=== PATIENT | male | born 1985 | race Caucasian/White ===

== ENCOUNTER 2016-08-03 01:12 | Emergency (ER) | payer BC ==
[~2016-08-03] VITALS: Ht 182.9 cm; Wt 205.0 kg
[~2016-08-03 01:12] MED LIST: HYDR-2762 PO
[2016-08-03] MEDS ORDERED: IV NORMAL SALINE 1000ML BAG 1,000 ML IV SCH (02:15)
[2016-08-03 02:39] LABS: BASO % 1 % (0-3); EOS % 0 % (0-3); HEMATOCRIT 40.2 % (39.0-53.0); HEMOGLOBIN 13.2 g/dL (13.0-17.5); LYMPH # 0.5 x10^3/uL (1.0-4.8); LYMPH % 7 % (24-48); MEAN CORPUSCULAR HEMOGLOBIN 28 pg (25-35); MEAN CORPUSCULAR HGB CONC 33 g/dL (31-37); MEAN CORPUSCULAR VOLUME 86 fL (79-100); MONO % 7 % (0-9); NEUT % 86 % (31-73); PLATELET COUNT 181 x10^3/uL (140-400); RED BLOOD COUNT 4.68 x10^6/uL (4.30-5.70); RED CELL DISTRIBUTION WIDTH 15.6 % (11.5-14.5); WHITE BLOOD COUNT 7.7 x10^3/uL (4.0-11.0)
[2016-08-03 03:17] LABS: CALCIUM 8.9 mg/dL (8.5-10.1); CREATININE 0.8 mg/dL (0.7-1.3); POTASSIUM 3.6 mmol/L (3.5-5.1)
[2016-08-03 03:24] LABS: ALBUMIN 2.7 g/dL (3.4-5.0); ALBUMIN/GLOBULIN RATIO 0.6 (1.0-1.7); TOTAL BILIRUBIN 0.8 mg/dL (0.2-1.0); TOTAL PROTEIN 7.3 g/dL (6.4-8.2)
[2016-08-03] MEDS ORDERED: ONDANSETRON PF 4 MG/2 ML VIAL. IV ONE (03:30)
[2016-08-03 03:31] LABS: CKMB INDEX 0.3 % (0-4); CKMB MASS 0.9 ng/mL (0.0-3.6)
--- NOTE | 2016-08-03 03:38 | PHYS DOC ---
Past Medical History Past Medical History: Other Additional Past Medical Histor: colitis, colostomy bag, CHRONES,STEROID INDUCED DM,MORBID OBESITY Past Surgical History: Colectomy Additional Past Surgical Histo: BOWEL RESECTION Alcohol Use: None Drug Use: None Adult General Chief Complaint Chief Complaint: DIZZY/LIGHT HEADED HPI HPI Patient is a 30 year old male who presents with complaint of dizziness and lightheadedness. Patient states that he started getting symptoms earlier this morning. Patient states that he has been having nausea and vomiting brought the day and also complaints of upper abdominal pain. Patient states that the pain is cramping in nature. Patient denies any associated fevers. Patient has history of Crohn's disease. Patient denies history of diabetes mellitus. Patient states that he had diabetes in the past because he had to be on steroid therapy for Crohn's. Patient however is not on any prednisone at this time. Patient had a complete colectomy and has a right-sided ileostomy at this time. Patient states he is not on any other medications at this time. Patient states that due to generalized weakness and lightheadedness he came in the emergency department for evaluation. Review of Systems Review of Systems Constitutional: Lightheadedness, Denies fever or chills [] Eyes: Denies change in visual acuity, redness, or eye pain [] HENT: Denies nasal congestion or sore throat [] Respiratory: Denies cough or shortness of breath [] Cardiovascular: Denies chest pain or edema [] GI: Abdominal pain, nausea, vomiting, denies bloody stools or diarrhea [] : Denies dysuria or hematuria [] Musculoskeletal: Denies back pain or joint pain [] Integument: Denies rash or skin lesions [] Neurologic: Denies headache, focal weakness or sensory changes [] Endocrine: Denies polyuria or polydipsia [] Current Medications Current Medications Current Medications Medications (Trade) Dose Ordered Sig/Marlo Start Time Stop Time Status Last Admin Dose Admin Ondansetron HCl (Zofran) 4 mg 1X ONCE 08/03/16 03:30 08/03/16 03:31 DC 08/03/16 03:35 4 MG Sodium Chloride (Iv Sodium Chloride 0.9% 1000ml Bag) 1,000 ml @ 1,000 mls/hr Q1H 08/03/16 02:15 08/03/16 03:14 DC 08/03/16 02:20 1,000 MLS/HR Allergies Allergies Allergies Coded Allergies Type Severity Reaction Last Updated Verified No Known Drug Allergies 07/24/13 No Physical Exam Physical Exam Constitutional: Alert, morbidly obese, afebrile, appears ill. [] HENT: Normocephalic, atraumatic, bilateral external ears normal, oropharynx moist, no oral exudates, nose normal. [] Eyes: PERRLA, EOMI, conjunctiva normal, no discharge. [] Neck: Normal range of motion, no tenderness, supple, no stridor. [] Cardiovascular: Tachycardia, regular rhythm, no murmur [] Lungs & Thorax: Bilateral breath sounds clear to auscultation [] Abdomen: Right-sided ileostomy, normal bowel sounds, nontender to palpation. [] Skin: Warm, dry, no erythema, multiple excoriated lesions over bilateral upper extremities and abdomen. [] Back: No tenderness, no CVA tenderness. [] Extremities: No tenderness, no cyanosis, no clubbing, ROM intact, no edema. [] Neurologic: Alert and oriented X 3, normal motor function, normal sensory function, no focal deficits noted. [] Current Patient Data Vital Signs Vital Signs Date Time Temp Pulse Resp B/P Pulse Ox O2 Delivery O2 Flow Rate FiO2 08/03/16 03:28 88 18 151/72 97 Room Air 08/03/16 01:48 98.3 98.3 Lab Values Laboratory Tests Test 08/03/16 01:55 White Blood Count 7.7x10^3/uL (4.0-11.0) Red Blood Count 4.68x10^6/uL (4.30-5.70) Hemoglobin 13.2g/dL (13.0-17.5) Hematocrit 40.2% (39.0-53.0) Mean Corpuscular Volume 86fL (79-100) Mean Corpuscular Hemoglobin 28pg (25-35) Mean Corpuscular Hemoglobin Concent 33g/dL (31-37) Red Cell Distribution Width 15.6% (11.5-14.5) H Platelet Count 181x10^3/uL (140-400) Neutrophils (%) (Auto) 86% (31-73) H Lymphocytes (%) (Auto) 7% (24-48) L Monocytes (%) (Auto) 7% (0-9) Eosinophils (%) (Auto) 0% (0-3) Basophils (%) (Auto) 1% (0-3) Neutrophils # (Auto) 6.6x10^3uL (1.8-7.7) Lymphocytes # (Auto) 0.5x10^3/uL (1.0-4.8) L Monocytes # (Auto) 0.5x10^3/uL (0.0-1.1) Eosinophils # (Auto) 0.0x10^3/uL (0.0-0.7) Basophils # (Auto) 0.0x10^3/uL (0.0-0.2) Platelet Estimate Pending Sodium Level 135mmol/L (136-145) L Potassium Level 3.6mmol/L (3.5-5.1) Chloride Level 97mmol/L (98-107) L Carbon Dioxide Level 30mmol/L (21-32) Anion Gap 8 (6-14) Blood Urea Nitrogen 9mg/dL (8-26) Creatinine 0.8mg/dL (0.7-1.3) Estimated GFR (Cockcroft-Gault) 112.0 BUN/Creatinine Ratio 11 (6-20) Glucose Level 294mg/dL (70-99) H Calcium Level 8.9mg/dL (8.5-10.1) Total Bilirubin 0.8mg/dL (0.2-1.0) Aspartate Amino Transferase (AST) 15U/L (15-37) Alanine Aminotransferase (ALT) 25U/L (16-63) Alkaline Phosphatase 94U/L (46-116) Creatine Kinase 318U/L (39-308) H Creatine Kinase MB (Mass) 0.9ng/mL (0.0-3.6) Creatine Kinase MB Relative Index 0.3% (0-4) Troponin I Quantitative < 0.017ng/mL (0.000-0.055) CB-Atw-B-Type Natriuretic Peptide 138pg/mL (0-124) H Total Protein 7.3g/dL (6.4-8.2) Albumin 2.7g/dL (3.4-5.0) L Albumin/Globulin Ratio 0.6 (1.0-1.7) L Laboratory Tests 08/03/16 01:55 Laboratory Tests 08/03/16 01:55 EKG EKG Interpreted by me: Heart rate 89, sinus rhythm, normal intervals, normal axis, no acute ST/T-wave abnormalities present [] Radiology/Procedures Radiology/Procedures One view AP chest x-ray interpreted by me: No infiltrates, no effusions, normal cardiac silhouette [] Course & Med Decision Making Course & Med Decision Making Pertinent Labs and Imaging studies reviewed. (See chart for details) Patient was given IV fluids and Zofran in the emergency department. On reevaluation patient states that he feels better at this time. Patient was found to have a blood sugar of 294. Explained to the patient that the patient's symptoms are likely due to hyperglycemia from untreated diabetes mellitus type 2. The patient was started on metformin in the emergency department. Advise follow-up in one week with primary doctor and return to emergency department for any worsening symptoms. Patient voiced understanding and in agreement with treatment plan. Dragon Disclaimer Dragon Disclaimer This electronic medical record was generated, in whole or in part, using a voice recognition dictation system. Departure Departure Impression: Primary Impression: Acute hyperglycemia Additional Impression: Type 2 diabetes mellitus Disposition: HOME, SELF-CARE Condition: IMPROVED Referrals: NO PCP (PCP) Patient Instructions: Type 2 Diabetes Mellitus, Adult Additional Instructions: Follow-up with your primary doctor in 1 week. Return to the emergency department for any worsening symptoms. Scripts Metformin Hcl 500 Mg Tablet1 Tab PO BID #60 TAB Ref 0 Prov:BYRON CH MD 08/03/16 Problem Qualifiers Additional Impression: Type 2 diabetes mellitus Diabetes mellitus complication status: with hyperglycemia Diabetes mellitus long-term insulin use: without long-term use Qualified Code: E11.65 - Type 2 diabetes mellitus with hyperglycemia BYRON CH MD Aug 03, 2016 03:38
[2016-08-03 04:13] VITALS: BP 174/81
[2016-08-03] MEDS ORDERED: METF500T4 PO (04:17)
[2016-08-03] MEDS ORDERED: METFORMIN 500 MG TABLET. PO ONE (04:30)
[2016-08-03 05:10] LABS: % EOS 1 % (0-5); PLT ESTIMATE ADEQUATE (ADEQUATE); POLYCHROMASIA SLIGHT
--- NOTE | 2016-08-03 06:18 | EKG ---
[facility] [address] [place] [address] Test Date: 2016-08-03 Test Time: 01:41:54 Pat Name: ANDREEA TANG Department: Room: Gender: M License Issuer: : [id number] Requested By: BYRON CH Order Number: [id number] Reading MD: Suhas Roblero Measurements Intervals Garber Rate: 89 P: 37 CO: 160 QRS: 27 QRSD: 110 T: 30 QT: 388 QTc: 479 Interpretive Statements SINUS RHYTHM Electronically Signed On 08-07-2016 10:25:43 [employer]ARNESS [employer]ER by Suhas Roblero
--- NOTE | 2016-08-03 07:13 | RAD ---
EXAM: Chest, single view. HISTORY: Syncope. COMPARISON: 11/07/2011. FINDINGS: A frontal view of the chest is obtained. There is no infiltrate, effusion or pneumothorax. The heart is normal in size for portable technique. IMPRESSION: No acute pulmonary finding.
== END 2016-08-03 04:20 | disposition home or self-care (01) ==
LOC: ER 01:12
DX: E11.65 Type 2 diabetes mellitus with hyperglycemia (principal); R10.10 Upper abdominal pain, unspecified; R11.2 Nausea with vomiting, unspecified; E66.01 Morbid (severe) obesity due to excess calories; Z68.44 Body mass index [BMI] 60.0-69.9, adult; Z90.49 Acquired absence of other specified parts of digestive tract; Z93.2 Ileostomy status
CPT/HCPCS: 36415; 71010; 80053; 82553; 82947; 83880; 84484; 85007; 85027; 93005; 96361; 96374; 99285; J2405; J7030; 99284-25

== ENCOUNTER 2016-09-14 20:17 | Inpatient (IN) | payer BC ==
[~2016-09-14] VITALS: Ht 182.9 cm; Wt 226.8 kg
[~2016-09-14 20:17] MED LIST changes: +CEPH-263 PO; +DULA0.75 SQ; +METF10002 PO; +METF500T4 PO; +OXYC-323 PO
[2016-09-14] MEDS ORDERED: IV NORMAL SALINE 1000ML BAG 1,000 ML IV SCH (21:25)
[2016-09-14] MEDS ORDERED: ONDANSETRON PF 4 MG/2 ML VIAL. IV ONE (21:30)
[2016-09-14 21:34] LABS: BASO % 1 % (0-3); EOS % 8 % (0-3); HEMATOCRIT 44.4 % (39.0-53.0); HEMOGLOBIN 14.6 g/dL (13.0-17.5); LYMPH # 0.9 x10^3/uL (1.0-4.8); LYMPH % 14 % (24-48); MEAN CORPUSCULAR HEMOGLOBIN 28 pg (25-35); MEAN CORPUSCULAR HGB CONC 33 g/dL (31-37); MEAN CORPUSCULAR VOLUME 85 fL (79-100); MONO % 16 % (0-9); NEUT % 62 % (31-73); PLATELET COUNT 305 x10^3/uL (140-400); RED BLOOD COUNT 5.21 x10^6/uL (4.30-5.70); RED CELL DISTRIBUTION WIDTH 15.3 % (11.5-14.5); WHITE BLOOD COUNT 6.7 x10^3/uL (4.0-11.0)
[2016-09-14 21:45] LABS: CALCIUM 9.6 mg/dL (8.5-10.1); CREATININE 1.1 mg/dL (0.7-1.3); GFR 77.6; POTASSIUM 3.5 mmol/L (3.5-5.1)
[2016-09-14 21:53] LABS: ALBUMIN 3.5 g/dL (3.4-5.0); DIRECT BILIRUBIN 0.2 mg/dL (0.0-0.2); TOTAL BILIRUBIN 1.2 mg/dL (0.2-1.0); TOTAL PROTEIN 8.6 g/dL (6.4-8.2)
--- NOTE | 2016-09-14 21:58 | PHYS DOC ---
Past Medical History Past Medical History: Diabetes-Type II, Other Additional Past Medical Histor: colitis, colostomy bag, Crohn's,STEROID INDUCED DM,MORBID OBESITY Past Surgical History: Colectomy Additional Past Surgical Histo: BOWEL RESECTION, L HAND Alcohol Use: None Drug Use: None Adult General Chief Complaint Chief Complaint: NAUSEA/VOMITING/DIARRHA HPI HPI Patient is a 30 year old male who presents with 6 days of intermittent nausea and vomiting of nonbloody nonbilious emesis. Also notes decreased ostomy output and abdominal distention. States he has generalized crampy abdominal pain that is managed with home hydrocodone. He also states his urine has been dark. He denies dark stools, bloody stools, fever or chills, sick contacts, dysuria. Review of Systems Review of Systems Constitutional: Denies fever or chills [] Eyes: Denies change in visual acuity, redness, or eye pain [] HENT: Denies nasal congestion or sore throat [] Respiratory: Denies cough or shortness of breath [] Cardiovascular: No additional information not addressed in HPI [] GI: Denies bloody stools or diarrhea [] : Denies dysuria or hematuria [] Musculoskeletal: Denies back pain or joint pain [] Integument: Denies rash or skin lesions [] Neurologic: Denies headache, focal weakness or sensory changes [] Endocrine: Denies polyuria or polydipsia [] Current Medications Current Medications Current Medications Medications (Trade) Dose Ordered Sig/Marlo Start Time Stop Time Status Last Admin Dose Admin Info (Do NOT chart on this entry -- for MONITORING) 1 each PRN DAILY PRN 09/14/16 22:15 09/16/16 22:14 Iohexol (Omnipaque 300 Mg/ml) 75 ml 1X ONCE 09/14/16 22:00 09/14/16 22:01 DC 09/14/16 22:00 75 ML Ondansetron HCl (Zofran) 4 mg 1X ONCE 09/14/16 21:30 09/14/16 21:31 DC 09/14/16 21:35 4 MG Sodium Chloride (Iv Sodium Chloride 0.9% 1000ml Bag) 1,000 ml @ 1,000 mls/hr Q1H 09/14/16 21:25 09/14/16 22:24 DC 09/14/16 21:36 1,000 MLS/HR Allergies Allergies Allergies Coded Allergies Type Severity Reaction Last Updated Verified No Known Drug Allergies 07/24/13 No Physical Exam Physical Exam Constitutional: Well developed, well nourished, no acute distress, non-toxic appearance. [] HENT: Normocephalic, atraumatic, bilateral external ears normal, oropharynx moist, nose normal. [] Eyes: PERRLA, EOMI. [] Neck: Normal range of motion, supple. [] Cardiovascular:Heart rate regular rhythm [] Lungs & Thorax: Bilateral breath sounds clear to auscultation [] Abdomen: Bowel sounds normal, soft, mild general tenderness, distended with large palpable ventral hernia, ostomy bag to RLQ. [] Skin: Warm, dry, no erythema, no rash. [] Back: Normal ROM. [] Extremities: ROM intact, wound vac to LLE. [] Neurologic: Alert and oriented X 3, normal motor function, normal sensory function, no focal deficits noted. [] Psychologic: Affect normal, judgement normal, mood normal. [] Current Patient Data Vital Signs Vital Signs Date Time Temp Pulse Resp B/P Pulse Ox O2 Delivery O2 Flow Rate FiO2 09/14/16 21:58 90 22 128/81 96 Room Air 09/14/16 20:28 97.9 97.9 Lab Values Laboratory Tests Test 09/14/16 20:30 09/14/16 21:25 White Blood Count 6.7x10^3/uL (4.0-11.0) Red Blood Count 5.21x10^6/uL (4.30-5.70) Hemoglobin 14.6g/dL (13.0-17.5) Hematocrit 44.4% (39.0-53.0) Mean Corpuscular Volume 85fL (79-100) Mean Corpuscular Hemoglobin 28pg (25-35) Mean Corpuscular Hemoglobin Concent 33g/dL (31-37) Red Cell Distribution Width 15.3% (11.5-14.5) H Platelet Count 305x10^3/uL (140-400) Neutrophils (%) (Auto) 62% (31-73) Lymphocytes (%) (Auto) 14% (24-48) L Monocytes (%) (Auto) 16% (0-9) H Eosinophils (%) (Auto) 8% (0-3) H Basophils (%) (Auto) 1% (0-3) Neutrophils # (Auto) 4.2x10^3uL (1.8-7.7) Lymphocytes # (Auto) 0.9x10^3/uL (1.0-4.8) L Monocytes # (Auto) 1.1x10^3/uL (0.0-1.1) Eosinophils # (Auto) 0.5x10^3/uL (0.0-0.7) Basophils # (Auto) 0.0x10^3/uL (0.0-0.2) Sodium Level 135mmol/L (136-145) L Potassium Level 3.5mmol/L (3.5-5.1) Chloride Level 95mmol/L (98-107) L Carbon Dioxide Level 26mmol/L (21-32) Anion Gap 14 (6-14) Blood Urea Nitrogen 24mg/dL (8-26) Creatinine 1.1mg/dL (0.7-1.3) Estimated GFR (Cockcroft-Gault) 77.6 Glucose Level 149mg/dL (70-99) H Calcium Level 9.6mg/dL (8.5-10.1) Total Bilirubin 1.2mg/dL (0.2-1.0) H Direct Bilirubin 0.2mg/dL (0.0-0.2) Aspartate Amino Transferase (AST) 12U/L (15-37) L Alanine Aminotransferase (ALT) 24U/L (16-63) Alkaline Phosphatase 105U/L (46-116) Total Protein 8.6g/dL (6.4-8.2) H Albumin 3.5g/dL (3.4-5.0) Lipase 57U/L (73-393) L Urine Color [place] Urine Clarity Cloudy Urine pH 6.0 Urine Specific [place] >=1.030 Urine Protein 30mg/dL (NEG-TRACE) Urine Glucose (UA) Negativemg/dL (NEG) Urine Ketones (Stick) Tracemg/dL (NEG) Urine Blood Negative (NEG) Urine Nitrite Negative (NEG) Urine Bilirubin Moderate (NEG) Urine Urobilinogen Dipstick 1.0mg/dL (0.2 mg/dL) Urine Leukocyte Esterase Small (NEG) Urine RBC 0/HPF (0-2) Urine WBC 1-4/HPF (0-4) Urine Squamous Epithelial Cells Mod/LPF Urine Bacteria Few/HPF (0-FEW) Urine Hyaline Casts Few/HPF Urine Mucus Slight/LPF Laboratory Tests 09/14/16 20:30 Laboratory Tests 09/14/16 20:30 Radiology/Procedures Radiology/Procedures CT abdomen and pelvis with IV contrast IMPRESSION Distal high-grade small bowel obstruction appears be secondary to a large ventral abdominal wall hernia. No CT evidence of incarceration Electronically signed by: Giovanni Sainz MD (Sep 14, 2016 23:32:17) Course & Med Decision Making Course & Med Decision Making Pertinent Labs and Imaging studies reviewed. (See chart for details) Laboratory evaluation is unremarkable other than mild lactic acidosis; will trend lab. Imaging significant for small bowel obstruction and large ventral hernia as above. Remains without emesis in ED so will defer NG tube at this time. Discussed case with Dr. Marshall, who will admit. Discussed case with Dr. Garcia, general surgery, who agrees with plan. Dragon Disclaimer Dragon Disclaimer This electronic medical record was generated, in whole or in part, using a voice recognition dictation system. Departure Departure Impression: Primary Impression: Small bowel obstruction Disposition: ADMITTED INPATIENT Condition: STABLE Referrals: ARIANA MARSHALL MD (PCP) Vicki SYED MD Sep 14, 2016 21:58
[2016-09-14] MEDS ORDERED: IOHEXOL 300 MG/ML 75 ML VIAL IV ONE (22:00)
[2016-09-14] MEDS ORDERED: CONTRAST GIVEN MC PRN (22:15)
[2016-09-14 22:55] LABS: BILIRUBIN,URINE MODERATE (NEG); GLUCOSE,URINE NEGATIVE (NEG); NITRITE,URINE NEGATIVE (NEG); PROTEIN,URINE 30 mg/dL (NEG-TRACE)
[2016-09-14 23:15] LABS: BACTERIA,URINE FEW /HPF (0-FEW); RBC,URINE 0 /HPF (0-2); SQUAMOUS EPITHELIAL CELL,UR MOD /LPF
--- NOTE | 2016-09-14 23:33 | RAD ---
PROCEDURE CT abdomen and pelvis with contrast HISTORY Generalized abdominal pain with colonoscopy and wound VAC for calf wound TECHNIQUE After IV infusion of95 cc of Optiray-320, helical CT scanning of the abdomen and pelvis was performed.GI contrast was not administered. COMPARISON July 08 2011 FINDINGS There has been prior colectomy. There is multiple dilated fluid air-filled loops of small bowel. There is collapsed distal small bowel. There is a large ventral abdominal wall hernia containing numerous loops of small bowel and there is a transition zone seen in the hernia best seen on the coronal sequence. The liveer is homogeous in appearance and normal in size. The spleen is unremarkable and normal in size. The pancreas is homogeneous in appearance and no focal enlargement is seen. The gallbladder appears normal and no intra or extrahepatic biliary ductal dilatation is seen. No focal aneurysmal dilatation of the abdominal aorta is seen. No enlarged abdominal or pelvic lymphadenopathy is seen. No soft tissue mass is seen. No obstructive bowel pattern or bowel wall thickening or inflammatory change is seen. No free intraperitoneal fluid or abscess or free intraperitoneal air is seen. The lung bases are clear. The kidneys appear normal. The urinary bladder is collapsed and not well visualized. No adrenal masses are seen. No osteolytic process is seen. The right sided abdominal wall is not well evaluated due to the patient being up against the gantry. IMPRESSION Distal high-grade small bowel obstruction appears be secondary to a large ventral abdominal wall hernia. No CT evidence of incarceration Electronically signed by: Giovanni Sainz MD (Sep 14, 2016 23:32:17)
[2016-09-15] VITALS (7 sets, daily range): BP systolic 127–154; BP diastolic 78–107
[2016-09-15] MEDS ORDERED: ACETAMINOPHEN 325 MG TABLET. PO PRN
[2016-09-15] MEDS: ONDANSETRON PF 4 MG/2 ML VIAL. IV PRN ×4 (00:07→23:57)
[2016-09-15] MEDS: MORPHINE SULFATE 4 MG/ML DISP.SYRIN. IV PRN ×9 (00:08→23:31)
[2016-09-15] MEDS ORDERED: AMOX1TAB11 PO (02:07)
[2016-09-15] MEDS ORDERED: HYDR-2666 PO (02:07)
--- NOTE | 2016-09-15 08:08 | PDOC2 ---
REINA CAIN MINE PROMOTOR 09/15/16 0808: CONSULT Date of Consult Date of Consult DATE: 09/15/16 TIME: 08:01 Reason for Consult Reason for Consult: sbo Referring Physician Referring Physician: ER Identification/Chief Complaint Chief Complaint abdominal pain Source Source: Chart review, Patient History of Present Illness Reason for Visit: several day history of abdominal pain, distention, emesis, and decreased ostomy output. He had extensive bowel resection with ileostomy [address] Rome. At this point not feeling any better or any worse. Ostomy still not putting much stool out. Dark urine at home Past Medical History GI: Other (chrons ) Endocrine: Diabetes Past Surgical History Past Surgical History: Colectomy Family History Family History: Other (noncontributory to current illness ) Social History Quit ALCOHOL: none Drugs: None Current Problem List Problem List Problems Medical Problems: (1) Small bowel obstruction Status: Acute Current Medications Current Medications Current Medications Sodium Chloride (Iv Sodium Chloride 0.9% 1000ml Bag) 1,000 ml @ 1,000 mls/hr Q1H IV Last administered on 09/14/16 21:36; Start 09/14/16 at 21:25; Stop at 22:24; Status DC Ondansetron HCl (Zofran) 4 mg 1X ONCE IV Last administered on 09/14/16 21:35 ; Start 09/14/16 at 21:30; Stop 09/14/16 at 21:31; Status DC Iohexol (Omnipaque 300 Mg/ml) 75 ml 1X ONCE IV Last administered on 09/14/16 22:00; Start 09/14/16 at 22:00; Stop 09/14/16 at 22:01; Status DC Info (Do NOT chart on this entry -- for MONITORING) 1 each PRN DAILY PRN MC SEE COMMENTS; Start 09/14/16 at 22:15; Stop 09/16/16 at 22:14 Ondansetron HCl (Zofran) 4 mg PRN Q8HRS PRN IV NAUSEA/VOMITING Last administered on 09/15/16 00:07; Start 09/15/16 at 00:00; Stop 09/15/16 at 23:59 Morphine Sulfate 4 mg PRN Q2HR PRN IV PAIN Last administered on 09/15/16 06:25 ; Start 09/15/16 at 00:00; Stop 09/15/16 at 23:59 Acetaminophen 650 mg 650 mg PRN Q4HRS PRN PO FEVER; Start 09/15/16 at 00:00; Stop 09/15/16 at 23:59 Potassium Chloride/Sodium Chloride (KCl 20 Meq-NS 1,000 ml Iv Soln) 1,000 ml @ 150 mls/hr 1X ONCE IV Last administered on 09/15/16t 00:07; Start 09/15/16 at 00:00; Stop 09/15/16 at 06:39; Status DC Active Scripts Active Reported Hydrocodone-Apap 5-325 (Hydrocodone Bit/Acetaminophen) 1 Each Tablet 1 PO PRN Q4HRS PRN Amox Tr-K Clv 875-125 Mg Tab (Amoxicillin/Potassium Clav) 1 Each Tablet 1 PO BID Metformin Hcl 1,000 Mg Tablet 1 Tab PO BID Trulicity (Dulaglutide) 0.75 Mg/0.5 Ml Pen.injctr 0.75 Mg SQ WEEKLY Allergies Allergies: Coded Allergies: No Known Drug Allergies (Unverified , 07/24/13) ROS General: No: Chills, Other (fevers) PSYCHOLOGICAL ROS: No: Anxiety, Depression Eyes: No Blurry vision, No Double vision HEENT: No: Heacaches, Sore Throat Hematological and Lymphatic: No: Bleeding Problems, Blood Clots Respiratory: No: Cough, Shortness of breath Cardiovascular: No Chest Pain, No Palpitations Gastrointestinal: Yes Other (see hpi) Genitourinary: No Dysuria, No Retention Musculoskeletal: Yes Joint Pain, Yes Muscle Pain Neurological: No Impaired Coord/balance, No Numbness/Tingling Skin: Yes Skin Lesion Changes Physical Exam General: Alert, Oriented X3, Cooperative, No acute distress HEENT: PERRLA, Mucous membr. moist/pink Lungs: Clear to auscultation, Normal air movement Heart: Regular rate, Normal S1, Normal S2, No murmurs Abdomen: Soft, Other (obese abdomen, tender across lower abdomen, large reducible hernia, ostomy in place, large midline scar) Skin: Other (noted lesions/small circular open wounds to abdomen, wound vac to left leg) Neuro: Normal speech, Sensation intact Psych/Mental Status: Mental status NL, Mood NL Vitals VITALS Vital Signs Date Time Temp Pulse Resp B/P Pulse Ox O2 Delivery O2 Flow Rate FiO2 09/15/16 06:55 20 92 Room Air 09/15/16 03:00 98.2 83 127/85 98.2 Labs Labs Laboratory Tests Test 09/14/16 20:30 09/14/16 21:25 09/14/16 23:50 09/15/16 03:00 White Blood Count 6.7x10^3/uL (4.0-11.0) Red Blood Count 5.21x10^6/uL (4.30-5.70) Hemoglobin 14.6g/dL (13.0-17.5) Hematocrit 44.4% (39.0-53.0) Mean Corpuscular Volume 85fL (79-100) Mean Corpuscular Hemoglobin 28pg (25-35) Mean Corpuscular Hemoglobin Concent 33g/dL (31-37) Red Cell Distribution Width 15.3% (11.5-14.5) Platelet Count 305x10^3/uL (140-400) Neutrophils (%) (Auto) 62% (31-73) Lymphocytes (%) (Auto) 14% (24-48) Monocytes (%) (Auto) 16% (0-9) Eosinophils (%) (Auto) 8% (0-3) Basophils (%) (Auto) 1% (0-3) Neutrophils # (Auto) 4.2x10^3uL (1.8-7.7) Lymphocytes # (Auto) 0.9x10^3/uL (1.0-4.8) Monocytes # (Auto) 1.1x10^3/uL (0.0-1.1) Eosinophils # (Auto) 0.5x10^3/uL (0.0-0.7) Basophils # (Auto) 0.0x10^3/uL (0.0-0.2) Sodium Level 135mmol/L (136-145) Potassium Level 3.5mmol/L (3.5-5.1) Chloride Level 95mmol/L (98-107) Carbon Dioxide Level 26mmol/L (21-32) Anion Gap 14 (6-14) Blood Urea Nitrogen 24mg/dL (8-26) Creatinine 1.1mg/dL (0.7-1.3) Estimated GFR (Cockcroft-Gault) 77.6 Glucose Level 149mg/dL (70-99) Calcium Level 9.6mg/dL (8.5-10.1) Total Bilirubin 1.2mg/dL (0.2-1.0) Direct Bilirubin 0.2mg/dL (0.0-0.2) Aspartate Amino Transf (AST/SGOT) 12U/L (15-37) Alanine Aminotransferase (ALT/SGPT) 24U/L (16-63) Alkaline Phosphatase 105U/L (46-116) Total Protein 8.6g/dL (6.4-8.2) Albumin 3.5g/dL (3.4-5.0) Lipase 57U/L (73-393) Urine Color [place] Urine Clarity Cloudy Urine pH 6.0 Urine Specific [place] >=1.030 Urine Protein 30mg/dL (NEG-TRACE) Urine Glucose (UA) Negativemg/dL (NEG) Urine Ketones (Stick) Tracemg/dL (NEG) Urine Blood Negative (NEG) Urine Nitrite Negative (NEG) Urine Bilirubin Moderate (NEG) Urine Urobilinogen Dipstick 1.0mg/dL (0.2 mg/dL) Urine Leukocyte Esterase Small (NEG) Urine RBC 0/HPF (0-2) Urine WBC 1-4/HPF (0-4) Urine Squamous Epithelial Cells Mod/LPF Urine Bacteria Few/HPF (0-FEW) Urine Hyaline Casts Few/HPF Urine Mucus Slight/LPF Lactic Acid Level 2.1mmol/L (0.4-2.0) 0.7mmol/L (0.4-2.0) Laboratory Tests Test 09/14/16 20:30 09/14/16 21:25 09/14/16 23:50 09/15/16 03:00 White Blood Count 6.7x10^3/uL (4.0-11.0) Red Blood Count 5.21x10^6/uL (4.30-5.70) Hemoglobin 14.6g/dL (13.0-17.5) Hematocrit 44.4% (39.0-53.0) Mean Corpuscular Volume 85fL (79-100) Mean Corpuscular Hemoglobin 28pg (25-35) Mean Corpuscular Hemoglobin Concent 33g/dL (31-37) Red Cell Distribution Width 15.3% (11.5-14.5) Platelet Count 305x10^3/uL (140-400) Neutrophils (%) (Auto) 62% (31-73) Lymphocytes (%) (Auto) 14% (24-48) Monocytes (%) (Auto) 16% (0-9) Eosinophils (%) (Auto) 8% (0-3) Basophils (%) (Auto) 1% (0-3) Neutrophils # (Auto) 4.2x10^3uL (1.8-7.7) Lymphocytes # (Auto) 0.9x10^3/uL (1.0-4.8) Monocytes # (Auto) 1.1x10^3/uL (0.0-1.1) Eosinophils # (Auto) 0.5x10^3/uL (0.0-0.7) Basophils # (Auto) 0.0x10^3/uL (0.0-0.2) Sodium Level 135mmol/L (136-145) Potassium Level 3.5mmol/L (3.5-5.1) Chloride Level 95mmol/L (98-107) Carbon Dioxide Level 26mmol/L (21-32) Anion Gap 14 (6-14) Blood Urea Nitrogen 24mg/dL (8-26) Creatinine 1.1mg/dL (0.7-1.3) Estimated GFR (Cockcroft-Gault) 77.6 Glucose Level 149mg/dL (70-99) Calcium Level 9.6mg/dL (8.5-10.1) Total Bilirubin 1.2mg/dL (0.2-1.0) Direct Bilirubin 0.2mg/dL (0.0-0.2) Aspartate Amino Transf (AST/SGOT) 12U/L (15-37) Alanine Aminotransferase (ALT/SGPT) 24U/L (16-63) Alkaline Phosphatase 105U/L (46-116) Total Protein 8.6g/dL (6.4-8.2) Albumin 3.5g/dL (3.4-5.0) Lipase 57U/L (73-393) Urine Color [place] Urine Clarity Cloudy Urine pH 6.0 Urine Specific [place] >=1.030 Urine Protein 30mg/dL (NEG-TRACE) Urine Glucose (UA) Negativemg/dL (NEG) Urine Ketones (Stick) Tracemg/dL (NEG) Urine Blood Negative (NEG) Urine Nitrite Negative (NEG) Urine Bilirubin Moderate (NEG) Urine Urobilinogen Dipstick 1.0mg/dL (0.2 mg/dL) Urine Leukocyte Esterase Small (NEG) Urine RBC 0/HPF (0-2) Urine WBC 1-4/HPF (0-4) Urine Squamous Epithelial Cells Mod/LPF Urine Bacteria Few/HPF (0-FEW) Urine Hyaline Casts Few/HPF Urine Mucus Slight/LPF Lactic Acid Level 2.1mmol/L (0.4-2.0) 0.7mmol/L (0.4-2.0) Assessment/Plan Assessment/Plan sbo, ventral hernia (large vs multiple), containing sb--reducible morbid obesity BMI 67.8 likely hostile abd DM very poor surgical candidate--will review with Dr Garcia--consider SBFT ERIKA GARCIA MD 09/15/16 0849: CONSULT Allergies Allergies: Coded Allergies: No Known Drug Allergies (Unverified , 07/24/13) Assessment/Plan Assessment/Plan Pt seen and examined. Agree with Ms. Cain's note Pt denies previous episodes, some improvement with meds since admission super obesity, large abd, difficult to determine size of hernia given body habitus some flatus and stool in ostomy CT report and pictures reviewed large hernia with loss of domain, SB dialation given pt obesity, surgical intervention with high level of failure and multiple expected complications, possible life threatening would favor bowel rest and supportive care prior to any surgery will repeat KUB in AM, consider SBFT if continued symptoms d/w pt and pt's father whom agree with plan, pt would like to avoid surgery Thanks for consult! JEANREINA Deshawn MINE PROMOTOR Sep 15, 2016 08:08 ERIKA GARCIA MD Sep 15, 2016 08:49
[2016-09-15] MEDS ORDERED: DEXTROSE 50% 25 GM / 50ML DISP.SYRIN. IV PRN (08:30)
--- NOTE | 2016-09-15 11:26 | PDOC ---
OBJECTIVE Vital Signs Vital Signs Date Time Temp Pulse Resp B/P Pulse Ox O2 Delivery O2 Flow Rate FiO2 09/15/16 09:30 Room Air 09/15/16 08:59 Room Air 09/15/16 08:00 Room Air 09/15/16 07:00 97.5 78 20 148/87 97 Room Air 97.5 09/15/16 06:55 20 92 09/15/16 06:25 20 92 Room Air 09/15/16 04:15 18 92 Room Air 09/15/16 03:00 98.2 83 18 127/85 92 Room Air 98.2 09/15/16 02:15 20 95 Room Air 09/15/16 02:00 Room Air 09/15/16 01:45 124 20 153/107 95 Room Air 09/15/16 01:22 94 22 124/80 95 Room Air 09/15/16 00:22 86 18 133/72 95 Room Air 09/14/16 23:52 86 18 119/93 96 Room Air 09/14/16 21:58 90 22 128/81 96 Room Air 09/14/16 21:28 108 22 140/97 96 Room Air 09/14/16 20:58 106 18 135/70 96 Room Air 09/14/16 20:28 97.9 100 24 141/79 94 Room Air 97.9 09/14/16 20:21 97.5 110 20 122/91 95 Room Air 97.5 I & O Intake and Output 09/15/16 07:00 Intake Total 1210 ml Output Total 900 ml Balance 310 ml Intake IV Total 1210 ml Output Stool Total 900 ml ASSESSMENT/PLAN Assessment/Plan [id number] H&P dictated Problems: COMMENT Lab Laboratory Tests Test 09/14/16 20:30 09/14/16 21:25 09/14/16 23:50 09/15/16 03:00 White Blood Count 6.7x10^3/uL (4.0-11.0) Red Blood Count 5.21x10^6/uL (4.30-5.70) Hemoglobin 14.6g/dL (13.0-17.5) Hematocrit 44.4% (39.0-53.0) Mean Corpuscular Volume 85fL (79-100) Mean Corpuscular Hemoglobin 28pg (25-35) Mean Corpuscular Hemoglobin Concent 33g/dL (31-37) Red Cell Distribution Width 15.3% (11.5-14.5) Platelet Count 305x10^3/uL (140-400) Neutrophils (%) (Auto) 62% (31-73) Lymphocytes (%) (Auto) 14% (24-48) Monocytes (%) (Auto) 16% (0-9) Eosinophils (%) (Auto) 8% (0-3) Basophils (%) (Auto) 1% (0-3) Neutrophils # (Auto) 4.2x10^3uL (1.8-7.7) Lymphocytes # (Auto) 0.9x10^3/uL (1.0-4.8) Monocytes # (Auto) 1.1x10^3/uL (0.0-1.1) Eosinophils # (Auto) 0.5x10^3/uL (0.0-0.7) Basophils # (Auto) 0.0x10^3/uL (0.0-0.2) Sodium Level 135mmol/L (136-145) Potassium Level 3.5mmol/L (3.5-5.1) Chloride Level 95mmol/L (98-107) Carbon Dioxide Level 26mmol/L (21-32) Anion Gap 14 (6-14) Blood Urea Nitrogen 24mg/dL (8-26) Creatinine 1.1mg/dL (0.7-1.3) Estimated GFR (Cockcroft-Gault) 77.6 Glucose Level 149mg/dL (70-99) Calcium Level 9.6mg/dL (8.5-10.1) Total Bilirubin 1.2mg/dL (0.2-1.0) Direct Bilirubin 0.2mg/dL (0.0-0.2) Aspartate Amino Transf (AST/SGOT) 12U/L (15-37) Alanine Aminotransferase (ALT/SGPT) 24U/L (16-63) Alkaline Phosphatase 105U/L (46-116) Total Protein 8.6g/dL (6.4-8.2) Albumin 3.5g/dL (3.4-5.0) Lipase 57U/L (73-393) Urine Color [place] Urine Clarity Cloudy Urine pH 6.0 Urine Specific [place] >=1.030 Urine Protein 30mg/dL (NEG-TRACE) Urine Glucose (UA) Negativemg/dL (NEG) Urine Ketones (Stick) Tracemg/dL (NEG) Urine Blood Negative (NEG) Urine Nitrite Negative (NEG) Urine Bilirubin Moderate (NEG) Urine Urobilinogen Dipstick 1.0mg/dL (0.2 mg/dL) Urine Leukocyte Esterase Small (NEG) Urine RBC 0/HPF (0-2) Urine WBC 1-4/HPF (0-4) Urine Squamous Epithelial Cells Mod/LPF Urine Bacteria Few/HPF (0-FEW) Urine Hyaline Casts Few/HPF Urine Mucus Slight/LPF Lactic Acid Level 2.1mmol/L (0.4-2.0) 0.7mmol/L (0.4-2.0) Test 09/15/16 07:56 Glucose (Fingerstick) 116mg/dL (70-99) WASHINGTON TRIPATHI MD Sep 15, 2016 11:26
[2016-09-15] MEDS ORDERED: HYDROCODONE/APAP 5/325MG TABLET. PO PRN (11:30)
[2016-09-15] MEDS: INSULIN ASPART 300 UNITS/3 ML INSULN.PEN SQ SCH ×2 (12:00→17:00)
[2016-09-15] MEDS: POTASSIUM CL 20MEQ D5-0.9%NACL 1,000 ML IV SCH (23:30)
[2016-09-16 03:13] VITALS: BP 149/98
[2016-09-16] MEDS ORDERED: ACETAMINOPHEN 325 MG TABLET. PO PRN (03:45)
[2016-09-16] MEDS ORDERED: ONDANSETRON PF 4 MG/2 ML VIAL. IV PRN (03:45)
[2016-09-16] MEDS: POTASSIUM CL 20MEQ D5-0.9%NACL 1,000 ML IV SCH ×4 (03:50→21:38)
[2016-09-16] MEDS: MORPHINE SULFATE 4 MG/ML DISP.SYRIN. IV PRN ×9 (03:50→23:23)
[2016-09-16 07:00] VITALS: BP 150/97
[2016-09-16] MEDS: INSULIN ASPART 300 UNITS/3 ML INSULN.PEN SQ SCH ×3 (08:00→17:00)
[2016-09-16 08:06] LABS: HEMATOCRIT 39.3 % (39.0-53.0); HEMOGLOBIN 12.8 g/dL (13.0-17.5); RED BLOOD COUNT 4.56 x10^6/uL (4.30-5.70); RED CELL DISTRIBUTION WIDTH 14.9 % (11.5-14.5); WHITE BLOOD COUNT 3.5 x10^3/uL (4.0-11.0)
[2016-09-16 08:28] LABS: ALBUMIN 2.9 g/dL (3.4-5.0); ALBUMIN/GLOBULIN RATIO 0.7 (1.0-1.7); CREATININE 0.8 mg/dL (0.7-1.3); TOTAL BILIRUBIN 0.4 mg/dL (0.2-1.0); TOTAL PROTEIN 6.8 g/dL (6.4-8.2)
--- NOTE | 2016-09-16 08:49 | PDOC ---
REINA PENA DIE PRESS OPERATOR 09/16/16 0849: SURGICAL PROGRESS NOTE Subjective pain now, just got xrays done not much in ostomy Vital Signs Vital Signs Date Time Temp Pulse Resp B/P Pulse Ox O2 Delivery O2 Flow Rate FiO2 09/16/16 07:00 97.8 84 16 150/97 96 Room Air 97.8 I&O Intake and Output 09/16/16 07:00 Intake Total 1223 ml Output Total 825 ml Balance 398 ml Intake Oral 0 ml IV Total 1223 ml Output Urine Total 475 ml Stool Total 350 ml # Voids 2 General: Alert, Oriented X3, Cooperative, No acute distress Abdomen: Soft, Other (tender on exam, no peritoneal signs ) Labs Laboratory Tests Test 09/14/16 20:30 09/14/16 21:25 09/14/16 23:50 09/15/16 03:00 White Blood Count 6.7x10^3/uL (4.0-11.0) Red Blood Count 5.21x10^6/uL (4.30-5.70) Hemoglobin 14.6g/dL (13.0-17.5) Hematocrit 44.4% (39.0-53.0) Mean Corpuscular Volume 85fL (79-100) Mean Corpuscular Hemoglobin 28pg (25-35) Mean Corpuscular Hemoglobin Concent 33g/dL (31-37) Red Cell Distribution Width 15.3% (11.5-14.5) Platelet Count 305x10^3/uL (140-400) Neutrophils (%) (Auto) 62% (31-73) Lymphocytes (%) (Auto) 14% (24-48) Monocytes (%) (Auto) 16% (0-9) Eosinophils (%) (Auto) 8% (0-3) Basophils (%) (Auto) 1% (0-3) Neutrophils # (Auto) 4.2x10^3uL (1.8-7.7) Lymphocytes # (Auto) 0.9x10^3/uL (1.0-4.8) Monocytes # (Auto) 1.1x10^3/uL (0.0-1.1) Eosinophils # (Auto) 0.5x10^3/uL (0.0-0.7) Basophils # (Auto) 0.0x10^3/uL (0.0-0.2) Sodium Level 135mmol/L (136-145) Potassium Level 3.5mmol/L (3.5-5.1) Chloride Level 95mmol/L (98-107) Carbon Dioxide Level 26mmol/L (21-32) Anion Gap 14 (6-14) Blood Urea Nitrogen 24mg/dL (8-26) Creatinine 1.1mg/dL (0.7-1.3) Estimated GFR (Cockcroft-Gault) 77.6 Glucose Level 149mg/dL (70-99) Calcium Level 9.6mg/dL (8.5-10.1) Total Bilirubin 1.2mg/dL (0.2-1.0) Direct Bilirubin 0.2mg/dL (0.0-0.2) Aspartate Amino Transf (AST/SGOT) 12U/L (15-37) Alanine Aminotransferase (ALT/SGPT) 24U/L (16-63) Alkaline Phosphatase 105U/L (46-116) Total Protein 8.6g/dL (6.4-8.2) Albumin 3.5g/dL (3.4-5.0) Lipase 57U/L (73-393) Urine Color [place] Urine Clarity Cloudy Urine pH 6.0 Urine Specific [place] >=1.030 Urine Protein 30mg/dL (NEG-TRACE) Urine Glucose (UA) Negativemg/dL (NEG) Urine Ketones (Stick) Tracemg/dL (NEG) Urine Blood Negative (NEG) Urine Nitrite Negative (NEG) Urine Bilirubin Moderate (NEG) Urine Urobilinogen Dipstick 1.0mg/dL (0.2 mg/dL) Urine Leukocyte Esterase Small (NEG) Urine RBC 0/HPF (0-2) Urine WBC 1-4/HPF (0-4) Urine Squamous Epithelial Cells Mod/LPF Urine Bacteria Few/HPF (0-FEW) Urine Hyaline Casts Few/HPF Urine Mucus Slight/LPF Lactic Acid Level 2.1mmol/L (0.4-2.0) 0.7mmol/L (0.4-2.0) Test 09/15/16 04:52 09/15/16 07:56 09/15/16 11:53 09/15/16 17:11 Nasal Screen MRSA (PCR) Negative (Negative) Glucose (Fingerstick) 116mg/dL (70-99) 102mg/dL (70-99) 87mg/dL (70-99) Test 09/15/16 20:21 09/16/16 07:45 09/16/16 07:47 Glucose (Fingerstick) 93mg/dL (70-99) 113mg/dL (70-99) White Blood Count 3.5x10^3/uL (4.0-11.0) Red Blood Count 4.56x10^6/uL (4.30-5.70) Hemoglobin 12.8g/dL (13.0-17.5) Hematocrit 39.3% (39.0-53.0) Mean Corpuscular Volume 86fL (79-100) Mean Corpuscular Hemoglobin 28pg (25-35) Mean Corpuscular Hemoglobin Concent 33g/dL (31-37) Red Cell Distribution Width 14.9% (11.5-14.5) Platelet Count 198x10^3/uL (140-400) Sodium Level 133mmol/L (136-145) Potassium Level 4.0mmol/L (3.5-5.1) Chloride Level 101mmol/L (98-107) Carbon Dioxide Level 26mmol/L (21-32) Anion Gap 6 (6-14) Blood Urea Nitrogen 15mg/dL (8-26) Creatinine 0.8mg/dL (0.7-1.3) Estimated GFR (Cockcroft-Gault) 112.0 BUN/Creatinine Ratio 19 (6-20) Glucose Level 119mg/dL (70-99) Calcium Level 9.0mg/dL (8.5-10.1) Total Bilirubin 0.4mg/dL (0.2-1.0) Aspartate Amino Transf (AST/SGOT) 13U/L (15-37) Alanine Aminotransferase (ALT/SGPT) 19U/L (16-63) Alkaline Phosphatase 86U/L (46-116) Total Protein 6.8g/dL (6.4-8.2) Albumin 2.9g/dL (3.4-5.0) Albumin/Globulin Ratio 0.7 (1.0-1.7) Laboratory Tests Test 09/15/16 11:53 09/15/16 17:11 09/15/16 20:21 09/16/16 07:45 Glucose (Fingerstick) 102mg/dL (70-99) 87mg/dL (70-99) 93mg/dL (70-99) 113mg/dL (70-99) Test 09/16/16 07:47 White Blood Count 3.5x10^3/uL (4.0-11.0) Red Blood Count 4.56x10^6/uL (4.30-5.70) Hemoglobin 12.8g/dL (13.0-17.5) Hematocrit 39.3% (39.0-53.0) Mean Corpuscular Volume 86fL (79-100) Mean Corpuscular Hemoglobin 28pg (25-35) Mean Corpuscular Hemoglobin Concent 33g/dL (31-37) Red Cell Distribution Width 14.9% (11.5-14.5) Platelet Count 198x10^3/uL (140-400) Sodium Level 133mmol/L (136-145) Potassium Level 4.0mmol/L (3.5-5.1) Chloride Level 101mmol/L (98-107) Carbon Dioxide Level 26mmol/L (21-32) Anion Gap 6 (6-14) Blood Urea Nitrogen 15mg/dL (8-26) Creatinine 0.8mg/dL (0.7-1.3) Estimated GFR (Cockcroft-Gault) 112.0 BUN/Creatinine Ratio 19 (6-20) Glucose Level 119mg/dL (70-99) Calcium Level 9.0mg/dL (8.5-10.1) Total Bilirubin 0.4mg/dL (0.2-1.0) Aspartate Amino Transf (AST/SGOT) 13U/L (15-37) Alanine Aminotransferase (ALT/SGPT) 19U/L (16-63) Alkaline Phosphatase 86U/L (46-116) Total Protein 6.8g/dL (6.4-8.2) Albumin 2.9g/dL (3.4-5.0) Albumin/Globulin Ratio 0.7 (1.0-1.7) Problem List Problems Medical Problems: (1) Small bowel obstruction Status: Acute Assessment/Plan xrays pending will fu on results Problems: ERIKA JEFFERSON MD 09/16/16 1146: SURGICAL PROGRESS NOTE Assessment/Plan Pt seen and examined. Agree with Ms. Pena's note Pt with crampy abd pain abd obese, reducible hernia KUB-persistent SBO will start SBFT pt severely poor surgical candidate Problems: REINA PENA APRN Sep 16, 2016 08:49 ERIKA JEFFERSON MD Sep 16, 2016 11:46
--- NOTE | 2016-09-16 09:17 | RAD ---
Portable acute abdomen series, 09/16/2016: History: Follow-up small bowel obstruction There is moderate gaseous distention of multiple small bowel loops. Similar findings were present on yesterday's CT study. No free air is evident in the abdomen. The flank regions are not completely included on these images of this large patient. The heart is at the upper limits of normal in size. The pulmonary vascularity is normal. No pulmonary infiltrates are seen. IMPRESSION: Ongoing moderate small bowel distention, unchanged since yesterday's CT study.
[2016-09-16 11:00] VITALS: BP 129/70
--- NOTE | 2016-09-16 11:03 | HP ---
ADMIT DATE: 09/14/2016 HISTORY OF PRESENT ILLNESS: The patient is a 30-year-old gentleman who presented to the Emergency Room complaining of 5 days of abdominal pain with intermittent nausea and vomiting. He also noticed that his ostomy output has decreased. He has been having occasional abdominal cramping and pain. He usually takes hydrocodone, but this has not been helping his pain. He has not been able to eat due to the pain. His urine has been dark, but denies bloody stools and denies fever or chills. PAST MEDICAL HISTORY: Significant for previous history of colitis, status post bowel resection and colostomy in 2006. He does have a colostomy bag at present time. He also has a history of recurrent cellulitis in the lower extremities, obesity, osteoarthritis, history of a staph infection, history of fracture and metal plate in his left hand, history of diabetes, history of Crohn's disease. FAMILY HISTORY: Positive for hypertension. SOCIAL HISTORY: He smoked years ago for about 15 years. He does not drink alcohol or use drugs. REVIEW OF SYSTEMS: CONSTITUTIONAL: Denies fever or chills. EYES: Denies visual changes. HENT: Denies nasal congestion. RESPIRATORY: Denies cough or shortness of breath. CARDIOVASCULAR: Denies chest pain. GASTROINTESTINAL: He does have abdominal cramping and nausea, vomiting. GENITOURINARY: Denies dysuria or hematuria. MUSCULOSKELETAL: He does have back pain and arthritis pain. DERMATOLOGY: He does have chronic edema in the lower extremities, some healing cellulitis in the lower extremities. He does have some healed ulcers scattered in the abdominal wall. NEUROLOGY: He does not have any focal weakness. PHYSICAL EXAMINATION: GENERAL: He is alert and oriented. HEENT: Normocephalic, atraumatic. Eyes without discoloration of his conjunctivae. NECK: Supple. HEART: Regular rate and rhythm. LUNGS: ____. ABDOMEN: Obese, soft. He does have lumpy feeling and a palpable ventral hernia in the abdominal wall. He does have a ostomy bag in the right side in the middle of the abdomen. ____. SKIN: Warm and dry. BACK: Without any cervical tenderness. EXTREMITIES: He does have chronic edema in the lower extremity with dark discoloration of the skin due to recurrent cellulitis. NEUROLOGIC: He is alert and oriented with no focal deficits. IMPRESSION: 1. Small-bowel obstruction has shown on the CT scan of the abdomen and pelvis. The patient is admitted. He is on bowel rest. General Surgery consult, hydration and pain and nausea control. 2. Diabetes mellitus type 2. 3. Morbid obesity. 4. Abdominal ventral hernia. 5. History of cellulitis in the lower extremity. 6. History of Crohn disease status post bowel resection and colostomy in 2006. 7. Osteoarthritis. WASHINGTON TRIPATHI MD DR: GIL/vj JOB#: [id number] / [id number]
--- NOTE | 2016-09-16 12:00 | PDOC ---
SUBJECTIVE Subjective still nausea, no vomiting, only ice chips, small amount of stool in colostomy OBJECTIVE Objective vss Vital Signs Vital Signs Date Time Temp Pulse Resp B/P Pulse Ox O2 Delivery O2 Flow Rate FiO2 09/16/16 11:52 Nasal Cannula 09/16/16 11:00 98.1 68 20 129/70 98 Room Air 98.1 09/16/16 09:18 Room Air 09/16/16 08:48 Room Air 09/16/16 07:00 97.8 84 16 150/97 96 Room Air 97.8 09/16/16 06:17 20 09/16/16 05:47 20 96 Room Air 09/16/16 04:20 96 09/16/16 03:50 20 96 Room Air 09/16/16 03:13 97.2 80 20 149/98 96 Room Air 97.2 09/15/16 23:31 20 98 Room Air 09/15/16 23:00 97.7 62 20 154/95 98 Room Air 97.7 09/15/16 21:14 20 96 Room Air 09/15/16 20:44 20 96 Room Air 09/15/16 20:00 Room Air 09/15/16 19:00 97.8 74 20 154/89 96 Room Air 97.8 09/15/16 17:22 Room Air 09/15/16 15:00 98.3 41 20 146/90 96 Room Air 98.3 09/15/16 12:49 Room Air I & O Intake and Output 09/16/16 07:00 Intake Total 1223 ml Output Total 825 ml Balance 398 ml Intake Oral 0 ml IV Total 1223 ml Output Urine Total 475 ml Stool Total 350 ml # Voids 2 PHYSICAL EXAM Physical Exam still mild diffuse tenderness , palpable abd wall hernia RUQ, + BS LE better ASSESSMENT/PLAN Assessment/Plan 1. Small-bowel obstruction has shown on the CT scan of the abdomen and pelvis. continue pain and nausea control, NPO only ice chips , surgery following 2. Diabetes mellitus type 2. BS better 3. Morbid obesity. 4. Abdominal ventral hernia. 5. History of cellulitis in the lower extremity. improving wound vac on LLE 6. History of Crohn disease status post bowel resection and colostomy in 2006. 7. Osteoarthritis. Problems: COMMENT Lab Laboratory Tests Test 09/15/16 17:11 09/15/16 20:21 09/16/16 07:45 2/26/17 07:47 Glucose (Fingerstick) 87mg/dL (70-99) 93mg/dL (70-99) 113mg/dL (70-99) White Blood Count 3.5x10^3/uL (4.0-11.0) Red Blood Count 4.56x10^6/uL (4.30-5.70) Hemoglobin 12.8g/dL (13.0-17.5) Hematocrit 39.3% (39.0-53.0) Mean Corpuscular Volume 86fL (79-100) Mean Corpuscular Hemoglobin 28pg (25-35) Mean Corpuscular Hemoglobin Concent 33g/dL (31-37) Red Cell Distribution Width 14.9% (11.5-14.5) Platelet Count 198x10^3/uL (140-400) Sodium Level 133mmol/L (136-145) Potassium Level 4.0mmol/L (3.5-5.1) Chloride Level 101mmol/L (98-107) Carbon Dioxide Level 26mmol/L (21-32) Anion Gap 6 (6-14) Blood Urea Nitrogen 15mg/dL (8-26) Creatinine 0.8mg/dL (0.7-1.3) Estimated GFR (Cockcroft-Gault) 112.0 BUN/Creatinine Ratio 19 (6-20) Glucose Level 119mg/dL (70-99) Calcium Level 9.0mg/dL (8.5-10.1) Total Bilirubin 0.4mg/dL (0.2-1.0) Aspartate Amino Transf (AST/SGOT) 13U/L (15-37) Alanine Aminotransferase (ALT/SGPT) 19U/L (16-63) Alkaline Phosphatase 86U/L (46-116) Total Protein 6.8g/dL (6.4-8.2) Albumin 2.9g/dL (3.4-5.0) Albumin/Globulin Ratio 0.7 (1.0-1.7) WASHINGTON TRIPATHI MD Sep 16, 2016 12:00
[2016-09-16 15:00] VITALS: BP 150/94
[2016-09-16] MEDS: METOCLOPRAMIDE HCL 10 MG/2 ML VIAL. IV PRN ×2 (15:09→21:38)
[2016-09-16] MEDS: ENOXAPARIN ** NOTE DOSE ** SYRINGE SQ SCH ×2 (15:10→21:39)
[2016-09-16 19:58] VITALS: BP 165/96
[2016-09-16 23:26] VITALS: BP 152/91
[2016-09-17] MEDS: MORPHINE SULFATE 4 MG/ML DISP.SYRIN. IV PRN ×5 (01:56→21:56)
[2016-09-17 03:05] VITALS: BP 135/92
[2016-09-17] MEDS: METOCLOPRAMIDE HCL 10 MG/2 ML VIAL. IV PRN (04:36)
[2016-09-17 05:42] LABS: HEMOGLOBIN 12.4 g/dL (13.0-17.5); RED BLOOD COUNT 4.43 x10^6/uL (4.30-5.70); RED CELL DISTRIBUTION WIDTH 15.1 % (11.5-14.5); WHITE BLOOD COUNT 3.7 x10^3/uL (4.0-11.0)
[2016-09-17 05:56] LABS: CALCIUM 9.1 mg/dL (8.5-10.1); CREATININE 0.9 mg/dL (0.7-1.3); GFR 97.2; POTASSIUM 3.6 mmol/L (3.5-5.1)
[2016-09-17 07:00] VITALS: BP 150/103
[2016-09-17] MEDS: INSULIN ASPART 300 UNITS/3 ML INSULN.PEN SQ SCH ×3 (08:00→16:55)
[2016-09-17] MEDS ORDERED: METFORMIN 1,000 MG TABLET PO SCH (08:00)
--- NOTE | 2016-09-17 08:36 | PDOC ---
Provider Note Provider Note vss, no tenp, glucose good- L leg wound better- for sb series today re sbo ARIANA MARSHALL MD Sep 17, 2016 08:35
[2016-09-17] MEDS: ENOXAPARIN ** NOTE DOSE ** SYRINGE SQ SCH ×2 (08:42→21:57)
[2016-09-17] MEDS: POTASSIUM CL 20MEQ D5-0.9%NACL 1,000 ML IV SCH ×3 (08:48→22:01)
--- NOTE | 2016-09-17 09:28 | PDOC ---
REINA PENA PURCHASING ENGINEER 09/17/16 0927: SURGICAL PROGRESS NOTE Subjective to have sbft today, could not get done yesterday small amount stool, not much ongoing pain Vital Signs Vital Signs Date Time Temp Pulse Resp B/P Pulse Ox O2 Delivery O2 Flow Rate FiO2 09/17/16 08:45 95 Room Air 09/17/16 05:06 20 09/17/16 03:05 98.0 87 135/92 98.0 I&O Intake and Output 09/17/16 07:00 Output Total 425 ml Balance -425 ml Output Urine Total 325 ml Stool Total 100 ml # Voids 4 General: Alert, Oriented X3, Cooperative, No acute distress Abdomen: Soft, Other (hernias present, ostomy ) Labs Laboratory Tests Test 09/15/16 11:53 09/15/16 17:11 09/15/16 20:21 09/16/16 07:45 Glucose (Fingerstick) 102mg/dL (70-99) 87mg/dL (70-99) 93mg/dL (70-99) 113mg/dL (70-99) Test 09/16/16 07:47 09/16/16 11:47 09/16/16 17:04 09/16/16 20:55 White Blood Count 3.5x10^3/uL (4.0-11.0) Red Blood Count 4.56x10^6/uL (4.30-5.70) Hemoglobin 12.8g/dL (13.0-17.5) Hematocrit 39.3% (39.0-53.0) Mean Corpuscular Volume 86fL (79-100) Mean Corpuscular Hemoglobin 28pg (25-35) Mean Corpuscular Hemoglobin Concent 33g/dL (31-37) Red Cell Distribution Width 14.9% (11.5-14.5) Platelet Count 198x10^3/uL (140-400) Sodium Level 133mmol/L (136-145) Potassium Level 4.0mmol/L (3.5-5.1) Chloride Level 101mmol/L (98-107) Carbon Dioxide Level 26mmol/L (21-32) Anion Gap 6 (6-14) Blood Urea Nitrogen 15mg/dL (8-26) Creatinine 0.8mg/dL (0.7-1.3) Estimated GFR (Cockcroft-Gault) 112.0 BUN/Creatinine Ratio 19 (6-20) Glucose Level 119mg/dL (70-99) Calcium Level 9.0mg/dL (8.5-10.1) Total Bilirubin 0.4mg/dL (0.2-1.0) Aspartate Amino Transf (AST/SGOT) 13U/L (15-37) Alanine Aminotransferase (ALT/SGPT) 19U/L (16-63) Alkaline Phosphatase 86U/L (46-116) Total Protein 6.8g/dL (6.4-8.2) Albumin 2.9g/dL (3.4-5.0) Albumin/Globulin Ratio 0.7 (1.0-1.7) Glucose (Fingerstick) 115mg/dL (70-99) 139mg/dL (70-99) 136mg/dL (70-99) Test 09/17/16 05:10 09/17/16 05:15 Sodium Level 143mmol/L (136-145) Potassium Level 3.6mmol/L (3.5-5.1) Chloride Level 106mmol/L (98-107) Carbon Dioxide Level 27mmol/L (21-32) Anion Gap 10 (6-14) Blood Urea Nitrogen 10mg/dL (8-26) Creatinine 0.9mg/dL (0.7-1.3) Estimated GFR (Cockcroft-Gault) 97.2 Glucose Level 138mg/dL (70-99) Calcium Level 9.1mg/dL (8.5-10.1) White Blood Count 3.7x10^3/uL (4.0-11.0) Red Blood Count 4.43x10^6/uL (4.30-5.70) Hemoglobin 12.4g/dL (13.0-17.5) Hematocrit 38.0% (39.0-53.0) Mean Corpuscular Volume 86fL (79-100) Mean Corpuscular Hemoglobin 28pg (25-35) Mean Corpuscular Hemoglobin Concent 33g/dL (31-37) Red Cell Distribution Width 15.1% (11.5-14.5) Platelet Count 215x10^3/uL (140-400) Laboratory Tests Test 09/16/16 11:47 09/16/16 17:04 09/16/16 20:55 09/17/16 05:10 Glucose (Fingerstick) 115mg/dL (70-99) 139mg/dL (70-99) 136mg/dL (70-99) Sodium Level 143mmol/L (136-145) Potassium Level 3.6mmol/L (3.5-5.1) Chloride Level 106mmol/L (98-107) Carbon Dioxide Level 27mmol/L (21-32) Anion Gap 10 (6-14) Blood Urea Nitrogen 10mg/dL (8-26) Creatinine 0.9mg/dL (0.7-1.3) Estimated GFR (Cockcroft-Gault) 97.2 Glucose Level 138mg/dL (70-99) Calcium Level 9.1mg/dL (8.5-10.1) Test 09/17/16 05:15 White Blood Count 3.7x10^3/uL (4.0-11.0) Red Blood Count 4.43x10^6/uL (4.30-5.70) Hemoglobin 12.4g/dL (13.0-17.5) Hematocrit 38.0% (39.0-53.0) Mean Corpuscular Volume 86fL (79-100) Mean Corpuscular Hemoglobin 28pg (25-35) Mean Corpuscular Hemoglobin Concent 33g/dL (31-37) Red Cell Distribution Width 15.1% (11.5-14.5) Platelet Count 215x10^3/uL (140-400) Problem List Problems Medical Problems: (1) Small bowel obstruction Status: Acute Assessment/Plan SBFT today d/w nursing, will check with radiology about getting started Problems: TAMMI BRIAN MD 09/17/16 1648: SURGICAL PROGRESS NOTE Assessment/Plan slow progress of oral contrast still dilated, gas filled loops of bowel without contrast will recheck in AM surgical risks are significant Problems: REINA PENA APRN Sep 17, 2016 09:27 TAMMI BRIAN MD Sep 17, 2016 16:48
[2016-09-17] MEDS ORDERED: CONTRAST GIVEN MC PRN (11:00)
[2016-09-17] MEDS ORDERED: IOHEXOL 350 MG/ML 100ML VIAL. PO ONE (11:00)
[2016-09-17] MEDS ORDERED: MORPHINE SULFATE 4 MG/ML DISP.SYRIN. IV PRN (12:15)
[2016-09-17] MEDS: ONDANSETRON PF 4 MG/2 ML VIAL. IV PRN (12:37)
[2016-09-17 15:00] VITALS: BP 151/104
[2016-09-17 19:30] VITALS: BP 144/101
[2016-09-17 23:30] VITALS: BP 142/92
[2016-09-18] MEDS: METOCLOPRAMIDE HCL 10 MG/2 ML VIAL. IV PRN (00:37)
[2016-09-18] MEDS: MORPHINE SULFATE 4 MG/ML DISP.SYRIN. IV PRN ×7 (02:05→23:57)
[2016-09-18] MEDS ORDERED: MORPHINE SULFATE 4 MG/ML DISP.SYRIN. IV PRN (03:45)
[2016-09-18] MEDS: POTASSIUM CL 20MEQ D5-0.9%NACL 1,000 ML IV SCH ×4 (05:47→23:58)
[2016-09-18 07:00] VITALS: BP 135/81
[2016-09-18] MEDS: INSULIN ASPART 300 UNITS/3 ML INSULN.PEN SQ SCH ×3 (08:00→16:44)
--- NOTE | 2016-09-18 08:21 | RAD ---
Small bowel series, 09/17/2016: History: Small bowel obstruction, pain The preliminary abdominal images demonstrate moderate gaseous distention of multiple small bowel loops. The patient is quite large and his entire abdomen is not included on these images despite obtaining multiple views. By history this patient has had a previous total colectomy with an ileostomy in the right lower quadrant. Overhead and spot films were obtained following oral ingestion of nonionic contrast material, as requested. 1.3 minutes of fluoroscopy time was utilized. 6 fluoroscopic spot images were recorded. There is slow transit of the contrast material through the small bowel. The contrast becomes diluted as it progresses distally. There is moderate distention of multiple small bowel loops in the central abdomen. Correlation with the recent CT study suggests that these bowel loops extend into a ventral hernia. The hernia and ileostomy were is not completely included on the CT study due to the patient's size. At 11 hours there is opacification of distal small bowel loops near the ileostomy which do not appear to be dilated. There is contrast in the ileostomy bag at 20 hours. IMPRESSION: Partial mid to distal small bowel obstruction, likely related to the patient's large ventral hernia.
--- NOTE | 2016-09-18 08:28 | PDOC ---
Provider Note Provider Note vss, better ostomy output, no emesis- SBFT pending- glucose ok off meds, cont ivf, maybe CL trial later ARIANA MARSHALL MD Sep 18, 2016 08:28
--- NOTE | 2016-09-18 09:01 | PDOC ---
REINA PENA CURRICULUM AND ASSESSMENT DIRECTOR 09/18/16 0901: SURGICAL PROGRESS NOTE Subjective ostomy now with output Vital Signs Vital Signs Date Time Temp Pulse Resp B/P Pulse Ox O2 Delivery O2 Flow Rate FiO2 09/18/16 07:00 97.4 77 18 135/81 98 Room Air 97.4 I&O Intake and Output 09/18/16 07:00 Intake Total 1660 ml Output Total 3950 ml Balance -2290 ml Intake Oral 240 ml IV Total 1420 ml Output Urine Total 325 ml Stool Total 3575 ml Emesis 50 ml # Voids 3 General: Alert, Oriented X3, Cooperative, No acute distress Abdomen: Soft, No tenderness, Other (reducible hernias ) Labs Laboratory Tests Test 09/16/16 11:47 09/16/16 17:04 09/16/16 20:55 09/17/16 05:10 Glucose (Fingerstick) 115mg/dL (70-99) 139mg/dL (70-99) 136mg/dL (70-99) Sodium Level 143mmol/L (136-145) Potassium Level 3.6mmol/L (3.5-5.1) Chloride Level 106mmol/L (98-107) Carbon Dioxide Level 27mmol/L (21-32) Anion Gap 10 (6-14) Blood Urea Nitrogen 10mg/dL (8-26) Creatinine 0.9mg/dL (0.7-1.3) Estimated GFR (Cockcroft-Gault) 97.2 Glucose Level 138mg/dL (70-99) Calcium Level 9.1mg/dL (8.5-10.1) Test 09/17/16 05:15 09/17/16 08:06 09/17/16 12:48 09/17/16 16:52 White Blood Count 3.7x10^3/uL (4.0-11.0) Red Blood Count 4.43x10^6/uL (4.30-5.70) Hemoglobin 12.4g/dL (13.0-17.5) Hematocrit 38.0% (39.0-53.0) Mean Corpuscular Volume 86fL (79-100) Mean Corpuscular Hemoglobin 28pg (25-35) Mean Corpuscular Hemoglobin Concent 33g/dL (31-37) Red Cell Distribution Width 15.1% (11.5-14.5) Platelet Count 215x10^3/uL (140-400) Glucose (Fingerstick) 135mg/dL (70-99) 146mg/dL (70-99) 117mg/dL (70-99) Test 09/17/16 21:01 Glucose (Fingerstick) 139mg/dL (70-99) Laboratory Tests Test 09/17/16 12:48 09/17/16 16:52 09/17/16 21:01 Glucose (Fingerstick) 146mg/dL (70-99) 117mg/dL (70-99) 139mg/dL (70-99) Problem List Problems Medical Problems: (1) Small bowel obstruction Status: Acute Assessment/Plan psbo contrast delayed reached ileostomy in 20 hrs, now having output will try clears today poor surgical candidate Problems: TAMMI BRIAN MD 09/18/16 1045: SURGICAL PROGRESS NOTE Assessment/Plan pt seen and examined his mom is at the bedside will try clears Problems: REINA PENA APRN Sep 18, 2016 09:01 TAMMI BRIAN MD Sep 18, 2016 10:45
[2016-09-18] MEDS: ENOXAPARIN ** NOTE DOSE ** SYRINGE SQ SCH ×2 (09:30→21:10)
[2016-09-18 11:00] VITALS: BP 145/96
[2016-09-18] MEDS ORDERED: ANTI-COAG MONITOR BY PHARMACY. MC PRN (14:15)
[2016-09-18 15:00] VITALS: BP 144/87
[2016-09-18 19:30] VITALS: BP 121/78
[2016-09-18 23:15] VITALS: BP 132/77
[2016-09-19] MEDS: MORPHINE SULFATE 4 MG/ML DISP.SYRIN. IV PRN ×2 (03:01→06:12)
[2016-09-19] MEDS: ONDANSETRON PF 4 MG/2 ML VIAL. IV PRN ×2 (03:07→17:14)
[2016-09-19 03:13] VITALS: BP 104/67
[2016-09-19] MEDS: POTASSIUM CL 20MEQ D5-0.9%NACL 1,000 ML IV SCH ×2 (06:18→15:50)
[2016-09-19 07:00] VITALS: BP 127/79
[2016-09-19] MEDS: INSULIN ASPART 300 UNITS/3 ML INSULN.PEN SQ SCH ×3 (07:56→16:34)
[2016-09-19 08:02] LABS: CALCIUM 9.1 mg/dL (8.5-10.1); GFR 86.1; POTASSIUM 4.1 mmol/L (3.5-5.1)
--- NOTE | 2016-09-19 08:20 | PDOC ---
Provider Note Provider Note vss, glucose good, aura cl ok- mild nausea , will continue same for now- bmp ok, discussed need to reduce opiods re anticholinergic effects ARIANA MARSHALL MD Sep 19, 2016 08:20
[2016-09-19] MEDS: HYDROCODONE/APAP 5/325MG TABLET. PO PRN ×3 (08:40→20:36)
[2016-09-19] MEDS: ENOXAPARIN ** NOTE DOSE ** SYRINGE SQ SCH ×3 (08:40→21:00)
[2016-09-19 11:00] VITALS: BP 149/91
--- NOTE | 2016-09-19 12:37 | PDOC ---
SURGICAL PROGRESS NOTE Subjective just back from bathroom where he voided and emptied his ileostomy bag has pain, but ambulating in the room OK Vital Signs Vital Signs Date Time Temp Pulse Resp B/P Pulse Ox O2 Delivery O2 Flow Rate FiO2 09/19/16 11:00 97.7 72 18 149/91 95 Room Air 97.7 I&O Intake and Output 09/19/16 07:00 Intake Total 2100 ml Output Total 750 ml Balance 1350 ml Intake Oral 300 ml IV Total 1800 ml Stool Total 750 ml # Voids 1 PATIENT HAS A PERALTA: No General: Alert, Oriented X3, No acute distress Abdomen: Other (morbidly obese, with hernia, right sided stoma, some small superficial skin ulcers in his midline scar) Labs Laboratory Tests Test 09/17/16 12:48 09/17/16 16:52 09/17/16 21:01 09/18/16 08:01 Glucose (Fingerstick) 146mg/dL (70-99) 117mg/dL (70-99) 139mg/dL (70-99) 143mg/dL (70-99) Test 09/18/16 11:01 09/18/16 16:20 09/18/16 21:20 09/19/16 07:35 Glucose (Fingerstick) 146mg/dL (70-99) 163mg/dL (70-99) 148mg/dL (70-99) 138mg/dL (70-99) Test 09/19/16 07:45 09/19/16 11:45 Sodium Level 142mmol/L (136-145) Potassium Level 4.1mmol/L (3.5-5.1) Chloride Level 105mmol/L (98-107) Carbon Dioxide Level 29mmol/L (21-32) Anion Gap 8 (6-14) Blood Urea Nitrogen 6mg/dL (8-26) Creatinine 1.0mg/dL (0.7-1.3) Estimated GFR (Cockcroft-Gault) 86.1 Glucose Level 142mg/dL (70-99) Calcium Level 9.1mg/dL (8.5-10.1) Glucose (Fingerstick) 150mg/dL (70-99) Laboratory Tests Test 09/18/16 16:20 09/18/16 21:20 09/19/16 07:35 09/19/16 07:45 Glucose (Fingerstick) 163mg/dL (70-99) 148mg/dL (70-99) 138mg/dL (70-99) Sodium Level 142mmol/L (136-145) Potassium Level 4.1mmol/L (3.5-5.1) Chloride Level 105mmol/L (98-107) Carbon Dioxide Level 29mmol/L (21-32) Anion Gap 8 (6-14) Blood Urea Nitrogen 6mg/dL (8-26) Creatinine 1.0mg/dL (0.7-1.3) Estimated GFR (Cockcroft-Gault) 86.1 Glucose Level 142mg/dL (70-99) Calcium Level 9.1mg/dL (8.5-10.1) Test 09/19/16 11:45 Glucose (Fingerstick) 150mg/dL (70-99) Problem List Problems Medical Problems: (1) Small bowel obstruction Status: Acute Assessment/Plan morbid obesity s/p colectomy (remote) for ischemic colitis pSBO continue clears discussed surgery with Joe he poses significant risks Problems: TAMMI BRIAN MD Sep 19, 2016 12:37
[2016-09-19 15:00] VITALS: BP 147/100
[2016-09-19] MEDS: SIMETHICONE 80 MG TAB.CHEW PO PRN ×2 (17:14→20:35)
[2016-09-19 19:30] VITALS: BP 144/82
[2016-09-19] MEDS: METOCLOPRAMIDE HCL 10 MG/2 ML VIAL. IV PRN (20:36)
[2016-09-19 23:36] VITALS: BP 146/89
[2016-09-20] MEDS: POTASSIUM CL 20MEQ D5-0.9%NACL 1,000 ML IV SCH ×2 (01:24→13:00)
[2016-09-20 03:36] VITALS: BP 142/88
[2016-09-20] MEDS: HYDROCODONE/APAP 5/325MG TABLET. PO PRN ×2 (04:10→11:54)
[2016-09-20] MEDS: ONDANSETRON PF 4 MG/2 ML VIAL. IV PRN ×2 (04:10→18:29)
[2016-09-20 07:00] VITALS: BP 140/90
[2016-09-20] MEDS: INSULIN ASPART 300 UNITS/3 ML INSULN.PEN SQ SCH ×3 (08:00→16:27)
--- NOTE | 2016-09-20 08:37 | PDOC ---
Provider Note Provider Note vss, no temp, great output-no emesis- lots of ostomy output a good sign - will reduce iv fluid now ARIANA MARSHALL MD Sep 20, 2016 08:37
[2016-09-20] MEDS: METFORMIN 1,000 MG TABLET PO SCH ×3 (08:38→17:00)
[2016-09-20] MEDS: ENOXAPARIN ** NOTE DOSE ** SYRINGE SQ SCH ×2 (08:39→21:09)
--- NOTE | 2016-09-20 09:09 | PDOC ---
REINA PENA BLOCK HACKER 09/20/16 0909: SURGICAL PROGRESS NOTE Subjective taking clears ostomy functioning still having abdominal pain Vital Signs Vital Signs Date Time Temp Pulse Resp B/P Pulse Ox O2 Delivery O2 Flow Rate FiO2 09/20/16 07:00 97.5 95 18 140/90 95 Room Air 97.5 I&O Intake and Output 09/20/16 07:00 Intake Total 1810 ml Output Total 2950 ml Balance -1140 ml Intake Oral 1810 ml Output Urine Total 400 ml Stool Total 2550 ml General: Alert, Oriented X3, Cooperative, No acute distress Abdomen: Soft, Other (palpable hernias, ostomy, tender on exam) Labs Laboratory Tests Test 09/18/16 11:01 09/18/16 16:20 09/18/16 21:20 09/19/16 07:35 Glucose (Fingerstick) 146mg/dL (70-99) 163mg/dL (70-99) 148mg/dL (70-99) 138mg/dL (70-99) Test 09/19/16 07:45 09/19/16 11:45 09/19/16 16:06 09/19/16 21:00 Sodium Level 142mmol/L (136-145) Potassium Level 4.1mmol/L (3.5-5.1) Chloride Level 105mmol/L (98-107) Carbon Dioxide Level 29mmol/L (21-32) Anion Gap 8 (6-14) Blood Urea Nitrogen 6mg/dL (8-26) Creatinine 1.0mg/dL (0.7-1.3) Estimated GFR (Cockcroft-Gault) 86.1 Glucose Level 142mg/dL (70-99) Calcium Level 9.1mg/dL (8.5-10.1) Glucose (Fingerstick) 150mg/dL (70-99) 139mg/dL (70-99) 141mg/dL (70-99) Test 09/20/16 07:39 Glucose (Fingerstick) 134mg/dL (70-99) Laboratory Tests Test 09/19/16 11:45 09/19/16 16:06 09/19/16 21:00 09/20/16 07:39 Glucose (Fingerstick) 150mg/dL (70-99) 139mg/dL (70-99) 141mg/dL (70-99) 134mg/dL (70-99) Problem List Problems Medical Problems: (1) Small bowel obstruction Status: Acute Assessment/Plan continue clears will d/w Dr Brian Problems: TAMMI RBIAN MD 09/20/16 1642: SURGICAL PROGRESS NOTE Assessment/Plan pt seen and examined he is tearful, c/o increased pain had feculent emesis by his report is "scared" about surgery will take to OR tomorrow to relieve SBO, try to address hernia Problems: REINA PENA APRN Sep 20, 2016 09:09 TAMMI BRIAN MD Sep 20, 2016 16:42
[2016-09-20 11:00] VITALS: BP 142/91
[2016-09-20 15:00] VITALS: BP 168/104
[2016-09-20] MEDS ORDERED: NALOXONE 0.4 MG/ML VIAL. IV PRN (16:45)
[2016-09-20] MEDS: HYDROMORPHONE STANDARD PCA 30 ML IV PRN (17:17)
[2016-09-20 19:00] VITALS: BP 155/103
[2016-09-20 23:00] VITALS: BP 163/110
[2016-09-21] VITALS (11 sets, daily range): BP systolic 134–160; BP diastolic 89–111
[2016-09-21] MEDS: METOCLOPRAMIDE HCL 10 MG/2 ML VIAL. IV PRN (00:15)
[2016-09-21] MEDS: POTASSIUM CL 20MEQ D5-0.9%NACL 1,000 ML IV SCH ×2 (00:22→17:30)
[2016-09-21 05:19] LABS: BASO % 0 % (0-3); EOS % 4 % (0-3); HEMATOCRIT 43.1 % (39.0-53.0); HEMOGLOBIN 14.1 g/dL (13.0-17.5); LYMPH # 1.8 x10^3/uL (1.0-4.8); LYMPH % 15 % (24-48); MEAN CORPUSCULAR HEMOGLOBIN 28 pg (25-35); MEAN CORPUSCULAR HGB CONC 33 g/dL (31-37); MEAN CORPUSCULAR VOLUME 85 fL (79-100); MONO % 15 % (0-9); NEUT % 65 % (31-73); PLATELET COUNT 333 x10^3/uL (140-400); RED CELL DISTRIBUTION WIDTH 14.6 % (11.5-14.5); WHITE BLOOD COUNT 11.8 x10^3/uL (4.0-11.0)
[2016-09-21 05:28] LABS: INR 1.2 (0.8-1.1)
[2016-09-21 05:32] LABS: CALCIUM 9.3 mg/dL (8.5-10.1); GFR 86.1
[2016-09-21] MEDS: HYDROMORPHONE STANDARD PCA 30 ML IV PRN ×2 (06:18→15:00)
[2016-09-21] MEDS ORDERED: CONTRAST GIVEN MC PRN (06:30)
[2016-09-21] MEDS ORDERED: IOHEXOL 300 MG/ML 75 ML VIAL IV ONE (07:00)
[2016-09-21] MEDS ORDERED: IOHEXOL 240 MG/ML 50ML VIAL. PO ONE (07:00)
[2016-09-21] MEDS ORDERED: IV RINGERS,LACTATED 1000ML 1,000 ML IV SCH (07:10)
[2016-09-21] MEDS ORDERED: PROCHLORPERAZINE 10 MG/2 ML VIAL. IV PRN (07:15)
[2016-09-21] MEDS ORDERED: MORPHINE SULFATE 2 MG/ML DISP.SYRIN. IV PRN (07:15)
[2016-09-21] MEDS ORDERED: LIDOCAINE 1% 1 ML SYRINGE. ID PRN (07:15)
[2016-09-21] MEDS ORDERED: HYDROMORPHONE 2 MG/ML VIAL. IV PRN (07:15)
[2016-09-21] MEDS ORDERED: ONDANSETRON PF 4 MG/2 ML VIAL. IV PRN (07:15)
[2016-09-21] MEDS ORDERED: FENTANYL PF 100 MCG/2 ML VIAL. IV PRN (07:15)
[2016-09-21] MEDS: ONDANSETRON PF 4 MG/2 ML VIAL. IV PRN ×2 (07:17→21:06)
[2016-09-21] MEDS: INSULIN ASPART 300 UNITS/3 ML INSULN.PEN SQ SCH ×3 (07:23→17:00)
[2016-09-21] MEDS: ENOXAPARIN ** NOTE DOSE ** SYRINGE SQ SCH ×2 (07:24→20:00)
--- NOTE | 2016-09-21 08:42 | PDOC ---
Provider Note Provider Note out in ct , may be in or today ARIANA MARSHALL MD Sep 21, 2016 08:42
[2016-09-21] MEDS ORDERED: FENTANYL PF 100 MCG/2 ML VIAL. ONE (09:23)
[2016-09-21] MEDS ORDERED: PHENYLEPHRINE in 0.9% NACL PF 1 MG/10 ML DISP.SYRIN. IV ONE (09:23)
[2016-09-21] MEDS ORDERED: LIDOCAINE 1% PF 5 ML VIAL. ONE (09:23)
[2016-09-21] MEDS ORDERED: PROPOFOL 20 ML IV ONE ×2 (09:23→09:29)
[2016-09-21] MEDS ORDERED: MIDAZOLAM HCL 2 MG/2 ML VIAL. ONE (09:23)
[2016-09-21] MEDS ORDERED: EPHEDRINE PF IN SALINE 50 MG/5 ML DISP.SYRIN. IV ONE (09:23)
[2016-09-21] MEDS ORDERED: FAMOTIDINE 20 MG/2 ML VIAL ONE (09:24)
[2016-09-21] MEDS ORDERED: DEXAMETHASONE SOD PHOS 20 MG/5 ML VIAL. ONE (09:24)
[2016-09-21] MEDS ORDERED: ONDANSETRON PF 4 MG/2 ML VIAL. ONE ×2 (09:24→10:46)
[2016-09-21] MEDS ORDERED: SUCCINYLCHOLINE 200 MG/10 ML VIAL. ONE (09:24)
[2016-09-21] MEDS ORDERED: ROCURONIUM 100 MG/10 ML VIAL. ONE (09:24)
[2016-09-21] MEDS ORDERED: DESFLURANE 61 TO 120 MINUTES IH ONE (09:32)
[2016-09-21] MEDS ORDERED: DESFLURANE > 120 MINUTES IH ONE (09:32)
[2016-09-21] MEDS ORDERED: CEFOXITIN 2GM IVPB FOR OMNI 100 ML IV ONE (09:53)
--- NOTE | 2016-09-21 10:08 | PDOC ---
Provider Note Provider Note I met the pt with Dr. Rome and will assist Dr. Rome today. I was present when Dr. Rome d/w pt and family the risks/benefits of surgery. Risks of bleeding, infection, need for bowel resection, need to relocate ostomy, recurrent hernia, need for ICU care, need for post op ventilatory support were discussed today. Dr. Rome mentioned to his family that he had previously discussed with the pt that Dr. Rome could arrange transfer to a tertiary center due to the patient's extreme obesity and the significant surgical risks associated with that. The pt says he wants to stay here at [facility] because he has complete kya in Dr. Rome. He has been on 60 mg lovenox BID, last dose yest evening. Will dose with 40 mg lovenox preop. 2 gm cefoxitin ordered--I checked with pharmacy who does not recommend dose adjustment for his morbid obesity. Further d/w Dr. 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 JULIO SCHNEIDER MD Sep 21, 2016 10:08
--- NOTE | 2016-09-21 10:21 | RAD ---
Exam performed: CT abdomen pelvis. History: Small bowel obstruction. Date of service: 09/21/16. Comparison: CT abdomen pelvis from 09/14/16. Technique: Contiguous helical acquisitions are obtained through the abdomen and pelvis during intravenous administration of 75 cc of Omnipaque 300. Oral contrast was given. Sagittal and coronal reformatted images are obtained and reviewed. Findings: The study is very limited due to patient's large body habitus with patient's pannus touching the gantry causing extensive artifact. There has been previous colectomy. Multiple moderately dilated small bowel loops are redemonstrated without significant interval change. Large ventral abdominal wall hernia containing multiple dilated loops of small bowel. There is a transition in the inferior end of the hernia sac, best seen on sagittal image #53, series 7. The distal small bowel loops appear somewhat collapsed. There is no free fluid or pneumoperitoneum. The lung bases are essentially clear. The visualized heart is normal. The liver, spleen and pancreas appear normal. The gallbladder is distended. Both adrenal glands and bilateral kidneys are normal in size with symmetric excretion of contrast via both kidneys. Aorta is normal in caliber without aneurysm. No retroperitoneal or mesenteric lymphadenopathy seen. Spondylotic changes. Impression: Small bowel obstruction secondary to a large ventral abdominal wall hernia remains unchanged. Results were discussed with Dr. Rome soon after completion of the study. PQRS Compliance Statement: One or more of the following individualized dose reduction techniques were utilized for this examination: 1. Automated exposure control 2. Adjustment of the mA and/or kV according to patient size 3. Use of iterative reconstruction technique
[2016-09-21] MEDS ORDERED: CEFOXITIN SODIUM 2 GM in IV NORMAL SALINE 100ML 100 ML IV ONE (10:30)
[2016-09-21] MEDS ORDERED: ENOXAPARIN 40 MG/0.4 ML DISP.SYRIN. SQ ONE (10:30)
[2016-09-21] MEDS ORDERED: CEFOXITIN SODIUM 2 GM in IV NORMAL SALINE 100ML 100 ML IV SCH (10:30)
[2016-09-21] MEDS ORDERED: MORPHINE SULFATE 10 MG/ML VIAL. ONE (10:47)
[2016-09-21] MEDS ORDERED: 0.9 % SODIUM CHLORIDE 50 ML VIAL. IJ ONE (10:47)
[2016-09-21] MEDS ORDERED: ALBUMIN HUMAN 5% 500 ML IV ONE (11:28)
[2016-09-21] MEDS ORDERED: VECURONIUM BOLUS 10 MG VIAL. IV ONE (11:51)
[2016-09-21] MEDS ORDERED: GLYCOPYRROLATE 1 MG/5 ML VIAL. ONE (13:08)
[2016-09-21] MEDS ORDERED: NEOSTIGMINE METHYLSULFATE 5 MG/5 ML SYRINGE. ONE (13:08)
--- NOTE | 2016-09-21 14:32 | PDOC ---
BRIEF OPERATIVE NOTE Date: Sep 21, 2016 Pre-Op Diagnosis SBO, VIH, parastomal hernia Post-Op Diagnosis same Procedure Performed exploratory laparotomy, release SBO, transversus abdominous release, repair VIH with mesh, primary repair parastomal hernia Surgeon [employer] Teacher Dr Jules Anesthesia Type: General Blood Loss 100cc IV Fluid 2700cc crystalloid, 500cc albumin Urine Output 200cc Specimens Obtained none Findings multiple midline hernias, parastomal hernia Complications none TAMMI BRIAN MD Sep 21, 2016 14:32
[2016-09-21] MEDS: FENTANYL PF 100 MCG/2 ML VIAL. IV PRN ×2 (14:35→15:12)
[2016-09-22] MEDS: HYDROMORPHONE STANDARD PCA 30 ML IV PRN ×2 (01:23→14:10)
[2016-09-22] MEDS: POTASSIUM CL 20MEQ D5-0.9%NACL 1,000 ML IV SCH ×3 (01:26→21:48)
[2016-09-22 03:15] VITALS: BP 164/107
[2016-09-22 05:13] LABS: BASO # 0.1 x10^3/uL (0.0-0.2); BASO % 1 % (0-3); EOS % 0 % (0-3); HEMATOCRIT 46.4 % (39.0-53.0); LYMPH # 1.4 x10^3/uL (1.0-4.8); LYMPH % 9 % (24-48); MEAN CORPUSCULAR HEMOGLOBIN 27 pg (25-35); MEAN CORPUSCULAR HGB CONC 32 g/dL (31-37); MEAN CORPUSCULAR VOLUME 85 fL (79-100); MONO % 13 % (0-9); NEUT % 77 % (31-73); PLATELET COUNT 350 x10^3/uL (140-400); RED BLOOD COUNT 5.45 x10^6/uL (4.30-5.70); RED CELL DISTRIBUTION WIDTH 15.2 % (11.5-14.5); WHITE BLOOD COUNT 16.2 x10^3/uL (4.0-11.0)
[2016-09-22 05:22] LABS: CALCIUM 9.2 mg/dL (8.5-10.1); CREATININE 1.1 mg/dL (0.7-1.3); GFR 77.1; POTASSIUM 4.5 mmol/L (3.5-5.1)
[2016-09-22 07:00] VITALS: BP 155/95
[2016-09-22] MEDS: INSULIN ASPART 300 UNITS/3 ML INSULN.PEN SQ SCH ×3 (08:00→17:00)
[2016-09-22] MEDS: ENOXAPARIN ** NOTE DOSE ** SYRINGE SQ SCH ×2 (09:07→21:47)
[2016-09-22 11:00] VITALS: BP 141/83
--- NOTE | 2016-09-22 11:24 | PDOC ---
Provider Note Provider Note vss, no temp, high ng output, good urine output- glucose good w/ ss only- cont same ARIANA MARSHALL MD Sep 22, 2016 11:24
--- NOTE | 2016-09-22 12:47 | PDOC ---
Provider Note Provider Note pain controlled. only c/o is thirst and hunger afeb vss--tachycardia noted. pt appears well. urine output adequate last night. on lovenox bid. abd soft morbidly obese appropriately tender bandage in place drains serosang. rizzo noted a/p s/p xlap, release sbo, repair hernia cont rizzo today for accurate i/o measurement. cont ng and npo x ice chips/sips JULIO SCHNEIDER MD Sep 22, 2016 12:46
[2016-09-22 15:00] VITALS: BP 138/89
[2016-09-22] MEDS: METOCLOPRAMIDE HCL 10 MG/2 ML VIAL. IV PRN (18:24)
[2016-09-22 19:00] VITALS: BP 136/97
[2016-09-22] MEDS: ONDANSETRON PF 4 MG/2 ML VIAL. IV PRN (21:47)
[2016-09-22 23:00] VITALS: BP 172/99
[2016-09-23 03:00] VITALS: BP 135/90
[2016-09-23] MEDS: POTASSIUM CL 20MEQ D5-0.9%NACL 1,000 ML IV SCH ×3 (05:12→21:30)
[2016-09-23 07:00] VITALS: BP 145/95
--- NOTE | 2016-09-23 07:51 | PDOC ---
Provider Note Provider Note afeb, vss- good urine output, large ng output- bmp 3/4 ok- will add low dose levemir but glucose control prety good off meds, re wt loss ARIANA MARSHALL MD Sep 23, 2016 07:51
[2016-09-23] MEDS: METFORMIN 1,000 MG TABLET PO SCH ×2 (08:00→17:00)
[2016-09-23] MEDS: INSULIN ASPART 300 UNITS/3 ML INSULN.PEN SQ SCH ×3 (08:00→17:00)
[2016-09-23] MEDS: INSULIN DETEMIR 300 UNITS/3 ML INSULN.PEN. SQ SCH ×2 (09:00→21:44)
[2016-09-23] MEDS: ENOXAPARIN ** NOTE DOSE ** SYRINGE SQ SCH ×2 (09:32→21:29)
[2016-09-23 11:00] VITALS: BP 149/94
[2016-09-23] MEDS: HYDROMORPHONE STANDARD PCA 30 ML IV PRN (11:48)
[2016-09-23 15:00] VITALS: BP 145/95
--- NOTE | 2016-09-23 16:15 | PDOC ---
Provider Note Provider Note feeling well no c/o afeb vss abd soft a/p cont ng--2400ml out last night. ann-marie rizzo. JULIO SCHNEIDER MD Sep 23, 2016 16:15
[2016-09-23 18:08] LABS: BILIRUBIN,URINE SMALL (NEG); GLUCOSE,URINE NEGATIVE (NEG); NITRITE,URINE NEGATIVE (NEG); PROTEIN,URINE 30 mg/dL (NEG-TRACE)
[2016-09-23 18:31] LABS: BACTERIA,URINE FEW /HPF (0-FEW); RBC,URINE 0 /HPF (0-2)
[2016-09-23 19:25] VITALS: BP 124/82
[2016-09-23 23:02] VITALS: BP 134/86
[2016-09-24 02:55] VITALS: BP 145/74
[2016-09-24] MEDS: POTASSIUM CL 20MEQ D5-0.9%NACL 1,000 ML IV SCH ×4 (05:30→18:11)
[2016-09-24 07:00] VITALS: BP 145/105
[2016-09-24] MEDS: INSULIN ASPART 300 UNITS/3 ML INSULN.PEN SQ SCH ×3 (08:00→17:00)
[2016-09-24] MEDS: METFORMIN 1,000 MG TABLET PO SCH ×2 (08:00→17:00)
--- NOTE | 2016-09-24 08:28 | PDOC ---
Provider Note Provider Note vss, still high ng output so fluids up- glucose 150-200 so will inc levemir slightly- may need picc / tpn if has to remain npo longer ARIANA MARSHALL MD Sep 24, 2016 08:28
[2016-09-24] MEDS: HYDROMORPHONE STANDARD PCA 30 ML IV PRN (08:44)
--- NOTE | 2016-09-24 08:52 | PDOC ---
REINA PENA DIESEL AUTOMOTIVE TECHNICIAN 09/24/16 0852: SURGICAL PROGRESS NOTE Subjective very thirsty wants ng out, is bothering him Vital Signs Vital Signs Date Time Temp Pulse Resp B/P Pulse Ox O2 Delivery O2 Flow Rate FiO2 09/24/16 08:44 92 Room Air 09/24/16 07:00 97.9 119 18 145/105 97.9 09/24/16 02:55 2.0 I&O Intake and Output 09/24/16 07:00 Intake Total 0 ml Output Total 1220 ml Balance -1220 ml Intake Oral 0 ml Gastric Drainage Total 1200 ml Drainage Total 20 ml General: Alert, Oriented X3, Cooperative, No acute distress Abdomen: Soft, Other (dressings dry, ostomy with stool, jps serosang ) Labs Laboratory Tests Test 09/22/16 11:25 09/22/16 16:27 09/22/16 20:32 09/23/16 07:39 Glucose (Fingerstick) 155mg/dL (70-99) 158mg/dL (70-99) 176mg/dL (70-99) 188mg/dL (70-99) Test 09/23/16 11:42 09/23/16 16:53 09/23/16 17:30 09/23/16 20:47 Glucose (Fingerstick) 174mg/dL (70-99) 174mg/dL (70-99) 152mg/dL (70-99) Urine Color Lin Urine Clarity Cloudy Urine pH 6.0 Urine Specific [place] 1.025 Urine Protein 30mg/dL (NEG-TRACE) Urine Glucose (UA) Negativemg/dL (NEG) Urine Ketones (Stick) Negativemg/dL (NEG) Urine Blood Negative (NEG) Urine Nitrite Negative (NEG) Urine Bilirubin Small (NEG) Urine Urobilinogen Dipstick 1.0mg/dL (0.2 mg/dL) Urine Leukocyte Esterase Small (NEG) Urine RBC 0/HPF (0-2) Urine WBC 1-4/HPF (0-4) Urine Squamous Epithelial Cells None/LPF Urine Bacteria Few/HPF (0-FEW) Urine Mucus Slight/LPF Test 09/24/16 07:19 Glucose (Fingerstick) 162mg/dL (70-99) Laboratory Tests Test 09/23/16 11:42 09/23/16 16:53 09/23/16 17:30 09/23/16 20:47 Glucose (Fingerstick) 174mg/dL (70-99) 174mg/dL (70-99) 152mg/dL (70-99) Urine Color Lin Urine Clarity Cloudy Urine pH 6.0 Urine Specific [place] 1.025 Urine Protein 30mg/dL (NEG-TRACE) Urine Glucose (UA) Negativemg/dL (NEG) Urine Ketones (Stick) Negativemg/dL (NEG) Urine Blood Negative (NEG) Urine Nitrite Negative (NEG) Urine Bilirubin Small (NEG) Urine Urobilinogen Dipstick 1.0mg/dL (0.2 mg/dL) Urine Leukocyte Esterase Small (NEG) Urine RBC 0/HPF (0-2) Urine WBC 1-4/HPF (0-4) Urine Squamous Epithelial Cells None/LPF Urine Bacteria Few/HPF (0-FEW) Urine Mucus Slight/LPF Test 09/24/16 07:19 Glucose (Fingerstick) 162mg/dL (70-99) Problem List Problems Medical Problems: (1) Small bowel obstruction Status: Acute Assessment/Plan s/p xlap NG still having high output, will leave in place, some bowel function(ostomy has liquid) will d/w dr Brian Problems: TAMMI BRIAN MD 09/24/16 1217: SURGICAL PROGRESS NOTE Assessment/Plan pt seen and examined good pain control would like tube out, but I explained that we are getting lots of return will trial in AM and in the meantime get lozenges/spray Problems: REINA PENA APRN Sep 24, 2016 08:52 TAMMI BRIAN MD Sep 24, 2016 12:17
[2016-09-24] MEDS: ENOXAPARIN ** NOTE DOSE ** SYRINGE SQ SCH ×2 (08:53→22:19)
[2016-09-24] MEDS: INSULIN DETEMIR 300 UNITS/3 ML INSULN.PEN. SQ SCH ×2 (09:00→21:00)
[2016-09-24 10:50] VITALS: BP 153/101
[2016-09-24] MEDS: BENZOCAINE/MENTHOL LOZENGE. PO PRN ×2 (12:22→16:02)
[2016-09-24] MEDS: PHENOL ORAL SPRAY 177ML BOTTLE. PO PRN ×2 (12:22→16:05)
[2016-09-24] MEDS ORDERED: ALBUMIN HUMAN 5% 500 ML IV ONE (12:30)
[2016-09-24 15:00] VITALS: BP 162/101
--- NOTE | 2016-09-24 16:26 | OP ---
DATE OF SURGERY: 09/21/2016 PREOPERATIVE DIAGNOSES: Small bowel obstruction with ventral incisional hernia and parastomal hernia. POSTOPERATIVE DIAGNOSES: Small bowel obstruction with ventral incisional hernia and parastomal hernia. PROCEDURES: 1. Exploratory laparotomy. 2. Release small-bowel obstruction. 3. Transversus abdominis release. 4. Repair of ventral incisional hernia with mesh. 5. Primary repair of parastomal hernia. SURGEONS: Dr. Brian and Dr. Jules INFORMATION TECHNOLOGY PROFESSOR: KIKO Henderson ANESTHESIA: General endotracheal. ESTIMATED BLOOD LOSS: 100 mL. IV FLUID: 2700 of crystalloid, 500 of albumin. URINE OUTPUT: 200 mL NG OUTPUT: 3 liters. INDICATIONS: The patient is a morbidly obese (500 pounds) male with a history of previous colectomy for ischemia and perforation. He has a large hernia around his end ileostomy as well as an incisional hernia. He is brought for release of the bowel obstruction and attempts to repair the hernia. DISCUSSION: Prior to surgery was held, with the patient and his parents, explaining that his size creates significant perioperative risk and chance of recurrence. Options of transfer to another facility were discussed. He prefers to stay and proceed here. DESCRIPTION OF PROCEDURE: The patient was brought to the operating suite, given a general endotracheal anesthetic. Daniels catheter placed to penetrate into the abdomen, prepped and draped in usual sterile fashion. The old midline incisional scar was opened on 07/26/2016 and the abdomen carefully entered. We set about running the small bowel beginning proximally. A few filmy adhesions were encountered as we went and these were taken down. The source of the obstruction appeared to reside within the bowel loops that were contained in the parastomal hernia. Eventually, we were able to expose the small bowel in its entirety. The distal small bowel did show some edematous changes with some minimal creeping fat, but I felt it was better to avoid resection of possible and as such none was removed. The parastomal hernia was closed with interrupted sutures of 0 PDS, leaving adequate space for the small bowel and its mesenteric to exit the abdominal cavity without compromising blood supply. We then turned our attention toward the incisional hernia. Initially, the left side of the abdomen was approached and the peritoneum was scored and dissection carried out to mobilize the abdominal wall for potential primary closure by releasing the transverse abdominis muscles. Although, this did provide some improved laxity for coverage. Because of the presence of the stoma on the contralateral side, we were unable to perform the similar dissection. As such, we closed the fascial defect in transverse fashion as this provided the least amount of tension. A running suture of looped 0 PDS was used, tied in the middle. When a correct sponge count was obtained and overlay mesh was placed of Phasix, tacked around the periphery with interrupted 0 PDS suture. Two 19-[place] round Elias drains were placed, secured to the skin with a silk stitch and left in the subcutaneous space for postoperative drainage. Before skin closure, some cellulose powder was sprinkled in the wound to try and help minimize seroma formation. When the second sponge count was correct, the skin was closed with interrupted vertical mattress sutures of 3-0 Prolene and skin andrew. Sterile dressing applied. Abdominal binder placed. The patient was awakened from his anesthetic and taken to the recovery room in satisfactory condition. TAMMI BRIAN MD DR: ANGELIA/vj JOB#: [id number] / [id number]
[2016-09-24 19:16] VITALS: BP 147/94
[2016-09-25] MEDS: POTASSIUM CL 20MEQ D5-0.9%NACL 1,000 ML IV SCH ×4 (00:05→20:20)
[2016-09-25] MEDS: HYDROMORPHONE STANDARD PCA 30 ML IV PRN ×2 (02:11→22:41)
[2016-09-25] MEDS: BENZOCAINE/MENTHOL LOZENGE. PO PRN (02:12)
[2016-09-25 02:44] VITALS: BP 157/101
[2016-09-25 07:00] VITALS: BP 165/95
[2016-09-25] MEDS: METFORMIN 1,000 MG TABLET PO SCH ×2 (07:37→16:44)
[2016-09-25] MEDS: INSULIN ASPART 300 UNITS/3 ML INSULN.PEN SQ SCH ×3 (08:00→16:27)
--- NOTE | 2016-09-25 08:20 | PDOC ---
Provider Note Provider Note vss, glucose good, still lots of ng output- urine ok- cont low dose ARIANA Silva MD Sep 25, 2016 08:20
[2016-09-25] MEDS: ENOXAPARIN ** NOTE DOSE ** SYRINGE SQ SCH ×2 (08:21→20:19)
[2016-09-25] MEDS: INSULIN DETEMIR 300 UNITS/3 ML INSULN.PEN. SQ SCH ×2 (08:21→21:00)
[2016-09-25 10:57] LABS: CREATININE 0.8 mg/dL (0.7-1.3); GFR 111.3; POTASSIUM 3.6 mmol/L (3.5-5.1)
[2016-09-25 11:00] VITALS: BP 153/112
--- NOTE | 2016-09-25 11:14 | PDOC ---
SURGICAL PROGRESS NOTE Subjective wants NG out denies nausea off suction Vital Signs Vital Signs Date Time Temp Pulse Resp B/P Pulse Ox O2 Delivery O2 Flow Rate FiO2 09/25/16 07:30 Room Air 09/25/16 07:00 97.4 105 20 165/95 93 97.4 09/24/16 10:55 2.0 I&O Intake and Output 09/25/16 07:00 Intake Total 120 ml Output Total 6690 ml Balance -6570 ml Intake Oral 120 ml Output Urine Total 850 ml Gastric Drainage Total 5750 ml Drainage Total 90 ml PATIENT HAS A PERALTA: No General: Alert, Oriented X3, Cooperative, No acute distress Abdomen: Soft Labs Laboratory Tests Test 09/23/16 11:42 09/23/16 16:53 09/23/16 17:30 09/23/16 20:47 Glucose (Fingerstick) 174mg/dL (70-99) 174mg/dL (70-99) 152mg/dL (70-99) Urine Color Lin Urine Clarity Cloudy Urine pH 6.0 Urine Specific [place] 1.025 Urine Protein 30mg/dL (NEG-TRACE) Urine Glucose (UA) Negativemg/dL (NEG) Urine Ketones (Stick) Negativemg/dL (NEG) Urine Blood Negative (NEG) Urine Nitrite Negative (NEG) Urine Bilirubin Small (NEG) Urine Urobilinogen Dipstick 1.0mg/dL (0.2 mg/dL) Urine Leukocyte Esterase Small (NEG) Urine RBC 0/HPF (0-2) Urine WBC 1-4/HPF (0-4) Urine Squamous Epithelial Cells None/LPF Urine Bacteria Few/HPF (0-FEW) Urine Mucus Slight/LPF Test 09/24/16 07:19 09/24/16 11:16 09/24/16 16:18 09/24/16 22:03 Glucose (Fingerstick) 162mg/dL (70-99) 152mg/dL (70-99) 113mg/dL (70-99) 145mg/dL (70-99) Test 09/25/16 07:37 09/25/16 09:20 Glucose (Fingerstick) 181mg/dL (70-99) Sodium Level 152mmol/L (136-145) Potassium Level 3.6mmol/L (3.5-5.1) Chloride Level 111mmol/L (98-107) Carbon Dioxide Level 34mmol/L (21-32) Anion Gap 7 (6-14) Blood Urea Nitrogen 9mg/dL (8-26) Creatinine 0.8mg/dL (0.7-1.3) Estimated GFR (Cockcroft-Gault) 111.3 Glucose Level 152mg/dL (70-99) Calcium Level 9.0mg/dL (8.5-10.1) Laboratory Tests Test 09/24/16 11:16 09/24/16 16:18 09/24/16 22:03 09/25/16 07:37 Glucose (Fingerstick) 152mg/dL (70-99) 113mg/dL (70-99) 145mg/dL (70-99) 181mg/dL (70-99) Test 09/25/16 09:20 Sodium Level 152mmol/L (136-145) Potassium Level 3.6mmol/L (3.5-5.1) Chloride Level 111mmol/L (98-107) Carbon Dioxide Level 34mmol/L (21-32) Anion Gap 7 (6-14) Blood Urea Nitrogen 9mg/dL (8-26) Creatinine 0.8mg/dL (0.7-1.3) Estimated GFR (Cockcroft-Gault) 111.3 Glucose Level 152mg/dL (70-99) Calcium Level 9.0mg/dL (8.5-10.1) Problem List Problems Medical Problems: (1) Small bowel obstruction Status: Acute Assessment/Plan morbid obesity s/p repair VIH, parastomal hernia, release SBO minimal residual from NG will d/c Problems: TAMMI BRIAN MD Sep 25, 2016 11:14
[2016-09-25 15:00] VITALS: BP 175/98
[2016-09-25 19:00] VITALS: BP 146/105
[2016-09-25 23:00] VITALS: BP 160/88
[2016-09-26 03:00] VITALS: BP 141/82
[2016-09-26] MEDS: POTASSIUM CL 20MEQ D5-0.9%NACL 1,000 ML IV SCH (04:38)
[2016-09-26 07:46] VITALS: BP 143/88
[2016-09-26] MEDS: INSULIN ASPART 300 UNITS/3 ML INSULN.PEN SQ SCH ×3 (08:00→17:00)
[2016-09-26] MEDS: INSULIN DETEMIR 300 UNITS/3 ML INSULN.PEN. SQ SCH (08:16)
[2016-09-26] MEDS: METFORMIN 1,000 MG TABLET PO SCH ×2 (08:17→17:32)
[2016-09-26] MEDS: ENOXAPARIN ** NOTE DOSE ** SYRINGE SQ SCH ×2 (08:17→21:07)
--- NOTE | 2016-09-26 08:21 | PDOC ---
Provider Note Provider Note ng out, aura cl so far- Na 152 so will change to hypotonic iv fluid, less- dc levemir and resume metformin w/ po intake now ARIANA MARSHALL MD Sep 26, 2016 08:21
--- NOTE | 2016-09-26 10:40 | PDOC ---
SURGICAL PROGRESS NOTE Subjective Joe is up to the chair a little winded after walking adequate pain control Vital Signs Vital Signs Date Time Temp Pulse Resp B/P Pulse Ox O2 Delivery O2 Flow Rate FiO2 09/26/16 08:00 Room Air 09/26/16 07:46 98.0 87 18 143/88 95 98.0 I&O Intake and Output 09/26/16 07:00 Intake Total 1400 ml Output Total 900 ml Balance 500 ml Intake Oral 1400 ml Output Urine Total 400 ml Stool Total 350 ml Gastric Drainage Total 150 ml PATIENT HAS A PERALTA: No General: Alert, Oriented X3, Cooperative, No acute distress Abdomen: Soft, Other (incision c/d) Labs Laboratory Tests Test 09/24/16 11:16 09/24/16 16:18 09/24/16 22:03 09/25/16 07:37 Glucose (Fingerstick) 152mg/dL (70-99) 113mg/dL (70-99) 145mg/dL (70-99) 181mg/dL (70-99) Test 09/25/16 09:20 09/25/16 11:44 09/25/16 16:25 09/25/16 20:48 Sodium Level 152mmol/L (136-145) Potassium Level 3.6mmol/L (3.5-5.1) Chloride Level 111mmol/L (98-107) Carbon Dioxide Level 34mmol/L (21-32) Anion Gap 7 (6-14) Blood Urea Nitrogen 9mg/dL (8-26) Creatinine 0.8mg/dL (0.7-1.3) Estimated GFR (Cockcroft-Gault) 111.3 Glucose Level 152mg/dL (70-99) Calcium Level 9.0mg/dL (8.5-10.1) Glucose (Fingerstick) 168mg/dL (70-99) 125mg/dL (70-99) 110mg/dL (70-99) Test 09/26/16 07:29 Glucose (Fingerstick) 125mg/dL (70-99) Laboratory Tests Test 09/25/16 11:44 09/25/16 16:25 09/25/16 20:48 09/26/16 07:29 Glucose (Fingerstick) 168mg/dL (70-99) 125mg/dL (70-99) 110mg/dL (70-99) 125mg/dL (70-99) Problem List Problems Medical Problems: (1) Small bowel obstruction Status: Acute Assessment/Plan morbid obesity s/p release SBO, VIHR advance diet slowly increase activity Problems: TAMMI BRIAN MD Sep 26, 2016 10:40
[2016-09-26 11:24] VITALS: BP 133/102
[2016-09-26] MEDS: POTASSIUM CL 20MEQ D5-0.45NACL 1,000 ML IV SCH ×2 (11:35→17:31)
[2016-09-26 15:07] VITALS: BP 176/118
[2016-09-26] MEDS: HYDROMORPHONE STANDARD PCA 30 ML IV PRN (17:35)
[2016-09-26 19:25] VITALS: BP 150/91
[2016-09-26 23:02] VITALS: BP 133/94
[2016-09-27 03:04] VITALS: BP 155/93
[2016-09-27 05:52] LABS: CALCIUM 8.4 mg/dL (8.5-10.1); CREATININE 0.7 mg/dL (0.7-1.3); GFR 129.9; POTASSIUM 3.8 mmol/L (3.5-5.1)
[2016-09-27 07:00] VITALS: BP 147/98
[2016-09-27] MEDS: INSULIN ASPART 300 UNITS/3 ML INSULN.PEN SQ SCH (08:00)
--- NOTE | 2016-09-27 08:15 | PDOC ---
Provider Note Provider Note feels good, no emesis, good glucose- on fl, adv per surgery, home soon ARIANA MARSHALL MD Sep 27, 2016 08:15
[2016-09-27] MEDS: POTASSIUM CL 20MEQ D5-0.45NACL 1,000 ML IV SCH ×2 (08:33→18:08)
[2016-09-27] MEDS: METFORMIN 1,000 MG TABLET PO SCH ×2 (08:34→18:08)
[2016-09-27] MEDS: ENOXAPARIN ** NOTE DOSE ** SYRINGE SQ SCH ×2 (08:34→21:12)
[2016-09-27 11:00] VITALS: BP 149/91
[2016-09-27] MEDS: HYDROMORPHONE STANDARD PCA 30 ML IV PRN (12:53)
--- NOTE | 2016-09-27 13:54 | PDOC ---
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 09/27/16 1354: SURGICAL PROGRESS NOTE Subjective no complaints tolerating his diet does have some left flank pain, hurts with movement and certain positions Vital Signs Vital Signs Date Time Temp Pulse Resp B/P Pulse Ox O2 Delivery O2 Flow Rate FiO2 09/27/16 12:53 16 Room Air 09/27/16 11:00 97.7 88 149/91 91 97.7 09/26/16 19:25 2.0 I&O Intake and Output 09/27/16 07:00 Intake Total 500 ml Output Total 1975 ml Balance -1475 ml Intake Oral 500 ml Output Urine Total 650 ml Stool Total 1050 ml Drainage Total 275 ml General: Alert, Oriented X3, Cooperative, No acute distress Abdomen: Soft, Other (jps serosang, incision intact) Labs Laboratory Tests Test 09/25/16 16:25 09/25/16 20:48 09/26/16 07:29 09/26/16 11:00 Glucose (Fingerstick) 125mg/dL (70-99) 110mg/dL (70-99) 125mg/dL (70-99) 140mg/dL (70-99) Test 09/26/16 16:58 09/26/16 20:34 09/27/16 04:25 09/27/16 07:41 Glucose (Fingerstick) 92mg/dL (70-99) 107mg/dL (70-99) 100mg/dL (70-99) Sodium Level 143mmol/L (136-145) Potassium Level 3.8mmol/L (3.5-5.1) Chloride Level 105mmol/L (98-107) Carbon Dioxide Level 30mmol/L (21-32) Anion Gap 8 (6-14) Blood Urea Nitrogen 6mg/dL (8-26) Creatinine 0.7mg/dL (0.7-1.3) Estimated GFR (Cockcroft-Gault) 129.9 Glucose Level 103mg/dL (70-99) Calcium Level 8.4mg/dL (8.5-10.1) Test 09/27/16 11:06 Glucose (Fingerstick) 118mg/dL (70-99) Laboratory Tests Test 09/26/16 16:58 09/26/16 20:34 09/27/16 04:25 09/27/16 07:41 Glucose (Fingerstick) 92mg/dL (70-99) 107mg/dL (70-99) 100mg/dL (70-99) Sodium Level 143mmol/L (136-145) Potassium Level 3.8mmol/L (3.5-5.1) Chloride Level 105mmol/L (98-107) Carbon Dioxide Level 30mmol/L (21-32) Anion Gap 8 (6-14) Blood Urea Nitrogen 6mg/dL (8-26) Creatinine 0.7mg/dL (0.7-1.3) Estimated GFR (Cockcroft-Gault) 129.9 Glucose Level 103mg/dL (70-99) Calcium Level 8.4mg/dL (8.5-10.1) Test 09/27/16 11:06 Glucose (Fingerstick) 118mg/dL (70-99) Problem List Problems Medical Problems: (1) Small bowel obstruction Status: Acute Assessment/Plan s/p xlap advance diet slowly,fulls another day Problems: TAMMI BRIAN MD 09/27/16 1645: SURGICAL PROGRESS NOTE Assessment/Plan pt seen and examined agree with above discharge planning Problems: REINA PENA APRN Sep 27, 2016 13:54 TAMMI BRIAN MD Sep 27, 2016 16:45
[2016-09-27 15:00] VITALS: BP 146/111
[2016-09-27 19:00] VITALS: BP 149/84
[2016-09-27 23:24] VITALS: BP 145/89
[2016-09-28 03:11] VITALS: BP 158/87
[2016-09-28] MEDS: POTASSIUM CL 20MEQ D5-0.45NACL 1,000 ML IV SCH (04:00)
[2016-09-28] MEDS: HYDROMORPHONE STANDARD PCA 30 ML IV PRN (04:06)
[2016-09-28 07:00] VITALS: BP 155/87
--- NOTE | 2016-09-28 08:00 | PDOC ---
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
[2016-09-28] MEDS: ENOXAPARIN ** NOTE DOSE ** SYRINGE SQ SCH ×2 (08:50→21:43)
[2016-09-28] MEDS: METFORMIN 1,000 MG TABLET PO SCH ×2 (08:50→18:42)
[2016-09-28 11:00] VITALS: BP 174/93
--- NOTE | 2016-09-28 11:31 | PDOC ---
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 1131: SURGICAL PROGRESS NOTE Subjective tolerating full liquids no n/v working with PT we did discuss getting rid of brick burner head soon Vital Signs Vital Signs Date Time Temp Pulse Resp B/P Pulse Ox O2 Delivery O2 Flow Rate FiO2 09/28/16 11:00 98.4 86 18 174/93 94 Room Air 98.4 I&O Intake and Output 09/28/16 07:00 Intake Total 2026 ml Output Total 2705 ml Balance -679 ml Intake Oral 0 ml IV Total 2026 ml Output Urine Total 1850 ml Stool Total 775 ml Drainage Total 80 ml General: Alert, Oriented X3, Cooperative, No acute distress Abdomen: Soft, Other (ND, jps intact, ostomy with stool) Labs Laboratory Tests Test 09/26/16 16:58 09/26/16 20:34 09/27/16 04:25 09/27/16 07:41 Glucose (Fingerstick) 92mg/dL (70-99) 107mg/dL (70-99) 100mg/dL (70-99) Sodium Level 143mmol/L (136-145) Potassium Level 3.8mmol/L (3.5-5.1) Chloride Level 105mmol/L (98-107) Carbon Dioxide Level 30mmol/L (21-32) Anion Gap 8 (6-14) Blood Urea Nitrogen 6mg/dL (8-26) Creatinine 0.7mg/dL (0.7-1.3) Estimated GFR (Cockcroft-Gault) 129.9 Glucose Level 103mg/dL (70-99) Calcium Level 8.4mg/dL (8.5-10.1) Test 09/27/16 11:06 09/27/16 16:07 09/27/16 21:07 09/28/16 07:41 Glucose (Fingerstick) 118mg/dL (70-99) 100mg/dL (70-99) 110mg/dL (70-99) 107mg/dL (70-99) Laboratory Tests Test 09/27/16 16:07 09/27/16 21:07 09/28/16 07:41 Glucose (Fingerstick) 100mg/dL (70-99) 110mg/dL (70-99) 107mg/dL (70-99) Problem List Problems Medical Problems: (1) Small bowel obstruction Status: Acute Assessment/Plan s/p xlap full liquids work to dc brick burner head soon, tomorrow or saturday Problems: TAMMI BRIAN MD 09/28/16 1427: SURGICAL PROGRESS NOTE Assessment/Plan pt seen and examined agree with above Reina and Dr Garcia will follow over the weekend Problems: REINA PENA APRN Sep 28, 2016 11:31 TAMMI BRIAN MD Sep 28, 2016 13:57
[2016-09-28 15:00] VITALS: BP 141/88
[2016-09-28 19:25] VITALS: BP 156/87
[2016-09-28 23:17] VITALS: BP 145/85
[2016-09-29 03:25] VITALS: BP 114/79
[2016-09-29 07:45] VITALS: BP 129/80
[2016-09-29] MEDS: OXYCODONE IR 5 MG TABLET. PO PRN ×4 (08:33→23:24)
[2016-09-29] MEDS: METFORMIN 1,000 MG TABLET PO SCH ×2 (08:33→16:23)
[2016-09-29] MEDS: ENOXAPARIN ** NOTE DOSE ** SYRINGE SQ SCH ×2 (08:34→20:20)
--- NOTE | 2016-09-29 08:49 | PDOC ---
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 no n/v still not taking much po walked in [place] with PT yesterday Vital Signs Vital Signs Date Time Temp Pulse Resp B/P Pulse Ox O2 Delivery O2 Flow Rate FiO2 09/29/16 08:33 16 94 Room Air 2.0 09/29/16 07:45 97.7 87 129/80 97.7 I&O Intake and Output 09/29/16 07:00 Intake Total 800 ml Output Total 1975 ml Balance -1175 ml Intake Oral 800 ml Output Urine Total 1300 ml Stool Total 475 ml Drainage Total 200 ml General: Alert, Oriented X3, Cooperative, No acute distress Abdomen: Soft, Other (drains in place, incision dry ) Labs Laboratory Tests Test 09/27/16 11:06 09/27/16 16:07 09/27/16 21:07 09/28/16 07:41 Glucose (Fingerstick) 118mg/dL (70-99) 100mg/dL (70-99) 110mg/dL (70-99) 107mg/dL (70-99) Test 09/28/16 10:56 09/28/16 17:05 09/29/16 07:59 Glucose (Fingerstick) 133mg/dL (70-99) 101mg/dL (70-99) 106mg/dL (70-99) Laboratory Tests Test 09/28/16 10:56 09/28/16 17:05 09/29/16 07:59 Glucose (Fingerstick) 133mg/dL (70-99) 101mg/dL (70-99) 106mg/dL (70-99) Problem List Problems Medical Problems: (1) Small bowel obstruction Status: Acute Problems: REINA PENA APRN Sep 29, 2016 08:49
[2016-09-29 11:11] VITALS: BP 135/86
--- NOTE | 2016-09-29 11:46 | PDOC ---
GENERAL General: vss and afebrile. awake and alert and complains of pain. abdomen soft and chest with distant breath sounds but clear. heart regular. sugars good. encouraged ambulation. surgical help appreciated. Problems: VITAL SIGNS Vital Signs: Vital Signs Date Time Temp Pulse Resp B/P Pulse Ox O2 Delivery O2 Flow Rate FiO2 09/29/16 11:11 97.5 85 18 135/86 95 Room Air 97.5 09/29/16 08:33 2.0 I & O I & O Intake and Output 09/29/16 07:00 Intake Total 800 ml Output Total 1975 ml Balance -1175 ml Intake Oral 800 ml Output Urine Total 1300 ml Stool Total 475 ml Drainage Total 200 ml ALLERGIES Allergies: Allergies Coded Allergies Type Severity Reaction Last Updated Verified No Known Drug Allergies 07/24/13 No MEDS Medications: Current Medications Medications (Trade) Dose Ordered Sig/Marlo Start Time Stop Time Status Last Admin Dose Admin Acetaminophen (Tylenol) 650 mg PRN Q6HRS PRN 09/16/16 03:45 Acetaminophen 650 mg 650 mg PRN Q4HRS PRN 09/15/16 00:00 09/15/16 23:59 DC Acetaminophen/ Hydrocodone Bitart (Lortab 5/325) 1 tab PRN Q6HRS PRN 09/19/16 08:15 09/25/16 14:00 DC 09/20/16 11:54 1 TAB Albumin Human 500 ml @ 125 mls/hr 1X ONCE 09/24/16 12:30 09/24/16 16:29 DC 09/24/16 12:57 125 MLS/HR Albumin Human (Plasmanate) 500 ml @ As Directed STK-MED ONCE 09/21/16 11:28 09/24/16 07:28 DC Cefoxitin Sodium (Mefoxin 2gm Ivpb For Omni) 100 ml @ As Directed STK-MED ONCE 09/21/16 09:53 09/21/16 09:54 DC Cefoxitin Sodium/ Sodium Chloride (Mefoxin/Iv Sodium Chloride 0.9% 100ml) 100 ml @ 200 mls/hr 1X PREOP ONCE 09/21/16 10:30 09/21/16 10:59 DC 09/21/16 10:40 200 MLS/HR Desflurane (Suprane) 90 ml STK-MED ONCE 09/21/16 09:32 09/24/16 07:28 DC Dexamethasone Sodium Phosphate (Decadron) 20 mg STK-MED ONCE 09/21/16 09:24 09/24/16 07:28 DC Dextrose 12.5 gm PRN Q15MIN PRN 09/15/16 08:30 Enoxaparin Sodium (Lovenox 60mg Syringe) 60 mg Q12HR 09/16/16 13:00 09/29/16 08:34 60 MG Enoxaparin Sodium 40 mg 40 mg 1X ONCE 09/21/16 10:30 09/21/16 10:31 DC 09/21/16 10:39 40 MG Ephedrine Sulfate 50 mg STK-MED ONCE 09/21/16 09:23 09/24/16 07:28 DC Famotidine (Pepcid) 20 mg STK-MED ONCE 09/21/16 09:24 09/24/16 07:28 DC Fentanyl Citrate (Fentanyl 2ml Vial) 100 mcg STK-MED ONCE 09/21/16 09:23 09/24/16 07:28 DC Glycopyrrolate (Robinul) 1 mg STK-MED ONCE 09/21/16 13:08 09/24/16 07:28 DC Hydromorphone HCl (Dilaudid Standard DIRECTOR ENVIRONMENTAL) 30 ml @ 0 mls/hr CONT PRN PRN 09/20/16 16:45 09/29/16 08:00 DC 09/28/16 04:06 0 MLS/HR Hydromorphone HCl (Dilaudid) 0.4 mg PRN Q4HRS PRN 09/29/16 09:00 Info (Anti-Coagulation Monitoring By Pharmacy) 1 each PRN DAILY PRN 09/18/16 14:15 Cancel Info (Do NOT chart on this entry -- for MONITORING) 1 each PRN DAILY PRN 09/21/16 06:30 09/23/16 06:29 DC Insulin Aspart (Novolog) 0-5 UNITS TIDWMEALS 09/15/16 12:00 09/27/16 08:16 DC 09/20/16 11:59 2 UNITS Insulin Detemir (Levemir) 10 units Q12HR 09/23/16 09:00 09/24/16 08:24 DC 09/23/16 21:44 10 UNITS Insulin Detemir 15 units 15 units Q12HR 09/24/16 09:00 09/26/16 08:21 DC Iohexol (Omnipaque 240 Mg/ml) 50 ml 1X ONCE 09/21/16 07:00 09/21/16 07:01 DC 09/21/16 08:42 50 ML Iohexol (Omnipaque 300 Mg/ml) 75 ml 1X ONCE 09/21/16 07:00 09/21/16 07:01 DC 09/21/16 08:41 75 ML Iohexol (Omnipaque 350 Mg/ml) 500 ml 1X ONCE 09/17/16 11:00 09/17/16 11:01 DC 09/17/16 11:16 400 ML Lactated Ringer's (Iv Lactated Ringers) 1,000 ml @ 30 mls/hr Q24H 09/21/16 07:10 09/21/16 19:00 DC Lidocaine HCl (Xylocaine-Mpf 1% Vial) 5 ml STK-MED ONCE 09/21/16 09:23 09/24/16 07:28 DC Metformin HCl (Glucophage) 1,000 mg BIDWMEALS 09/23/16 08:00 09/29/16 08:33 1,000 MG Metformin HCl 1000 mg 1,000 mg BIDWMEALS 09/17/16 08:00 09/17/16 10:57 DC Metoclopramide HCl (Reglan) 10 mg PRN Q6HRS PRN 09/16/16 14:45 09/22/16 18:24 10 MG Midazolam HCl (Versed) 2 mg STK-MED ONCE 09/21/16 09:23 09/24/16 07:28 DC Morphine Sulfate 10 mg STK-MED ONCE 09/21/16 10:47 09/24/16 07:28 DC Morphine Sulfate 1 mg 1 mg PRN Q10MIN PRN 09/21/16 07:15 09/21/16 19:00 DC Naloxone HCl 0.4 mg 0.4 mg PRN Q2MIN PRN 09/20/16 16:45 09/29/16 08:00 DC Neostigmine Methylsulfate 5 mg STK-MED ONCE 09/21/16 13:08 09/24/16 07:28 DC Ondansetron HCl (Zofran) 4 mg STK-MED ONCE 09/21/16 10:46 09/24/16 07:28 DC Ondansetron HCl 4 mg 4 mg STK-MED ONCE 09/21/16 09:24 09/24/16 07:28 DC Oxycodone HCl (Roxicodone) 15 mg PRN Q4HRS PRN 09/29/16 06:00 09/29/16 08:33 15 MG Phenylephrine HCl 1 mg STK-MED ONCE 09/21/16 09:23 09/24/16 07:28 DC Potassium Chloride/Dextrose/ Sod Cl (KCl 20 Meq In D5W-1/2 NS) 1,000 ml @ 100 mls/hr Q10H 09/26/16 08:30 09/28/16 07:59 DC 09/28/16 04:00 100 MLS/HR Potassium Chloride/Dextrose/ Sod Cl (KCl 20 Meq In D5W-NS) 1,000 ml @ 150 mls/hr Q6H40M 09/15/16 22:45 09/26/16 08:21 DC 09/26/16 04:38 150 MLS/HR Potassium Chloride/Sodium Chloride (KCl 20 Meq-NS 1,000 ml Iv Soln) 1,000 ml @ 150 mls/hr 1X ONCE 09/15/16 00:00 09/15/16 06:39 DC 09/15/16 00:07 150 MLS/HR Prochlorperazine Edisylate 5 mg 5 mg PACU PRN PRN 09/21/16 07:15 09/21/16 19:00 DC 09/21/16 14:34 5 MG Propofol (Diprivan) 20 ml @ As Directed STK-MED ONCE 09/21/16 09:29 09/24/16 07:28 DC Rocuronium [place] (Zemuron) 100 mg STK-MED ONCE 09/21/16 09:24 09/24/16 07:28 DC Simethicone (Gas-X) 80 mg PRN Q2HR PRN 09/19/16 17:00 09/19/16 20:35 80 MG Sodium Chloride (Iv Sodium Chloride 0.9% 1000ml Bag) 1,000 ml @ 1,000 mls/hr Q1H 09/14/16 21:25 09/14/16 22:24 DC 09/14/16 21:36 1,000 MLS/HR Sodium Chloride 50 ml 50 ml STK-MED ONCE 09/21/16 10:47 09/24/16 07:28 DC Succinylcholine Chloride (Anectine) 200 mg STK-MED ONCE 09/21/16 09:24 09/24/16 07:28 DC Throat Lozenges (Cepacol Sore Throat Lozenge) 1 alec PRN Q2HRS PRN 09/21/16 14:45 09/25/16 02:12 1 ALEC Throat Lozenges (Chloraseptic) 1 spray PRN Q2HR PRN 09/21/16 14:45 09/24/16 16:05 1 SPRAY Vecuronium [place] (Norcuron Bolus) 10 mg STK-MED ONCE 09/21/16 11:51 09/24/16 07:28 DC LAB Lab: Laboratory Tests Test 09/28/16 17:05 09/29/16 07:59 Glucose (Fingerstick) 101mg/dL (70-99) 106mg/dL (70-99) AUDREY LOVE MD Sep 29, 2016 11:46
[2016-09-29] MEDS: HYDROMORPHONE 2 MG/ML VIAL. IVP PRN ×4 (11:56→23:24)
[2016-09-29 15:04] VITALS: BP 129/76
[2016-09-29 19:15] VITALS: BP 145/103
[2016-09-29 23:19] VITALS: BP 125/73
[2016-09-30 03:00] VITALS: BP 135/76
[2016-09-30] MEDS: OXYCODONE IR 5 MG TABLET. PO PRN ×4 (03:56→17:50)
[2016-09-30] MEDS: HYDROMORPHONE 2 MG/ML VIAL. IVP PRN ×4 (03:56→17:50)
[2016-09-30 07:00] VITALS: BP 129/97
[2016-09-30] MEDS: METFORMIN 1,000 MG TABLET PO SCH ×2 (08:24→17:54)
[2016-09-30] MEDS: ENOXAPARIN ** NOTE DOSE ** SYRINGE SQ SCH ×2 (08:25→20:26)
--- NOTE | 2016-09-30 09:12 | PDOC ---
SURGICAL PROGRESS NOTE Subjective tolerating diet pain managed, using oral and intermittent IV med ambulating Vital Signs Vital Signs Date Time Temp Pulse Resp B/P Pulse Ox O2 Delivery O2 Flow Rate FiO2 09/30/16 08:25 16 Room Air 09/30/16 04:26 96 09/30/16 03:00 98.3 94 135/76 98.3 09/29/16 16:53 2.0 I&O Intake and Output 09/30/16 07:00 Intake Total 1250 ml Output Total 3630 ml Balance -2380 ml Intake Oral 1250 ml Output Urine Total 2300 ml Stool Total 1250 ml Drainage Total 80 ml General: Alert, Oriented X3, Cooperative, No acute distress Abdomen: Soft, Other (drressing dry, jps in place ) Labs Laboratory Tests Test 09/28/16 10:56 09/28/16 17:05 09/28/16 20:38 09/29/16 07:59 Glucose (Fingerstick) 133mg/dL (70-99) 101mg/dL (70-99) 124mg/dL (70-99) 106mg/dL (70-99) Test 09/29/16 11:59 09/29/16 16:20 09/29/16 21:27 09/30/16 07:54 Glucose (Fingerstick) 96mg/dL (70-99) 91mg/dL (70-99) 107mg/dL (70-99) 89mg/dL (70-99) Laboratory Tests Test 09/29/16 11:59 09/29/16 16:20 09/29/16 21:27 09/30/16 07:54 Glucose (Fingerstick) 96mg/dL (70-99) 91mg/dL (70-99) 107mg/dL (70-99) 89mg/dL (70-99) Problem List Problems Medical Problems: (1) Small bowel obstruction Status: Acute Assessment/Plan s/p xlap decreasing luke ouput wean off iv meds full liquids Problems: REINA PENA APRN Sep 30, 2016 09:12
--- NOTE | 2016-09-30 10:44 | PDOC ---
GENERAL General: vss and afebrile. awake and alert. pain same and tolerating diet and ambulating. exam stable. continue same. surgical help appreciated. Problems: VITAL SIGNS Vital Signs: Vital Signs Date Time Temp Pulse Resp B/P Pulse Ox O2 Delivery O2 Flow Rate FiO2 09/30/16 08:25 16 Room Air 09/30/16 07:00 97.9 91 129/97 97 97.9 09/29/16 16:53 2.0 I & O I & O Intake and Output 09/30/16 07:00 Intake Total 1250 ml Output Total 3630 ml Balance -2380 ml Intake Oral 1250 ml Output Urine Total 2300 ml Stool Total 1250 ml Drainage Total 80 ml ALLERGIES Allergies: Allergies Coded Allergies Type Severity Reaction Last Updated Verified No Known Drug Allergies 07/24/13 No MEDS Medications: Current Medications Medications (Trade) Dose Ordered Sig/Marlo Start Time Stop Time Status Last Admin Dose Admin Acetaminophen (Tylenol) 650 mg PRN Q6HRS PRN 09/16/16 03:45 Acetaminophen 650 mg 650 mg PRN Q4HRS PRN 09/15/16 00:00 09/15/16 23:59 DC Acetaminophen/ Hydrocodone Bitart (Lortab 5/325) 1 tab PRN Q6HRS PRN 09/19/16 08:15 09/25/16 14:00 DC 09/20/16 11:54 1 TAB Albumin Human 500 ml @ 125 mls/hr 1X ONCE 09/24/16 12:30 09/24/16 16:29 DC 09/24/16 12:57 125 MLS/HR Albumin Human (Plasmanate) 500 ml @ As Directed STK-MED ONCE 09/21/16 11:28 09/24/16 07:28 DC Cefoxitin Sodium (Mefoxin 2gm Ivpb For Omni) 100 ml @ As Directed STK-MED ONCE 09/21/16 09:53 09/21/16 09:54 DC Cefoxitin Sodium/ Sodium Chloride (Mefoxin/Iv Sodium Chloride 0.9% 100ml) 100 ml @ 200 mls/hr 1X PREOP ONCE 09/21/16 10:30 09/21/16 10:59 DC 09/21/16 10:40 200 MLS/HR Desflurane (Suprane) 90 ml STK-MED ONCE 09/21/16 09:32 09/24/16 07:28 DC Dexamethasone Sodium Phosphate (Decadron) 20 mg STK-MED ONCE 09/21/16 09:24 09/24/16 07:28 DC Dextrose 12.5 gm PRN Q15MIN PRN 09/15/16 08:30 Enoxaparin Sodium (Lovenox 60mg Syringe) 60 mg Q12HR 09/16/16 13:00 09/30/16 08:25 60 MG Enoxaparin Sodium 40 mg 40 mg 1X ONCE 09/21/16 10:30 09/21/16 10:31 DC 09/21/16 10:39 40 MG Ephedrine Sulfate 50 mg STK-MED ONCE 09/21/16 09:23 09/24/16 07:28 DC Famotidine (Pepcid) 20 mg STK-MED ONCE 09/21/16 09:24 09/24/16 07:28 DC Fentanyl Citrate (Fentanyl 2ml Vial) 100 mcg STK-MED ONCE 09/21/16 09:23 09/24/16 07:28 DC Glycopyrrolate (Robinul) 1 mg STK-MED ONCE 09/21/16 13:08 09/24/16 07:28 DC Hydromorphone HCl (Dilaudid Standard MOLD FILLER AND DRAINER) 30 ml @ 0 mls/hr CONT PRN PRN 09/20/16 16:45 09/29/16 08:00 DC 09/28/16 04:06 0 MLS/HR Hydromorphone HCl (Dilaudid) 0.4 mg PRN Q4HRS PRN 09/29/16 09:00 09/30/16 08:25 0.4 MG Info (Anti-Coagulation Monitoring By Pharmacy) 1 each PRN DAILY PRN 09/18/16 14:15 Cancel Info (Do NOT chart on this entry -- for MONITORING) 1 each PRN DAILY PRN 09/21/16 06:30 09/23/16 06:29 DC Insulin Aspart (Novolog) 0-5 UNITS TIDWMEALS 09/15/16 12:00 09/27/16 08:16 DC 09/20/16 11:59 2 UNITS Insulin Detemir (Levemir) 10 units Q12HR 09/23/16 09:00 09/24/16 08:24 DC 09/23/16 21:44 10 UNITS Insulin Detemir 15 units 15 units Q12HR 09/24/16 09:00 09/26/16 08:21 DC Iohexol (Omnipaque 240 Mg/ml) 50 ml 1X ONCE 09/21/16 07:00 09/21/16 07:01 DC 09/21/16 08:42 50 ML Iohexol (Omnipaque 300 Mg/ml) 75 ml 1X ONCE 09/21/16 07:00 09/21/16 07:01 DC 09/21/16 08:41 75 ML Iohexol (Omnipaque 350 Mg/ml) 500 ml 1X ONCE 09/17/16 11:00 09/17/16 11:01 DC 09/17/16 11:16 400 ML Lactated Ringer's (Iv Lactated Ringers) 1,000 ml @ 30 mls/hr Q24H 09/21/16 07:10 09/21/16 19:00 DC Lidocaine HCl (Xylocaine-Mpf 1% Vial) 5 ml STK-MED ONCE 09/21/16 09:23 09/24/16 07:28 DC Metformin HCl (Glucophage) 1,000 mg BIDWMEALS 09/23/16 08:00 09/30/16 08:24 1,000 MG Metformin HCl 1000 mg 1,000 mg BIDWMEALS 09/17/16 08:00 09/17/16 10:57 DC Metoclopramide HCl (Reglan) 10 mg PRN Q6HRS PRN 09/16/16 14:45 09/22/16 18:24 10 MG Midazolam HCl (Versed) 2 mg STK-MED ONCE 09/21/16 09:23 09/24/16 07:28 DC Morphine Sulfate 10 mg STK-MED ONCE 09/21/16 10:47 09/24/16 07:28 DC Morphine Sulfate 1 mg 1 mg PRN Q10MIN PRN 09/21/16 07:15 09/21/16 19:00 DC Naloxone HCl 0.4 mg 0.4 mg PRN Q2MIN PRN 09/20/16 16:45 09/29/16 08:00 DC Neostigmine Methylsulfate 5 mg STK-MED ONCE 09/21/16 13:08 09/24/16 07:28 DC Ondansetron HCl (Zofran) 4 mg STK-MED ONCE 09/21/16 10:46 09/24/16 07:28 DC Ondansetron HCl 4 mg 4 mg STK-MED ONCE 09/21/16 09:24 09/24/16 07:28 DC Oxycodone HCl (Roxicodone) 15 mg PRN Q4HRS PRN 09/29/16 06:00 09/30/16 08:24 15 MG Phenylephrine HCl 1 mg STK-MED ONCE 09/21/16 09:23 09/24/16 07:28 DC Potassium Chloride/Dextrose/ Sod Cl (KCl 20 Meq In D5W-07/23 NS) 1,000 ml @ 100 mls/hr Q10H 09/26/16 08:30 09/28/16 07:59 DC 09/28/16 04:00 100 MLS/HR Potassium Chloride/Dextrose/ Sod Cl (KCl 20 Meq In D5W-NS) 1,000 ml @ 150 mls/hr Q6H40M 09/15/16 22:45 09/26/16 08:21 DC 09/26/16 04:38 150 MLS/HR Potassium Chloride/Sodium Chloride (KCl 20 Meq-NS 1,000 ml Iv Soln) 1,000 ml @ 150 mls/hr 1X ONCE 09/15/16 00:00 09/15/16 06:39 DC 09/15/16 00:07 150 MLS/HR Prochlorperazine Edisylate 5 mg 5 mg PACU PRN PRN 09/21/16 07:15 09/21/16 19:00 DC 09/21/16 14:34 5 MG Propofol (Diprivan) 20 ml @ As Directed STK-MED ONCE 09/21/16 09:29 09/24/16 07:28 DC Rocuronium Clinton (Zemuron) 100 mg STK-MED ONCE 09/21/16 09:24 09/24/16 07:28 DC Simethicone (Gas-X) 80 mg PRN Q2HR PRN 09/19/16 17:00 09/19/16 20:35 80 MG Sodium Chloride (Iv Sodium Chloride 0.9% 1000ml Bag) 1,000 ml @ 1,000 mls/hr Q1H 09/14/16 21:25 09/14/16 22:24 DC 09/14/16 21:36 1,000 MLS/HR Sodium Chloride 50 ml 50 ml STK-MED ONCE 09/21/16 10:47 09/24/16 07:28 DC Succinylcholine Chloride (Anectine) 200 mg STK-MED ONCE 09/21/16 09:24 09/24/16 07:28 DC Throat Lozenges (Cepacol Sore Throat Lozenge) 1 alce PRN Q2HRS PRN 09/21/16 14:45 09/25/16 02:12 1 ALEC Throat Lozenges (Chloraseptic) 1 spray PRN Q2HR PRN 09/21/16 14:45 09/24/16 16:05 1 SPRAY Vecuronium Clinton (Norcuron Bolus) 10 mg STK-MED ONCE 09/21/16 11:51 09/24/16 07:28 DC LAB Lab: Laboratory Tests Test 09/29/16 11:59 09/29/16 16:20 09/29/16 21:27 09/30/16 07:54 Glucose (Fingerstick) 96mg/dL (70-99) 91mg/dL (70-99) 107mg/dL (70-99) 89mg/dL (70-99) AUDREY LOVE MD Sep 30, 2016 10:44
[2016-09-30 11:00] VITALS: BP 115/73
[2016-09-30 15:00] VITALS: BP 113/70
[2016-09-30 19:00] VITALS: BP 123/72
[2016-09-30 23:23] VITALS: BP 156/96
[2016-10-01] MEDS: OXYCODONE IR 5 MG TABLET. PO PRN ×4 (02:19→21:12)
[2016-10-01 03:06] VITALS: BP 154/91
[2016-10-01 07:00] VITALS: BP 139/79
--- NOTE | 2016-10-01 07:55 | PDOC ---
Provider Note Provider Note vss, glucose great, no temp- diet/opiods per surg , dc soon likely ARIANA MARSHALL MD Oct 01, 2016 07:55
[2016-10-01] MEDS: METFORMIN 1,000 MG TABLET PO SCH ×2 (08:00→17:10)
[2016-10-01] MEDS: ENOXAPARIN ** NOTE DOSE ** SYRINGE SQ SCH ×2 (10:14→21:07)
[2016-10-01 10:53] VITALS: BP 153/90
--- NOTE | 2016-10-01 13:36 | PDOC ---
REINA PENA PROTOCOL MANAGER 10/01/16 1336: SURGICAL PROGRESS NOTE Subjective ready for solid food hoping home soon Vital Signs Vital Signs Date Time Temp Pulse Resp B/P Pulse Ox O2 Delivery O2 Flow Rate FiO2 10/01/16 11:21 Room Air 10/01/16 10:53 97.5 101 24 153/90 91 97.5 I&O Intake and Output 10/01/16 07:00 Intake Total 400 ml Output Total 3060 ml Balance -2660 ml Intake Oral 400 ml Output Urine Total 2150 ml Stool Total 875 ml Drainage Total 35 ml General: Alert, Oriented X3, Cooperative, No acute distress Abdomen: Soft, Other (jps dark serosang ) Labs Laboratory Tests Test 09/29/16 16:20 09/29/16 21:27 09/30/16 07:54 09/30/16 11:09 Glucose (Fingerstick) 91mg/dL (70-99) 107mg/dL (70-99) 89mg/dL (70-99) 108mg/dL (70-99) Test 09/30/16 16:02 09/30/16 21:29 10/01/16 07:41 10/01/16 11:36 Glucose (Fingerstick) 129mg/dL (70-99) 104mg/dL (70-99) 92mg/dL (70-99) 100mg/dL (70-99) Laboratory Tests Test 09/30/16 16:02 09/30/16 21:29 10/01/16 07:41 10/01/16 11:36 Glucose (Fingerstick) 129mg/dL (70-99) 104mg/dL (70-99) 92mg/dL (70-99) 100mg/dL (70-99) Problem List Problems Medical Problems: (1) Small bowel obstruction Status: Acute Assessment/Plan s/p xlap soft diet continue drains, slowing down Problems: TAMMI BRIAN MD 10/01/16 1638: SURGICAL PROGRESS NOTE Assessment/Plan pt seen and examined ALESSIA outputs coming down continue same home soon Problems: REINA PENA Deshawn LOVINGN Oct 01, 2016 13:36 TAMMI BRIAN MD Oct 01, 2016 16:38
[2016-10-01 15:17] VITALS: BP 149/87
[2016-10-01 19:30] VITALS: BP 140/92
[2016-10-01 23:30] VITALS: BP 151/101
[2016-10-02 03:30] VITALS: BP 161/99
[2016-10-02] MEDS: OXYCODONE IR 5 MG TABLET. PO PRN ×3 (03:30→13:37)
[2016-10-02 07:00] VITALS: BP 175/97
--- NOTE | 2016-10-02 08:03 | DISCH ---
DISCHARGE INSTRUCTIONS Condition on Discharge Condition on Discharge: Stable Activity After Discharge Activity Instructions for Disc: No restrictions Diet after Discharge Diet after Discharge: Diabetic No Calorie Level Follow-Up Follow up with: ARIANA Greenfield MD Oct 02, 2016 08:03
--- NOTE | 2016-10-02 08:03 | PDOC ---
Provider Note Provider Note vss, no new sxs- glucose great, home when surg ok ARIANA MARSHALL MD Oct 02, 2016 08:03
[2016-10-02] MEDS: METFORMIN 1,000 MG TABLET PO SCH (09:44)
[2016-10-02] MEDS: ENOXAPARIN ** NOTE DOSE ** SYRINGE SQ SCH (09:45)
[2016-10-02 11:00] VITALS: BP 140/73
--- NOTE | 2016-10-02 12:08 | PDOC ---
JEANREINA Hess LADLE FILLER 10/02/16 1208: SURGICAL PROGRESS NOTE Subjective tolerating his diet we discussed why needs his drains at discharge Vital Signs Vital Signs Date Time Temp Pulse Resp B/P Pulse Ox O2 Delivery O2 Flow Rate FiO2 10/02/16 09:53 96 Room Air 10/02/16 07:00 97.5 96 18 175/97 97.5 I&O Intake and Output 10/02/16 07:00 Intake Total 1220 ml Output Total 2475 ml Balance -1255 ml Intake Oral 1220 ml Output Urine Total 1175 ml Stool Total 850 ml Urine/Stool Mix 400 ml Drainage Total 50 ml General: Alert, Oriented X3, Cooperative, No acute distress Abdomen: Soft, Other (drains in place) Labs Laboratory Tests Test 09/30/16 16:02 09/30/16 21:29 10/01/16 07:41 10/01/16 11:36 Glucose (Fingerstick) 129mg/dL (70-99) 104mg/dL (70-99) 92mg/dL (70-99) 100mg/dL (70-99) Test 10/01/16 16:10 10/01/16 21:16 10/02/16 07:50 Glucose (Fingerstick) 107mg/dL (70-99) 96mg/dL (70-99) 98mg/dL (70-99) Laboratory Tests Test 10/01/16 16:10 10/01/16 21:16 10/02/16 07:50 Glucose (Fingerstick) 107mg/dL (70-99) 96mg/dL (70-99) 98mg/dL (70-99) Problem List Problems Medical Problems: (1) Small bowel obstruction Status: Acute Assessment/Plan s/p xlap ok for DC home drains in place, FU on Saturday with Dr Rome Problems: TAMMI ROME MD 10/02/16 1301: SURGICAL PROGRESS NOTE Assessment/Plan pt seen and examined will d/c left sided drain keep right f/u this Saturday Problems: JEANREINA Hess APRN Oct 02, 2016 12:08 TAMMI ROME MD Oct 02, 2016 13:01
--- NOTE | 2016-10-03 08:19 | PDOC ---
Provider Note Provider Note [id number] ARIANA MARSHALL MD Oct 03, 2016 08:19
--- NOTE | 2016-10-03 08:50 | DS ---
DATE OF DISCHARGE: 10/02/2016 HOSPITAL SUMMARY: A 31-year-old white male with superobesity and diabetes, came in with diffuse abdominal pain and evidence of small-bowel obstruction. Serial x-rays and CT scans did not show resolution of the obstruction. Dr. Rome took him to Surgery and performed lysis of adhesions and abdominal hernias repair. For once, he has slowly recovered. He is allowed to advance his diet and his diabetes has been well controlled with metformin alone. Laboratory studies were available on the record, but renal function and liver functions are all within normal limits and urine cultures had no growth. He is comfortable to be discharged and followed as an outpatient at this point. He had the wound VAC in place in his left lower extremity wound throughout the hospital stay. FINAL DIAGNOSES: 1. Acute small-bowel obstruction secondary to intraabdominal adhesions and intra-abdominal hernias. 2. Abdominal wall hernias. 3. Chronic draining left lower extremity wound. OPERATIONS AND PROCEDURES: Laparotomy, lysis of adhesions, ventral hernia repairs. COMPLICATIONS: None. CONSULTATIONS: Dr. Rome's group. DISPOSITION: He will continue on metformin 1000 mg twice a day as his only diabetic medicine for now, as his blood sugars are doing fine off Trulicity as he has lost substantial weight while in the hospital. He may need to resume that drug as an outpatient depending on his recovery and diet. He continues on the left with the left lower extremity wound vac. Pain meds per Surgery. No other medications. Regular diet with diabetic restrictions. Office followup in [address] Rome and in 1 month with me regarding his diabetes. Prognosis is guarded because of his continued severe obesity and relative immobility. ARIANA MARSHALL MD DR: ORTEGA/vj JOB#: [id number] / [id number]
== END 2016-10-02 16:05 | disposition home health service (06) | DRG 336 ==
LOC: ER 20:17 → 4 NORTH 23:40
PROVIDERS: ADMIT Family Medicine; ATTEND Family Medicine
PROC: 0DN80ZZ Release Small Intestine, Open Approach (ICD-10-PCS; 2016-09-21)
PROC: 0WQF0ZZ Repair Abdominal Wall, Open Approach (ICD-10-PCS; 2016-09-21)
PROC: 0WUF0JZ Supplement Abdominal Wall with Synthetic Substitute, Open Approach (ICD-10-PCS; principal; 2016-09-21 10:30)
DX: K56.5 Intestinal adhesions [bands] with obstruction (postinfection) (principal); K43.0 Incisional hernia with obstruction, without gangrene; Z68.44 Body mass index [BMI] 60.0-69.9, adult; K50.90 Crohn's disease, unspecified, without complications; K43.3 Parastomal hernia with obstruction, without gangrene; E66.01 Morbid (severe) obesity due to excess calories; E09.9 Drug or chemical induced diabetes mellitus without complications; M19.90 Unspecified osteoarthritis, unspecified site; Z82.49 Family history of ischemic heart disease and other diseases of the circulatory system; Z87.891 Personal history of nicotine dependence; Z90.49 Acquired absence of other specified parts of digestive tract; Z93.3 Colostomy status
CPT/HCPCS: 36415; 74022; 74177; 74250; 80048; 80053; 80076; 81001; 82947; 83605; 83690; 85027; 85610; 87086; 87641; 96361; 96374; C1713; J0330; J0694; J0780; J1100; J1170; J1650; J1815; J2250; J2270; J2370; J2405; J2704; J2710; J2765; J3010; J3490; J7030; P9045; Q9966; Q9967; S0028; 97110; 97116; 97530; 97535; 97605; 97606; 99285-25

== ENCOUNTER → 2016-10-08 | Outpatient (CLI) | payer BC ==
[2016-10-02 11:00] VITALS: BP 140/73
[~2016-10-08] MED LIST changes: +AMOX1TAB11 PO; +HYDR-2666 PO
== END | disposition home or self-care (01) ==
LOC: PMGWOUND 08:33
PROVIDERS: ATTEND Emergency Medicine Undersea and Hyperbaric Medicine
DX: L02.416 Cutaneous abscess of left lower limb (principal); E11.9 Type 2 diabetes mellitus without complications; E66.01 Morbid (severe) obesity due to excess calories; Z68.44 Body mass index [BMI] 60.0-69.9, adult; M19.90 Unspecified osteoarthritis, unspecified site; I10 Essential (primary) hypertension; Z86.718 Personal history of other venous thrombosis and embolism; Z87.891 Personal history of nicotine dependence
CPT/HCPCS: 99213

== ENCOUNTER → 2016-10-15 | Outpatient (CLI) | payer BC ==
[2016-10-02 11:00] VITALS: BP 140/73
== END | disposition home or self-care (01) ==
LOC: PMGWOUND 08:18
PROVIDERS: ATTEND Emergency Medicine Undersea and Hyperbaric Medicine
DX: L02.416 Cutaneous abscess of left lower limb (principal); E11.9 Type 2 diabetes mellitus without complications; I10 Essential (primary) hypertension; M19.90 Unspecified osteoarthritis, unspecified site; Z86.718 Personal history of other venous thrombosis and embolism; Z87.891 Personal history of nicotine dependence; Z68.44 Body mass index [BMI] 60.0-69.9, adult
CPT/HCPCS: 99214

== ENCOUNTER → 2016-10-22 | Outpatient (CLI) | payer BC ==
[2016-10-02 11:00] VITALS: BP 140/73
== END | disposition home or self-care (01) ==
LOC: PMGWOUND 08:13
PROVIDERS: ATTEND Emergency Medicine Undersea and Hyperbaric Medicine
DX: E11.622 Type 2 diabetes mellitus with other skin ulcer (principal); L97.223 Non-pressure chronic ulcer of left calf with necrosis of muscle; E66.9 Obesity, unspecified; Z87.891 Personal history of nicotine dependence; Z86.718 Personal history of other venous thrombosis and embolism
CPT/HCPCS: 99213

== ENCOUNTER → 2016-11-06 | Outpatient (CLI) | payer BC | END | disposition home or self-care (01) | LOC: PMGWOUND 08:19 | PROVIDERS: ATTEND Emergency Medicine Undersea and Hyperbaric Medicine | DX: E11.622 Type 2 diabetes mellitus with other skin ulcer (principal); L97.221 Non-pressure chronic ulcer of left calf limited to breakdown of skin; L02.416 Cutaneous abscess of left lower limb; E11.65 Type 2 diabetes mellitus with hyperglycemia; I10 Essential (primary) hypertension; E66.01 Morbid (severe) obesity due to excess calories; M19.90 Unspecified osteoarthritis, unspecified site; Z86.718 Personal history of other venous thrombosis and embolism; Z68.44 Body mass index [BMI] 60.0-69.9, adult; Z87.891 Personal history of nicotine dependence | CPT/HCPCS: 87071; 87075; 87205; 99214 ==

== ENCOUNTER → 2016-11-20 | Outpatient (CLI) | payer BC ==
[~2016-11-20] MED LIST changes: +METF-620 PO; -METF10002 PO
== END | disposition home or self-care (01) ==
LOC: PMGWOUND 08:18
PROVIDERS: ATTEND Emergency Medicine Undersea and Hyperbaric Medicine
DX: E11.622 Type 2 diabetes mellitus with other skin ulcer (principal); L97.223 Non-pressure chronic ulcer of left calf with necrosis of muscle; E66.9 Obesity, unspecified; Z68.44 Body mass index [BMI] 60.0-69.9, adult; Z86.718 Personal history of other venous thrombosis and embolism; Z87.891 Personal history of nicotine dependence
CPT/HCPCS: 99214

== ENCOUNTER → 2016-12-10 | Outpatient (CLI) | payer BC | END | disposition home or self-care (01) | LOC: PMGWOUND 08:26 | PROVIDERS: ATTEND Emergency Medicine Undersea and Hyperbaric Medicine | DX: E11.622 Type 2 diabetes mellitus with other skin ulcer (principal); L97.223 Non-pressure chronic ulcer of left calf with necrosis of muscle; E11.65 Type 2 diabetes mellitus with hyperglycemia; E66.01 Morbid (severe) obesity due to excess calories; I10 Essential (primary) hypertension; M19.90 Unspecified osteoarthritis, unspecified site; Z87.891 Personal history of nicotine dependence; Z86.718 Personal history of other venous thrombosis and embolism; Z68.44 Body mass index [BMI] 60.0-69.9, adult | CPT/HCPCS: 29581 ==

== ENCOUNTER → 2016-12-13 | Outpatient (CLI) | payer BC | END | disposition home or self-care (01) | LOC: PMGWOUND 13:00 | PROVIDERS: ATTEND Emergency Medicine Undersea and Hyperbaric Medicine | DX: E11.622 Type 2 diabetes mellitus with other skin ulcer (principal); L97.221 Non-pressure chronic ulcer of left calf limited to breakdown of skin; L02.416 Cutaneous abscess of left lower limb; E11.65 Type 2 diabetes mellitus with hyperglycemia; E66.9 Obesity, unspecified; Z86.718 Personal history of other venous thrombosis and embolism; Z87.891 Personal history of nicotine dependence | CPT/HCPCS: 29581 ==

== ENCOUNTER → 2016-12-20 | Outpatient (CLI) | payer BC | END | disposition home or self-care (01) | LOC: PMGWOUND 12:52 | PROVIDERS: ATTEND Emergency Medicine Undersea and Hyperbaric Medicine | DX: L02.416 Cutaneous abscess of left lower limb (principal); I10 Essential (primary) hypertension; E66.01 Morbid (severe) obesity due to excess calories; Z68.44 Body mass index [BMI] 60.0-69.9, adult; M19.90 Unspecified osteoarthritis, unspecified site; Z87.891 Personal history of nicotine dependence; Z86.718 Personal history of other venous thrombosis and embolism | CPT/HCPCS: 99213 ==

== ENCOUNTER 2017-08-06 09:26 | Emergency (ER) | payer SELFPAY, BC ==
[2017-08-06 10:32] LABS: ADD MAN DIFF? NO
[2017-08-06 10:38] LABS: BASO # 0.1 x10^3/uL (0.0-0.2); BASO % 1 % (0-3); EOS # 0.3 x10^3/uL (0.0-0.7); EOS % 4 % (0-3); HEMATOCRIT 42.1 % (39.0-53.0); HEMOGLOBIN 13.9 g/dL (13.0-17.5); LYMPH % 13 % (24-48); MEAN CORPUSCULAR HEMOGLOBIN 28 pg (25-35); MEAN CORPUSCULAR HGB CONC 33 g/dL (31-37); MEAN CORPUSCULAR VOLUME 84 fL (79-100); MONO # 0.7 x10^3/uL (0.0-1.1); MONO % 9 % (0-9); NEUT # 5.8 x10^3uL (1.8-7.7); NEUT % 74 % (31-73); PLATELET COUNT 217 x10^3/uL (140-400); RED BLOOD COUNT 5.02 x10^6/uL (4.30-5.70); RED CELL DISTRIBUTION WIDTH 15.1 % (11.5-14.5); WHITE BLOOD COUNT 7.8 x10^3/uL (4.0-11.0)
[2017-08-06 10:51] LABS: ANION GAP 11 (6-14); BLOOD UREA NITROGEN 16 mg/dL (8-26); BUN/CREATININE RATIO 20 (6-20); CALCIUM 8.5 mg/dL (8.5-10.1); CARBON DIOXIDE 26 mmol/L (21-32); CHLORIDE 104 mmol/L (98-107); CREATININE 0.8 mg/dL (0.7-1.3); GFR 111.3; GLUCOSE 282 mg/dL (70-99); SODIUM 141 mmol/L (136-145)
[2017-08-06 10:57] LABS: ALBUMIN 2.9 g/dL (3.4-5.0); ALBUMIN/GLOBULIN RATIO 0.6 (1.0-1.7); ALK PHOS 103 U/L (46-116); ALT (SGPT) 24 U/L (16-63); AST (SGOT) 12 U/L (15-37); TOTAL BILIRUBIN 0.3 mg/dL (0.2-1.0); TOTAL PROTEIN 7.5 g/dL (6.4-8.2)
[2017-08-06] MEDS ORDERED: CONTRAST GIVEN MC (11:00)
[2017-08-06] MEDS ORDERED: IOHEXOL 240 MG/ML 50ML VIAL. PO (11:00)
[2017-08-06] MEDS ORDERED: IOHEXOL 300 MG/ML 100ML VIAL. IV (11:00)
[2017-08-06] MEDS: ONDANSETRON PF 4 MG/2 ML VIAL. IV (11:16)
[2017-08-06] MEDS: fentaNYL PF VIAL 100 MCG/2 ML VIAL IV (11:17)
== END 2017-08-06 13:35 | disposition home or self-care (01) ==
LOC: ER 09:26
DX: R10.33 Periumbilical pain (principal); R11.0 Nausea; E11.9 Type 2 diabetes mellitus without complications; E66.01 Morbid (severe) obesity due to excess calories; Z90.49 Acquired absence of other specified parts of digestive tract; Z93.3 Colostomy status; Z68.43 Body mass index [BMI] 50.0-59.9, adult
CPT/HCPCS: 36415; 74177; 80053; 85025; 96374; 96375; 99285-25; J2405; J3010

== ENCOUNTER 2017-08-08 00:22 | Inpatient (IN) | payer SELFPAY ==
[2017-08-08 01:20] LABS: BILIRUBIN,URINE NEGATIVE (NEG); CLARITY,URINE CLEAR; COLOR,URINE YELLOW; GLUCOSE,URINE NEGATIVE (NEG); NITRITE,URINE NEGATIVE (NEG); PH,URINE 5.5; PROTEIN,URINE 30 mg/dL (NEG-TRACE); UROBILINOGEN,URINE 0.2 mg/dL (0.2 mg/dL)
[2017-08-08 01:33] LABS: RBC,URINE OCC /HPF (0-2)
[2017-08-08 01:34] LABS: BACTERIA,URINE 0 /HPF (0-FEW); SQUAMOUS EPITHELIAL CELL,UR FEW /LPF
[2017-08-08 01:50] LABS: ADD MAN DIFF? NO
[2017-08-08 01:52] LABS: BASO # 0.1 x10^3/uL (0.0-0.2); BASO % 1 % (0-3); EOS # 0.2 x10^3/uL (0.0-0.7); EOS % 2 % (0-3); HEMATOCRIT 41.5 % (39.0-53.0); HEMOGLOBIN 13.8 g/dL (13.0-17.5); LYMPH # 1.2 x10^3/uL (1.0-4.8); LYMPH % 15 % (24-48); MEAN CORPUSCULAR HEMOGLOBIN 28 pg (25-35); MEAN CORPUSCULAR HGB CONC 33 g/dL (31-37); MEAN CORPUSCULAR VOLUME 84 fL (79-100); MONO # 0.7 x10^3/uL (0.0-1.1); MONO % 8 % (0-9); NEUT # 6.1 x10^3uL (1.8-7.7); NEUT % 74 % (31-73); PLATELET COUNT 205 x10^3/uL (140-400); RED BLOOD COUNT 4.96 x10^6/uL (4.30-5.70); RED CELL DISTRIBUTION WIDTH 14.8 % (11.5-14.5); WHITE BLOOD COUNT 8.3 x10^3/uL (4.0-11.0)
[2017-08-08 02:05] LABS: ANION GAP 8 (6-14); BLOOD UREA NITROGEN 13 mg/dL (8-26); BUN/CREATININE RATIO 16 (6-20); CALCIUM 8.8 mg/dL (8.5-10.1); CARBON DIOXIDE 30 mmol/L (21-32); CHLORIDE 102 mmol/L (98-107); CREATININE 0.8 mg/dL (0.7-1.3); GFR 111.3; GLUCOSE 127 mg/dL (70-99); POTASSIUM 4.4 mmol/L (3.5-5.1); SODIUM 140 mmol/L (136-145)
[2017-08-08 02:08] LABS: ALBUMIN 3.1 g/dL (3.4-5.0); ALBUMIN/GLOBULIN RATIO 0.7 (1.0-1.7); ALK PHOS 104 U/L (46-116); ALT (SGPT) 24 U/L (16-63); AST (SGOT) 12 U/L (15-37); LIPASE 127 U/L (73-393); TOTAL BILIRUBIN 0.3 mg/dL (0.2-1.0); TOTAL PROTEIN 7.7 g/dL (6.4-8.2)
[2017-08-08] MEDS: IOHEXOL 300 MG/ML 100ML VIAL. IV (02:11)
[2017-08-08] MEDS ORDERED: CONTRAST GIVEN MC (02:15)
[2017-08-08] MEDS: ONDANSETRON PF 4 MG/2 ML VIAL. IV ×2 (02:26→09:03)
[2017-08-08] MEDS: IV NORMAL SALINE 1000ML BAG 1,000 ML IV (05:14)
[2017-08-08] MEDS: MORPHINE SULFATE 2 MG/ML DISP.SYRIN. IV ×2 (05:18→09:04)
[2017-08-08 07:34] LABS: POC GLUCOSE 115 mg/dL (70-99)
[2017-08-08 11:25] LABS: POC GLUCOSE 106 mg/dL (70-99)
[2017-08-08 16:17] LABS: MRSA BY PCR Negative (Negative)
== END 2017-08-08 13:30 | disposition home or self-care (01) | DRG 394 ==
LOC: ER 00:22 → 5 SOUTH 03:48
DX: K43.2 Incisional hernia without obstruction or gangrene (principal); K50.90 Crohn's disease, unspecified, without complications; E66.01 Morbid (severe) obesity due to excess calories; Z68.43 Body mass index [BMI] 50.0-59.9, adult; Z83.3 Family history of diabetes mellitus; Z93.3 Colostomy status
CPT/HCPCS: 36415; 74177; 80053; 81001; 82962; 83690; 85025; 87641; J2270; J2405; J7030; Q9967

== ENCOUNTER 2017-09-29 19:33 | Emergency (ER) | payer SELFPAY | END 2017-09-29 21:07 | disposition home or self-care (01) | LOC: ER 19:33 | DX: S02.5XXA Fracture of tooth (traumatic), initial encounter for closed fracture (principal); K04.7 Periapical abscess without sinus; E11.9 Type 2 diabetes mellitus without complications; E66.01 Morbid (severe) obesity due to excess calories; Z93.3 Colostomy status; Z90.49 Acquired absence of other specified parts of digestive tract; X58.XXXA Exposure to other specified factors, initial encounter; Y93.89 Activity, other specified; Y92.89 Other specified places as the place of occurrence of the external cause; Y99.8 Other external cause status | CPT/HCPCS: 99283 ==

== ENCOUNTER 2017-11-18 22:43 | Emergency (ER) | payer OTHER, BC ==
[2017-11-19] MEDS: KETOROLAC 15 MG/ML VIAL. IV (00:30)
[2017-11-19] MEDS: IBUPROFEN 800 MG TABLET. PO (00:30)
== END 2017-11-19 01:12 | disposition home or self-care (01) ==
LOC: ER 22:43
DX: S89.91XA Unspecified injury of right lower leg, initial encounter (principal); M19.90 Unspecified osteoarthritis, unspecified site; E11.9 Type 2 diabetes mellitus without complications; Z90.49 Acquired absence of other specified parts of digestive tract; K50.90 Crohn's disease, unspecified, without complications; X58.XXXA Exposure to other specified factors, initial encounter; Y93.89 Activity, other specified; Y99.8 Other external cause status; Y92.89 Other specified places as the place of occurrence of the external cause
CPT/HCPCS: 73564; 99284

== ENCOUNTER 2017-12-01 18:54 | Emergency (ER) | payer BC, OTHER ==
[2017-12-01] MEDS: HYDROcodone/APAP 5/325MG 1 TAB TABLET PO (19:43)
[2017-12-01] MEDS: predniSONE 20 MG TABLET PO (19:44)
[2017-12-01] MEDS: NAPROXEN 500 MG TABLET PO (19:44)
== END 2017-12-01 20:11 | disposition home or self-care (01) ==
LOC: ER 18:54
DX: M25.561 Pain in right knee (principal); E11.9 Type 2 diabetes mellitus without complications; E66.01 Morbid (severe) obesity due to excess calories; Z68.43 Body mass index [BMI] 50.0-59.9, adult; Z93.3 Colostomy status
CPT/HCPCS: 99284; J7512

== ENCOUNTER 2017-12-05 11:36 | Inpatient (IN) | payer BC ==
[2017-12-05 12:26] LABS: ADD MAN DIFF? NO; BASO # 0.1 x10^3/uL (0.0-0.2); BASO % 1 % (0-3); EOS # 0.1 x10^3/uL (0.0-0.7); EOS % 1 % (0-3); HEMOGLOBIN 16.1 g/dL (13.0-17.5); LYMPH # 0.8 x10^3/uL (1.0-4.8); LYMPH % 8 % (24-48); MEAN CORPUSCULAR HEMOGLOBIN 29 pg (25-35); MEAN CORPUSCULAR HGB CONC 34 g/dL (31-37); MEAN CORPUSCULAR VOLUME 85 fL (79-100); MONO # 1.1 x10^3/uL (0.0-1.1); MONO % 11 % (0-9); NEUT # 8.1 x10^3uL (1.8-7.7); NEUT % 79 % (31-73); PLATELET COUNT 267 x10^3/uL (140-400); RED BLOOD COUNT 5.55 x10^6/uL (4.30-5.70); RED CELL DISTRIBUTION WIDTH 14.5 % (11.5-14.5); WHITE BLOOD COUNT 10.2 x10^3/uL (4.0-11.0)
[2017-12-05 12:30] LABS: BILIRUBIN,URINE SMALL (NEG); CLARITY,URINE CLEAR; COLOR,URINE AMBER; GLUCOSE,URINE NEGATIVE (NEG); NITRITE,URINE NEGATIVE (NEG); PROTEIN,URINE 30 mg/dL (NEG-TRACE)
[2017-12-05 12:37] LABS: ANION GAP 8 (6-14); BLOOD UREA NITROGEN 14 mg/dL (8-26); CALCIUM 9.3 mg/dL (8.5-10.1); CARBON DIOXIDE 29 mmol/L (21-32); CHLORIDE 99 mmol/L (98-107); CREATININE 0.8 mg/dL (0.7-1.3); GFR 110.7; GLUCOSE 224 mg/dL (70-99); POTASSIUM 4.3 mmol/L (3.5-5.1); SODIUM 136 mmol/L (136-145)
[2017-12-05 12:39] LABS: BACTERIA,URINE 0 /HPF (0-FEW); RBC,URINE 0 /HPF (0-2); SQUAMOUS EPITHELIAL CELL,UR MANY /LPF; WBC,URINE OCC /HPF (0-4)
[2017-12-05 12:42] LABS: ALBUMIN 3.3 g/dL (3.4-5.0); ALK PHOS 115 U/L (46-116); ALT (SGPT) 32 U/L (16-63); AST (SGOT) 14 U/L (15-37); DIRECT BILIRUBIN 0.2 mg/dL (0.0-0.2); LIPASE 48 U/L (73-393); TOTAL BILIRUBIN 0.9 mg/dL (0.2-1.0); TOTAL PROTEIN 7.3 g/dL (6.4-8.2)
[2017-12-05 12:47] LABS: TROPONINI < 0.017 ng/mL (0.000-0.055)
[2017-12-05] MEDS: IV NORMAL SALINE 1000ML BAG 1,000 ML IV ×2 (12:58→17:01)
[2017-12-05] MEDS: ONDANSETRON PF 4 MG/2 ML VIAL. IV ×2 (12:58→17:02)
[2017-12-05] MEDS: fentaNYL PF VIAL 100 MCG/2 ML VIAL IV ×5 (12:59→22:04)
[2017-12-05] MEDS: IOHEXOL 240 MG/ML 50ML VIAL. PO (14:26)
[2017-12-05] MEDS: IOHEXOL 300 MG/ML 100ML VIAL. IV (14:26)
[2017-12-05] MEDS ORDERED: CONTRAST GIVEN MC (14:30)
[2017-12-05 14:47] LABS: AGAP ISTAT 15 mmol/L (6-14); BUN ISTAT 13 mg/dL (8-26); CHLORIDE ISTAT 97 mmol/L (98-110); CREATININE ISTAT 0.7 mg/dL (0.5-1.4); GLUCOSE ISTAT 219 mg/dL (70-99); HEMATOCRIT ISTAT 48 % (37-52); HEMOGLOBIN ISTAT 16.3 g/dL (14-18); POTASSIUM ISTAT 4.1 mmol/L (3.5-5.0); SODIUM ISTAT 135 mmol/L (135-145); TOT CO2 ISTAT 27 mmol/L (23-32)
[2017-12-05] MEDS ORDERED: DEXTROSE 50% 25 GM / 50ML DISP.SYRIN. IV (16:45)
[2017-12-05] MEDS ORDERED: MORPHINE SULFATE 2 MG/ML DISP.SYRIN. IV (16:45)
[2017-12-05] MEDS ORDERED: MORPHINE SULFATE 4 MG/ML DISP.SYRIN. IV (16:45)
[2017-12-05] MEDS ORDERED: ONDANSETRON PF 4 MG/2 ML VIAL. IV (16:45)
[2017-12-05] MEDS: INSULIN LISPRO 300 UNITS/3 ML INSULN.PEN. SQ (17:00)
[2017-12-05] MEDS: PANTOPRAZOLE IV PUSH 40 MG VIAL. IVP (18:24)
[2017-12-05 19:00] LABS: LACTIC ACID 0.9 mmol/L (0.4-2.0)
[2017-12-05 20:54] LABS: POC GLUCOSE 218 mg/dL (70-99)
[2017-12-06] MEDS: ONDANSETRON PF 4 MG/2 ML VIAL. IV ×4 (00:18→19:19)
[2017-12-06] MEDS: fentaNYL PF VIAL 100 MCG/2 ML VIAL IV ×11 (00:18→23:47)
[2017-12-06] MEDS: IV NORMAL SALINE 1000ML BAG 1,000 ML IV ×3 (02:27→19:34)
[2017-12-06 05:56] LABS: ADD MAN DIFF? NO
[2017-12-06 06:18] LABS: BASO % 0 % (0-3); EOS # 0.1 x10^3/uL (0.0-0.7); EOS % 1 % (0-3); HEMATOCRIT 43.6 % (39.0-53.0); HEMOGLOBIN 14.8 g/dL (13.0-17.5); LYMPH # 0.4 x10^3/uL (1.0-4.8); LYMPH % 6 % (24-48); MEAN CORPUSCULAR HEMOGLOBIN 29 pg (25-35); MEAN CORPUSCULAR HGB CONC 34 g/dL (31-37); MEAN CORPUSCULAR VOLUME 86 fL (79-100); MONO # 1.1 x10^3/uL (0.0-1.1); MONO % 14 % (0-9); NEUT # 6.1 x10^3uL (1.8-7.7); NEUT % 79 % (31-73); PLATELET COUNT 213 x10^3/uL (140-400); RED BLOOD COUNT 5.08 x10^6/uL (4.30-5.70); RED CELL DISTRIBUTION WIDTH 14.6 % (11.5-14.5); WHITE BLOOD COUNT 7.7 x10^3/uL (4.0-11.0)
[2017-12-06 06:48] LABS: ANION GAP 6 (6-14); BLOOD UREA NITROGEN 15 mg/dL (8-26); CALCIUM 8.3 mg/dL (8.5-10.1); CARBON DIOXIDE 30 mmol/L (21-32); CHLORIDE 100 mmol/L (98-107); CREATININE 0.8 mg/dL (0.7-1.3); GFR 110.7; GLUCOSE 219 mg/dL (70-99); SODIUM 136 mmol/L (136-145)
[2017-12-06] MEDS: PANTOPRAZOLE IV PUSH 40 MG VIAL. IVP (07:27)
[2017-12-06 08:00] LABS: POC GLUCOSE 199 mg/dL (70-99)
[2017-12-06] MEDS: INSULIN LISPRO 300 UNITS/3 ML INSULN.PEN. SQ ×3 (08:28→17:00)
[2017-12-06 12:03] LABS: POC GLUCOSE 176 mg/dL (70-99)
[2017-12-06 17:02] LABS: POC GLUCOSE 131 mg/dL (70-99)
[2017-12-06 21:28] LABS: POC GLUCOSE 134 mg/dL (70-99)
[2017-12-07] MEDS: fentaNYL PF VIAL 100 MCG/2 ML VIAL IV ×8 (01:49→23:06)
[2017-12-07] MEDS: IV NORMAL SALINE 1000ML BAG 1,000 ML IV ×2 (05:02→14:29)
[2017-12-07] MEDS: INSULIN LISPRO 300 UNITS/3 ML INSULN.PEN. SQ ×3 (07:57→17:00)
[2017-12-07] MEDS: PANTOPRAZOLE IV PUSH 40 MG VIAL. IVP (08:00)
[2017-12-07 08:50] LABS: POC GLUCOSE 141 mg/dL (70-99)
[2017-12-07 17:44] LABS: POC GLUCOSE 132 mg/dL (70-99)
[2017-12-07 17:44] LABS: POC GLUCOSE 114 mg/dL (70-99)
[2017-12-07 21:00] LABS: POC GLUCOSE 107 mg/dL (70-99)
[2017-12-08] MEDS: fentaNYL PF VIAL 100 MCG/2 ML VIAL IV ×8 (02:24→23:23)
[2017-12-08] MEDS: IV NORMAL SALINE 1000ML BAG 1,000 ML IV ×3 (02:27→18:27)
[2017-12-08 04:55] LABS: HEMATOCRIT 40.3 % (39.0-53.0); HEMOGLOBIN 13.6 g/dL (13.0-17.5); MEAN CORPUSCULAR HEMOGLOBIN 29 pg (25-35); MEAN CORPUSCULAR HGB CONC 34 g/dL (31-37); MEAN CORPUSCULAR VOLUME 86 fL (79-100); PLATELET COUNT 163 x10^3/uL (140-400); RED BLOOD COUNT 4.67 x10^6/uL (4.30-5.70); RED CELL DISTRIBUTION WIDTH 14.2 % (11.5-14.5); WHITE BLOOD COUNT 4.9 x10^3/uL (4.0-11.0)
[2017-12-08 05:13] LABS: ANION GAP 8 (6-14); BLOOD UREA NITROGEN 10 mg/dL (8-26); CALCIUM 8.3 mg/dL (8.5-10.1); CARBON DIOXIDE 31 mmol/L (21-32); CHLORIDE 102 mmol/L (98-107); CREATININE 0.8 mg/dL (0.7-1.3); GFR 110.7; GLUCOSE 104 mg/dL (70-99); POTASSIUM 3.6 mmol/L (3.5-5.1); SODIUM 141 mmol/L (136-145)
[2017-12-08] MEDS: PANTOPRAZOLE IV PUSH 40 MG VIAL. IVP (07:48)
[2017-12-08] MEDS: INSULIN LISPRO 300 UNITS/3 ML INSULN.PEN. SQ ×3 (07:56→17:02)
[2017-12-08 08:06] LABS: POC GLUCOSE 99 mg/dL (70-99)
[2017-12-08 11:42] LABS: POC GLUCOSE 122 mg/dL (70-99)
[2017-12-08 17:13] LABS: POC GLUCOSE 246 mg/dL (70-99)
[2017-12-09] MEDS: fentaNYL PF VIAL 100 MCG/2 ML VIAL IV ×4 (02:28→11:53)
[2017-12-09 07:55] LABS: POC GLUCOSE 186 mg/dL (70-99)
[2017-12-09] MEDS: PANTOPRAZOLE IV PUSH 40 MG VIAL. IVP (09:02)
[2017-12-09] MEDS: INSULIN LISPRO 300 UNITS/3 ML INSULN.PEN. SQ ×2 (09:13→12:00)
[2017-12-09 11:34] LABS: POC GLUCOSE 244 mg/dL (70-99)
[2017-12-10 02:05] LABS: POC GLUCOSE 265 mg/dL (70-99)
[2017-12-10] MEDS ORDERED: PANTOPRAZOLE 40 MG TABLET.DR. PO (07:30)
== END 2017-12-09 13:30 | disposition home or self-care (01) | DRG 389 ==
LOC: ER 11:36 → 5 NORTH 16:33
PROC: 0D9670Z Drainage of Stomach with Drainage Device, Via Natural or Artificial Opening (ICD-10-PCS; principal; 2017-12-05)
DX: K56.50 Intestinal adhesions [bands], unspecified as to partial versus complete obstruction (principal); Z68.43 Body mass index [BMI] 50.0-59.9, adult; E66.01 Morbid (severe) obesity due to excess calories; K50.90 Crohn's disease, unspecified, without complications; Z93.3 Colostomy status; Z90.49 Acquired absence of other specified parts of digestive tract; E11.9 Type 2 diabetes mellitus without complications; T38.0X5A Adverse effect of glucocorticoids and synthetic analogues, initial encounter
CPT/HCPCS: 36415; 74018; 74022; 74177; 80047; 80048; 80076; 81001; 82962; 83605; 83690; 84484; 85025; 85027; 87086; 93005; 96361; 96374; 96375; 96376; 99285; 99285-25; C9113; J1815; J2405; J3010; J7030; Q9966; Q9967

== ENCOUNTER 2017-12-14 23:13 | Inpatient (IN) | payer BC ==
[2017-12-14 23:55] LABS: ADD MAN DIFF? NO
[2017-12-14 23:57] LABS: BASO # 0.1 x10^3/uL (0.0-0.2); BASO % 1 % (0-3); EOS # 0.1 x10^3/uL (0.0-0.7); EOS % 2 % (0-3); HEMATOCRIT 41.9 % (39.0-53.0); HEMOGLOBIN 14.1 g/dL (13.0-17.5); LYMPH % 12 % (24-48); MEAN CORPUSCULAR HEMOGLOBIN 29 pg (25-35); MEAN CORPUSCULAR HGB CONC 34 g/dL (31-37); MEAN CORPUSCULAR VOLUME 85 fL (79-100); MONO # 0.8 x10^3/uL (0.0-1.1); MONO % 9 % (0-9); NEUT # 6.9 x10^3uL (1.8-7.7); NEUT % 78 % (31-73); PLATELET COUNT 218 x10^3/uL (140-400); RED BLOOD COUNT 4.92 x10^6/uL (4.30-5.70); RED CELL DISTRIBUTION WIDTH 14.4 % (11.5-14.5); WHITE BLOOD COUNT 8.9 x10^3/uL (4.0-11.0)
[2017-12-15] MEDS ORDERED: ONDANSETRON PF 4 MG/2 ML VIAL. (00:03)
[2017-12-15 00:04] LABS: ANION GAP 10 (6-14); BLOOD UREA NITROGEN 18 mg/dL (8-26); BUN/CREATININE RATIO 20 (6-20); CALCIUM 8.5 mg/dL (8.5-10.1); CARBON DIOXIDE 27 mmol/L (21-32); CHLORIDE 102 mmol/L (98-107); CREATININE 0.9 mg/dL (0.7-1.3); GFR 96.6; GLUCOSE 300 mg/dL (70-99); POTASSIUM 4.2 mmol/L (3.5-5.1); SODIUM 139 mmol/L (136-145)
[2017-12-15] MEDS: MORPHINE SULFATE 4 MG/ML DISP.SYRIN. IV ×9 (00:07→23:13)
[2017-12-15] MEDS: ONDANSETRON PF 4 MG/2 ML VIAL. IV ×6 (00:07→17:27)
[2017-12-15] MEDS: IV NORMAL SALINE 1000ML BAG 1,000 ML IV ×3 (00:07→09:00)
[2017-12-15 00:10] LABS: ALBUMIN 2.7 g/dL (3.4-5.0); ALBUMIN/GLOBULIN RATIO 0.6 (1.0-1.7); ALK PHOS 103 U/L (46-116); ALT (SGPT) 34 U/L (16-63); AST (SGOT) 10 U/L (15-37); TOTAL BILIRUBIN 0.6 mg/dL (0.2-1.0); TOTAL PROTEIN 7.1 g/dL (6.4-8.2)
[2017-12-15] MEDS ORDERED: BENZOCAINE ONE 20% MUCOSAL SPRAY. (00:18)
[2017-12-15] MEDS: BENZOCAINE ONE 20% MUCOSAL SPRAY. MM (00:19)
[2017-12-15] MEDS: INSULIN REGULAR 100 UNIT/ML 3ML VIAL. IV (01:05)
[2017-12-15] MEDS ORDERED: DEXTROSE 50% 25 GM / 50ML DISP.SYRIN. IV (08:45)
[2017-12-15] MEDS: AMINO AC 3%/ELECTROLYTE/GLYCER 1,000 ML IV ×2 (09:34→21:13)
[2017-12-15] MEDS: PANTOPRAZOLE IV PUSH 40 MG VIAL. IVP (10:30)
[2017-12-15] MEDS: INSULIN GLARGINE 300 UNITS/3 ML INSULN.PEN. SQ (10:57)
[2017-12-15] MEDS: INSULIN LISPRO 300 UNITS/3 ML INSULN.PEN. SQ ×2 (11:01→17:19)
[2017-12-15 11:29] LABS: POC GLUCOSE 322 mg/dL (70-99)
[2017-12-15 16:51] LABS: POC GLUCOSE 296 mg/dL (70-99)
[2017-12-16] MEDS: ONDANSETRON PF 4 MG/2 ML VIAL. IV ×3 (01:32→16:34)
[2017-12-16] MEDS: MORPHINE SULFATE 4 MG/ML DISP.SYRIN. IV ×7 (01:37→21:25)
[2017-12-16 03:57] LABS: ADD MAN DIFF? NO
[2017-12-16 04:07] LABS: BASO % 0 % (0-3); EOS % 0 % (0-3); HEMATOCRIT 43.2 % (39.0-53.0); HEMOGLOBIN 14.5 g/dL (13.0-17.5); LYMPH # 0.8 x10^3/uL (1.0-4.8); LYMPH % 10 % (24-48); MEAN CORPUSCULAR HEMOGLOBIN 29 pg (25-35); MEAN CORPUSCULAR HGB CONC 34 g/dL (31-37); MEAN CORPUSCULAR VOLUME 86 fL (79-100); MONO # 0.8 x10^3/uL (0.0-1.1); MONO % 10 % (0-9); NEUT # 6.2 x10^3uL (1.8-7.7); NEUT % 79 % (31-73); PLATELET COUNT 229 x10^3/uL (140-400); RED BLOOD COUNT 5.04 x10^6/uL (4.30-5.70); RED CELL DISTRIBUTION WIDTH 14.6 % (11.5-14.5); WHITE BLOOD COUNT 7.8 x10^3/uL (4.0-11.0)
[2017-12-16] MEDS: PANTOPRAZOLE IV PUSH 40 MG VIAL. IVP (05:31)
[2017-12-16 05:48] LABS: ALBUMIN 2.6 g/dL (3.4-5.0); ALBUMIN/GLOBULIN RATIO 0.6 (1.0-1.7); ALK PHOS 96 U/L (46-116); ALT (SGPT) 28 U/L (16-63); ANION GAP 7 (6-14); AST (SGOT) 9 U/L (15-37); BLOOD UREA NITROGEN 22 mg/dL (8-26); BUN/CREATININE RATIO 24 (6-20); CALCIUM 8.5 mg/dL (8.5-10.1); CARBON DIOXIDE 29 mmol/L (21-32); CHLORIDE 104 mmol/L (98-107); CREATININE 0.9 mg/dL (0.7-1.3); GFR 96.6; GLUCOSE 256 mg/dL (70-99); POTASSIUM 4.3 mmol/L (3.5-5.1); SODIUM 140 mmol/L (136-145); TOTAL BILIRUBIN 0.8 mg/dL (0.2-1.0); TOTAL PROTEIN 7.1 g/dL (6.4-8.2)
[2017-12-16 08:00] LABS: POC GLUCOSE 265 mg/dL (70-99)
[2017-12-16] MEDS: INSULIN LISPRO 300 UNITS/3 ML INSULN.PEN. SQ ×3 (08:27→17:00)
[2017-12-16] MEDS: INSULIN GLARGINE 300 UNITS/3 ML INSULN.PEN. SQ (08:28)
[2017-12-16] MEDS: AMINO AC 3%/ELECTROLYTE/GLYCER 1,000 ML IV ×2 (10:34→18:14)
[2017-12-16] MEDS: ENOXAPARIN 40 MG/0.4 ML SYRINGE. SQ (12:09)
[2017-12-16 14:11] LABS: HEMOGLOBIN A1C 8.7 % (4.8-5.6)
[2017-12-16 17:34] LABS: POC GLUCOSE 193 mg/dL (70-99)
[2017-12-16 17:40] LABS: POC GLUCOSE 175 mg/dL (70-99)
[2017-12-16 20:39] LABS: POC GLUCOSE 147 mg/dL (70-99)
[2017-12-17] MEDS: MORPHINE SULFATE 4 MG/ML DISP.SYRIN. IV ×7 (00:40→21:51)
[2017-12-17] MEDS: AMINO AC 3%/ELECTROLYTE/GLYCER 1,000 ML IV ×2 (02:14→13:41)
[2017-12-17 07:55] LABS: POC GLUCOSE 142 mg/dL (70-99)
[2017-12-17] MEDS: INSULIN LISPRO 300 UNITS/3 ML INSULN.PEN. SQ ×3 (08:00→17:00)
[2017-12-17] MEDS: PANTOPRAZOLE IV PUSH 40 MG VIAL. IVP (08:11)
[2017-12-17] MEDS: INSULIN GLARGINE 300 UNITS/3 ML INSULN.PEN. SQ (08:15)
[2017-12-17 11:12] LABS: POC GLUCOSE 125 mg/dL (70-99)
[2017-12-17] MEDS: ENOXAPARIN 40 MG/0.4 ML SYRINGE. SQ (11:34)
[2017-12-17 16:49] LABS: POC GLUCOSE 106 mg/dL (70-99)
[2017-12-17 20:18] LABS: POC GLUCOSE 117 mg/dL (70-99)
[2017-12-18] MEDS: AMINO AC 3%/ELECTROLYTE/GLYCER 1,000 ML IV ×4 (00:04→19:16)
[2017-12-18] MEDS: MORPHINE SULFATE 4 MG/ML DISP.SYRIN. IV ×7 (00:50→21:33)
[2017-12-18] MEDS: INSULIN LISPRO 300 UNITS/3 ML INSULN.PEN. SQ ×3 (08:00→17:00)
[2017-12-18 08:04] LABS: POC GLUCOSE 117 mg/dL (70-99)
[2017-12-18] MEDS: PANTOPRAZOLE IV PUSH 40 MG VIAL. IVP (08:06)
[2017-12-18] MEDS: INSULIN GLARGINE 300 UNITS/3 ML INSULN.PEN. SQ (11:13)
[2017-12-18 11:32] LABS: POC GLUCOSE 117 mg/dL (70-99)
[2017-12-18 17:39] LABS: POC GLUCOSE 236 mg/dL (70-99)
[2017-12-18 21:27] LABS: POC GLUCOSE 154 mg/dL (70-99)
[2017-12-19] MEDS: MORPHINE SULFATE 4 MG/ML DISP.SYRIN. IV ×7 (00:30→22:52)
[2017-12-19] MEDS: AMINO AC 3%/ELECTROLYTE/GLYCER 1,000 ML IV ×2 (02:57→11:56)
[2017-12-19] MEDS: PANTOPRAZOLE IV PUSH 40 MG VIAL. IVP (08:35)
[2017-12-19] MEDS: INSULIN LISPRO 300 UNITS/3 ML INSULN.PEN. SQ ×3 (08:37→17:03)
[2017-12-19] MEDS: INSULIN GLARGINE 300 UNITS/3 ML INSULN.PEN. SQ (08:38)
[2017-12-19 11:46] LABS: POC GLUCOSE 188 mg/dL (70-99)
[2017-12-19 16:56] LABS: POC GLUCOSE 237 mg/dL (70-99)
[2017-12-19 21:03] LABS: POC GLUCOSE 253 mg/dL (70-99)
[2017-12-20] MEDS: MORPHINE SULFATE 4 MG/ML DISP.SYRIN. IV (02:36)
[2017-12-20 04:00] LABS: POC GLUCOSE 181 mg/dL (70-99)
[2017-12-20 05:40] LABS: ANION GAP 5 (6-14); BLOOD UREA NITROGEN 9 mg/dL (8-26); CALCIUM 8.9 mg/dL (8.5-10.1); CARBON DIOXIDE 32 mmol/L (21-32); CHLORIDE 99 mmol/L (98-107); CREATININE 0.9 mg/dL (0.7-1.3); GFR 96.6; GLUCOSE 225 mg/dL (70-99); POTASSIUM 4.2 mmol/L (3.5-5.1); SODIUM 136 mmol/L (136-145)
[2017-12-20] MEDS: AMINO AC 3%/ELECTROLYTE/GLYCER 1,000 ML IV (07:54)
[2017-12-20 08:34] LABS: POC GLUCOSE 192 mg/dL (70-99)
[2017-12-20] MEDS: PANTOPRAZOLE IV PUSH 40 MG VIAL. IVP (08:44)
[2017-12-20] MEDS: INSULIN LISPRO 300 UNITS/3 ML INSULN.PEN. SQ (08:46)
[2017-12-20] MEDS: INSULIN GLARGINE 300 UNITS/3 ML INSULN.PEN. SQ (08:47)
[2017-12-20 10:24] LABS: POC GLUCOSE 263 mg/dL (70-99)
== END 2017-12-20 11:45 | disposition home or self-care (01) | DRG 389 ==
LOC: 5 NORTH 12-15 → ER 23:13 → 5 NORTH 12-15 01:35
PROC: 0D9670Z Drainage of Stomach with Drainage Device, Via Natural or Artificial Opening (ICD-10-PCS; principal; 2017-12-15)
DX: K56.600 Partial intestinal obstruction, unspecified as to cause (principal); K50.90 Crohn's disease, unspecified, without complications; E11.65 Type 2 diabetes mellitus with hyperglycemia; E66.01 Morbid (severe) obesity due to excess calories; Z68.44 Body mass index [BMI] 60.0-69.9, adult; K94.03 Colostomy malfunction; G89.29 Other chronic pain; I10 Essential (primary) hypertension; K43.5 Parastomal hernia without obstruction or gangrene; Z79.4 Long term (current) use of insulin; Z90.49 Acquired absence of other specified parts of digestive tract; Z93.3 Colostomy status
CPT/HCPCS: 36415; 74018; 80048; 80053; 82962; 83036; 85025; 96374; 96375; 96376; 99285; 99285-25; C9113; J1650; J1815; J2270; J2405; J7030

== ENCOUNTER 2018-04-02 00:29 | Inpatient (IN) | payer MEDICARE ==
[~2018-04-02] VITALS: Ht 182.9 cm; Wt 257.2 kg
[~2018-04-02 00:29] MED LIST changes: +AMOX500C PO; +DICL50TA4 PO; -HYDR-2666 PO; +HYDR-2758 PO; +HYDR-971 PO; -METF-620 PO; +METF10007 PO; +METF500T16 PO; -METF500T4 PO; +METH4TAB2 PO; +Pantoprazole PO; +TRAM50TA PO
--- NOTE | 2018-04-02 00:55 | PHYS DOC ---
Past Medical History Past Medical History: Diabetes-Type II, Other Additional Past Medical Histor: colitis, colostomy bag, Crohn's,STEROID INDUCED DM,MORBID OBESITY Past Surgical History: Colectomy, Other Additional Past Surgical Histo: BOWEL RESECTION, L HAND, HERNIA X5, Alcohol Use: Occasionally Drug Use: None Adult General Chief Complaint Chief Complaint: ABDOMINAL PAIN HPI HPI 32 year old male presents to the ER for evaluation of abdominal pain. He has a history of Crohn's disease and an extensive history of abdominal surgeries. He is morbidly obese. He states that he has had 4 days of generalized abdominal pain with nausea and vomiting. The abdominal pain is worse around his known ventral hernia. He admits to a scant amount of ostomy output. Review of Systems Review of Systems Constitutional: Denies fever or chills Eyes: Denies change in visual acuity, redness, or eye pain HENT: Denies nasal congestion or sore throat Respiratory: Denies cough or shortness of breath Cardiovascular: No additional information not addressed in HPI GI: Denies melena : Denies dysuria or hematuria Musculoskeletal: Denies back pain or joint pain Integument: Denies rash or skin lesions Neurologic: Denies headache, focal weakness or sensory changes Endocrine: Denies polyuria or polydipsia All other systems were reviewed and found to be within normal limits, except as documented in this note. Current Medications Current Medications Current Medications Medications (Trade) Dose Ordered Sig/Marlo Start Time Stop Time Status Last Admin Dose Admin Metoclopramide HCl (Reglan Vial) 10 mg 1X ONCE 04/02/18 01:30 04/02/18 01:31 DC 04/02/18 01:34 10 MG Morphine Sulfate (Morphine Sulfate) 4 mg 1X ONCE 04/02/18 01:30 04/02/18 01:31 DC 04/02/18 01:34 4 MG Sodium Chloride 1,000 ml @ 1,000 mls/hr 1X ONCE 04/02/18 02:30 04/02/18 03:29 04/02/18 02:49 1,000 MLS/HR See attached meds list Allergies Allergies Allergies Coded Allergies Type Severity Reaction Last Updated Verified No Known Drug Allergies 07/24/13 No Physical Exam Physical Exam GENERAL: Awake, alert, nontoxic HEAD/NECK/EYES: Normocephalic, Neck supple, PERRL , trachea midline ENT Airway patent, mucous membranes moist RESP: Nontachypneic, no respiratory distress, normal breath sounds bilaterally CV: Regular rhythm, normal perfusion ABD/GI: Soft, minimally tender ventral hernia, mild diffuse tenderness with deep palpation EXT: Neurovascularly intact, no deformities SKIN: Warm, dry NEURO: Oriented X3, normal speech, no motor deficits, no sensory deficits, CN II - XII intact PSYCH: Cooperative, appropriate affect Current Patient Data Vital Signs Vital Signs Date Time Temp Pulse Resp B/P (MAP) Pulse Ox O2 Delivery O2 Flow Rate FiO2 04/02/18 01:34 18 Room Air 04/02/18 00:40 98.7 93 145/67 (93) 97 98.7 Lab Values Laboratory Tests Test 04/02/18 01:13 04/02/18 01:50 White Blood Count 6.8 x10^3/uL (4.0-11.0) Red Blood Count 5.01 x10^6/uL (4.30-5.70) Hemoglobin 14.8 g/dL (13.0-17.5) Hematocrit 42.9 % (39.0-53.0) Mean Corpuscular Volume 86 fL (79-100) Mean Corpuscular Hemoglobin 30 pg (25-35) Mean Corpuscular Hemoglobin Concent 35 g/dL (31-37) Red Cell Distribution Width 14.0 % (11.5-14.5) Platelet Count 249 x10^3/uL (140-400) Neutrophils (%) (Auto) 71 % (31-73) Lymphocytes (%) (Auto) 13 % (24-48) L Monocytes (%) (Auto) 11 % (0-9) H Eosinophils (%) (Auto) 4 % (0-3) H Basophils (%) (Auto) 1 % (0-3) Neutrophils # (Auto) 4.9 x10^3uL (1.8-7.7) Lymphocytes # (Auto) 0.9 x10^3/uL (1.0-4.8) L Monocytes # (Auto) 0.8 x10^3/uL (0.0-1.1) Eosinophils # (Auto) 0.3 x10^3/uL (0.0-0.7) Basophils # (Auto) 0.0 x10^3/uL (0.0-0.2) Sodium Level 139 mmol/L (136-145) Potassium Level 3.8 mmol/L (3.5-5.1) Chloride Level 102 mmol/L (98-107) Carbon Dioxide Level 26 mmol/L (21-32) Anion Gap 11 (6-14) Blood Urea Nitrogen 12 mg/dL (8-26) Creatinine 0.8 mg/dL (0.7-1.3) Estimated GFR (Cockcroft-Gault) 110.7 BUN/Creatinine Ratio 15 (6-20) Glucose Level 157 mg/dL (70-99) H Calcium Level 8.8 mg/dL (8.5-10.1) Total Bilirubin 0.6 mg/dL (0.2-1.0) Aspartate Amino Transferase (AST) 13 U/L (15-37) L Alanine Aminotransferase (ALT) 24 U/L (16-63) Alkaline Phosphatase 91 U/L (46-116) Total Protein 7.5 g/dL (6.4-8.2) Albumin 2.9 g/dL (3.4-5.0) L Albumin/Globulin Ratio 0.6 (1.0-1.7) L Lipase 74 U/L (73-393) Urine Collection Type Unknown Urine Color Lin Urine Clarity Clear Urine pH 5.5 Urine Specific Clyde >=1.030 Urine Protein 30 mg/dL (NEG-TRACE) Urine Glucose (UA) Negative mg/dL (NEG) Urine Ketones (Stick) Trace mg/dL (NEG) Urine Blood Negative (NEG) Urine Nitrite Negative (NEG) Urine Bilirubin Small (NEG) Urine Urobilinogen Dipstick 1.0 mg/dL (0.2 mg/dL) Urine Leukocyte Esterase Negative (NEG) Urine RBC 0 /HPF (0-2) Urine WBC Occ /HPF (0-4) Urine Squamous Epithelial Cells Few /LPF Urine Bacteria 0 /HPF (0-FEW) Urine Mucus Mod /LPF Laboratory Tests 04/02/18 01:13 Laboratory Tests 04/02/18 01:13 EKG EKG [] Radiology/Procedures Radiology/Procedures [] Impressions: Abdominal pain Vomiting Crohn's disease Morbid obesity Course & Med Decision Making Course & Med Decision Making Pertinent Labs and Imaging studies reviewed. (See chart for details) Ddx includes but not limited to: SBO, crohn's flare, gastroenteritis, pancreatitis, diverticulitis/colitis, incarcerated hernia, UTI 2:59 AM. Labs and x-ray reviewed. Three-view x-ray of the abdomen interpreted by me reveals nonspecific bowel gas pattern, no evidence of free air. Radiologist to over read. Admitted to hospitalists with surgery consult. Patient BMI too high for vast imaging. Admitting for serial exam. Dragon Disclaimer Dragon Disclaimer This electronic medical record was generated, in whole or in part, using a voice recognition dictation system. Departure Departure Impression: Primary Impression: Abdominal pain Additional Impressions: Obesity Nausea and vomiting Disposition: ADMITTED INPATIENT Admitting Physician: Other (Dr. Ariana Zaragoza) Condition: STABLE Referrals: ARIANA ZARAGOZA MD (PCP) Problem Qualifiers KENIA JAMES DO Apr 02, 2018 00:55
[2018-04-02 01:25] LABS: BASO % 1 % (0-3); EOS # 0.3 x10^3/uL (0.0-0.7); EOS % 4 % (0-3); HEMATOCRIT 42.9 % (39.0-53.0); HEMOGLOBIN 14.8 g/dL (13.0-17.5); LYMPH # 0.9 x10^3/uL (1.0-4.8); LYMPH % 13 % (24-48); MEAN CORPUSCULAR HEMOGLOBIN 30 pg (25-35); MEAN CORPUSCULAR HGB CONC 35 g/dL (31-37); MEAN CORPUSCULAR VOLUME 86 fL (79-100); MONO # 0.8 x10^3/uL (0.0-1.1); MONO % 11 % (0-9); NEUT # 4.9 x10^3uL (1.8-7.7); NEUT % 71 % (31-73); PLATELET COUNT 249 x10^3/uL (140-400); RED BLOOD COUNT 5.01 x10^6/uL (4.30-5.70); WHITE BLOOD COUNT 6.8 x10^3/uL (4.0-11.0)
[2018-04-02] MEDS ORDERED: MORPHINE SULFATE 4 MG/ML VIAL. IV ONE ×2 (01:30→03:15)
[2018-04-02] MEDS ORDERED: METOCLOPRAMIDE HCL 10 MG/2 ML VIAL. IV ONE (01:30)
[2018-04-02 01:44] LABS: CALCIUM 8.8 mg/dL (8.5-10.1); CREATININE 0.8 mg/dL (0.7-1.3); GFR 110.7; POTASSIUM 3.8 mmol/L (3.5-5.1)
[2018-04-02 01:50] LABS: ALBUMIN 2.9 g/dL (3.4-5.0); ALBUMIN/GLOBULIN RATIO 0.6 (1.0-1.7); TOTAL BILIRUBIN 0.6 mg/dL (0.2-1.0); TOTAL PROTEIN 7.5 g/dL (6.4-8.2)
[2018-04-02 02:08] LABS: BILIRUBIN,URINE SMALL (NEG); CLARITY,URINE CLEAR; COLOR,URINE AMBER; NITRITE,URINE NEGATIVE (NEG); PH,URINE 5.5; PROTEIN,URINE 30 mg/dL (NEG-TRACE)
[2018-04-02 02:13] LABS: BACTERIA,URINE 0 /HPF (0-FEW); RBC,URINE 0 /HPF (0-2); SQUAMOUS EPITHELIAL CELL,UR FEW /LPF; WBC,URINE OCC /HPF (0-4)
[2018-04-02] MEDS ORDERED: IV NORMAL SALINE 1000ML BAG 1,000 ML IV ONE ×2 (02:30→03:00)
[2018-04-02] MEDS ORDERED: MORPHINE SULFATE 4 MG/ML VIAL. IV PRN (03:00)
[2018-04-02] MEDS ORDERED: ONDANSETRON PF 4 MG/2 ML VIAL. IV PRN (03:00)
[2018-04-02] MEDS ORDERED: MORPHINE SULFATE 2 MG/ML VIAL. ONE (03:06)
[2018-04-02 04:10] VITALS: BP 141/89
[2018-04-02 07:00] VITALS: BP 137/100
--- NOTE | 2018-04-02 08:17 | PDOC ---
Provider Note Provider Note [id number] ARIANA MARSHALL MD Apr 02, 2018 08:17
--- NOTE | 2018-04-02 08:26 | RAD ---
Acute abdomen series with chest, 3 views, 04/02/2018: HISTORY: Abdominal pain, nausea and vomiting The images are of suboptimal quality due to the patient's size. The flank regions are not completely included on this study. Gas is present in large and small bowel with scattered air-fluid levels. No free air seen in the abdomen. No abnormal abdominal calcifications are evident. The heart size is normal. The lungs are clear. There is no evidence of pleural fluid. IMPRESSION: Scattered air-fluid levels in the GI tract which may reflect an obstructive process or an ileus. Electronically signed by: Jonnie White MD (04/02/2018 8:23 AM) [facility]
[2018-04-02] MEDS: POTASSIUM CL 20MEQ D5-0.45NACL 1,000 ML IV SCH ×2 (09:26→17:31)
[2018-04-02] MEDS: KETOROLAC 30 MG/ML VIAL. IV PRN ×3 (09:27→21:34)
[2018-04-02 11:00] VITALS: BP 126/60
[2018-04-02] MEDS: PANTOPRAZOLE 40 MG TABLET.DR. PO SCH (11:30)
[2018-04-02 15:00] VITALS: BP 133/71
[2018-04-02 19:31] VITALS: BP 139/72
[2018-04-02] MEDS: traMADol 50 MG TABLET PO PRN (21:34)
[2018-04-02 23:10] VITALS: BP 141/75
[2018-04-03] MEDS: traMADol 50 MG TABLET PO PRN ×2 (02:57→10:18)
[2018-04-03] MEDS: POTASSIUM CL 20MEQ D5-0.45NACL 1,000 ML IV SCH (02:59)
[2018-04-03 03:32] VITALS: BP 150/95
[2018-04-03 04:33] LABS: BASO % 1 % (0-3); EOS # 0.3 x10^3/uL (0.0-0.7); EOS % 4 % (0-3); HEMATOCRIT 39.3 % (39.0-53.0); HEMOGLOBIN 13.4 g/dL (13.0-17.5); LYMPH # 0.9 x10^3/uL (1.0-4.8); LYMPH % 14 % (24-48); MEAN CORPUSCULAR HEMOGLOBIN 30 pg (25-35); MEAN CORPUSCULAR HGB CONC 34 g/dL (31-37); MEAN CORPUSCULAR VOLUME 87 fL (79-100); MONO # 0.7 x10^3/uL (0.0-1.1); MONO % 10 % (0-9); NEUT # 4.6 x10^3uL (1.8-7.7); NEUT % 71 % (31-73); PLATELET COUNT 214 x10^3/uL (140-400); RED BLOOD COUNT 4.53 x10^6/uL (4.30-5.70); RED CELL DISTRIBUTION WIDTH 13.9 % (11.5-14.5); WHITE BLOOD COUNT 6.5 x10^3/uL (4.0-11.0)
[2018-04-03] MEDS: KETOROLAC 30 MG/ML VIAL. IV PRN ×4 (05:24→21:41)
[2018-04-03 07:00] VITALS: BP 119/64
--- NOTE | 2018-04-03 08:09 | PDOC ---
Provider Note Provider Note [id number] ARIANA MARSHALL MD Apr 03, 2018 08:09
[2018-04-03] MEDS ORDERED: LORazepam 1 MG TABLET PO PRN (08:15)
[2018-04-03] MEDS: PANTOPRAZOLE 40 MG TABLET.DR. PO SCH (08:39)
--- NOTE | 2018-04-03 10:34 | PN ---
DATE: 04/03/2018 The patient reports no increase in abdominal pain, no nausea or vomiting. He is holding down clear liquids. He has had good ileostomy output. Blood sugars are okay. A1c was 8.0 and indicating his weight loss is helping him. Exam was the same. We will change to regular diet. Discontinue IV fluids and likely discharge in the morning if he is doing okay. ARIANA MARSHALL MD DR: ORTEGA/vj JOB#: [id number] / [id number]
[2018-04-03 11:00] VITALS: BP 153/85
--- NOTE | 2018-04-03 12:54 | PDOC2 ---
CONSULT Date of Consult Date of Consult DATE: 04/02/18 TIME: 16:00 LATE ENTRY PT SEEN SATURDAY, 04/02 Reason for Consult Reason for Consult: abdominal pain Referring Physician Referring Physician: JEREMIAS Identification/Chief Complaint Chief Complaint abd pain Source Source: Chart review, Patient History of Present Illness Reason for Visit: Joe is a morbidly obese gentleman I know from previous hospitalizations, surgery. He thinks he "overdid it" working this past weekend and he was having some abdominal pain. Admitted with possible SBO. Long standing right sided stoma with peristomal hernia as well as midline incisional hernias. Past Medical History Cardiovascular: HTN GI: Inflam bowel disease, Other Infectious disease: No pertinent hx Endocrine: Diabetes Past Surgical History Past Surgical History: Pacemaker, Colectomy Family History Family History: Other Social History ALCOHOL: none Drugs: None Current Problem List Problem List Problems Medical Problems: (1) Abdominal pain Status: Acute (2) Nausea and vomiting Status: Acute Current Medications Current Medications Current Medications Metoclopramide HCl (Reglan Vial) 10 mg 1X ONCE IV Last administered on at 01:34; Start 04/02/18 at 01:30; Stop 04/02/18 at 01:31; Status DC Morphine Sulfate (Morphine Sulfate) 4 mg 1X ONCE IV Last administered on at 01:34; Start 04/02/18 at 01:30; Stop 04/02/18 at 08:15; Status DC Sodium Chloride 1,000 ml @ 1,000 mls/hr 1X ONCE IV Last administered on at 02:49; Start 04/02/18 at 02:30; Stop 04/02/18 at 03:29; Status DC Ondansetron HCl (Zofran) 4 mg PRN Q8HRS PRN IV NAUSEA/VOMITING Last administered on 04/02/18at 06:34; Start 04/02/18 at 03:00; Stop 04/03/18 at 02:59 ; Status DC Morphine Sulfate (Morphine Sulfate) 4 mg PRN Q4HRS PRN IV PAIN Last administered on 04/02/18at 04:35; Start 04/02/18 at 03:00; Stop 04/02/18 at 08:15 ; Status DC Sodium Chloride 1,000 ml @ 125 mls/hr 1X ONCE IV Last administered on at 04:35; Start 04/02/18 at 03:00; Stop 04/02/18 at 10:59; Status DC Morphine Sulfate (Morphine Sulfate) 2 mg 1X ONCE IV Last administered on at 03:13; Start 04/02/18 at 03:15; Stop 04/02/18 at 08:15; Status DC Morphine Sulfate (Morphine Sulfate) 2 mg STK-MED ONCE .ROUTE ; Start 04/02/18 at 03:06; Stop 04/02/18 at 08:15; Status DC Tramadol HCl (Ultram) 50 mg PRN Q6HRS PRN PO MILD PAIN Last administered on at 10:18; Start 04/02/18 at 08:15 Pantoprazole Sodium (Protonix) 40 mg DAILYAC PO Last administered on 04/03/18at 08:39; Start 04/02/18 at 11:30 Potassium Chloride/Dextrose/ Sod Cl 1,000 ml @ 125 mls/hr Q8H IV Last administered on 04/03/18at 02:59; Start 04/02/18 at 08:15; Stop 04/03/18 at 08:08 ; Status DC Lorazepam (Ativan) 1 mg PRN Q8HRS PRN IV ANXIETY / AGITATION Last administered on 04/02/18at 21:35; Start 04/02/18 at 08:15; Stop 04/03/18 at 08:08; Status DC Ketorolac Tromethamine (Toradol 30mg Vial) 30 mg PRN Q6HRS PRN IV MILD TO MODERATE PAIN Last administered on 04/03/18at 05:28; Start 04/02/18 at 08:15; Stop 04/07/18 at 08:14 Lorazepam (Ativan) 1 mg PRN Q8HRS PRN PO ANXIETY / AGITATION; Start 04/03/18 at 08:15 Active Scripts Active Tramadol Hcl 50 Mg Tablet 50 Mg PO Q6HRS PRN 5 Days [Pantoprazole] 40 MG Tablet.dr 40 Mg PO DAILYAC 30 Days Allergies Allergies: Coded Allergies: No Known Drug Allergies (Unverified , 07/24/13) ROS Review of System negative with exception of present complaints Physical Exam General: Alert, Oriented X3, Cooperative, No acute distress HEENT: Atraumatic, PERRLA Lungs: Normal air movement Heart: Regular rate Abdomen: Other (obese, soft, right sided stoma with output in bag) Vitals VITALS Vital Signs Date Time Temp Pulse Resp B/P (MAP) Pulse Ox O2 Delivery O2 Flow Rate FiO2 04/03/18 12:24 99 Room Air 04/03/18 11:00 96.1 56 20 153/85 (107) 96.1 Labs Labs Laboratory Tests Test 04/02/18 01:13 04/02/18 01:50 04/02/18 07:26 04/02/18 11:55 White Blood Count 6.8 x10^3/uL (4.0-11.0) Red Blood Count 5.01 x10^6/uL (4.30-5.70) Hemoglobin 14.8 g/dL (13.0-17.5) Hematocrit 42.9 % (39.0-53.0) Mean Corpuscular Volume 86 fL (79-100) Mean Corpuscular Hemoglobin 30 pg (25-35) Mean Corpuscular Hemoglobin Concent 35 g/dL (31-37) Red Cell Distribution Width 14.0 % (11.5-14.5) Platelet Count 249 x10^3/uL (140-400) Neutrophils (%) (Auto) 71 % (31-73) Lymphocytes (%) (Auto) 13 % (24-48) Monocytes (%) (Auto) 11 % (0-9) Eosinophils (%) (Auto) 4 % (0-3) Basophils (%) (Auto) 1 % (0-3) Neutrophils # (Auto) 4.9 x10^3uL (1.8-7.7) Lymphocytes # (Auto) 0.9 x10^3/uL (1.0-4.8) Monocytes # (Auto) 0.8 x10^3/uL (0.0-1.1) Eosinophils # (Auto) 0.3 x10^3/uL (0.0-0.7) Basophils # (Auto) 0.0 x10^3/uL (0.0-0.2) Sodium Level 139 mmol/L (136-145) Potassium Level 3.8 mmol/L (3.5-5.1) Chloride Level 102 mmol/L (98-107) Carbon Dioxide Level 26 mmol/L (21-32) Anion Gap 11 (6-14) Blood Urea Nitrogen 12 mg/dL (8-26) Creatinine 0.8 mg/dL (0.7-1.3) Estimated GFR (Cockcroft-Gault) 110.7 BUN/Creatinine Ratio 15 (6-20) Glucose Level 157 mg/dL (70-99) Hemoglobin A1c 8.0 % (4.8-5.6) Calcium Level 8.8 mg/dL (8.5-10.1) Total Bilirubin 0.6 mg/dL (0.2-1.0) Aspartate Amino Transf (AST/SGOT) 13 U/L (15-37) Alanine Aminotransferase (ALT/SGPT) 24 U/L (16-63) Alkaline Phosphatase 91 U/L (46-116) Total Protein 7.5 g/dL (6.4-8.2) Albumin 2.9 g/dL (3.4-5.0) Albumin/Globulin Ratio 0.6 (1.0-1.7) Lipase 74 U/L (73-393) Urine Collection Type Unknown Urine Color Lin Urine Clarity Clear Urine pH 5.5 Urine Specific [place] >=1.030 Urine Protein 30 mg/dL (NEG-TRACE) Urine Glucose (UA) Negative mg/dL (NEG) Urine Ketones (Stick) Trace mg/dL (NEG) Urine Blood Negative (NEG) Urine Nitrite Negative (NEG) Urine Bilirubin Small (NEG) Urine Urobilinogen Dipstick 1.0 mg/dL (0.2 mg/dL) Urine Leukocyte Esterase Negative (NEG) Urine RBC 0 /HPF (0-2) Urine WBC Occ /HPF (0-4) Urine Squamous Epithelial Cells Few /LPF Urine Bacteria 0 /HPF (0-FEW) Urine Mucus Mod /LPF Glucose (Fingerstick) 150 mg/dL (70-99) 178 mg/dL (70-99) Test 04/02/18 16:45 04/02/18 20:36 04/03/18 03:35 04/03/18 07:16 Glucose (Fingerstick) 148 mg/dL (70-99) 263 mg/dL (70-99) 180 mg/dL (70-99) White Blood Count 6.5 x10^3/uL (4.0-11.0) Red Blood Count 4.53 x10^6/uL (4.30-5.70) Hemoglobin 13.4 g/dL (13.0-17.5) Hematocrit 39.3 % (39.0-53.0) Mean Corpuscular Volume 87 fL (79-100) Mean Corpuscular Hemoglobin 30 pg (25-35) Mean Corpuscular Hemoglobin Concent 34 g/dL (31-37) Red Cell Distribution Width 13.9 % (11.5-14.5) Platelet Count 214 x10^3/uL (140-400) Neutrophils (%) (Auto) 71 % (31-73) Lymphocytes (%) (Auto) 14 % (24-48) Monocytes (%) (Auto) 10 % (0-9) Eosinophils (%) (Auto) 4 % (0-3) Basophils (%) (Auto) 1 % (0-3) Neutrophils # (Auto) 4.6 x10^3uL (1.8-7.7) Lymphocytes # (Auto) 0.9 x10^3/uL (1.0-4.8) Monocytes # (Auto) 0.7 x10^3/uL (0.0-1.1) Eosinophils # (Auto) 0.3 x10^3/uL (0.0-0.7) Basophils # (Auto) 0.0 x10^3/uL (0.0-0.2) Laboratory Tests Test 04/02/18 16:45 04/02/18 20:36 04/03/18 03:35 04/03/18 07:16 Glucose (Fingerstick) 148 mg/dL (70-99) 263 mg/dL (70-99) 180 mg/dL (70-99) White Blood Count 6.5 x10^3/uL (4.0-11.0) Red Blood Count 4.53 x10^6/uL (4.30-5.70) Hemoglobin 13.4 g/dL (13.0-17.5) Hematocrit 39.3 % (39.0-53.0) Mean Corpuscular Volume 87 fL (79-100) Mean Corpuscular Hemoglobin 30 pg (25-35) Mean Corpuscular Hemoglobin Concent 34 g/dL (31-37) Red Cell Distribution Width 13.9 % (11.5-14.5) Platelet Count 214 x10^3/uL (140-400) Neutrophils (%) (Auto) 71 % (31-73) Lymphocytes (%) (Auto) 14 % (24-48) Monocytes (%) (Auto) 10 % (0-9) Eosinophils (%) (Auto) 4 % (0-3) Basophils (%) (Auto) 1 % (0-3) Neutrophils # (Auto) 4.6 x10^3uL (1.8-7.7) Lymphocytes # (Auto) 0.9 x10^3/uL (1.0-4.8) Monocytes # (Auto) 0.7 x10^3/uL (0.0-1.1) Eosinophils # (Auto) 0.3 x10^3/uL (0.0-0.7) Basophils # (Auto) 0.0 x10^3/uL (0.0-0.2) Assessment/Plan Assessment/Plan morbid obesity hx of colectomy with end ileostomy peristoma hernia VIH no surgical recs will follow as needed Thanks for consult TAMMI BRIAN MD Apr 03, 2018 12:54
[2018-04-03 15:00] VITALS: BP 153/95
[2018-04-03 19:40] VITALS: BP 143/84
[2018-04-03 23:45] VITALS: BP 167/100
[2018-04-04] MEDS: traMADol 50 MG TABLET PO PRN (01:40)
[2018-04-04] MEDS ORDERED: METOCLOPRAMIDE HCL 10 MG/2 ML VIAL. IV ONE (03:00)
[2018-04-04 03:12] VITALS: BP 155/106
[2018-04-04] MEDS: KETOROLAC 30 MG/ML VIAL. IV PRN ×4 (03:43→23:52)
[2018-04-04 07:00] VITALS: BP 162/105
[2018-04-04] MEDS ORDERED: METOCLOPRAMIDE HCL 10 MG/2 ML VIAL. IV PRN (08:45)
--- NOTE | 2018-04-04 08:46 | PDOC ---
Provider Note Provider Note [id number] ARIANA MARSHALL MD Apr 04, 2018 08:46
[2018-04-04] MEDS ORDERED: CONTRAST GIVEN. MC PRN (09:00)
[2018-04-04] MEDS ORDERED: IOHEXOL 300 MG/ML 100ML VIAL. IV ONE (09:00)
[2018-04-04] MEDS: POTASSIUM CL 20MEQ D5-0.45NACL 1,000 ML IV SCH ×2 (09:30→18:34)
[2018-04-04] MEDS: PANTOPRAZOLE 40 MG TABLET.DR. PO SCH (09:42)
--- NOTE | 2018-04-04 10:06 | PN ---
DATE: 04/04/2018 The patient ate well all through the day and then last night after lying down, became nauseous, had some abdominal distention and some vomiting. He has had increased pain and has been asking for opioids. There was no bloody emesis. No fever or other symptoms. His abdomen appears to be mildly more distended than it was yesterday. We will discontinue food, go back to clear liquids, resume IV fluids, get a CT scan to look for any evidence of obstructive process and reiterated that we cannot use IV opioids as this makes the problem worse. We will add Reglan as he may have a component of gastroparesis and Zofran as well. ARIANA MARSHALL MD DR: ROTEGA/vj JOB#: [id number] / [id number]
[2018-04-04] MEDS: ONDANSETRON PF 4 MG/2 ML VIAL. IV PRN ×3 (10:39→23:52)
[2018-04-04 11:00] VITALS: BP 146/105
[2018-04-04 11:28] LABS: CALCIUM 9.3 mg/dL (8.5-10.1); CREATININE 0.8 mg/dL (0.7-1.3); GFR 110.7; POTASSIUM 4.3 mmol/L (3.5-5.1)
--- NOTE | 2018-04-04 12:53 | PDOC ---
SURGICAL PROGRESS NOTE Subjective some nausea, pain and emesis earlier after taking regular diet Vital Signs Vital Signs Date Time Temp Pulse Resp B/P (MAP) Pulse Ox O2 Delivery O2 Flow Rate FiO2 04/04/18 11:00 96.6 111 16 146/105 (119) 99 Room Air 96.6 I&O Intake and Output 04/04/18 07:00 Intake Total 1110 ml Balance 1110 ml Intake Oral 1110 ml # Voids 7 PATIENT HAS A PERALTA: No General: Alert, Oriented X3, No acute distress Abdomen: Soft, Other (massively obese, henria contents soft, minimally TTP) Labs Laboratory Tests Test 04/02/18 16:45 04/02/18 20:36 04/03/18 03:35 04/03/18 07:16 Glucose (Fingerstick) 148 mg/dL (70-99) 263 mg/dL (70-99) 180 mg/dL (70-99) White Blood Count 6.5 x10^3/uL (4.0-11.0) Red Blood Count 4.53 x10^6/uL (4.30-5.70) Hemoglobin 13.4 g/dL (13.0-17.5) Hematocrit 39.3 % (39.0-53.0) Mean Corpuscular Volume 87 fL (79-100) Mean Corpuscular Hemoglobin 30 pg (25-35) Mean Corpuscular Hemoglobin Concent 34 g/dL (31-37) Red Cell Distribution Width 13.9 % (11.5-14.5) Platelet Count 214 x10^3/uL (140-400) Neutrophils (%) (Auto) 71 % (31-73) Lymphocytes (%) (Auto) 14 % (24-48) Monocytes (%) (Auto) 10 % (0-9) Eosinophils (%) (Auto) 4 % (0-3) Basophils (%) (Auto) 1 % (0-3) Neutrophils # (Auto) 4.6 x10^3uL (1.8-7.7) Lymphocytes # (Auto) 0.9 x10^3/uL (1.0-4.8) Monocytes # (Auto) 0.7 x10^3/uL (0.0-1.1) Eosinophils # (Auto) 0.3 x10^3/uL (0.0-0.7) Basophils # (Auto) 0.0 x10^3/uL (0.0-0.2) Test 04/04/18 10:30 Sodium Level 135 mmol/L (136-145) Potassium Level 4.3 mmol/L (3.5-5.1) Chloride Level 100 mmol/L (98-107) Carbon Dioxide Level 26 mmol/L (21-32) Anion Gap 9 (6-14) Blood Urea Nitrogen 10 mg/dL (8-26) Creatinine 0.8 mg/dL (0.7-1.3) Estimated GFR (Cockcroft-Gault) 110.7 Glucose Level 205 mg/dL (70-99) Calcium Level 9.3 mg/dL (8.5-10.1) Laboratory Tests Test 04/04/18 10:30 Sodium Level 135 mmol/L (136-145) Potassium Level 4.3 mmol/L (3.5-5.1) Chloride Level 100 mmol/L (98-107) Carbon Dioxide Level 26 mmol/L (21-32) Anion Gap 9 (6-14) Blood Urea Nitrogen 10 mg/dL (8-26) Creatinine 0.8 mg/dL (0.7-1.3) Estimated GFR (Cockcroft-Gault) 110.7 Glucose Level 205 mg/dL (70-99) Calcium Level 9.3 mg/dL (8.5-10.1) Problem List Problems Medical Problems: (1) Abdominal pain Status: Acute (2) Nausea and vomiting Status: Acute Assessment/Plan morbid obesity VIH intermittent pSBO needs to go SLOWLY on po intake (clears as tolerated) he is an extremely high surgical risk for repair of his VIH and parastomal hernias d/w Joe Garcia and Lilliana Nickel available as needed over the weekend TAMMI BRIAN MD Apr 04, 2018 12:53
--- NOTE | 2018-04-04 13:24 | RAD ---
CT of the abdomen and pelvis with contrast, 04/04/2018: HISTORY: Ileus, Crohn's disease Multidetector CT imaging was performed following IV administration of contrast. No oral contrast material was administered for this study. Comparison is made to an exam from 12/31/2017. The flank regions were not completely included on this study due to the patient's large size. There are severe streak artifacts degrading image quality in the regions which were included in the [id number]. There are multiple distended bowel loops with air-fluid levels. These appear to represent small bowel. There is a rectal stump in place. The colon is not clearly delineated. Reportedly there is a colostomy on the right. There is a large abdominal wall hernia on the right with bowel loops extending through the abdominal wall defect into the subcutaneous soft tissues. This hernia and associated bowel is not completely included in the [id number] of this study. Similar findings were present on 12/31/2017. The liver measures 25 cm in craniocaudad extent. No hepatic mass is seen. No dense gallstones are seen. The pancreas is unremarkable. The spleen mildly enlarged measuring 15 cm in craniocaudad extent. No renal abnormality is detected. The abdominal aorta is of normal caliber. No abdominal adenopathy is seen. No free fluid or free air is evident in the abdomen or pelvis. IMPRESSION: 1. Severely limited exam as described above related to the patient's size and streak artifacts. 2. Ongoing or recurrent small bowel dilatation similar to that seen on 12/31/2017. This may represent partial small bowel obstruction related to the patient's large right-sided abdominal wall hernia, although the hernia is not fully visualized on these scans. 3. Hepatosplenomegaly PQRS Compliance Statement: One or more of the following individualized dose reduction techniques were utilized for this examination: 1. Automated exposure control 2. Adjustment of the mA and/or kV according to patient size 3. Use of iterative reconstruction technique Electronically signed by: Jonnie White MD (04/04/2018 1:20 PM) [facility]
[2018-04-04 15:00] VITALS: BP 117/71
[2018-04-04 19:43] VITALS: BP 143/90
[2018-04-04 23:12] VITALS: BP 147/93
[2018-04-05 02:31] VITALS: BP 142/89
[2018-04-05] MEDS: POTASSIUM CL 20MEQ D5-0.45NACL 1,000 ML IV SCH ×2 (04:12→13:51)
[2018-04-05] MEDS: KETOROLAC 30 MG/ML VIAL. IV PRN (06:03)
[2018-04-05 07:00] VITALS: BP 148/82
[2018-04-05] MEDS: PANTOPRAZOLE 40 MG TABLET.DR. PO SCH (07:30)
--- NOTE | 2018-04-05 09:48 | PDOC ---
SURGICAL PROGRESS NOTE Subjective feels better ostomy working better pain improved Vital Signs Vital Signs Date Time Temp Pulse Resp B/P (MAP) Pulse Ox O2 Delivery O2 Flow Rate FiO2 04/05/18 07:30 Room Air 04/05/18 07:00 97.8 65 16 148/82 (104) 98 97.8 I&O Intake and Output 04/05/18 07:00 Intake Total 240 ml Balance 240 ml Intake Oral 240 ml # Voids 6 General: Alert, Oriented X3, Cooperative, No acute distress Abdomen: Soft Labs Laboratory Tests Test 04/04/18 10:30 04/05/18 04:00 Sodium Level 135 mmol/L (136-145) Potassium Level 4.3 mmol/L (3.5-5.1) 3.8 mmol/L (3.5-5.1) Chloride Level 100 mmol/L (98-107) Carbon Dioxide Level 26 mmol/L (21-32) Anion Gap 9 (6-14) Blood Urea Nitrogen 10 mg/dL (8-26) Creatinine 0.8 mg/dL (0.7-1.3) Estimated GFR (Cockcroft-Gault) 110.7 Glucose Level 205 mg/dL (70-99) Calcium Level 9.3 mg/dL (8.5-10.1) Laboratory Tests Test 04/04/18 10:30 04/05/18 04:00 Sodium Level 135 mmol/L (136-145) Potassium Level 4.3 mmol/L (3.5-5.1) 3.8 mmol/L (3.5-5.1) Chloride Level 100 mmol/L (98-107) Carbon Dioxide Level 26 mmol/L (21-32) Anion Gap 9 (6-14) Blood Urea Nitrogen 10 mg/dL (8-26) Creatinine 0.8 mg/dL (0.7-1.3) Estimated GFR (Cockcroft-Gault) 110.7 Glucose Level 205 mg/dL (70-99) Calcium Level 9.3 mg/dL (8.5-10.1) Problem List Problems Medical Problems: (1) Abdominal pain Status: Acute (2) Nausea and vomiting Status: Acute Assessment/Plan supportive care diet slowly REINA PENA APRN Apr 05, 2018 09:48
[2018-04-05 11:00] VITALS: BP 143/75
[2018-04-05 15:00] VITALS: BP 145/83
--- NOTE | 2018-04-05 16:11 | HP ---
ADMIT DATE: CHIEF COMPLAINT: Nausea, vomiting. HISTORY OF PRESENT ILLNESS: A 32-year-old white male with history of Crohn's disease and prior colectomy. He has had recurrent abdominal pain and nausea and vomiting for many months. He was last admitted here in December and transferred to [facility] for consideration for surgery, but apparently surgery was not performed or recommended. He has not been seen in the office since that time and he came in because of nausea and vomiting. CT scan could not be done because of his size, but he did not appear to be clinically obstructed per the ER doctor. There has been no melena, hematochezia, fever or other symptoms. PAST MEDICAL HISTORY: Well documented in the old records. He is a diabetic. MEDICATIONS: Diabetic medications are unknown at this time. ALLERGIES: No allergies. SOCIAL HISTORY: Single, unemployed, lives apparently with family, nondrinker to my knowledge. FAMILY HISTORY: Unremarkable. REVIEW OF SYSTEMS: No other known problems. OBJECTIVE: ENT: All within normal limits. NECK: No masses, nodes or bruits. LUNGS: Clear. CARDIOVASCULAR: Regular rate. No irregular beat or murmur. ABDOMEN: Diffusely distended, multiple small hernias. No active signs of infections present. EXTREMITIES: Unremarkable. Pedal pulses reasonable. No joint or skin lesions. NEUROLOGIC: Physiologic. ASSESSMENT: Recurrent abdominal pain and ileus. The patient with multiple abdominal hernias and super morbid obesity and diabetes, poorly controlled. May have a component of gastroparesis as well. PLAN: Hold IV opioids, as he has had a problem with this in the past and that would contribute to the worsening of his medical condition. Supportive care with fluids and metoclopramide. ARIANA MARSHALL MD DR: ORTEGA/vj JOB#: [id number] / [id number]
--- NOTE | 2018-04-05 16:13 | PN ---
DATE: 04/03/2018 The patient reports no increase in abdominal pain, no nausea or vomiting. He is holding down clear liquids. He has had good ileostomy output. Blood sugars are okay. A1c was 8.0 and indicating his weight loss is helping him. Exam was the same. We will change to regular diet. Discontinue IV fluids and likely discharge in the morning if he is doing okay. ARIANA MARSHALL MD DR: ORTEGA/nts JOB#: [id number] / [id number]
--- NOTE | 2018-04-05 19:51 | DS ---
DATE OF DISCHARGE: 04/05/2018 HOSPITAL SUMMARY: Diabetic patient, came in with recurrent abdominal pain, nausea and vomiting. He has a history of super morbid obesity, recurrent abdominal pain from ventral hernias, but is not a surgical candidate because of his size and surgical risk. Initial plain film showed some ileus. Repeat CT scan later showed evidence of small-bowel obstruction, but he was made n.p.o., given IV fluids, and pain lessened. He was able to tolerate liquids and then regular diet 24 hours prior to dismissal. His ostomy is working well, his labs were all normal, and he was given no opioids as they are contraindicated given his medical problems. He was comfortable on the day of , to be discharged and followed as an outpatient. FINAL DIAGNOSES: Recurrent abdominal pain secondary to multiple ventral hernias. OPERATIONS, PROCEDURES, COMPLICATIONS: None. CONSULTATIONS: Dr. Rome's group. DISPOSITION: Continues on low calorie diet for his diabetes and no diabetic medications are being used. Note, his A1c is 8.0, which is pretty good for this patient. Continue efforts at aggressive weight loss as he ultimately may benefit from abdominal hernia surgery, but [facility] would not operate on him without at least 100-200 pound weight loss according to the patient. PROGNOSIS: Guarded. ARIANA MARSHALL MD DR: ORTEGA/vj JOB#: [id number] / [id number]
--- NOTE | 2018-04-05 21:15 | PN ---
DATE: 04/05/2018 ROOM: 671. SUBJECTIVE: The patient is awake, alert, feels like ostomy is working better. He feels somewhat better, was not able to eat breakfast, but feels like if he ate a good lunch, he may be ready to go. I asked him to have nursing call me after the same for possible discharge orders. OBJECTIVE: VITAL SIGNS: Stable. He is afebrile. Blood pressures are on the high side. CHEST: Clear. HEART: Regular. ABDOMEN: Soft, nontender. EXTREMITIES: Reveal venous stasis changes. CT scan of the abdomen and pelvis yesterday showed some right-sided small bowel dilation similar to that seen on 12/31/2017, was felt this could be partial small-bowel obstruction related to the patient's large right-sided abdominal wall hernia. He had hepatosplenomegaly on the CT. ASSESSMENT: Abdominal pain with nausea, vomiting and ileus versus small-bowel obstruction in a patient with Crohn's disease and an ostomy. PLAN: Continue supportive care. Await clearing surgery. Follow up is helpful and otherwise supportive care with discharge once he feels like he is able to eat at a regular level. AUDREY LOVE MD DR: BLAS/vj JOB#: [id number] / [id number]
== END 2018-04-05 17:30 | disposition home or self-care (01) | DRG 394 ==
LOC: ER 00:29 → 6 SOUTH 02:35
PROVIDERS: ADMIT Family Medicine; ATTEND Family Medicine
DX: K43.6 Other and unspecified ventral hernia with obstruction, without gangrene (principal); Z68.45 Body mass index [BMI] 70 or greater, adult; K50.90 Crohn's disease, unspecified, without complications; K56.7 Ileus, unspecified; K43.5 Parastomal hernia without obstruction or gangrene; E11.65 Type 2 diabetes mellitus with hyperglycemia; E66.01 Morbid (severe) obesity due to excess calories; I10 Essential (primary) hypertension; Z90.49 Acquired absence of other specified parts of digestive tract; Z93.3 Colostomy status; Z79.899 Other long term (current) drug therapy; Z79.4 Long term (current) use of insulin
CPT/HCPCS: 36415; 74022; 74177; 80048; 80053; 81001; 82962; 83036; 83690; 84132; 85025; 96361; 96374; 96375; 96376; J1885; J2060; J2270; J2405; J2765; J7030; Q9967; 99285-25

== ENCOUNTER 2018-04-06 23:08 | Inpatient (IN) | payer MEDICARE ==
[~2018-04-06] VITALS: Ht 182.9 cm; Wt 246.8 kg
--- NOTE | 2018-04-07 02:13 | PHYS DOC ---
Past Medical History Past Medical History: Diabetes-Type II, Other Additional Past Medical Histor: colitis, colostomy bag, Crohn's,STEROID INDUCED DM,MORBID OBESITY Past Surgical History: Colectomy, Other Additional Past Surgical Histo: BOWEL RESECTION, L HAND, HERNIA X5, Alcohol Use: Occasionally Drug Use: None Adult General Chief Complaint Chief Complaint: ABDOMINAL PAIN HPI HPI Patient is a 32-year-old male who presents with progressive abdominal pain for 1 day. Patient notes his pain has been sharp and constant in nature with a severity of 9 out of 10 mostly located in the left lower and right lower quadrants. Patient has had associated nausea and vomiting. Patient notes he has had no output from his ostomy since 5:30 Saturday morning going on 20 hours now. Patient recently admitted to [facility] for partial bowel instruction. Review of Systems Review of Systems Constitutional: Denies fever or chills [] Eyes: Denies change in visual acuity, redness, or eye pain [] HENT: Denies nasal congestion or sore throat [] Respiratory: Denies cough or shortness of breath [] Cardiovascular: Denies chest pain or palpitations[] GI: Notes abdominal pain, nausea, vomiting, denies bloody stool or diarrhea [] : Denies dysuria or hematuria [] Musculoskeletal: Denies back pain or joint pain [] Integument: Denies rash or skin lesions [] Neurologic: Denies headache, focal weakness or sensory changes [] Complete systems were reviewed and found to be within normal limits, except as documented in this note. Current Medications Current Medications Current Medications Medications (Trade) Dose Ordered Sig/Marlo Start Time Stop Time Status Last Admin Dose Admin Fentanyl Citrate (Fentanyl 2ml Vial) 50 mcg 1X ONCE 04/07/18 02:15 04/07/18 02:16 DC 04/07/18 02:22 50 MCG Ondansetron HCl (Zofran) 4 mg 1X ONCE 04/07/18 02:15 04/07/18 02:16 DC 04/07/18 02:25 4 MG Sodium Chloride 1,000 ml @ 1,000 mls/hr 1X ONCE 04/07/18 02:15 04/07/18 03:14 DC 04/07/18 02:27 1,000 MLS/HR Allergies Allergies Allergies Coded Allergies Type Severity Reaction Last Updated Verified No Known Drug Allergies 07/24/13 No Physical Exam Physical Exam Constitutional: Well developed, well nourished, no acute distress, non-toxic appearance, morbidly obese. [] HENT: Normocephalic, atraumatic, oropharynx moist, no oral exudates, nose normal. [] Eyes: PERRL, EOMI, conjunctiva normal, no discharge. [] Neck: Normal range of motion, no tenderness, supple, no meningismus. [] Cardiovascular:Heart rate regular rhythm, no murmur [] Lungs & Thorax: Bilateral breath sounds clear to auscultation [] Abdomen: Bowel sounds normal, soft, diffuse tenderness worst in RLQ, Palpable large reducible multiple ventral and stomal hernia . [] Skin: Warm, dry, no erythema, no rash. No erythema or signs of infection or skin breakdown around stomal site. [] Back: No tenderness, no CVA tenderness. [] Extremities: No tenderness, ROM intact, no edema. [] Neurologic: Alert and oriented X 3, normal motor function, normal sensory function, no focal deficits noted. [] Psychologic: Affect normal, judgement normal, mood normal. [] Current Patient Data Vital Signs Vital Signs Date Time Temp Pulse Resp B/P (MAP) Pulse Ox O2 Delivery O2 Flow Rate FiO2 04/07/18 02:22 18 98 Room Air 04/06/18 23:40 97.5 114 135/92 (106) 97.5 Lab Values Laboratory Tests Test 04/07/18 02:13 04/07/18 02:30 White Blood Count 10.0 x10^3/uL (4.0-11.0) Red Blood Count 5.35 x10^6/uL (4.30-5.70) Hemoglobin 15.9 g/dL (13.0-17.5) Hematocrit 45.8 % (39.0-53.0) Mean Corpuscular Volume 86 fL (79-100) Mean Corpuscular Hemoglobin 30 pg (25-35) Mean Corpuscular Hemoglobin Concent 35 g/dL (31-37) Red Cell Distribution Width 14.0 % (11.5-14.5) Platelet Count 274 x10^3/uL (140-400) Neutrophils (%) (Auto) 81 % (31-73) H Lymphocytes (%) (Auto) 7 % (24-48) L Monocytes (%) (Auto) 11 % (0-9) H Eosinophils (%) (Auto) 1 % (0-3) Basophils (%) (Auto) 1 % (0-3) Neutrophils # (Auto) 8.1 x10^3uL (1.8-7.7) H Lymphocytes # (Auto) 0.7 x10^3/uL (1.0-4.8) L Monocytes # (Auto) 1.1 x10^3/uL (0.0-1.1) Eosinophils # (Auto) 0.1 x10^3/uL (0.0-0.7) Basophils # (Auto) 0.1 x10^3/uL (0.0-0.2) Sodium Level 137 mmol/L (136-145) Potassium Level 4.3 mmol/L (3.5-5.1) Chloride Level 99 mmol/L (98-107) Carbon Dioxide Level 27 mmol/L (21-32) Anion Gap 11 (6-14) Blood Urea Nitrogen 11 mg/dL (8-26) Creatinine 0.9 mg/dL (0.7-1.3) Estimated GFR (Cockcroft-Gault) 96.6 BUN/Creatinine Ratio 12 (6-20) Glucose Level 177 mg/dL (70-99) H Lactic Acid Level 1.1 mmol/L (0.4-2.0) Calcium Level 9.7 mg/dL (8.5-10.1) Total Bilirubin 0.9 mg/dL (0.2-1.0) Aspartate Amino Transferase (AST) 15 U/L (15-37) Alanine Aminotransferase (ALT) 27 U/L (16-63) Alkaline Phosphatase 110 U/L (46-116) Total Protein 8.4 g/dL (6.4-8.2) H Albumin 3.4 g/dL (3.4-5.0) Albumin/Globulin Ratio 0.7 (1.0-1.7) L Lipase 80 U/L (73-393) Urine Collection Type Unknown Urine Color Lin Urine Clarity Clear Urine pH 5.0 Urine Specific [place] 1.025 Urine Protein Negative mg/dL (NEG-TRACE) Urine Glucose (UA) Negative mg/dL (NEG) Urine Ketones (Stick) Trace mg/dL (NEG) Urine Blood Negative (NEG) Urine Nitrite Negative (NEG) Urine Bilirubin Small (NEG) Urine Urobilinogen Dipstick 1.0 mg/dL (0.2 mg/dL) Urine Leukocyte Esterase Negative (NEG) Urine RBC 0 /HPF (0-2) Urine WBC Occ /HPF (0-4) Urine Squamous Epithelial Cells Few /LPF Urine Bacteria 0 /HPF (0-FEW) Urine Mucus Slight /LPF Laboratory Tests 04/07/18 02:13 Laboratory Tests 04/07/18 02:13 EKG EKG [] Radiology/Procedures Radiology/Procedures [] Course & Med Decision Making Course & Med Decision Making 42-year-old male presenting with when they appears progressive abdominal pain and no output from his ostomy site for 20 hours. Patient was recently hospitalized and discharged on 04/05/18 4 a partial bowel obstruction. Binging collected and evaluated. Patient given 1 dose of 50 mg of fentanyl and normal saline bolus. Due to recent CT imaging from this hospitalization imaging was deferred. Patient requiring admission for further evaluation and treatment. Discussed with Dr. Zaragoza who is in agreement with admission. Discussed findings and plan with patient and family, who acknowledge understanding and agreement.[] Dragon Disclaimer Dragon Disclaimer This electronic medical record was generated, in whole or in part, using a voice recognition dictation system. Departure Departure Impression: Primary Impression: SBO (small bowel obstruction) Disposition: ADMITTED INPATIENT Admitting Physician: Kristi Valdez Condition: STABLE Referrals: ARIANA ZARAGOZA MD (PCP) PRECIOUS STAFFORD DO Apr 07, 2018 02:13
[2018-04-07] MEDS ORDERED: ONDANSETRON PF 4 MG/2 ML VIAL. IV ONE (02:15)
[2018-04-07] MEDS ORDERED: IV NORMAL SALINE 1000ML BAG 1,000 ML IV ONE (02:15)
[2018-04-07] MEDS ORDERED: fentaNYL PF VIAL 100 MCG/2 ML VIAL IV ONE (02:15)
[2018-04-07 02:23] LABS: BASO # 0.1 x10^3/uL (0.0-0.2); BASO % 1 % (0-3); EOS # 0.1 x10^3/uL (0.0-0.7); EOS % 1 % (0-3); HEMATOCRIT 45.8 % (39.0-53.0); HEMOGLOBIN 15.9 g/dL (13.0-17.5); LYMPH # 0.7 x10^3/uL (1.0-4.8); LYMPH % 7 % (24-48); MEAN CORPUSCULAR HEMOGLOBIN 30 pg (25-35); MEAN CORPUSCULAR HGB CONC 35 g/dL (31-37); MEAN CORPUSCULAR VOLUME 86 fL (79-100); MONO # 1.1 x10^3/uL (0.0-1.1); MONO % 11 % (0-9); NEUT # 8.1 x10^3uL (1.8-7.7); NEUT % 81 % (31-73); PLATELET COUNT 274 x10^3/uL (140-400); RED BLOOD COUNT 5.35 x10^6/uL (4.30-5.70)
[2018-04-07 02:30] LABS: CALCIUM 9.7 mg/dL (8.5-10.1); CREATININE 0.9 mg/dL (0.7-1.3); GFR 96.6; POTASSIUM 4.3 mmol/L (3.5-5.1)
[2018-04-07 02:37] LABS: ALBUMIN 3.4 g/dL (3.4-5.0); ALBUMIN/GLOBULIN RATIO 0.7 (1.0-1.7); TOTAL BILIRUBIN 0.9 mg/dL (0.2-1.0); TOTAL PROTEIN 8.4 g/dL (6.4-8.2)
[2018-04-07 02:40] LABS: BILIRUBIN,URINE SMALL (NEG); CLARITY,URINE CLEAR; COLOR,URINE AMBER; NITRITE,URINE NEGATIVE (NEG); PROTEIN,URINE NEGATIVE (NEG-TRACE)
[2018-04-07 02:57] LABS: BACTERIA,URINE 0 /HPF (0-FEW); RBC,URINE 0 /HPF (0-2); SQUAMOUS EPITHELIAL CELL,UR FEW /LPF; WBC,URINE OCC /HPF (0-4)
[2018-04-07] MEDS ORDERED: DEXTROSE 50% 25 GM / 50ML DISP.SYRIN. IV PRN (03:30)
[2018-04-07] MEDS ORDERED: ONDANSETRON PF 4 MG/2 ML VIAL. IV PRN (03:30)
[2018-04-07] MEDS ORDERED: KETOROLAC 15 MG/ML VIAL. IV ONE (05:00)
[2018-04-07] MEDS: INSULIN LISPRO 300 UNITS/3 ML INSULN.PEN. SQ SCH ×3 (08:00→17:00)
--- NOTE | 2018-04-07 08:00 | PDOC1 ---
H & P H&P HPI: Mr. Del Angel is a 32-year-old male with a past medical history significant for Crohn's disease status post colostomy, uncontrolled type 2 diabetes, history of multiple small bowel obstructions, PASCUAL, super morbid obesity, who presented to the emergency room yesterday with increasing abdominal pain nausea and vomiting and decreased ostomy output. He was previously admitted and discharged just a couple days ago for the same thing, as he felt like he was improving. Recent CT showed that he had small bowel obstruction. This was not repeated in the emergency room. He is deemed to be a poor surgical candidate. ROS: Constitutional: Denies fever, chills Cardio: Denies chest pain, dyspnea, syncope Pulmonary: Denies shortness of breath, cough, wheezing GI: Admits abdominal pain, nausea, vomiting, decreased ostomy output : Denies dysuria Skin: Abdominal wounds present on admission Neuro: Denies weakness, paresthesias PMH: as above Family Hx: Noncontributory Social Hx: Former smoker, social alcohol use Surg Hx: Colostomy placement in 2011, hernia repair in 2017 Meds: Reviewed and reconciled Allergies: Reviewed PE: Alert, oriented, no acute distress EOMI, sclera non-icteric Neck supple RRR, no murmur CTAB, no wheezes, crackles or rhonchi Diffusely tender, mildly distended, 1 midline abdominal wound present on admission, covered with bandage Significant venous stasis dermatitis, trace edema in b/l LE Calm, cooperative, mood/affect within normal limits Assessment/Plan: Small bowel obstruction with history of multiple recurrences Crohn's disease status post colostomy Uncontrolled type 2 diabetes, A1c done last admission 8.7%. Hypertension PASCUAL Super morbid obesity Surgery been consulted. NPO, pain control, Zofran, IV fluids, NG tube. Lovenox for DVT ppx Repeat A1C, labs in AM TARAS PALOMO MD Apr 07, 2018 08:00
[2018-04-07] MEDS: PANTOPRAZOLE IV PUSH 40 MG VIAL. IVP SCH (08:30)
[2018-04-07] MEDS: IV RINGERS,LACTATED 1000ML 1,000 ML IV SCH ×3 (09:42→23:51)
[2018-04-07] MEDS: KETOROLAC 15 MG/ML VIAL. IV PRN ×4 (11:21→23:51)
--- NOTE | 2018-04-07 11:28 | PDOC2 ---
CONSULT Date of Consult Date of Consult DATE: 04/07/18 TIME: 11:19 Reason for Consult Reason for Consult: abdominal pain, nausea, vomiting Referring Physician Referring Physician: Dr Valdez Identification/Chief Complaint Chief Complaint abdominal pain, n/v Source Source: Chart review, Patient History of Present Illness Reason for Visit: Joe is a morbidly obese gentleman known to our service from previous admissions. He is s/p colectomy with end ileostomy for Crohn's colitis. He has had several admissions for SBO, to this point managed without surgical intervention. He has been an inpatient at [facility] and was seen by one of the hernia surgeons there. Past Medical History Cardiovascular: HTN GI: Inflam bowel disease, Other Infectious disease: No pertinent hx Endocrine: Diabetes Past Surgical History Past Surgical History: Pacemaker, Colectomy Family History Family History: Other Social History ALCOHOL: none Drugs: None Current Medications Current Medications Current Medications Fentanyl Citrate (Fentanyl 2ml Vial) 50 mcg 1X ONCE IV Last administered on at 02:22; Start 04/07/18 at 02:15; Stop 04/07/18 at 02:16; Status DC Ondansetron HCl (Zofran) 4 mg 1X ONCE IV Last administered on 04/07/18at 02:25 ; Start 04/07/18 at 02:15; Stop 04/07/18 at 02:16; Status DC Sodium Chloride 1,000 ml @ 1,000 mls/hr 1X ONCE IV Last administered on at 02:27; Start 04/07/18 at 02:15; Stop 04/07/18 at 03:14; Status DC Ondansetron HCl (Zofran) 4 mg PRN Q8HRS PRN IV NAUSEA/VOMITING 1st choice; Start 04/07/18 at 03:30; Stop 04/08/18 at 03:29; Status Cancel Insulin Human Lispro (HumaLOG) 0-5 UNITS TIDWMEALS SQ ; Start 04/07/18 at 08:00 Dextrose (Dextrose 50%-Water Syringe) 12.5 gm PRN Q15MIN PRN IV SEE COMMENTS; Start 04/07/18 at 03:30 Ketorolac Tromethamine (Toradol 15mg Vial) 15 mg 1X ONCE IV Last administered on 04/07/18at 05:31; Start 04/07/18 at 05:00; Stop 04/07/18 at 05:01; Status DC Ringer's Solution 1,000 ml @ 175 mls/hr Q5H43M IV Last administered on at 09:42; Start 04/07/18 at 09:00 Ondansetron HCl (Zofran) 4 mg PRN Q6HRS PRN IV NAUSEA/VOMITING; Start 04/07/18 at 08:00 Ketorolac Tromethamine (Toradol 15mg Vial) 15 mg PRN Q6HRS PRN IV PAIN; Start 04/07/18 at 08:00; Stop 04/12/18 at 07:59 Pantoprazole Sodium (PROTONIX VIAL for IV PUSH) 40 mg DAILYAC IVP ; Start at 08:30 Enoxaparin Sodium (Lovenox Per Pharmacy Prophylaxis Dosing) 1 each PRN DAILY PRN MC SEE COMMENTS; Start 04/07/18 at 09:30 Enoxaparin Sodium (Lovenox 60mg Syringe) 60 mg Q12HR SQ ; Start 04/07/18 at 10: 00 Active Scripts Active Tramadol Hcl 50 Mg Tablet 50 Mg PO Q6HRS PRN 5 Days [Pantoprazole] 40 MG Tablet.dr 40 Mg PO DAILYAC 30 Days Allergies Allergies: Coded Allergies: No Known Drug Allergies (Unverified , 07/24/13) ROS Respiratory: YES: SOB with excertion Gastrointestinal: Yes Nausea, Yes Vomiting, Yes Abdominal Pain Physical Exam General: Alert, No acute distress HEENT: Atraumatic Lungs: Normal air movement Heart: Regular rate Abdomen: Other (morbidly obese, scant ileostomy output) Vitals VITALS Vital Signs Date Time Temp Pulse Resp B/P (MAP) Pulse Ox O2 Delivery O2 Flow Rate FiO2 04/07/18 02:27 90 18 171/86 (114) 98 Room Air 04/06/18 23:40 97.5 97.5 Labs Labs Laboratory Tests Test 04/07/18 02:13 04/07/18 02:30 04/07/18 09:32 White Blood Count 10.0 x10^3/uL (4.0-11.0) Red Blood Count 5.35 x10^6/uL (4.30-5.70) Hemoglobin 15.9 g/dL (13.0-17.5) Hematocrit 45.8 % (39.0-53.0) Mean Corpuscular Volume 86 fL (79-100) Mean Corpuscular Hemoglobin 30 pg (25-35) Mean Corpuscular Hemoglobin Concent 35 g/dL (31-37) Red Cell Distribution Width 14.0 % (11.5-14.5) Platelet Count 274 x10^3/uL (140-400) Neutrophils (%) (Auto) 81 % (31-73) Lymphocytes (%) (Auto) 7 % (24-48) Monocytes (%) (Auto) 11 % (0-9) Eosinophils (%) (Auto) 1 % (0-3) Basophils (%) (Auto) 1 % (0-3) Neutrophils # (Auto) 8.1 x10^3uL (1.8-7.7) Lymphocytes # (Auto) 0.7 x10^3/uL (1.0-4.8) Monocytes # (Auto) 1.1 x10^3/uL (0.0-1.1) Eosinophils # (Auto) 0.1 x10^3/uL (0.0-0.7) Basophils # (Auto) 0.1 x10^3/uL (0.0-0.2) Sodium Level 137 mmol/L (136-145) Potassium Level 4.3 mmol/L (3.5-5.1) Chloride Level 99 mmol/L (98-107) Carbon Dioxide Level 27 mmol/L (21-32) Anion Gap 11 (6-14) Blood Urea Nitrogen 11 mg/dL (8-26) Creatinine 0.9 mg/dL (0.7-1.3) Estimated GFR (Cockcroft-Gault) 96.6 BUN/Creatinine Ratio 12 (6-20) Glucose Level 177 mg/dL (70-99) Lactic Acid Level 1.1 mmol/L (0.4-2.0) Calcium Level 9.7 mg/dL (8.5-10.1) Total Bilirubin 0.9 mg/dL (0.2-1.0) Aspartate Amino Transf (AST/SGOT) 15 U/L (15-37) Alanine Aminotransferase (ALT/SGPT) 27 U/L (16-63) Alkaline Phosphatase 110 U/L (46-116) Total Protein 8.4 g/dL (6.4-8.2) Albumin 3.4 g/dL (3.4-5.0) Albumin/Globulin Ratio 0.7 (1.0-1.7) Lipase 80 U/L (73-393) Urine Collection Type Unknown Urine Color Lin Urine Clarity Clear Urine pH 5.0 Urine Specific [place] 1.025 Urine Protein Negative mg/dL (NEG-TRACE) Urine Glucose (UA) Negative mg/dL (NEG) Urine Ketones (Stick) Trace mg/dL (NEG) Urine Blood Negative (NEG) Urine Nitrite Negative (NEG) Urine Bilirubin Small (NEG) Urine Urobilinogen Dipstick 1.0 mg/dL (0.2 mg/dL) Urine Leukocyte Esterase Negative (NEG) Urine RBC 0 /HPF (0-2) Urine WBC Occ /HPF (0-4) Urine Squamous Epithelial Cells Few /LPF Urine Bacteria 0 /HPF (0-FEW) Urine Mucus Slight /LPF Glucose (Fingerstick) 126 mg/dL (70-99) Laboratory Tests Test 04/07/18 02:13 04/07/18 02:30 04/07/18 09:32 White Blood Count 10.0 x10^3/uL (4.0-11.0) Red Blood Count 5.35 x10^6/uL (4.30-5.70) Hemoglobin 15.9 g/dL (13.0-17.5) Hematocrit 45.8 % (39.0-53.0) Mean Corpuscular Volume 86 fL (79-100) Mean Corpuscular Hemoglobin 30 pg (25-35) Mean Corpuscular Hemoglobin Concent 35 g/dL (31-37) Red Cell Distribution Width 14.0 % (11.5-14.5) Platelet Count 274 x10^3/uL (140-400) Neutrophils (%) (Auto) 81 % (31-73) Lymphocytes (%) (Auto) 7 % (24-48) Monocytes (%) (Auto) 11 % (0-9) Eosinophils (%) (Auto) 1 % (0-3) Basophils (%) (Auto) 1 % (0-3) Neutrophils # (Auto) 8.1 x10^3uL (1.8-7.7) Lymphocytes # (Auto) 0.7 x10^3/uL (1.0-4.8) Monocytes # (Auto) 1.1 x10^3/uL (0.0-1.1) Eosinophils # (Auto) 0.1 x10^3/uL (0.0-0.7) Basophils # (Auto) 0.1 x10^3/uL (0.0-0.2) Sodium Level 137 mmol/L (136-145) Potassium Level 4.3 mmol/L (3.5-5.1) Chloride Level 99 mmol/L (98-107) Carbon Dioxide Level 27 mmol/L (21-32) Anion Gap 11 (6-14) Blood Urea Nitrogen 11 mg/dL (8-26) Creatinine 0.9 mg/dL (0.7-1.3) Estimated GFR (Cockcroft-Gault) 96.6 BUN/Creatinine Ratio 12 (6-20) Glucose Level 177 mg/dL (70-99) Lactic Acid Level 1.1 mmol/L (0.4-2.0) Calcium Level 9.7 mg/dL (8.5-10.1) Total Bilirubin 0.9 mg/dL (0.2-1.0) Aspartate Amino Transf (AST/SGOT) 15 U/L (15-37) Alanine Aminotransferase (ALT/SGPT) 27 U/L (16-63) Alkaline Phosphatase 110 U/L (46-116) Total Protein 8.4 g/dL (6.4-8.2) Albumin 3.4 g/dL (3.4-5.0) Albumin/Globulin Ratio 0.7 (1.0-1.7) Lipase 80 U/L (73-393) Urine Collection Type Unknown Urine Color Lin Urine Clarity Clear Urine pH 5.0 Urine Specific [place] 1.025 Urine Protein Negative mg/dL (NEG-TRACE) Urine Glucose (UA) Negative mg/dL (NEG) Urine Ketones (Stick) Trace mg/dL (NEG) Urine Blood Negative (NEG) Urine Nitrite Negative (NEG) Urine Bilirubin Small (NEG) Urine Urobilinogen Dipstick 1.0 mg/dL (0.2 mg/dL) Urine Leukocyte Esterase Negative (NEG) Urine RBC 0 /HPF (0-2) Urine WBC Occ /HPF (0-4) Urine Squamous Epithelial Cells Few /LPF Urine Bacteria 0 /HPF (0-FEW) Urine Mucus Slight /LPF Glucose (Fingerstick) 126 mg/dL (70-99) Assessment/Plan Assessment/Plan morbid obesity recurrent pSBO/SBO diabetes will order SBFT await those results pt poses a significant surgical risk given his size and co morbidities may need to consider referral to a tertiary facility if surgery becomes necessary will follow Thanks for consult TAMMI BRIAN MD Apr 07, 2018 11:28
[2018-04-07] MEDS ORDERED: IOHEXOL 300 MG/ML 100ML VIAL. PO ONE (13:00)
[2018-04-07] MEDS: ONDANSETRON PF 4 MG/2 ML VIAL. IV PRN ×2 (17:25→23:04)
[2018-04-07 19:00] VITALS: BP 151/94
[2018-04-07 22:44] VITALS: BP 158/91
--- NOTE | 2018-04-08 02:19 | RAD ---
Examination: Single frontal view of the abdomen HISTORY: History of NG tube placement COMPARISON: 04/10/2018 Findings/ impression: Limited examination due to patient body habitus. The distal portion of the NG tube projects just to the left of the midline in the epigastric region likely within the stomach. Electronically signed by: Amrit Schulz MD (04/08/2018 2:16 AM) [facility]
[2018-04-08 02:52] VITALS: BP 147/89
[2018-04-08] MEDS: KETOROLAC 15 MG/ML VIAL. IV PRN ×7 (03:17→22:48)
[2018-04-08] MEDS: IV RINGERS,LACTATED 1000ML 1,000 ML IV SCH ×4 (05:42→20:50)
[2018-04-08 06:33] VITALS: BP 147/94
[2018-04-08] MEDS: ONDANSETRON PF 4 MG/2 ML VIAL. IV PRN (06:52)
[2018-04-08 06:59] LABS: ALBUMIN/GLOBULIN RATIO 0.6 (1.0-1.7); CALCIUM 9.3 mg/dL (8.5-10.1); CREATININE 0.9 mg/dL (0.7-1.3); GFR 96.6; POTASSIUM 3.6 mmol/L (3.5-5.1); TOTAL BILIRUBIN 1.1 mg/dL (0.2-1.0); TOTAL PROTEIN 7.7 g/dL (6.4-8.2)
[2018-04-08] MEDS: INSULIN LISPRO 300 UNITS/3 ML INSULN.PEN. SQ SCH ×3 (08:00→17:00)
[2018-04-08] MEDS: PANTOPRAZOLE IV PUSH 40 MG VIAL. IVP SCH (08:50)
--- NOTE | 2018-04-08 09:24 | PDOC ---
SUBJECTIVE Subjective Lots of output from NG. Pain is tolerable. OBJECTIVE Objective Reviewed. Vital Signs Vital Signs Date Time Temp Pulse Resp B/P (MAP) Pulse Ox O2 Delivery O2 Flow Rate FiO2 04/08/18 06:33 98.1 103 18 147/94 (111) 94 Room Air 98.1 04/08/18 02:52 97.9 91 19 147/89 (108) 96 Room Air 97.9 04/07/18 22:44 98.4 88 20 158/91 (113) 96 Room Air 98.4 04/07/18 20:00 Room Air 04/07/18 19:00 98.0 88 20 151/94 (113) 96 Room Air 98.0 04/07/18 11:00 Room Air 04/07/18 10:05 90 18 150/74 (99) Room Air 04/07/18 09:34 92 19 168/80 (109) Room Air I & O Intake and Output 04/08/18 07:00 Intake Total 0 ml Output Total 2700 ml Balance -2700 ml Intake Oral 0 ml Output Gastric Drainage Total 1700 ml Emesis 1000 ml PHYSICAL EXAM Physical Exam Alert, oriented, no acute distress EOMI, sclera non-icteric Neck supple RRR, no murmur CTAB, no wheezes, crackles or rhonchi Diffusely tender, 1 midline abdominal wound present on admission, covered with bandage Significant venous stasis dermatitis, trace edema in b/l LE Calm, cooperative, mood/affect within normal limits ASSESSMENT/PLAN Assessment/Plan Small bowel obstruction with history of multiple recurrences Crohn's disease status post colostomy Uncontrolled type 2 diabetes, A1c done last admission 8.7%. Hypertension PASCUAL Super morbid obesity Surgery following. NPO, pain control, Zofran, IV fluids, NG Lovenox for DVT ppx A1C, labs in AM Monitor blood sugars, can add lantus if needed COMMENT Lab Laboratory Tests Test 04/07/18 09:32 04/07/18 19:46 04/08/18 02:15 04/08/18 05:50 Glucose (Fingerstick) 126 mg/dL (70-99) 163 mg/dL (70-99) 148 mg/dL (70-99) Sodium Level 140 mmol/L (136-145) Potassium Level 3.6 mmol/L (3.5-5.1) Chloride Level 101 mmol/L (98-107) Carbon Dioxide Level 27 mmol/L (21-32) Anion Gap 12 (6-14) Blood Urea Nitrogen 20 mg/dL (8-26) Creatinine 0.9 mg/dL (0.7-1.3) Estimated GFR (Cockcroft-Gault) 96.6 BUN/Creatinine Ratio 22 (6-20) Glucose Level 131 mg/dL (70-99) Calcium Level 9.3 mg/dL (8.5-10.1) Total Bilirubin 1.1 mg/dL (0.2-1.0) Aspartate Amino Transf (AST/SGOT) 8 U/L (15-37) Alanine Aminotransferase (ALT/SGPT) 25 U/L (16-63) Alkaline Phosphatase 103 U/L (46-116) Total Protein 7.7 g/dL (6.4-8.2) Albumin 3.0 g/dL (3.4-5.0) Albumin/Globulin Ratio 0.6 (1.0-1.7) Test 04/08/18 08:27 Glucose (Fingerstick) 131 mg/dL (70-99) TARAS PALOMO MD Apr 08, 2018 09:24
--- NOTE | 2018-04-08 10:32 | RAD ---
Clinical indications: Small bowel obstruction. Abdominal pain. The patient has had a colectomy and ileostomy of the right lower quadrant pain many years ago. Technique: A preliminary KUB was performed. The patient drank full strength water-soluble Omnipaque 300 and a small bowel series was performed over the course of 2 days. Total fluoroscopic time: 0.3 minutes. Total fluoroscopic spot views: None. Findings: Diffuse dilatation of small bowel loops is seen on the preliminary film.. At the 4 hour and 8 hour adamaris, contrast is seen within the distal small bowel within the right side of the abdomen which corresponds with a hernia seen on the CT study dated April 04, 2018. However, there is a loop of small bowel within the hernia which is filled with air but not contrast. This may be the transition point for the small bowel obstruction. At 19 hours, contrast is seen within this loop of small bowel. In addition, the patient reported that there is fluid within his ileostomy bag for the first time after 2 days. Therefore, findings are consistent with a partial small bowel obstruction. Fluoroscopic evaluation demonstrated peristalsis of small bowel and therefore no adynamic ileus is evident. IMPRESSION: Partial small bowel obstruction. This appears be located within the hernia of the anterior right lateral abdominal wall just proximal to the ileostomy. Electronically signed by: Ángel Mejia MD (04/08/2018 10:28 AM) [facility]
[2018-04-08 11:00] VITALS: BP 164/96
--- NOTE | 2018-04-08 11:38 | PDOC ---
REINA PENA DISABILITY BENEFITS SPECIALIST 04/08/18 1137: SURGICAL PROGRESS NOTE Subjective not feeling well ongoing pain Vital Signs Vital Signs Date Time Temp Pulse Resp B/P (MAP) Pulse Ox O2 Delivery O2 Flow Rate FiO2 04/08/18 08:00 Room Air 04/08/18 06:33 98.1 103 18 147/94 (111) 94 98.1 I&O Intake and Output 04/08/18 07:00 Intake Total 0 ml Output Total 2700 ml Balance -2700 ml Intake Oral 0 ml Output Gastric Drainage Total 1700 ml Emesis 1000 ml General: Alert, Oriented X3, Cooperative, No acute distress Abdomen: Soft, Other (small amount of ostomy output) Labs Laboratory Tests Test 04/07/18 02:13 04/07/18 02:30 04/07/18 09:32 04/07/18 19:46 White Blood Count 10.0 x10^3/uL (4.0-11.0) Red Blood Count 5.35 x10^6/uL (4.30-5.70) Hemoglobin 15.9 g/dL (13.0-17.5) Hematocrit 45.8 % (39.0-53.0) Mean Corpuscular Volume 86 fL (79-100) Mean Corpuscular Hemoglobin 30 pg (25-35) Mean Corpuscular Hemoglobin Concent 35 g/dL (31-37) Red Cell Distribution Width 14.0 % (11.5-14.5) Platelet Count 274 x10^3/uL (140-400) Neutrophils (%) (Auto) 81 % (31-73) Lymphocytes (%) (Auto) 7 % (24-48) Monocytes (%) (Auto) 11 % (0-9) Eosinophils (%) (Auto) 1 % (0-3) Basophils (%) (Auto) 1 % (0-3) Neutrophils # (Auto) 8.1 x10^3uL (1.8-7.7) Lymphocytes # (Auto) 0.7 x10^3/uL (1.0-4.8) Monocytes # (Auto) 1.1 x10^3/uL (0.0-1.1) Eosinophils # (Auto) 0.1 x10^3/uL (0.0-0.7) Basophils # (Auto) 0.1 x10^3/uL (0.0-0.2) Sodium Level 137 mmol/L (136-145) Potassium Level 4.3 mmol/L (3.5-5.1) Chloride Level 99 mmol/L (98-107) Carbon Dioxide Level 27 mmol/L (21-32) Anion Gap 11 (6-14) Blood Urea Nitrogen 11 mg/dL (8-26) Creatinine 0.9 mg/dL (0.7-1.3) Estimated GFR (Cockcroft-Gault) 96.6 BUN/Creatinine Ratio 12 (6-20) Glucose Level 177 mg/dL (70-99) Lactic Acid Level 1.1 mmol/L (0.4-2.0) Calcium Level 9.7 mg/dL (8.5-10.1) Total Bilirubin 0.9 mg/dL (0.2-1.0) Aspartate Amino Transf (AST/SGOT) 15 U/L (15-37) Alanine Aminotransferase (ALT/SGPT) 27 U/L (16-63) Alkaline Phosphatase 110 U/L (46-116) Total Protein 8.4 g/dL (6.4-8.2) Albumin 3.4 g/dL (3.4-5.0) Albumin/Globulin Ratio 0.7 (1.0-1.7) Lipase 80 U/L (73-393) Urine Collection Type Unknown Urine Color Lin Urine Clarity Clear Urine pH 5.0 Urine Specific [place] 1.025 Urine Protein Negative mg/dL (NEG-TRACE) Urine Glucose (UA) Negative mg/dL (NEG) Urine Ketones (Stick) Trace mg/dL (NEG) Urine Blood Negative (NEG) Urine Nitrite Negative (NEG) Urine Bilirubin Small (NEG) Urine Urobilinogen Dipstick 1.0 mg/dL (0.2 mg/dL) Urine Leukocyte Esterase Negative (NEG) Urine RBC 0 /HPF (0-2) Urine WBC Occ /HPF (0-4) Urine Squamous Epithelial Cells Few /LPF Urine Bacteria 0 /HPF (0-FEW) Urine Mucus Slight /LPF Glucose (Fingerstick) 126 mg/dL (70-99) 163 mg/dL (70-99) Test 04/08/18 02:15 04/08/18 05:50 04/08/18 08:27 Glucose (Fingerstick) 148 mg/dL (70-99) 131 mg/dL (70-99) Sodium Level 140 mmol/L (136-145) Potassium Level 3.6 mmol/L (3.5-5.1) Chloride Level 101 mmol/L (98-107) Carbon Dioxide Level 27 mmol/L (21-32) Anion Gap 12 (6-14) Blood Urea Nitrogen 20 mg/dL (8-26) Creatinine 0.9 mg/dL (0.7-1.3) Estimated GFR (Cockcroft-Gault) 96.6 BUN/Creatinine Ratio 22 (6-20) Glucose Level 131 mg/dL (70-99) Calcium Level 9.3 mg/dL (8.5-10.1) Total Bilirubin 1.1 mg/dL (0.2-1.0) Aspartate Amino Transf (AST/SGOT) 8 U/L (15-37) Alanine Aminotransferase (ALT/SGPT) 25 U/L (16-63) Alkaline Phosphatase 103 U/L (46-116) Total Protein 7.7 g/dL (6.4-8.2) Albumin 3.0 g/dL (3.4-5.0) Albumin/Globulin Ratio 0.6 (1.0-1.7) Laboratory Tests Test 04/07/18 19:46 04/08/18 02:15 04/08/18 05:50 04/08/18 08:27 Glucose (Fingerstick) 163 mg/dL (70-99) 148 mg/dL (70-99) 131 mg/dL (70-99) Sodium Level 140 mmol/L (136-145) Potassium Level 3.6 mmol/L (3.5-5.1) Chloride Level 101 mmol/L (98-107) Carbon Dioxide Level 27 mmol/L (21-32) Anion Gap 12 (6-14) Blood Urea Nitrogen 20 mg/dL (8-26) Creatinine 0.9 mg/dL (0.7-1.3) Estimated GFR (Cockcroft-Gault) 96.6 BUN/Creatinine Ratio 22 (6-20) Glucose Level 131 mg/dL (70-99) Calcium Level 9.3 mg/dL (8.5-10.1) Total Bilirubin 1.1 mg/dL (0.2-1.0) Aspartate Amino Transf (AST/SGOT) 8 U/L (15-37) Alanine Aminotransferase (ALT/SGPT) 25 U/L (16-63) Alkaline Phosphatase 103 U/L (46-116) Total Protein 7.7 g/dL (6.4-8.2) Albumin 3.0 g/dL (3.4-5.0) Albumin/Globulin Ratio 0.6 (1.0-1.7) Assessment/Plan reviewed with Dr Brian--needs care at tertiary center--he will review with PCP TAMMI BRIAN MD 04/08/18 1330: SURGICAL PROGRESS NOTE Assessment/Plan pt seen and examined NG with bilious return stoma with gas and liquid output pSBO, improving? d/w Joe, explaining I felt he would be better cared for surgically (if needed ) at a tertiary hospital (preferably [facility] where he has been seen before) hopefully can follow up with the hernia clinic there if able to get out of the hospital this time without surgical necessity d/w REINA Garcia APRN Apr 08, 2018 11:37 TAMMI BRIAN MD Apr 08, 2018 13:30
[2018-04-08 11:55] LABS: HEMOGLOBIN A1C 7.4 % (4.8-5.6)
[2018-04-08 15:37] VITALS: BP 159/93
[2018-04-08 19:00] VITALS: BP 167/93
[2018-04-08 23:00] VITALS: BP 155/102
[2018-04-09] MEDS: ONDANSETRON PF 4 MG/2 ML VIAL. IV PRN ×2 (01:56→15:07)
[2018-04-09] MEDS: IV RINGERS,LACTATED 1000ML 1,000 ML IV SCH ×5 (01:57→21:18)
[2018-04-09] MEDS: KETOROLAC 15 MG/ML VIAL. IV PRN ×6 (01:57→21:22)
[2018-04-09 03:00] VITALS: BP 147/104
[2018-04-09 05:12] LABS: BASO % 0 % (0-3); EOS # 0.2 x10^3/uL (0.0-0.7); EOS % 2 % (0-3); HEMATOCRIT 41.5 % (39.0-53.0); HEMOGLOBIN 14.1 g/dL (13.0-17.5); LYMPH # 0.7 x10^3/uL (1.0-4.8); LYMPH % 9 % (24-48); MEAN CORPUSCULAR HEMOGLOBIN 30 pg (25-35); MEAN CORPUSCULAR HGB CONC 34 g/dL (31-37); MEAN CORPUSCULAR VOLUME 87 fL (79-100); MONO # 0.8 x10^3/uL (0.0-1.1); MONO % 10 % (0-9); NEUT # 6.4 x10^3uL (1.8-7.7); NEUT % 79 % (31-73); PLATELET COUNT 220 x10^3/uL (140-400); RED BLOOD COUNT 4.76 x10^6/uL (4.30-5.70); RED CELL DISTRIBUTION WIDTH 13.8 % (11.5-14.5); WHITE BLOOD COUNT 8.1 x10^3/uL (4.0-11.0)
[2018-04-09 05:32] LABS: CREATININE 0.8 mg/dL (0.7-1.3); GFR 110.7; POTASSIUM 3.4 mmol/L (3.5-5.1)
[2018-04-09 07:00] VITALS: BP 167/94
--- NOTE | 2018-04-09 07:58 | PDOC ---
SUBJECTIVE Subjective Doing ok. More output from ostomy, NG OBJECTIVE Objective Reviewed. Vital Signs Vital Signs Date Time Temp Pulse Resp B/P (MAP) Pulse Ox O2 Delivery O2 Flow Rate FiO2 04/09/18 03:00 97.9 79 18 147/104 (118) 94 97.9 04/08/18 23:00 98.1 75 20 155/102 (119) 93 98.1 04/08/18 20:00 Room Air 04/08/18 19:00 97.8 83 18 167/93 (117) 92 97.8 04/08/18 15:37 97.1 86 16 159/93 (115) 95 Room Air 97.1 04/08/18 13:09 Room Air 04/08/18 11:00 96.3 87 164/96 (118) 96 Room Air 96.3 04/08/18 08:00 Room Air I & O Intake and Output 04/09/18 07:00 Output Total 3675 ml Balance -3675 ml Output Stool Total 1775 ml Urine/Stool Mix 600 ml Gastric Drainage Total 1300 ml PHYSICAL EXAM Physical Exam Alert, oriented, no acute distress EOMI, sclera non-icteric Neck supple RRR, no murmur CTAB, no wheezes, crackles or rhonchi Diffusely tender, minimal bs, 1 midline abdominal wound present on admission, covered with bandage Significant venous stasis dermatitis, trace edema in b/l LE Calm, cooperative, mood/affect within normal limits ASSESSMENT/PLAN Assessment/Plan Partial small bowel obstruction with history of multiple recurrences Crohn's disease status post colostomy Uncontrolled type 2 diabetes, A1c 7.4% - will dc with metformin Hypertension, monitor while NPO - will dc with PO meds PASCUAL Super morbid obesity Surgery following. NPO, pain control, Zofran, IV fluids, NG Will need transfer to [facility] if surgery is needed Lovenox for DVT ppx Monitor blood sugars COMMENT Lab Laboratory Tests Test 04/08/18 08:27 04/08/18 13:36 04/08/18 23:49 04/09/18 04:00 Glucose (Fingerstick) 131 mg/dL (70-99) 131 mg/dL (70-99) 105 mg/dL (70-99) White Blood Count 8.1 x10^3/uL (4.0-11.0) Red Blood Count 4.76 x10^6/uL (4.30-5.70) Hemoglobin 14.1 g/dL (13.0-17.5) Hematocrit 41.5 % (39.0-53.0) Mean Corpuscular Volume 87 fL (79-100) Mean Corpuscular Hemoglobin 30 pg (25-35) Mean Corpuscular Hemoglobin Concent 34 g/dL (31-37) Red Cell Distribution Width 13.8 % (11.5-14.5) Platelet Count 220 x10^3/uL (140-400) Neutrophils (%) (Auto) 79 % (31-73) Lymphocytes (%) (Auto) 9 % (24-48) Monocytes (%) (Auto) 10 % (0-9) Eosinophils (%) (Auto) 2 % (0-3) Basophils (%) (Auto) 0 % (0-3) Neutrophils # (Auto) 6.4 x10^3uL (1.8-7.7) Lymphocytes # (Auto) 0.7 x10^3/uL (1.0-4.8) Monocytes # (Auto) 0.8 x10^3/uL (0.0-1.1) Eosinophils # (Auto) 0.2 x10^3/uL (0.0-0.7) Basophils # (Auto) 0.0 x10^3/uL (0.0-0.2) Sodium Level 141 mmol/L (136-145) Potassium Level 3.4 mmol/L (3.5-5.1) Chloride Level 103 mmol/L (98-107) Carbon Dioxide Level 28 mmol/L (21-32) Anion Gap 10 (6-14) Blood Urea Nitrogen 21 mg/dL (8-26) Creatinine 0.8 mg/dL (0.7-1.3) Estimated GFR (Cockcroft-Gault) 110.7 Glucose Level 109 mg/dL (70-99) Calcium Level 9.0 mg/dL (8.5-10.1) TARAS PALOMO MD Apr 09, 2018 07:58
[2018-04-09] MEDS: INSULIN LISPRO 300 UNITS/3 ML INSULN.PEN. SQ SCH ×3 (08:00→17:00)
[2018-04-09] MEDS: PANTOPRAZOLE IV PUSH 40 MG VIAL. IVP SCH (08:39)
--- NOTE | 2018-04-09 10:31 | PDOC ---
SURGICAL PROGRESS NOTE Subjective still has pain more stoma output Vital Signs Vital Signs Date Time Temp Pulse Resp B/P (MAP) Pulse Ox O2 Delivery O2 Flow Rate FiO2 04/09/18 08:00 Room Air 04/09/18 07:00 98.0 54 18 167/94 (118) 97 98.0 I&O Intake and Output 04/09/18 07:00 Output Total 3675 ml Balance -3675 ml Stool Total 1775 ml Urine/Stool Mix 600 ml Gastric Drainage Total 1300 ml PATIENT HAS A PERALTA: No General: Alert, No acute distress Abdomen: Other (obese, soft, mildly TTP on right side) Labs Laboratory Tests Test 04/07/18 19:46 04/08/18 02:15 04/08/18 05:50 04/08/18 08:27 Glucose (Fingerstick) 163 mg/dL (70-99) 148 mg/dL (70-99) 131 mg/dL (70-99) Sodium Level 140 mmol/L (136-145) Potassium Level 3.6 mmol/L (3.5-5.1) Chloride Level 101 mmol/L (98-107) Carbon Dioxide Level 27 mmol/L (21-32) Anion Gap 12 (6-14) Blood Urea Nitrogen 20 mg/dL (8-26) Creatinine 0.9 mg/dL (0.7-1.3) Estimated GFR (Cockcroft-Gault) 96.6 BUN/Creatinine Ratio 22 (6-20) Glucose Level 131 mg/dL (70-99) Hemoglobin A1c 7.4 % (4.8-5.6) Calcium Level 9.3 mg/dL (8.5-10.1) Total Bilirubin 1.1 mg/dL (0.2-1.0) Aspartate Amino Transf (AST/SGOT) 8 U/L (15-37) Alanine Aminotransferase (ALT/SGPT) 25 U/L (16-63) Alkaline Phosphatase 103 U/L (46-116) Total Protein 7.7 g/dL (6.4-8.2) Albumin 3.0 g/dL (3.4-5.0) Albumin/Globulin Ratio 0.6 (1.0-1.7) Test 04/08/18 13:36 04/08/18 23:49 04/09/18 04:00 04/09/18 08:19 Glucose (Fingerstick) 131 mg/dL (70-99) 105 mg/dL (70-99) 99 mg/dL (70-99) White Blood Count 8.1 x10^3/uL (4.0-11.0) Red Blood Count 4.76 x10^6/uL (4.30-5.70) Hemoglobin 14.1 g/dL (13.0-17.5) Hematocrit 41.5 % (39.0-53.0) Mean Corpuscular Volume 87 fL (79-100) Mean Corpuscular Hemoglobin 30 pg (25-35) Mean Corpuscular Hemoglobin Concent 34 g/dL (31-37) Red Cell Distribution Width 13.8 % (11.5-14.5) Platelet Count 220 x10^3/uL (140-400) Neutrophils (%) (Auto) 79 % (31-73) Lymphocytes (%) (Auto) 9 % (24-48) Monocytes (%) (Auto) 10 % (0-9) Eosinophils (%) (Auto) 2 % (0-3) Basophils (%) (Auto) 0 % (0-3) Neutrophils # (Auto) 6.4 x10^3uL (1.8-7.7) Lymphocytes # (Auto) 0.7 x10^3/uL (1.0-4.8) Monocytes # (Auto) 0.8 x10^3/uL (0.0-1.1) Eosinophils # (Auto) 0.2 x10^3/uL (0.0-0.7) Basophils # (Auto) 0.0 x10^3/uL (0.0-0.2) Sodium Level 141 mmol/L (136-145) Potassium Level 3.4 mmol/L (3.5-5.1) Chloride Level 103 mmol/L (98-107) Carbon Dioxide Level 28 mmol/L (21-32) Anion Gap 10 (6-14) Blood Urea Nitrogen 21 mg/dL (8-26) Creatinine 0.8 mg/dL (0.7-1.3) Estimated GFR (Cockcroft-Gault) 110.7 Glucose Level 109 mg/dL (70-99) Calcium Level 9.0 mg/dL (8.5-10.1) Laboratory Tests Test 04/08/18 13:36 04/08/18 23:49 04/09/18 04:00 04/09/18 08:19 Glucose (Fingerstick) 131 mg/dL (70-99) 105 mg/dL (70-99) 99 mg/dL (70-99) White Blood Count 8.1 x10^3/uL (4.0-11.0) Red Blood Count 4.76 x10^6/uL (4.30-5.70) Hemoglobin 14.1 g/dL (13.0-17.5) Hematocrit 41.5 % (39.0-53.0) Mean Corpuscular Volume 87 fL (79-100) Mean Corpuscular Hemoglobin 30 pg (25-35) Mean Corpuscular Hemoglobin Concent 34 g/dL (31-37) Red Cell Distribution Width 13.8 % (11.5-14.5) Platelet Count 220 x10^3/uL (140-400) Neutrophils (%) (Auto) 79 % (31-73) Lymphocytes (%) (Auto) 9 % (24-48) Monocytes (%) (Auto) 10 % (0-9) Eosinophils (%) (Auto) 2 % (0-3) Basophils (%) (Auto) 0 % (0-3) Neutrophils # (Auto) 6.4 x10^3uL (1.8-7.7) Lymphocytes # (Auto) 0.7 x10^3/uL (1.0-4.8) Monocytes # (Auto) 0.8 x10^3/uL (0.0-1.1) Eosinophils # (Auto) 0.2 x10^3/uL (0.0-0.7) Basophils # (Auto) 0.0 x10^3/uL (0.0-0.2) Sodium Level 141 mmol/L (136-145) Potassium Level 3.4 mmol/L (3.5-5.1) Chloride Level 103 mmol/L (98-107) Carbon Dioxide Level 28 mmol/L (21-32) Anion Gap 10 (6-14) Blood Urea Nitrogen 21 mg/dL (8-26) Creatinine 0.8 mg/dL (0.7-1.3) Estimated GFR (Cockcroft-Gault) 110.7 Glucose Level 109 mg/dL (70-99) Calcium Level 9.0 mg/dL (8.5-10.1) Assessment/Plan pSBO morbid obesity continue NG, consider transfer TAMMI BRIAN MD Apr 09, 2018 10:30
[2018-04-09] MEDS: LABETALOL 20 MG/4 ML DISP.SYRIN. IVP PRN (10:56)
[2018-04-09 11:00] VITALS: BP 179/106
[2018-04-09 15:00] VITALS: BP 159/94
[2018-04-09 19:00] VITALS: BP 158/91
[2018-04-09 23:00] VITALS: BP 174/90
[2018-04-10] MEDS: KETOROLAC 15 MG/ML VIAL. IV PRN ×6 (00:31→21:40)
[2018-04-10] MEDS: ONDANSETRON PF 4 MG/2 ML VIAL. IV PRN ×2 (00:34→21:40)
[2018-04-10 03:30] VITALS: BP 143/89
[2018-04-10] MEDS: IV RINGERS,LACTATED 1000ML 1,000 ML IV SCH ×4 (06:36→21:41)
[2018-04-10 07:00] VITALS: BP 160/101
[2018-04-10] MEDS: INSULIN LISPRO 300 UNITS/3 ML INSULN.PEN. SQ SCH ×3 (08:00→17:00)
--- NOTE | 2018-04-10 08:07 | PDOC ---
SUBJECTIVE Subjective Still pain, but manageable; ostomy output picking up OBJECTIVE Objective Reviewed. Vital Signs Vital Signs Date Time Temp Pulse Resp B/P (MAP) Pulse Ox O2 Delivery O2 Flow Rate FiO2 04/10/18 03:30 97.6 78 20 143/89 (107) 92 Room Air 97.6 04/09/18 23:00 98.1 72 20 174/90 (118) 95 98.1 04/09/18 19:54 Room Air 04/09/18 19:00 97.3 75 20 158/91 (113) 97 97.3 04/09/18 15:00 97.9 88 18 159/94 (115) 96 97.9 04/09/18 11:00 98.0 86 18 179/106 (130) 97 Room Air 98.0 04/09/18 10:56 88 179/109 I & O Intake and Output 04/10/18 07:00 Intake Total 120 ml Output Total 3750 ml Balance -3630 ml Intake Oral 120 ml Output Urine Total 650 ml Stool Total 900 ml Gastric Drainage Total 2200 ml # Voids 1 # Bowel Movements 2 PHYSICAL EXAM Physical Exam Alert, oriented, no acute distress EOMI, sclera non-icteric Neck supple RRR, no murmur CTAB, no wheezes, crackles or rhonchi Diffusely tender, +bs, 1 midline abdominal wound present on admission, covered with bandage Significant venous stasis dermatitis, trace edema in b/l LE Calm, cooperative, mood/affect within normal limits ASSESSMENT/PLAN Assessment/Plan Partial small bowel obstruction with history of multiple recurrences Crohn's disease status post colostomy Uncontrolled type 2 diabetes, A1c 7.4% - will dc with metformin Hypertension, monitor while NPO - will dc with PO meds PASCUAL Super morbid obesity Surgery following. Pain control, Zofran, IV fluids, NG Will need transfer to likely [facility] if surgery is needed Lovenox for DVT ppx Monitor blood sugars If ok with surg, could clamp NG and trial water, then CLD if able today COMMENT Lab Laboratory Tests Test 04/09/18 08:19 04/09/18 17:12 04/10/18 00:48 Glucose (Fingerstick) 99 mg/dL (70-99) 124 mg/dL (70-99) 118 mg/dL (70-99) TARAS PALOMO MD Apr 10, 2018 08:07
[2018-04-10] MEDS: PANTOPRAZOLE IV PUSH 40 MG VIAL. IVP SCH (09:05)
--- NOTE | 2018-04-10 09:33 | PDOC ---
REINA PENA PBX MECHANIC 04/10/18 0933: SURGICAL PROGRESS NOTE Subjective continued pain some ostomy function high ng output--800cc this AM, 1200cc overnight Vital Signs Vital Signs Date Time Temp Pulse Resp B/P (MAP) Pulse Ox O2 Delivery O2 Flow Rate FiO2 04/10/18 07:00 97.4 85 20 160/101 (120) 94 Room Air 97.4 I&O Intake and Output 04/10/18 07:00 Intake Total 120 ml Output Total 3750 ml Balance -3630 ml Intake Oral 120 ml Output Urine Total 650 ml Stool Total 900 ml Gastric Drainage Total 2200 ml # Voids 1 # Bowel Movements 2 General: Alert, Oriented X3, Cooperative, No acute distress HEENT: Other (ng bilious) Abdomen: Soft, Other (ostomy) Labs Laboratory Tests Test 04/08/18 13:36 04/08/18 23:49 04/09/18 04:00 04/09/18 08:19 Glucose (Fingerstick) 131 mg/dL (70-99) 105 mg/dL (70-99) 99 mg/dL (70-99) White Blood Count 8.1 x10^3/uL (4.0-11.0) Red Blood Count 4.76 x10^6/uL (4.30-5.70) Hemoglobin 14.1 g/dL (13.0-17.5) Hematocrit 41.5 % (39.0-53.0) Mean Corpuscular Volume 87 fL (79-100) Mean Corpuscular Hemoglobin 30 pg (25-35) Mean Corpuscular Hemoglobin Concent 34 g/dL (31-37) Red Cell Distribution Width 13.8 % (11.5-14.5) Platelet Count 220 x10^3/uL (140-400) Neutrophils (%) (Auto) 79 % (31-73) Lymphocytes (%) (Auto) 9 % (24-48) Monocytes (%) (Auto) 10 % (0-9) Eosinophils (%) (Auto) 2 % (0-3) Basophils (%) (Auto) 0 % (0-3) Neutrophils # (Auto) 6.4 x10^3uL (1.8-7.7) Lymphocytes # (Auto) 0.7 x10^3/uL (1.0-4.8) Monocytes # (Auto) 0.8 x10^3/uL (0.0-1.1) Eosinophils # (Auto) 0.2 x10^3/uL (0.0-0.7) Basophils # (Auto) 0.0 x10^3/uL (0.0-0.2) Sodium Level 141 mmol/L (136-145) Potassium Level 3.4 mmol/L (3.5-5.1) Chloride Level 103 mmol/L (98-107) Carbon Dioxide Level 28 mmol/L (21-32) Anion Gap 10 (6-14) Blood Urea Nitrogen 21 mg/dL (8-26) Creatinine 0.8 mg/dL (0.7-1.3) Estimated GFR (Cockcroft-Gault) 110.7 Glucose Level 109 mg/dL (70-99) Calcium Level 9.0 mg/dL (8.5-10.1) Test 04/09/18 17:12 04/10/18 00:48 04/10/18 07:38 Glucose (Fingerstick) 124 mg/dL (70-99) 118 mg/dL (70-99) 98 mg/dL (70-99) Laboratory Tests Test 04/09/18 17:12 04/10/18 00:48 04/10/18 07:38 Glucose (Fingerstick) 124 mg/dL (70-99) 118 mg/dL (70-99) 98 mg/dL (70-99) Assessment/Plan d/w dr brian d/w --will work toward tx to [facility] for ongoing surgical needs TAMMI BRIAN MD 04/10/18 0955: SURGICAL PROGRESS NOTE Assessment/Plan pt seen mom at bedside as above feel Joe would be better served at a tertiary facility REINA PENA APRN Apr 10, 2018 09:33 TAMMI BRIAN MD Apr 10, 2018 09:55
[2018-04-10 11:00] VITALS: BP 166/80
[2018-04-10 15:09] VITALS: BP 143/88
[2018-04-10 19:00] VITALS: BP 154/92
[2018-04-10 22:36] VITALS: BP 163/95
[2018-04-11] MEDS: KETOROLAC 15 MG/ML VIAL. IV PRN ×6 (00:51→19:58)
[2018-04-11 03:06] VITALS: BP 150/79
[2018-04-11] MEDS: IV RINGERS,LACTATED 1000ML 1,000 ML IV SCH ×3 (04:24→16:55)
[2018-04-11 07:00] VITALS: BP 159/82
--- NOTE | 2018-04-11 08:07 | PDOC ---
REINA PENA RETAIL SALESWORKER 04/11/18 0807: SURGICAL PROGRESS NOTE Subjective unchanged, pain managed some ostomy output still significant nG output Vital Signs Vital Signs Date Time Temp Pulse Resp B/P (MAP) Pulse Ox O2 Delivery O2 Flow Rate FiO2 04/11/18 07:00 98.0 68 18 159/82 (107) 96 Room Air 98.0 I&O Intake and Output 04/11/18 07:00 Intake Total 4100 ml Output Total 1450 ml Balance 2650 ml Intake Oral 0 ml IV Total 4100 ml Output Urine Total 500 ml Stool Total 950 ml General: Alert, Oriented X3, Cooperative, No acute distress HEENT: Other (ng bilious) Abdomen: Soft Labs Laboratory Tests Test 04/09/18 08:19 04/09/18 17:12 04/10/18 00:48 04/10/18 07:38 Glucose (Fingerstick) 99 mg/dL (70-99) 124 mg/dL (70-99) 118 mg/dL (70-99) 98 mg/dL (70-99) Test 04/10/18 11:39 04/10/18 17:47 04/11/18 02:59 04/11/18 07:30 Glucose (Fingerstick) 109 mg/dL (70-99) 100 mg/dL (70-99) 85 mg/dL (70-99) 77 mg/dL (70-99) Laboratory Tests Test 04/10/18 11:39 04/10/18 17:47 04/11/18 02:59 04/11/18 07:30 Glucose (Fingerstick) 109 mg/dL (70-99) 100 mg/dL (70-99) 85 mg/dL (70-99) 77 mg/dL (70-99) Assessment/Plan work toward on license of [facility] when bed available IGOR RIOS MD 04/11/18 0926: SURGICAL PROGRESS NOTE Assessment/Plan Agree with Sravanthi assessment and plan for transfer JEANREINA Hess APRN Apr 11, 2018 08:07 IGOR RIOS MD Apr 11, 2018 09:26
--- NOTE | 2018-04-11 08:45 | PDOC ---
Provider Note Provider Note [id number] ARIANA MARSHALL MD Apr 11, 2018 08:45
[2018-04-11] MEDS: PANTOPRAZOLE IV PUSH 40 MG VIAL. IVP SCH (09:08)
[2018-04-11 11:00] VITALS: BP 159/100
[2018-04-11 15:00] VITALS: BP 178/102
[2018-04-11 19:07] VITALS: BP 165/96
[2018-04-11 23:54] VITALS: BP 155/96
[2018-04-12] MEDS: IV RINGERS,LACTATED 1000ML 1,000 ML IV SCH ×4 (00:10→16:15)
[2018-04-12] MEDS: KETOROLAC 15 MG/ML VIAL. IV PRN ×7 (00:10→19:30)
--- NOTE | 2018-04-12 00:41 | PN ---
DATE: 04/11/2018 He continues to have high NG output, some abdominal pain, but generally stable with good urine output. He is on high dose IV fluids. Blood sugars are really good without the use of insulin and electrolytes remain unremarkable. Apparently, transfer to [facility] is in the plans, but apparently they are full at this time and continues to need NG access and IV fluids for his obstructive symptoms. ARIANA MARSHALL MD DR: ORTEGA/vj JOB#: [id number] / [id number]
[2018-04-12 03:59] VITALS: BP 165/95
[2018-04-12 07:00] VITALS: BP 161/85
--- NOTE | 2018-04-12 08:55 | PDOC ---
SURGICAL PROGRESS NOTE Subjective Resting comfortably, NGT in place Vital Signs Vital Signs Date Time Temp Pulse Resp B/P (MAP) Pulse Ox O2 Delivery O2 Flow Rate FiO2 04/12/18 07:00 96.6 70 18 161/85 (110) Room Air 96.6 04/12/18 03:59 94 I&O Intake and Output 04/12/18 07:00 Intake Total 1000 ml Output Total 1550 ml Balance -550 ml Intake Oral 0 ml IV Total 1000 ml Output Urine Total 1200 ml Drainage Total 350 ml PATIENT HAS A PERALTA: No General: Alert, Oriented X3, Cooperative, mild distress Abdomen: Normal bowel sounds, Soft, Other (mildly tender) Labs Laboratory Tests Test 04/10/18 11:39 04/10/18 17:47 04/11/18 02:59 04/11/18 07:30 Glucose (Fingerstick) 109 mg/dL (70-99) 100 mg/dL (70-99) 85 mg/dL (70-99) 77 mg/dL (70-99) Assessment/Plan Awaiting transfer to [facility] where he has had his surgical care in the past to address IGOR LUIS MD Apr 12, 2018 08:55
[2018-04-12] MEDS: PANTOPRAZOLE IV PUSH 40 MG VIAL. IVP SCH (09:16)
[2018-04-12 11:00] VITALS: BP 137/86
--- NOTE | 2018-04-12 11:03 | PDOC ---
Provider Note Provider Note [id number] ARIANA MARSHALL MD Apr 12, 2018 11:03
--- NOTE | 2018-04-12 12:27 | PN ---
DATE: SUBJECTIVE: The patient continues with NG drainage, though somewhat less, with stable vital signs and good urine output. He remains n.p.o. with NG suction and IV fluids. We will reduce the rate of D5 LR he is getting. We will check his electrolytes and follow that accordingly. Surgical transfer is pending to [place] with no beds currently available at last check. ARIANA MARSHALL MD DR: ORTEGA/vj JOB#: [id number] / [id number]
[2018-04-12 15:00] VITALS: BP 130/80
[2018-04-12 19:59] VITALS: BP 168/90
[2018-04-12] MEDS: KETOROLAC 30 MG/ML VIAL. IV PRN (22:38)
[2018-04-12 23:59] VITALS: BP 169/88
[2018-04-13] MEDS: IV RINGERS,LACTATED 1000ML 1,000 ML IV SCH ×2 (00:15→07:25)
[2018-04-13 02:31] VITALS: BP 172/91
[2018-04-13 07:00] VITALS: BP 188/101
[2018-04-13] MEDS: KETOROLAC 30 MG/ML VIAL. IV PRN ×3 (07:24→23:24)
[2018-04-13] MEDS: PANTOPRAZOLE IV PUSH 40 MG VIAL. IVP SCH (07:24)
--- NOTE | 2018-04-13 08:52 | PDOC ---
Provider Note Provider Note [id number] ARIANA MARSHALL MD Apr 13, 2018 08:52
[2018-04-13 10:13] LABS: CALCIUM 8.7 mg/dL (8.5-10.1); CREATININE 0.7 mg/dL (0.7-1.3); GFR 129.1; POTASSIUM 3.3 mmol/L (3.5-5.1)
[2018-04-13 11:00] VITALS: BP 154/123
--- NOTE | 2018-04-13 11:08 | PN ---
DATE: 04/13/2018 The patient is sleeping with what appears to be limited NG suction drainage present. His output generally is stable, but the ostomy output is not clearly labeled. BMP ordered has not been done yet and will be reordered now. Still gets Toradol periodically for pain as we are not using opiates because of his obstruction. Medical transfer is still pending to [facility] pending their bed availability to accept the patient per their volume. Continue to follow renal function and hydrate accordingly. ARIANA MARSHALL MD DR: ORTEGA/vj JOB#: [id number] / [id number]
[2018-04-13 15:00] VITALS: BP 169/101
[2018-04-13] MEDS: LABETALOL 20 MG/4 ML DISP.SYRIN. IVP PRN (15:09)
[2018-04-13 19:55] VITALS: BP 182/102
[2018-04-13] MEDS: IV DEXTROSE 5%-LACT RINGERS 1,000 ML IV SCH (23:27)
[2018-04-13 23:33] VITALS: BP 160/96
[2018-04-14 02:33] VITALS: BP 149/98
[2018-04-14] MEDS: ONDANSETRON PF 4 MG/2 ML VIAL. IV PRN (05:41)
[2018-04-14] MEDS: KETOROLAC 30 MG/ML VIAL. IV PRN ×3 (05:41→19:15)
[2018-04-14] MEDS: IV DEXTROSE 5%-LACT RINGERS 1,000 ML IV SCH (05:45)
[2018-04-14 07:00] VITALS: BP 157/98
--- NOTE | 2018-04-14 08:04 | PDOC ---
REINA PENA RATE CLERK PASSENGER 04/14/18 0804: SURGICAL PROGRESS NOTE Subjective sleeping, i did not awaken him, will d/w SW this morning regarding pending tx to [place] for surgery Vital Signs Vital Signs Date Time Temp Pulse Resp B/P (MAP) Pulse Ox O2 Delivery O2 Flow Rate FiO2 04/14/18 02:33 97.7 77 18 149/98 (115) 97 Room Air 97.7 I&O Intake and Output 04/14/18 07:00 Intake Total 0 ml Output Total 2750 ml Balance -2750 ml Intake Oral 0 ml Output Urine Total 1750 ml Stool Total 400 ml Gastric Drainage Total 600 ml Labs Laboratory Tests Test 04/13/18 09:30 Sodium Level 143 mmol/L (136-145) Potassium Level 3.3 mmol/L (3.5-5.1) Chloride Level 103 mmol/L (98-107) Carbon Dioxide Level 26 mmol/L (21-32) Anion Gap 14 (6-14) Blood Urea Nitrogen 19 mg/dL (8-26) Creatinine 0.7 mg/dL (0.7-1.3) Estimated GFR (Cockcroft-Gault) 129.1 Glucose Level 75 mg/dL (70-99) Calcium Level 8.7 mg/dL (8.5-10.1) Laboratory Tests Test 04/13/18 09:30 Sodium Level 143 mmol/L (136-145) Potassium Level 3.3 mmol/L (3.5-5.1) Chloride Level 103 mmol/L (98-107) Carbon Dioxide Level 26 mmol/L (21-32) Anion Gap 14 (6-14) Blood Urea Nitrogen 19 mg/dL (8-26) Creatinine 0.7 mg/dL (0.7-1.3) Estimated GFR (Cockcroft-Gault) 129.1 Glucose Level 75 mg/dL (70-99) Calcium Level 8.7 mg/dL (8.5-10.1) IGOR RIOS MD 04/14/182056: SURGICAL PROGRESS NOTE Assessment/Plan No acute changes REINA PENA Deshawn TRAVIS Apr 14, 2018 08:04 IGOR RIOS MD Apr 14, 2018 20:57
[2018-04-14] MEDS: PANTOPRAZOLE IV PUSH 40 MG VIAL. IVP SCH (08:32)
--- NOTE | 2018-04-14 08:34 | PDOC ---
Provider Note Provider Note [id number] ARIANA MARSHALL MD Apr 14, 2018 08:34
--- NOTE | 2018-04-14 08:52 | PN ---
DATE: 04/14/2018 The patient is sleeping and vital signs are stable and output is about the same. Potassium is down to 3.3, so we will change to D5 one-half normal saline with 30 mEq of potassium and he is still awaiting transfer to [facility] for their supportive care and likely surgical intervention as his evidence of small-bowel obstruction continues. ARIANA MARSHALL MD DR: ORTEGA/vj JOB#: [id number] / [id number]
[2018-04-14 11:10] VITALS: BP 145/113
[2018-04-14] MEDS: POTASSIUM CL 30MEQ D5-0.45NACL 1,000 ML IV SCH ×2 (11:41→21:45)
[2018-04-14 15:00] VITALS: BP 171/100
[2018-04-14 19:00] VITALS: BP 155/115
[2018-04-14 23:00] VITALS: BP 151/106
[2018-04-15] MEDS: KETOROLAC 30 MG/ML VIAL. IV PRN ×4 (01:40→21:02)
[2018-04-15 02:34] VITALS: BP 145/96
[2018-04-15] MEDS: POTASSIUM CL 30MEQ D5-0.45NACL 1,000 ML IV SCH ×3 (05:00→18:16)
[2018-04-15 07:00] VITALS: BP 177/101
[2018-04-15] MEDS: PANTOPRAZOLE IV PUSH 40 MG VIAL. IVP SCH (08:00)
[2018-04-15] MEDS ORDERED: FUROSEMIDE 40 MG/4 ML VIAL. IVP ONE (08:30)
--- NOTE | 2018-04-15 08:31 | PDOC ---
Provider Note Provider Note [id number] ARIANA MARSHALL MD Apr 15, 2018 08:31
[2018-04-15 11:00] VITALS: BP 165/95
--- NOTE | 2018-04-15 11:20 | PN ---
DATE: 04/15/2018 SUBJECTIVE: The patient is sleeping and in no distress. Remains with good output and modest amount of NG output and no new physical findings. Blood pressure remains high, so we will give a single dose of Lasix as he has had a lot of saline lately and he is now on hypotonic fluid with potassium. Surgical transfer is pending bed availability at [facility] and current care. Continue the same. ARIANA MARSHALL MD DR: ORTEGA/nts JOB#: [id number] / [id number]
--- NOTE | 2018-04-15 12:58 | PDOC ---
SURGICAL PROGRESS NOTE Subjective resting pain unchanged minimal ostomy function Vital Signs Vital Signs Date Time Temp Pulse Resp B/P (MAP) Pulse Ox O2 Delivery O2 Flow Rate FiO2 04/15/18 11:00 98.1 96 22 165/95 (118) 95 Room Air 98.1 I&O Intake and Output 04/15/18 07:00 Output Total 1100 ml Balance -1100 ml Output Urine Total 800 ml Stool Total 300 ml General: Alert, Oriented X3, Cooperative, No acute distress HEENT: Other (ng bilious) Abdomen: Soft Problem List await tx decisions, will attempt to reach REINA GUERRERO [employer] Apr 15, 2018 12:58
[2018-04-15 15:00] VITALS: BP 178/124
[2018-04-15 19:00] VITALS: BP 174/111
[2018-04-15] MEDS ORDERED: AMINO AC 3%/ELECTROLYTE/GLYCER 1,000 ML IV SCH (19:30)
[2018-04-15 23:59] VITALS: BP 141/100
[2018-04-16 03:00] VITALS: BP 151/109
[2018-04-16] MEDS: KETOROLAC 30 MG/ML VIAL. IV PRN ×4 (03:25→21:49)
[2018-04-16 06:31] LABS: CALCIUM 9.2 mg/dL (8.5-10.1); CREATININE 0.8 mg/dL (0.7-1.3); GFR 110.7
[2018-04-16 06:40] LABS: POTASSIUM 2.9 mmol/L (3.5-5.1)
[2018-04-16 07:00] VITALS: BP 152/117
--- NOTE | 2018-04-16 07:44 | PDOC ---
Provider Note Provider Note [id number] ARIANA MARSHALL MD Apr 16, 2018 07:44
[2018-04-16 08:32] LABS: HEMATOCRIT 42.2 % (39.0-53.0); HEMOGLOBIN 14.3 g/dL (13.0-17.5); RED BLOOD COUNT 4.91 x10^6/uL (4.30-5.70); WHITE BLOOD COUNT 5.9 x10^3/uL (4.0-11.0)
--- NOTE | 2018-04-16 08:47 | PN ---
DATE: 04/16/2018 Nurse reported he had "large amounts of blood" from somewhere in his rectal or back area when she sat him up last night, but the patient has not reported this. No change in status, otherwise good urine output after Lasix, still has a high gastric output, low ostomy output and no change in exam. Potassium down to 2.9 after Lasix, so we will add some potassium to his procalamine and we will hold the Lovenox for now and follow any evidence of bleeding, though I was not aware if the patient still had any rectal orifice after total colectomy. Still awaiting transfer to [place]. ARIANA MARSHALL MD DR: ORTEGA/vj JOB#: [id number] / [id number]
[2018-04-16] MEDS: PANTOPRAZOLE IV PUSH 40 MG VIAL. IVP SCH (09:20)
[2018-04-16] MEDS: GLYCER IV SCH ×2 (09:20→17:48)
[2018-04-16] MEDS: ELECTROLYTE IV SCH ×2 (09:20→17:48)
[2018-04-16] MEDS: POTASSIUM CHLORIDE IV SCH ×2 (09:20→17:48)
[2018-04-16] MEDS: AMINO AC IV SCH ×2 (09:20→17:48)
[2018-04-16 11:00] VITALS: BP 148/110
--- NOTE | 2018-04-16 11:15 | PDOC ---
SURGICAL PROGRESS NOTE Subjective Pt reports feeling "like garbage", pain same, but persistent, NGT with persistent aspirate, ostomy with minimal output Vital Signs Vital Signs Date Time Temp Pulse Resp B/P (MAP) Pulse Ox O2 Delivery O2 Flow Rate FiO2 04/16/18 08:00 Room Air 04/16/18 07:00 97.6 110 18 152/117 (129) 94 97.6 I&O Intake and Output 04/16/18 07:00 Intake Total 500 ml Output Total 5025 ml Balance -4525 ml Intake Oral 200 ml IV Total 300 ml Output Urine Total 3700 ml Stool Total 200 ml Gastric Drainage Total 1125 ml General: Alert, Oriented X3, Cooperative, moderate distress Abdomen: Soft, Other (obese, ostomy in place with suspected parastomal hernia, multiple soft hernias) Labs Laboratory Tests Test 04/16/18 05:30 White Blood Count 5.9 x10^3/uL (4.0-11.0) Red Blood Count 4.91 x10^6/uL (4.30-5.70) Hemoglobin 14.3 g/dL (13.0-17.5) Hematocrit 42.2 % (39.0-53.0) Mean Corpuscular Volume 86 fL (79-100) Mean Corpuscular Hemoglobin 29 pg (25-35) Mean Corpuscular Hemoglobin Concent 34 g/dL (31-37) Red Cell Distribution Width 14.0 % (11.5-14.5) Platelet Count 191 x10^3/uL (140-400) Sodium Level 145 mmol/L (136-145) Potassium Level 2.9 mmol/L (3.5-5.1) Chloride Level 104 mmol/L (98-107) Carbon Dioxide Level 28 mmol/L (21-32) Anion Gap 13 (6-14) Blood Urea Nitrogen 10 mg/dL (8-26) Creatinine 0.8 mg/dL (0.7-1.3) Estimated GFR (Cockcroft-Gault) 110.7 Glucose Level 116 mg/dL (70-99) Calcium Level 9.2 mg/dL (8.5-10.1) Laboratory Tests Test 04/16/18 05:30 White Blood Count 5.9 x10^3/uL (4.0-11.0) Red Blood Count 4.91 x10^6/uL (4.30-5.70) Hemoglobin 14.3 g/dL (13.0-17.5) Hematocrit 42.2 % (39.0-53.0) Mean Corpuscular Volume 86 fL (79-100) Mean Corpuscular Hemoglobin 29 pg (25-35) Mean Corpuscular Hemoglobin Concent 34 g/dL (31-37) Red Cell Distribution Width 14.0 % (11.5-14.5) Platelet Count 191 x10^3/uL (140-400) Sodium Level 145 mmol/L (136-145) Potassium Level 2.9 mmol/L (3.5-5.1) Chloride Level 104 mmol/L (98-107) Carbon Dioxide Level 28 mmol/L (21-32) Anion Gap 13 (6-14) Blood Urea Nitrogen 10 mg/dL (8-26) Creatinine 0.8 mg/dL (0.7-1.3) Estimated GFR (Cockcroft-Gault) 110.7 Glucose Level 116 mg/dL (70-99) Calcium Level 9.2 mg/dL (8.5-10.1) Problem List SBO, secondary to hernia would like to try sesame seed oil via NGT pt remains a prohibitive surgical candidate still in discussion with Rashaad, regarding transfer. D/w pt's mother, she reported that pt had previously been evaluated by Rashaad and felt to be too high of risk. Still, will investigate transfer, if available. Regardless, pt has poor prognosis shelter. Will ask palliative care to consult regarding goals of care. ERIKA JEFFERSON MD Apr 16, 2018 11:15
--- NOTE | 2018-04-16 14:33 | PDOC2 ---
PALLIATIVE CARE Palliative Care Note Palliative Care Consult requested by Dr. Garcia to address goals of care. Medical Assessment per medical record. SBO secondary to multiple hernia's; HTN, DM2; History of s/p colectomy with end ileostomy for Crohn's colitis. Obesity, Patient alert. Rates pain at 8, sharp abdominal ; some relief with Toradol and Ativan. NG tube in place. Is able to rest with help of pain medication and Ativan. Patient lives with family. Has support of parents and siblings. 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 [place]; Important to patient. Patient is a member of [employer] and is visited by his social worker Discussed his goals. "I want to get to [facility], have the surgery and get home and get back to work." Patient clearly want to try to get better. Spoke with Dr Garcia. and Christi in Pharmacy. Discussed use of Octreotide. Requested to call primary physician to confirm. Consider Octreotide 100mcg. Sub Q every 8 hours. Spoke with Huber LYLE and Navneet Cowart RN Director of Case Management regarding transfer. Anabella DIEGO will discuss with Dr. Zaragoza. 1515; Spoke with patient again. Patient understands he is high risk for surgery. Complains of severe abdominal pain. Sharp. Patient has been informed that [facility] does not have bed available. States he would go "anywhere they could help him" "I just want to get my life back and get to work" Will discuss with primary and CM other options for transfer and consideration of changing pain medication. ISAÍAS DIAMOND Apr 16, 2018 14:33
[2018-04-16 15:00] VITALS: BP 151/71
[2018-04-16 19:00] VITALS: BP 158/118
[2018-04-16 23:00] VITALS: BP 148/90
[2018-04-17] MEDS: POTASSIUM CHLORIDE IV SCH ×3 (02:21→16:16)
[2018-04-17] MEDS: GLYCER IV SCH ×3 (02:21→16:16)
[2018-04-17] MEDS: AMINO AC IV SCH ×3 (02:21→16:16)
[2018-04-17] MEDS: ELECTROLYTE IV SCH ×3 (02:21→16:16)
[2018-04-17 03:00] VITALS: BP 161/112
[2018-04-17] MEDS: KETOROLAC 30 MG/ML VIAL. IV PRN (03:52)
[2018-04-17] MEDS: ONDANSETRON PF 4 MG/2 ML VIAL. IV PRN (03:52)
[2018-04-17 06:01] LABS: CALCIUM 8.9 mg/dL (8.5-10.1); CREATININE 0.8 mg/dL (0.7-1.3); GFR 110.7; POTASSIUM 3.3 mmol/L (3.5-5.1)
[2018-04-17 07:00] VITALS: BP 154/102
[2018-04-17] MEDS: PANTOPRAZOLE IV PUSH 40 MG VIAL. IVP SCH (07:27)
--- NOTE | 2018-04-17 07:46 | PDOC2 ---
PALLIATIVE CARE Palliative Care Note Palliative Care Patient continues to have Sharp abdominal pain. Medicated with Toradol 30mg x4 and Ativan 1mg. x4 in 24 hours. Discussed with patient last evening-- his goals ---wants to get better. Understands his high risk for surgery. Albumin 3. On PPN. Attempts being made to transfer to [place]. Per Huber LYLE. No beds available. ISAÍAS DIAMOND Apr 17, 2018 07:46
--- NOTE | 2018-04-17 08:27 | PDOC ---
Provider Note Provider Note [id number] ARIANA MARSHALL MD Apr 17, 2018 08:27
[2018-04-17] MEDS: MORPHINE SULFATE 4 MG/ML VIAL. IV PRN ×2 (10:27→15:47)
[2018-04-17 11:00] VITALS: BP 134/105
--- NOTE | 2018-04-17 11:23 | PN ---
DATE: 04/17/2018 The patient is basically stable with no change. He states his rectal stump output is no longer bloody and has no new symptoms. After discussion, he states he is now willing to try the sesame seed oil treatment as recommended by Dr. Garcia yesterday and we will ask him to provide those orders as I do not know the dosage recommendations. In lieu of that could consider trying octreotide, but as mentioned in previous notes, I have never used this drug for any reason, I have casino runner using it for small bowel obstructions, for which it is off label. I am comfortable only if other treatments have failed or refused as nonsurgical therapy seems unlikely to be helpful here. Potassium is up to 3.3, so continue current IV procalamine regimen and we will now add morphine sulfate for pain even though he has shown a propensity in the past toward drug seeking behavior. Benefit outweighs the risk at this point. ARIANA MARSHALL MD DR: ORTEGA/vj JOB#: [id number] / [id number]
--- NOTE | 2018-04-17 14:52 | PDOC ---
SURGICAL PROGRESS NOTE Subjective d/w pt awaiting possible tx will review with VALDO Vital Signs Vital Signs Date Time Temp Pulse Resp B/P (MAP) Pulse Ox O2 Delivery O2 Flow Rate FiO2 04/17/18 11:05 Room Air 04/17/18 11:00 97.8 129 20 134/105 (115) 90 97.8 I&O Intake and Output 04/17/18 07:00 Intake Total 0 ml Output Total 1200 ml Balance -1200 ml Intake Oral 0 ml Output Urine Total 400 ml Gastric Drainage Total 800 ml General: Alert, Oriented X3, Cooperative, No acute distress HEENT: Other (NG in place) Abdomen: Soft Labs Laboratory Tests Test 04/16/18 05:30 04/17/18 04:50 White Blood Count 5.9 x10^3/uL (4.0-11.0) Red Blood Count 4.91 x10^6/uL (4.30-5.70) Hemoglobin 14.3 g/dL (13.0-17.5) Hematocrit 42.2 % (39.0-53.0) Mean Corpuscular Volume 86 fL (79-100) Mean Corpuscular Hemoglobin 29 pg (25-35) Mean Corpuscular Hemoglobin Concent 34 g/dL (31-37) Red Cell Distribution Width 14.0 % (11.5-14.5) Platelet Count 191 x10^3/uL (140-400) Sodium Level 145 mmol/L (136-145) 141 mmol/L (136-145) Potassium Level 2.9 mmol/L (3.5-5.1) 3.3 mmol/L (3.5-5.1) Chloride Level 104 mmol/L (98-107) 104 mmol/L (98-107) Carbon Dioxide Level 28 mmol/L (21-32) 30 mmol/L (21-32) Anion Gap 13 (6-14) 7 (6-14) Blood Urea Nitrogen 10 mg/dL (8-26) 14 mg/dL (8-26) Creatinine 0.8 mg/dL (0.7-1.3) 0.8 mg/dL (0.7-1.3) Estimated GFR (Cockcroft-Gault) 110.7 110.7 Glucose Level 116 mg/dL (70-99) 110 mg/dL (70-99) Calcium Level 9.2 mg/dL (8.5-10.1) 8.9 mg/dL (8.5-10.1) Laboratory Tests Test 04/17/18 04:50 Sodium Level 141 mmol/L (136-145) Potassium Level 3.3 mmol/L (3.5-5.1) Chloride Level 104 mmol/L (98-107) Carbon Dioxide Level 30 mmol/L (21-32) Anion Gap 7 (6-14) Blood Urea Nitrogen 14 mg/dL (8-26) Creatinine 0.8 mg/dL (0.7-1.3) Estimated GFR (Cockcroft-Gault) 110.7 Glucose Level 110 mg/dL (70-99) Calcium Level 8.9 mg/dL (8.5-10.1) Assessment/Plan sbo ng in place, poor surgical candidate awaiting possible tx to REINA Villar APRN Apr 17, 2018 14:52
[2018-04-17 15:00] VITALS: BP 143/101
--- NOTE | 2018-04-18 08:20 | PDOC ---
Provider Note Provider Note [id number] ARIANA MARSHALL MD Apr 18, 2018 08:20
--- NOTE | 2018-04-18 08:43 | DS ---
DATE OF DISCHARGE: 04/17/2018 HOSPITAL SUMMARY: A 32-year-old white male with super morbid obesity, chronic ventral hernias and recurrent small bowel obstruction, and was readmitted with recurrent abdominal pain, vomiting, and CT scan evidence of small bowel obstruction. Small bowel x-ray showed definite partial small bowel obstruction signs what appeared to be located within the hernia of the anterior right lateral abdominal wall just proximal to the ileostomy. CBCs and chemistry profiles remained unremarkable except for mildly low potassium of 2.9, which was corrected. Cultures had no growth. Chest x-ray was clear. He was treated with IV fluids, NG suction, and parenteral pain medications with Toradol and later morphine with continued signs of no ostomy output and limited improvement in pain. Transfer to [facility] was attempted early in the course, but beds were not open and available until the day of dismissal and when he was transferred to [facility] with NG suction and midline venous catheter and procalamine with potassium to replace the hypokalemia. FINAL DIAGNOSES: 1. Partial small bowel obstruction, recurrent. 2. Super morbid obesity. 3. Hypokalemia secondary to NG suction. OPERATIONS AND PROCEDURES AND COMPLICATIONS: Midline catheter placement, PICC line placement complications. CONSULTATIONS: Dr. Garcia and Dr. Rome's group. DISPOSITION: He was transferred with current orders to [facility] for definitive care. Presumably, there will be a laparotomy in an attempt to resolve the small bowel obstruction, but the patient remains extremely high risk given his comorbid conditions. ARIANA MARSHALL MD DR: ORTEGA/vj JOB#: [id number] / [id number]
== END 2018-04-17 19:23 | disposition short-term general hospital (02) | DRG 388 ==
LOC: ER 23:08 → ED HOLD 04-07 03:20 → UNDOADMIN 04-07 03:20 → 5 SOUTH 04-07 03:20
PROVIDERS: ADMIT Family Medicine; ATTEND Family Medicine
PROC: 0D9670Z Drainage of Stomach with Drainage Device, Via Natural or Artificial Opening (ICD-10-PCS; principal; 2018-04-09)
DX: K56.600 Partial intestinal obstruction, unspecified as to cause (principal); R65.11 Systemic inflammatory response syndrome (SIRS) of non-infectious origin with acute organ dysfunction; Z68.45 Body mass index [BMI] 70 or greater, adult; K50.112 Crohn's disease of large intestine with intestinal obstruction; E66.01 Morbid (severe) obesity due to excess calories; G47.33 Obstructive sleep apnea (adult) (pediatric); I10 Essential (primary) hypertension; E09.65 Drug or chemical induced diabetes mellitus with hyperglycemia; Z51.5 Encounter for palliative care; E87.6 Hypokalemia; Y92.89 Other specified places as the place of occurrence of the external cause; Z93.3 Colostomy status; Z90.49 Acquired absence of other specified parts of digestive tract
CPT/HCPCS: 36415; 36569; 74018; 74250; 80048; 80053; 81001; 82962; 83036; 83605; 83690; 85025; 85027; 96361; 96374; 96375; C9113; J1650; J1815; J1885; J1940; J2060; J2270; J2405; J3010; J3490; J7030; J7120; Q9967; 99285-25

== ENCOUNTER 2018-06-30 14:30 | Emergency (ER) | payer MEDICARE ==
[~2018-06-30] VITALS: Ht 182.9 cm; Wt 192.8 kg
[~2018-06-30 14:30] MED LIST changes: -HYDR-2758 PO; +HYDR-2761 PO; -HYDR-2762 PO; +HYDR-2765 PO; +HYDR-3164 PO; -HYDR-971 PO; -OXYC-323 PO; +OXYC1TAB15 PO
[2018-06-30 14:47] VITALS: BP 172/100
[2018-06-30] MEDS ORDERED: SULF1TAB24 PO (14:56)
[2018-06-30] MEDS ORDERED: MELO7.5T5 PO (14:56)
--- NOTE | 2018-06-30 14:56 | PHYS DOC ---
Past Medical History Past Medical History: Diabetes-Type II, Other Additional Past Medical Histor: colitis, colostomy bag, Crohn's,STEROID INDUCED DM,MORBID OBESITY Past Surgical History: Colectomy, Other Additional Past Surgical Histo: BOWEL RESECTION, L HAND, HERNIA X5, Alcohol Use: Occasionally Drug Use: None Adult General Chief Complaint Chief Complaint: ABSCESS HPI HPI Patient is a 32 year old male who presents with an abscess to his chin that is draining. The patient states that it is been there for approximately 4 days. It is still having purulent drainage. He states that there is hard red skin around it. 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 He denies fever, nausea or vomiting. Review of Systems Review of Systems Constitutional: Denies fever or chills [] Eyes: Denies change in visual acuity, redness, or eye pain [] HENT: Denies nasal congestion or sore throat [] Respiratory: Denies cough or shortness of breath [] Cardiovascular: No additional information not addressed in HPI [] GI: Denies abdominal pain, nausea, vomiting, bloody stools or diarrhea [] : Denies dysuria or hematuria [] Musculoskeletal: Denies back pain or joint pain [] Integument: See history of present illness Neurologic: Denies headache, focal weakness or sensory changes [] Endocrine: Denies polyuria or polydipsia [] All other systems were reviewed and found to be within normal limits, except as documented in this note. Current Medications Current Medications Current Medications Medications (Trade) Dose Ordered Sig/[facility] Start Time Stop Time Status Last Admin Dose Admin Ceftriaxone Sodium (Rocephin Im) 1 gm 1X ONCE 06/30/18 15:00 06/30/18 15:01 DC 06/30/18 15:01 1 GM Allergies Allergies Allergies Coded Allergies Type Severity Reaction Last Updated Verified No Known Drug Allergies 07/24/13 No Physical Exam Physical Exam Constitutional: Well developed, well nourished, no acute distress, non-toxic appearance. [] Cardiovascular:Heart rate regular rhythm, no murmur [] Lungs & Thorax: Bilateral breath sounds clear to auscultation [] Abdomen: Bowel sounds normal, soft, no tenderness, no masses, no pulsatile masses. [] Skin: 3 cm area of induration with purulent drainage from the center noted to the patient's mid line neck just under his chin, no fluctuance noted Neurologic: Alert and oriented X 3, normal motor function, normal sensory function, no focal deficits noted. [] Psychologic: Affect normal, judgement normal, mood normal. [] Current Patient Data Vital Signs Vital Signs Date Time Temp Pulse Resp B/P (MAP) Pulse Ox O2 Delivery O2 Flow Rate FiO2 06/30/18 14:47 95.0 128 18 172/100 (124) 95 Room Air 95.0 EKG EKG [] Radiology/Procedures Radiology/Procedures [] Course & Med Decision Making Course & Med Decision Making Pertinent Labs and Imaging studies reviewed. (See chart for details) [] Dragon Disclaimer Dragon Disclaimer This electronic medical record was generated, in whole or in part, using a voice recognition dictation system. Departure Departure Impression: Primary Impression: Cellulitis Additional Impression: Abscess Disposition: 01 HOME, SELF-CARE Condition: STABLE Referrals: ARIANA MARSHALL MD (PCP) Patient Instructions: Abscess, Cellulitis Additional Instructions: Take the medications as prescribed. Follow-up with your primary care provider in 2 days for a recheck. If worsening return to the emergency department. Scripts Meloxicam (MOBIC) 7.5 Mg Tablet 1 TAB PO DAILY for pain, #15 TAB Prov: ABHILASH CLOUD APRN 06/30/18 Sulfamethoxazole/Trimethoprim (BACTRIM DS TABLET) 1 Each Tablet 1 TAB PO BID for abscess, #20 TAB Prov: ABHILASH CLOUD APRN 06/30/18 Problem Qualifiers ABHILASH CLOUD APRN Jun 30, 2018 14:56
[2018-06-30] MEDS: cefTRIAXone IM 1 GM VIAL IM ONE (15:01)
== END 2018-06-30 15:08 | disposition home or self-care (01) ==
LOC: ER 14:30
DX: L02.01 Cutaneous abscess of face (principal); E11.9 Type 2 diabetes mellitus without complications; E66.01 Morbid (severe) obesity due to excess calories; Z68.43 Body mass index [BMI] 50.0-59.9, adult; K50.90 Crohn's disease, unspecified, without complications
CPT/HCPCS: 96372; 99284; J0696

== ENCOUNTER 2018-09-30 19:50 | Inpatient (IN) | payer MEDICARE, BC ==
[~2018-09-30] VITALS: Ht 182.9 cm; Wt 218.0 kg
[~2018-09-30 19:50] MED LIST changes: +MELO7.5T5 PO; +PRED20TA PO; +SULF1TAB24 PO; +lovastatin
[2018-09-30] MEDS ORDERED: IV NORMAL SALINE 1000ML BAG 1,000 ML IV ONE ×3 (20:15→21:00)
[2018-09-30 20:23] LABS: BASO # 0.1 x10^3/uL (0.0-0.2); BASO % 1 % (0-3); EOS # 0.1 x10^3/uL (0.0-0.7); EOS % 1 % (0-3); HEMATOCRIT 38.4 % (39.0-53.0); HEMOGLOBIN 12.7 g/dL (13.0-17.5); LYMPH # 1.4 x10^3/uL (1.0-4.8); LYMPH % 12 % (24-48); MEAN CORPUSCULAR HEMOGLOBIN 29 pg (25-35); MEAN CORPUSCULAR HGB CONC 33 g/dL (31-37); MEAN CORPUSCULAR VOLUME 87 fL (79-100); MONO % 9 % (0-9); NEUT # 8.7 x10^3uL (1.8-7.7); NEUT % 77 % (31-73); PLATELET COUNT 344 x10^3/uL (140-400); RED CELL DISTRIBUTION WIDTH 15.1 % (11.5-14.5); WHITE BLOOD COUNT 11.3 x10^3/uL (4.0-11.0)
[2018-09-30 20:33] LABS: CALCIUM 8.8 mg/dL (8.5-10.1); CREATININE 1.1 mg/dL (0.7-1.3); GFR 76.2; POTASSIUM 3.8 mmol/L (3.5-5.1)
--- NOTE | 2018-09-30 20:58 | PHYS DOC ---
Past Medical History Past Medical History: Diabetes-Type II, Other Additional Past Medical Histor: colitis, colostomy bag, Crohn's,STEROID INDUCED DM,MORBID OBESITY Past Surgical History: Colectomy, Other Additional Past Surgical Histo: BOWEL RESECTION, L HAND, HERNIA X5, LT leg Alcohol Use: Occasionally Drug Use: None Adult General Chief Complaint Chief Complaint: OTHER COMPLAINTS HPI HPI 33-year-old male presents to ER via POV for complaints of sudden onset of bleeding from right lower leg. Patient states he has history of varicose veins and reports he has had previous episodes of similar bleeding/ruptured vessels. Patient states he had approximately 1 L blood loss at home and has had some dizziness since onset of bleeding. Patient reports he was undressing and itched his rt lower leg- denies any injury and uncertain if he had sore on his leg that he may have itched. Pt reports he applied direct pressure to area however with lg amt of blood loss he came to ER. Pt denies any acute change to rt lower extremity swelling. Pt is morbidly obese and has 3+ bilateral nonpitting lower leg and pedal edema. Pt reports he worked all day and had no leg pain or sxs. He is currently having some rt lower leg pain. Review of Systems Review of Systems Constitutional: Denies fever. Reports feeling fatigued- uncertain if r/t bleeding or working all day Eyes: Denies change in visual acuity, redness, or eye pain [] HENT: Denies nasal congestion or sore throat [] Respiratory: Denies cough or shortness of breath [] Cardiovascular: Denies CP/palpitations GI: Denies abdominal pain, nausea, vomiting, bloody stools or diarrhea [] : Denies urinary sxs Musculoskeletal: Denies back pain. Reports rt lower leg pain and active bleeding Integument: Denies rash or skin lesions [] Neurologic: Denies headache, focal weakness or sensory changes. Reports dizziness- worse with ambulation Endocrine: Denies polyuria or polydipsia [] All other systems were reviewed and found to be within normal limits, except as documented in this note. Current Medications Current Medications Current Medications Medications (Trade) Dose Ordered Sig/[facility] Start Time Stop Time Status Last Admin Dose Admin Fentanyl Citrate (Fentanyl 2ml Vial) 25 mcg 1X ONCE 09/30/18 21:30 09/30/18 21:32 DC 09/30/18 21:36 25 MCG Sodium Chloride 1,000 ml @ 125 mls/hr 1X ONCE 09/30/18 21:00 10/01/18 04:59 DC 09/30/18 20:52 125 MLS/HR Allergies Allergies Physical Exam Physical Exam Constitutional: Well developed, well nourished, no acute distress, non-toxic appearance. [] HENT: Normocephalic, atraumatic, oropharynx moist, nose normal. [] Eyes: PERRLA, no nystagmus, conjunctiva normal, no discharge. [] Neck: Normal range of motion, no tenderness, supple, no stridor. [] Cardiovascular: Tachycardic heart rate regular rhythm, no murmur [] Lungs & Thorax: Bilateral breath sounds clear to auscultation- resp. equal/nonlabored Abdomen: Bowel sounds normal, soft/morbidly obese, no tenderness, no masses, no pulsatile masses. [] Skin: Warm, dry, no erythema, no rash. [] Back: No tenderness, no CVA tenderness. [] Extremities: No cyanosis, no clubbing, ROM intact. 2+ bilat dorsalis pedis/posterior tibial. 3+ nonpitting bilat. lower leg and pedal edema- pt reports chronic no acute changes. Pin point area on rt mid medial side of gonzalez with active bleeding. Multiple scabbed sore on bilat. LE with no erythema. Multiple varicose veins bulging in lower bilat. legs. Neurologic: Alert and oriented X 3, normal motor function, normal sensory function, no focal deficits noted. [] Psychologic: Affect normal, judgement normal, mood normal. [] Current Patient Data Vital Signs Lab Values Laboratory Tests Test 09/30/18 20:06 White Blood Count 11.3 x10^3/uL (4.0-11.0) H Red Blood Count 4.40 x10^6/uL (4.30-5.70) Hemoglobin 12.7 g/dL (13.0-17.5) L Hematocrit 38.4 % (39.0-53.0) L Mean Corpuscular Volume 87 fL (79-100) Mean Corpuscular Hemoglobin 29 pg (25-35) Mean Corpuscular Hemoglobin Concent 33 g/dL (31-37) Red Cell Distribution Width 15.1 % (11.5-14.5) H Platelet Count 344 x10^3/uL (140-400) Neutrophils (%) (Auto) 77 % (31-73) H Lymphocytes (%) (Auto) 12 % (24-48) L Monocytes (%) (Auto) 9 % (0-9) Eosinophils (%) (Auto) 1 % (0-3) Basophils (%) (Auto) 1 % (0-3) Neutrophils # (Auto) 8.7 x10^3uL (1.8-7.7) H Lymphocytes # (Auto) 1.4 x10^3/uL (1.0-4.8) Monocytes # (Auto) 1.0 x10^3/uL (0.0-1.1) Eosinophils # (Auto) 0.1 x10^3/uL (0.0-0.7) Basophils # (Auto) 0.1 x10^3/uL (0.0-0.2) Sodium Level 138 mmol/L (136-145) Potassium Level 3.8 mmol/L (3.5-5.1) Chloride Level 100 mmol/L (98-107) Carbon Dioxide Level 23 mmol/L (21-32) Anion Gap 15 (6-14) H Blood Urea Nitrogen 14 mg/dL (8-26) Creatinine 1.1 mg/dL (0.7-1.3) Estimated GFR (Cockcroft-Gault) 76.2 Glucose Level 411 mg/dL (70-99) H Calcium Level 8.8 mg/dL (8.5-10.1) Troponin I Quantitative < 0.017 ng/mL (0.000-0.055) Laboratory Tests 09/30/18 20:06 Laboratory Tests 09/30/18 20:06 EKG EKG EKG obtained 09/30/18 at 2118 Interpreted by ER physician Sinus tachycardia Nonspec. ST/T wave changes Rate 124 No STEMI Radiology/Procedures Radiology/Procedures [] Course & Med Decision Making Course & Med Decision Making Pertinent Labs reviewed. (See chart for details) 2054: On reevaluation patient's heart rate remains 126 with blood pressure 105/68 oxygenation 96% on room air. Patient has palpable dorsalis pedis and posterior tibial in right lower extremity 1+ bilateral lower extremities. Pt had surgicel applied to bleeding varicose vein and pressure wrap which has required reinforcement as he had bleeding thru drsg. 2124: BP 97/55 HR 117- H&H was 12.7/38.4. Discussed ongoing HR and bleeding rt lower leg. Pt remains PMS intact rt lower extremity and bleeding has slowed. Discussed admission for further monitoring and pt is agreeable with plan. On re-evaluation after pressure dressing applied to rt lower leg- drsg was found to be dry. Wrap was loosened. Pt reports he is feeling better than he did at time of arrival ER- reports he is tired but relates that to work day. He remains PMS intact rt lower extremity. 2249: Spoke with Dr. Zaragoza, pt's PCP and discussed pt's case and admit plan to further monitor for ongoing tachycardia- also discussed pt's BS 411. Per Dr. Zaragoza pt is poorly controlled diabetic as he has been unable to afford his insulin and BSs run high with pt. Pt has had no further bleeding from rt medial varicose vein- with dressing dry/intact rt lower leg. He does continue to have HR 110-120's with improved BP at 130/82. Will recheck CBC in morning. EKG was obtained with ST at 124 no acute STEMI/ST elevation. Troponin is pending as that was added with ongoing tachycardia/admit plan. Will obtain chest xray. Pt was given dose of Fentanyl IV and had maintenance flds at 125cc/hr after 2L NS fld bolus. Troponin was NL at <0.017. Dragon Disclaimer Dragon Disclaimer This electronic medical record was generated, in whole or in part, using a voice recognition dictation system. Departure Departure Impression: Primary Impression: Tachycardia Additional Impression: Varicose veins of right lower extremity Disposition: ADMITTED INPATIENT Admitting Physician: Dileep Zaragoza Condition: STABLE Referrals: DILEEP ZARAGOZA MD (PCP) Problem Qualifiers SHERON ZARAGOZA APRN Sep 30, 2018 20:58
[2018-09-30] MEDS ORDERED: fentaNYL PF VIAL 100 MCG/2 ML VIAL IV ONE (21:30)
[2018-09-30 23:15] LABS: BILIRUBIN,URINE NEGATIVE (NEG); CLARITY,URINE CLEAR; COLOR,URINE YELLOW; NITRITE,URINE NEGATIVE (NEG); PROTEIN,URINE 30 mg/dL (NEG-TRACE); UROBILINOGEN,URINE 0.2 mg/dL (0.2 mg/dL)
[2018-09-30 23:30] LABS: BACTERIA,URINE 0 /HPF (0-FEW); RBC,URINE 0 /HPF (0-2); SQUAMOUS EPITHELIAL CELL,UR MOD /LPF; WBC,URINE OCC /HPF (0-4)
[2018-09-30 23:31] LABS: YEAST,URINE PRESENT /HPF
[2018-10-01] VITALS: BP 111/81
[2018-10-01] MEDS ORDERED: ACETAMINOPHEN 325 MG TABLET. PO PRN
--- NOTE | 2018-10-01 00:15 | NUR ---
Patient arrived to room 237 at 0000 via rney accompanied by ED RN. Patient able to walk from [place] to bed with standby assistance. Patient has wounds on R leg and abdomen. Hooked up to monitors. Patient on RA, ST on monitor, complains of 7/10 pain in leg, ostomy in place, PIVx2 in place, NS running at 125 cc/hr. VSS at this time. Patient oriented to unit routines, call light, TV controls, bed controls, diet (ADA), and activity (standby). Will continue to monitor. Reassessments of fluid and Fentanyl not completed by ED RN, marked as "not done" by this RN.
[2018-10-01] MEDS: fentaNYL PF VIAL 100 MCG/2 ML VIAL IV PRN ×3 (00:21→08:26)
--- NOTE | 2018-10-01 00:26 | RAD ---
PROCEDURE: CHEST AP ONLY CLINICAL INDICATION: soa COMPARISON: None FINDINGS: No pneumothorax identified. Cardiac and mediastinal contours unremarkable. No pulmonary consolidation or acute airspace disease. No acute osseous abnormalities identified. IMPRESSION: No pulmonary consolidation or acute airspace disease. Electronically signed by: Yasir Aaron DO (10/01/2018 12:23 AM) [facility]
[2018-10-01 03:00] VITALS: BP 109/76
[2018-10-01 03:58] LABS: BASO # 0.1 x10^3/uL (0.0-0.2); BASO % 1 % (0-3); EOS # 0.1 x10^3/uL (0.0-0.7); EOS % 1 % (0-3); HEMATOCRIT 29.4 % (39.0-53.0); HEMOGLOBIN 9.6 g/dL (13.0-17.5); LYMPH # 0.5 x10^3/uL (1.0-4.8); LYMPH % 5 % (24-48); MEAN CORPUSCULAR HEMOGLOBIN 29 pg (25-35); MEAN CORPUSCULAR HGB CONC 33 g/dL (31-37); MEAN CORPUSCULAR VOLUME 88 fL (79-100); MONO # 0.8 x10^3/uL (0.0-1.1); MONO % 9 % (0-9); NEUT # 8.2 x10^3uL (1.8-7.7); NEUT % 85 % (31-73); PLATELET COUNT 193 x10^3/uL (140-400); RED BLOOD COUNT 3.33 x10^6/uL (4.30-5.70); WHITE BLOOD COUNT 9.7 x10^3/uL (4.0-11.0)
[2018-10-01 04:19] LABS: CALCIUM 8.1 mg/dL (8.5-10.1); CREATININE 0.7 mg/dL (0.7-1.3); GFR 128.3; POTASSIUM 4.1 mmol/L (3.5-5.1)
[2018-10-01] MEDS ORDERED: INSULIN LISPRO 300 UNITS/3 ML INSULN.PEN. SQ ONE (04:45)
[2018-10-01 07:22] VITALS: BP 144/75
--- NOTE | 2018-10-01 08:04 | EKG ---
[facility] [address] [place] [address] Test Date: 2018-09-30 Test Time: 21:18:14 Pat Name: ANDREEA TANG Department: Room: 267 1 Gender: M [employer] Decorator: : 1985 Requested By: SHERON ZARAGOZA Order Number: [id number] Reading MD: Suhas Roblero MD Measurements Intervals [place] Rate: 124 P: LA: QRS: 35 QRSD: 98 T: 44 QT: 322 QTc: [address] NON-SPECIFIC ST/T CHANGES Electronically Signed On 10-09-2018 9:33:12 CDT by Suhas Roblero MD
[2018-10-01] MEDS ORDERED: metFORMIN 500 MG TABLET PO SCH (09:00)
[2018-10-01] MEDS ORDERED: traMADol 50 MG TABLET PO PRN (09:15)
[2018-10-01] MEDS ORDERED: INSULIN GLARGINE 300 UNITS/3 ML INSULN.PEN. SQ SCH (09:15)
--- NOTE | 2018-10-01 09:22 | PDOC ---
Provider Note Provider Note [id number] ARIANA MARSHALL MD Oct 01, 2018 09:22
[2018-10-01] MEDS ORDERED: predniSONE 10 MG TABLET PO SCH (09:30)
[2018-10-01] MEDS ORDERED: DEXTROSE 50% 25 GM / 50ML DISP.SYRIN. IV PRN (09:30)
[2018-10-01] MEDS: INSULIN LISPRO 300 UNITS/3 ML INSULN.PEN. SQ SCH ×2 (10:00→12:26)
--- NOTE | 2018-10-01 10:01 | HP ---
ADMIT DATE: CHIEF COMPLAINT: Ruptured varix. HISTORY OF PRESENT ILLNESS: A 33-year-old white male with morbid obesity, poorly controlled type 2 diabetes and Crohn's disease, was scratching his right lower leg and all of a sudden a pool of blood came out of a ruptured varicose vein. He lost a fair amount of blood and required 2 liters of fluid resuscitation in the ER and had some variable blood pressures, but they have been stable over the last several hours. He is a poorly controlled diabetic. Last A1c one month ago was 11 and he has been advised to take insulin, but has not been able to afford it due to lack of insurance. He has Crohn's disease and takes low dose prednisone, metformin and is waiting [facility]. PAST MEDICAL HISTORY: Well documented in the old records. MEDICATIONS: No other meds. ALLERGIES: No allergies. SOCIAL HISTORY: Single, employed, nonsmoker, nondrinker. FAMILY HISTORY: Unremarkable. REVIEW OF SYSTEMS: No other complaints. OBJECTIVE: ENT: All within normal limits. NECK: No masses, nodes or bruits. LUNGS: Clear. CARDIOVASCULAR: Regular rate. No tachycardia. ABDOMEN: Obese, soft, nontender. Ileostomy in place. EXTREMITIES: He has numerous small skin abrasions, the ruptured varix wound on the right anterior gonzalez is already closed and non-draining and no evidence of infection. Pedal pulses are good. NEUROLOGIC: Physiologic, except for decreased sensation in the feet. ASSESSMENT: 1. Ruptured varicose vein with moderate blood loss, currently hemodynamically stable. 2. Poorly controlled type 2 diabetes mellitus, requiring insulin. 3. Crohn's disease. 4. Morbid obesity. PLAN: We will start Lantus and sliding scale insulin today. We will follow the hemogram and make sure he does not require transfusion, but does not clinically look too pale at this point. He understands that treating his Crohn's disease while I am not treating his diabetes is counterproductive to his health and potential fatal outcome. ARIANA MARSHALL MD DR: ORTEGA/vj JOB#: [id number] / [id number]
[2018-10-01 11:00] VITALS: BP 131/73
[2018-10-01] MEDS ORDERED: PANTOPRAZOLE 40 MG TABLET.DR. PO SCH (11:30)
--- NOTE | 2018-10-01 13:19 | NUR ---
Discharge Note: ANDREEA TANG ECJDU Discharge instructions and discharge home medications reviewed with Patient and a copy given. All questions have been answered and understanding verbalized.
--- NOTE | 2018-10-02 09:39 | DS ---
DATE OF DISCHARGE: 10/01/2018 Left AMA: 10/01/2018. HOSPITAL SUMMARY: The patient came in with ruptured varicose vein on his right lower leg, spontaneous in nature that bled moderately at home. His hemoglobin dropped from 12-9.6 and he was unstable for a while in the ER and got 2 liters of fluid and became stable. His blood sugars were around 400 in the hospital, A1c previously was 11 and he was advised to start on insulin therapy and that was begun on the morning of admission. The wound had closed and was no longer bleeding and he was hemodynamically stable. He declined to stay in the hospital and left against medical advice on the afternoon of admission despite the knowledge that untreated diabetes without insulin that he needs could lead to potentially fatal outcome given his multiple medical problems and severe morbid obesity. FINAL DIAGNOSES: 1. Ruptured varicose vein in lower extremity with secondary hemorrhage. 2. Poorly controlled type 2 diabetes mellitus. 3. Hyper morbid obesity. OPERATIONS, PROCEDURES, COMPLICATIONS, AND CONSULTATIONS: None. DISPOSITION: No discharge medications were given. He takes only metformin for diabetes, which is clearly inadequate and strongly advised to see us in the office to start insulin therapy as he now has insurance and can afford the medication which he has not been able to afford in the past. Prognosis is poor. ARIANA MARSHALL MD DR: ORTEGA/nts JOB#: [id number] / [id number]
[2018-11-14] MEDS ORDERED: ADAL40PE SQ (08:59)
[2018-11-14] MEDS ORDERED: DULA0.75 SQ (08:59)
== END 2018-10-01 13:00 | disposition home or self-care (01) | DRG 300 ==
LOC: ER 19:50 → CVICU 22:50
PROVIDERS: ADMIT Family Medicine; ATTEND Family Medicine
DX: I83.91 Asymptomatic varicose veins of right lower extremity (principal); K50.90 Crohn's disease, unspecified, without complications; Z68.44 Body mass index [BMI] 60.0-69.9, adult; E11.65 Type 2 diabetes mellitus with hyperglycemia; E66.01 Morbid (severe) obesity due to excess calories; R00.0 Tachycardia, unspecified; R58 Hemorrhage, not elsewhere classified; Z79.4 Long term (current) use of insulin; Z93.3 Colostomy status
CPT/HCPCS: 36415; 71045; 80048; 81001; 82962; 84484; 85025; 93005; 96360; 96361; J1815; J3010; J7030; J7512; 99285-25

== ENCOUNTER → 2018-11-14 | Day surgery (SDC) | payer BC, MEDICARE ==
[~2018-11-14] MED LIST changes: +ADAL40PE SQ; +HYDROmorphone 2 MG/ML VIAL IV PRN; +IV RINGERS,LACTATED 1000ML 1,000 ML IV SCH; +LIDOCAINE 2% PF 5 ML VIAL. ONE; +MORPHINE SULFATE 2 MG/ML VIAL. IV PRN; +ONDANSETRON PF 4 MG/2 ML VIAL. IV PRN; +PROCHLORPERAZINE 10 MG/2 ML VIAL. IV PRN; +PROPOFOL 0 ML IV ONE; +PROPOFOL 20 ML IV ONE; +fentaNYL PF VIAL 100 MCG/2 ML VIAL IV PRN
[2018-11-14 10:11] VITALS: BP 137/78
== END | disposition home or self-care (01) ==
LOC: ENDOS 08:35
PROVIDERS: ATTEND Internal Medicine Gastroenterology
DX: K50.80 Crohn's disease of both small and large intestine without complications (principal); E11.9 Type 2 diabetes mellitus without complications; Z72.89 Other problems related to lifestyle; Z87.891 Personal history of nicotine dependence; Z79.899 Other long term (current) drug therapy; Z98.890 Other specified postprocedural states; Z90.49 Acquired absence of other specified parts of digestive tract; Z79.84 Long term (current) use of oral hypoglycemic drugs
CPT/HCPCS: 45331; 88305; J2001; J2704

== ENCOUNTER 2018-11-19 08:50 | Emergency (ER) | payer BC, MEDICARE ==
[~2018-11-19] VITALS: Ht 182.9 cm; Wt 217.7 kg
[~2018-11-19 08:50] MED LIST changes: -HYDROmorphone 2 MG/ML VIAL IV PRN; -IV RINGERS,LACTATED 1000ML 1,000 ML IV SCH; -LIDOCAINE 2% PF 5 ML VIAL. ONE; -MORPHINE SULFATE 2 MG/ML VIAL. IV PRN; -ONDANSETRON PF 4 MG/2 ML VIAL. IV PRN; -PROCHLORPERAZINE 10 MG/2 ML VIAL. IV PRN; -PROPOFOL 0 ML IV ONE; -PROPOFOL 20 ML IV ONE; -fentaNYL PF VIAL 100 MCG/2 ML VIAL IV PRN
[2018-11-19] MEDS ORDERED: IV NORMAL SALINE 1000ML BAG 1,000 ML IV SCH (09:25)
[2018-11-19] MEDS ORDERED: fentaNYL PF VIAL 100 MCG/2 ML VIAL IV ONE (09:30)
[2018-11-19] MEDS ORDERED: PROCHLORPERAZINE 10 MG/2 ML VIAL. IV ONE (09:30)
[2018-11-19 09:47] LABS: BILIRUBIN,URINE NEGATIVE (NEG); CLARITY,URINE CLEAR; COLOR,URINE YELLOW; NITRITE,URINE NEGATIVE (NEG); PROTEIN,URINE 30 mg/dL (NEG-TRACE); UROBILINOGEN,URINE 0.2 mg/dL (0.2 mg/dL)
[2018-11-19 09:59] LABS: RBC,URINE 0 /HPF (0-2)
[2018-11-19 10:00] LABS: BACTERIA,URINE 0 /HPF (0-FEW); SQUAMOUS EPITHELIAL CELL,UR FEW /LPF; WBC,URINE OCC /HPF (0-4)
[2018-11-19 10:11] LABS: CREATININE 0.8 mg/dL (0.7-1.3); POTASSIUM 4.2 mmol/L (3.5-5.1)
[2018-11-19 10:17] LABS: ALBUMIN/GLOBULIN RATIO 0.7 (1.0-1.7); TOTAL BILIRUBIN 0.3 mg/dL (0.2-1.0); TOTAL PROTEIN 7.2 g/dL (6.4-8.2)
[2018-11-19] MEDS ORDERED: IOHEXOL 300 MG/ML 100ML VIAL. IV ONE (10:30)
[2018-11-19] MEDS ORDERED: CONTRAST GIVEN. MC PRN (10:30)
[2018-11-19 10:32] LABS: BASO % 1 % (0-3); EOS # 0.2 x10^3/uL (0.0-0.7); EOS % 3 % (0-3); HEMATOCRIT 33.8 % (39.0-53.0); HEMOGLOBIN 10.5 g/dL (13.0-17.5); LYMPH # 0.5 x10^3/uL (1.0-4.8); LYMPH % 8 % (24-48); MEAN CORPUSCULAR HEMOGLOBIN 24 pg (25-35); MEAN CORPUSCULAR HGB CONC 31 g/dL (31-37); MEAN CORPUSCULAR VOLUME 76 fL (79-100); MONO # 0.6 x10^3/uL (0.0-1.1); MONO % 8 % (0-9); NEUT # 5.4 x10^3uL (1.8-7.7); NEUT % 81 % (31-73); PLATELET COUNT 247 x10^3/uL (140-400); RED BLOOD COUNT 4.45 x10^6/uL (4.30-5.70); RED CELL DISTRIBUTION WIDTH 17.7 % (11.5-14.5); WHITE BLOOD COUNT 6.7 x10^3/uL (4.0-11.0)
[2018-11-19 11:50] VITALS: BP 165/81
--- NOTE | 2018-11-19 12:02 | RAD ---
Examination: CT of the abdomen pelvis with IV contrast HISTORY: History of abdominal pain, vomiting COMPARISON: 08/18/2018 TECHNIQUE: Axial CT images of the abdomen pelvis were performed with IV contrast. Coronal and sagittal reformats are performed Exposure: One or more of the following individualized dose reduction techniques were utilized for this examination: 1. Automated exposure control 2. Adjustment of the mA and/or kV according to patient size 3. Use of iterative reconstruction technique FINDINGS: Minimal bibasilar lung atelectasis. No evidence of free air identified in the abdomen. Mildly enlarged appearing liver likely mild hepatomegaly. There is mild enlarged spleen. The gallbladder is mildly distended. The stomach is nondistended. Few mild distended/dilated small bowel loops identified in the mid abdomen. There is a right-sided anterolateral abdominal wall hernia containing loops of bowel. However examination limited due to patient body habitus and the complete evaluation of the is limited as the most at the hernia is not included on the images. Left flank abdominal wall also not included on the images due to patient body habitus. The visualized pancreas grossly appears unremarkable The bilateral kidneys enhance symmetrically. Changes of colectomy with colostomy readjustment changes. Urinary bladder is mildly distended Moderate degenerative changes throughout the lumbar spine. IMPRESSION: 1. Limited examination due to patient body habitus. 2. Multiple dilated fluid distended small bowel loops identified in the abdomen could be partial small bowel obstruction, some loops of bowel extending into the right anterolateral abdominal wall hernia however evaluation is limited due to patient body habitus. 3. Hepatomegaly. Electronically signed by: Amrit Schulz MD (11/19/2018 11:59 AM) [facility]
--- NOTE | 2018-11-19 12:20 | PHYS DOC ---
Past Medical History Past Medical History: Diabetes-Type II, Other Additional Past Medical Histor: Crohn's disease, SBO Past Surgical History: Colectomy, Other Additional Past Surgical Histo: Full bowel resection w/stoma placement Additional Information: non smoker Alcohol Use: None Drug Use: None Adult General Chief Complaint Chief Complaint: ABDOMINAL PAIN HPI HPI Patient is a 33-year-old male who presents to the ER with nausea and vomiting accompanied by abdominal pain that started on Saturday. Symptoms have continued since that time. States that he has Crohn's disease and history of bowel obstruction since last one was in July. Rates his pain as a 7 out of 10 with pressure. Had a colonoscopy done this past Saturday. Review of Systems Review of Systems Constitutional: Denies fever or chills [] Eyes: Denies change in visual acuity, redness, or eye pain [] HENT: Denies nasal congestion or sore throat [] Respiratory: Denies cough or shortness of breath [] Cardiovascular: No additional information not addressed in HPI [] GI: Reports abdominal pain, nausea, and vomiting, His colostomy back is still making some stool. : Denies dysuria or hematuria [] Musculoskeletal: Denies back pain or joint pain [] Integument: Denies rash or skin lesions [] Neurologic: Denies headache, focal weakness or sensory changes [] Endocrine: Denies polyuria or polydipsia [] Complete systems were reviewed and found to be within normal limits, except as documented in this note. Current Medications Current Medications Current Medications Medications (Trade) Dose Ordered Sig/Marlo Start Time Stop Time Status Last Admin Dose Admin Fentanyl Citrate (Fentanyl 2ml Vial) 100 mcg 1X ONCE 11/19/18 09:30 11/19/18 09:33 DC 11/19/18 09:55 100 MCG Info (CONTRAST GIVEN -- Rx MONITORING) 1 each PRN DAILY PRN 11/19/18 10:30 11/19/18 12:42 DC Iohexol (Omnipaque 300 Mg/ml) 75 ml 1X ONCE 11/19/18 10:30 11/19/18 10:31 DC 11/19/18 11:00 75 ML Prochlorperazine Edisylate (Compazine) 10 mg 1X ONCE 11/19/18 09:30 11/19/18 09:33 DC 11/19/18 09:54 10 MG Sodium Chloride 1,000 ml @ 1,000 mls/hr Q1H 11/19/18 09:25 11/19/18 10:24 DC 11/19/18 09:54 1,000 MLS/HR Allergies Allergies Allergies Coded Allergies Type Severity Reaction Last Updated Verified No Known Drug Allergies 11/14/18 No Physical Exam Physical Exam Constitutional: Well developed, well nourished, no acute distress, non-toxic appearance. [] HENT: Normocephalic, atraumatic, oropharynx moist, no oral exudates, nose normal. [] Eyes: PERRLA, conjunctiva normal, no discharge. [] Neck: Normal range of motion, no tenderness, supple, no stridor. [] Cardiovascular:Heart rate regular rhythm, no murmur [] Lungs & Thorax: Bilateral breath sounds clear to auscultation [] Abdomen: Bowel sounds normal, soft, tenderness to left side of abdomen, no masses, no pulsatile masses. [] Skin: Warm, dry, no erythema, no rash. [] Back: No tenderness, no CVA tenderness. [] Extremities: No tenderness, no cyanosis, no clubbing, ROM intact, no edema. [] Neurologic: Alert and oriented X 3, normal motor function, normal sensory function, no focal deficits noted. [] Psychologic: Affect normal, judgement normal, mood normal. [] Current Patient Data Vital Signs Vital Signs Date Time Temp Pulse Resp B/P (MAP) Pulse Ox O2 Delivery O2 Flow Rate FiO2 11/19/18 11:50 98 16 165/81 (109) 97 Room Air 11/19/18 09:24 98.3 98.3 Lab Values Laboratory Tests Test 11/19/18 09:40 11/19/18 09:48 Urine Collection Type Unknown Urine Color Yellow Urine Clarity Clear Urine pH 5.0 Urine Specific [place] 1.020 Urine Protein 30 mg/dL (NEG-TRACE) Urine Glucose (UA) Negative mg/dL (NEG) Urine Ketones (Stick) Negative mg/dL (NEG) Urine Blood Negative (NEG) Urine Nitrite Negative (NEG) Urine Bilirubin Negative (NEG) Urine Urobilinogen Dipstick 0.2 mg/dL (0.2 mg/dL) Urine Leukocyte Esterase Negative (NEG) Urine RBC 0 /HPF (0-2) Urine WBC Occ /HPF (0-4) Urine Squamous Epithelial Cells Few /LPF Urine Bacteria 0 /HPF (0-FEW) White Blood Count 6.7 x10^3/uL (4.0-11.0) Red Blood Count 4.45 x10^6/uL (4.30-5.70) Hemoglobin 10.5 g/dL (13.0-17.5) L Hematocrit 33.8 % (39.0-53.0) L Mean Corpuscular Volume 76 fL (79-100) L Mean Corpuscular Hemoglobin 24 pg (25-35) L Mean Corpuscular Hemoglobin Concent 31 g/dL (31-37) Red Cell Distribution Width 17.7 % (11.5-14.5) H Platelet Count 247 x10^3/uL (140-400) Neutrophils (%) (Auto) 81 % (31-73) H Lymphocytes (%) (Auto) 8 % (24-48) L Monocytes (%) (Auto) 8 % (0-9) Eosinophils (%) (Auto) 3 % (0-3) Basophils (%) (Auto) 1 % (0-3) Neutrophils # (Auto) 5.4 x10^3uL (1.8-7.7) Lymphocytes # (Auto) 0.5 x10^3/uL (1.0-4.8) L Monocytes # (Auto) 0.6 x10^3/uL (0.0-1.1) Eosinophils # (Auto) 0.2 x10^3/uL (0.0-0.7) Basophils # (Auto) 0.0 x10^3/uL (0.0-0.2) Sodium Level 139 mmol/L (136-145) Potassium Level 4.2 mmol/L (3.5-5.1) Chloride Level 101 mmol/L (98-107) Carbon Dioxide Level 28 mmol/L (21-32) Anion Gap 10 (6-14) Blood Urea Nitrogen 10 mg/dL (8-26) Creatinine 0.8 mg/dL (0.7-1.3) Estimated GFR (Cockcroft-Gault) 110.0 BUN/Creatinine Ratio 13 (6-20) Glucose Level 240 mg/dL (70-99) H Calcium Level 9.0 mg/dL (8.5-10.1) Total Bilirubin 0.3 mg/dL (0.2-1.0) Aspartate Amino Transferase (AST) 11 U/L (15-37) L Alanine Aminotransferase (ALT) 17 U/L (16-63) Alkaline Phosphatase 97 U/L (46-116) Total Protein 7.2 g/dL (6.4-8.2) Albumin 3.0 g/dL (3.4-5.0) L Albumin/Globulin Ratio 0.7 (1.0-1.7) L Lipase 48 U/L (73-393) L Laboratory Tests 11/19/18 09:48 Laboratory Tests 11/19/18 09:48 EKG EKG [] Radiology/Procedures Radiology/Procedures []PATIENT: ANDREEA TANG EACCOUNT: [id number]#: [id number] : 1985 LOCATION: ER AGE: 33 SEX: M EXAM STATUS: REG ER ORD. PHYSICIAN: PRECIOUS ROMERO APRN REASON: r/o bowel obstrution, n/v/abd pain PROCEDURE: CT ABD PELV W/ORAL&IV CONTRAST Examination: CT of the abdomen pelvis with IV contrast HISTORY: History of abdominal pain, vomiting COMPARISON: 08/18/2018 TECHNIQUE: Axial CT images of the abdomen pelvis were performed with IV contrast. Coronal and sagittal reformats are performed Exposure: One or more of the following individualized dose reduction techniques were utilized for this examination: 1. Automated exposure control 2. Adjustment of the mA and/or kV according to patient size 3. Use of iterative reconstruction technique FINDINGS: Minimal bibasilar lung atelectasis. No evidence of free air identified in the abdomen. Mildly enlarged appearing liver likely mild hepatomegaly. There is mild enlarged spleen. The gallbladder is mildly distended. The stomach is nondistended. Few mild distended/dilated small bowel loops identified in the mid abdomen. There is a right-sided anterolateral abdominal wall hernia containing loops of bowel. However examination limited due to patient body habitus and the complete evaluation of the is limited as the most at the hernia is not included on the images. Left flank abdominal wall also not included on the images due to patient body habitus. The visualized pancreas grossly appears unremarkable The bilateral kidneys enhance symmetrically. Changes of colectomy with colostomy readjustment changes. Urinary bladder is mildly distended Moderate degenerative changes throughout the lumbar spine. IMPRESSION: 1. Limited examination due to patient body habitus. 2. Multiple dilated fluid distended small bowel loops identified in the abdomen could be partial small bowel obstruction, some loops of bowel extending into the right anterolateral abdominal wall hernia however evaluation is limited due to patient body habitus. 3. Hepatomegaly. Electronically signed by: Amrit Schulz MD (11/19/2018 11:59 AM) [facility] Course & Med Decision Making Course & Med Decision Making Pertinent Labs and Imaging studies reviewed. (See chart for details) Discussed signs and symptoms with patient. Will order pain and nausea medication. labs, urine, and imaging. Patient is agreeable to plan of care. Results show a partial small bowel obstruction. Called his PCP to admit at 12:21 and he agreed to admit. 12:30: Patient decides not to stay and agrees to leave against medical advice. Dragon Disclaimer Dragon Disclaimer This electronic medical record was generated, in whole or in part, using a voice recognition dictation system. Departure Departure Impression: Primary Impression: SBO (small bowel obstruction) Disposition: 07 AGAINST MEDICAL ADVICE Condition: STABLE Referrals: ARIANA MARSHALL MD (PCP) PRECIOUS ROMERO APRN November 19, 2018 12:20
== END 2018-11-19 12:33 | disposition left against medical advice (07) ==
LOC: ER 08:50
DX: K56.600 Partial intestinal obstruction, unspecified as to cause (principal); R11.2 Nausea with vomiting, unspecified; E11.9 Type 2 diabetes mellitus without complications; Z90.49 Acquired absence of other specified parts of digestive tract
CPT/HCPCS: 36415; 74177; 80053; 81001; 83690; 85025; 96361; 96374; 96375; 99285; J0780; J3010; J7030; Q9967

== ENCOUNTER 2019-01-28 14:39 | Inpatient (IN) | payer BC ==
[~2019-01-28] VITALS: Ht 182.9 cm; Wt 226.8 kg
[2019-01-28] MEDS ORDERED: IV NORMAL SALINE 1000ML BAG 1,000 ML IV SCH (15:21)
[2019-01-28] MEDS ORDERED: ONDANSETRON PF 4 MG/2 ML VIAL. IV ONE ×2 (15:30→16:45)
[2019-01-28] MEDS ORDERED: fentaNYL PF VIAL 100 MCG/2 ML VIAL IV ONE ×2 (15:30→16:45)
[2019-01-28 15:32] LABS: BASO % 0 % (0-3); EOS # 0.2 x10^3/uL (0.0-0.7); EOS % 2 % (0-3); HEMATOCRIT 44.6 % (39.0-53.0); HEMOGLOBIN 14.4 g/dL (13.0-17.5); LYMPH # 0.4 x10^3/uL (1.0-4.8); LYMPH % 4 % (24-48); MEAN CORPUSCULAR HEMOGLOBIN 24 pg (25-35); MEAN CORPUSCULAR HGB CONC 32 g/dL (31-37); MEAN CORPUSCULAR VOLUME 73 fL (79-100); MONO % 10 % (0-9); NEUT # 8.4 x10^3/uL (1.8-7.7); NEUT % 84 % (31-73); PLATELET COUNT 280 x10^3/uL (140-400); RED BLOOD COUNT 6.11 x10^6/uL (4.30-5.70); RED CELL DISTRIBUTION WIDTH 18.8 % (11.5-14.5)
--- NOTE | 2019-01-28 15:34 | EKG ---
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
[2019-01-28 15:58] LABS: CALCIUM 9.9 mg/dL (8.5-10.1); CREATININE 0.9 mg/dL (0.7-1.3); POTASSIUM 4.2 mmol/L (3.5-5.1)
[2019-01-28 16:02] LABS: ALBUMIN 3.5 g/dL (3.4-5.0); ALBUMIN/GLOBULIN RATIO 0.6 (1.0-1.7); TOTAL BILIRUBIN 0.6 mg/dL (0.2-1.0); TOTAL PROTEIN 8.9 g/dL (6.4-8.2)
--- NOTE | 2019-01-28 16:05 | PHYS DOC ---
Past Medical History Past Medical History: Diabetes-Type II, Other Additional Past Medical Histor: Crohn's disease, SBO (DEBBIE CHAVEZ APRN) Past Surgical History: Colectomy, Other Additional Past Surgical Histo: Full bowel resection w/stoma placement (DEBBIE CHAVEZ APRN) Alcohol Use: None Drug Use: None (DEBBIE CHAVEZ APRN) Adult General Chief Complaint Chief Complaint: ABDOMINAL PAIN HPI HPI Patient is a 33 year old Male who presents with states that he began having vomiting and abdominal tightness and cramping that is generalized. Patient has a history of Crohn's and has had a full colectomy and has a right sided colostomy. Patient states he did have a small bowel movement last night. Patient states it feels like he has a bowel obstruction of which hes had in the past. He rates his pain a 9 out of 10 and states is tight and cramping. Patient states he's only been vomiting bile are clear liquid. Patient states last night he put himself on a clear liquid diet because of the pain. (DEBBIE CHAVEZ [employer] SUPERVISOR) Review of Systems Review of Systems Constitutional: Denies fever or chills [] Eyes: Denies change in visual acuity, redness, or eye pain [] HENT: Denies nasal congestion or sore throat [] Respiratory: Denies cough or shortness of breath [] Cardiovascular: No additional information not addressed in HPI [] GI: Right and left upper quadrant abdominal pain, nausea, vomiting, denies bloody stools or diarrhea [] : Denies dysuria or hematuria [] Musculoskeletal: Denies back pain or joint pain [] Integument: Denies rash or skin lesions [] Neurologic: Denies headache, focal weakness or sensory changes [] All other systems were reviewed and found to be within normal limits, except as documented in this note. (DEBBIE CHAVEZ APRN) Current Medications Current Medications Current Medications Medications (Trade) Dose Ordered Sig/Marlo Start Time Stop Time Status Last Admin Dose Admin Fentanyl Citrate (Fentanyl 2ml Vial) 50 mcg PRN Q1HR PRN 01/28/19 17:45 01/29/19 17:44 DC 01/29/19 15:54 50 MCG Iohexol (Omnipaque 300 Mg/ml) 75 ml 1X ONCE 01/28/19 16:30 01/28/19 16:33 DC 01/28/19 16:31 75 ML Ondansetron HCl (Zofran) 4 mg PRN Q8HRS PRN 01/28/19 17:45 01/29/19 17:44 DC 01/29/19 06:23 4 MG Sodium Chloride 1,000 ml @ 150 mls/hr Q6H40M 01/28/19 17:43 01/29/19 17:42 DC 01/29/19 00:23 150 MLS/HR (PRECIOUS STAFFORD DO) Allergies Allergies Allergies Coded Allergies Type Severity Reaction Last Updated Verified No Known Drug Allergies 11/14/18 No (PRECIOUS STAFFORD DO) Physical Exam Physical Exam Constitutional: Well developed, well nourished, no acute distress, non-toxic appearance. [] HENT: Normocephalic, atraumatic, bilateral external ears normal, oropharynx moist, no oral exudates, nose normal. [] Eyes: PERRLA, EOMI, conjunctiva normal, no discharge. [] Neck: Normal range of motion, no tenderness, supple, no stridor. [] Cardiovascular:Heart rate regular rhythm, no murmur [] Lungs & Thorax: Bilateral breath sounds clear to auscultation [] Abdomen: Bowel sounds normal, soft, right and left upper tenderness, right-sided colostomy bag, no masses, no pulsatile masses. [] Skin: Warm, dry, no erythema, no rash. [] Back: No tenderness, no CVA tenderness. [] Extremities: No tenderness, no cyanosis, no clubbing, ROM intact, no edema. [] Neurologic: Alert and oriented X 3, normal motor function, normal sensory function, no focal deficits noted. [] Psychologic: Affect normal, judgement normal, mood normal. [] (KATHY,DEBBIE Bucio APRN) Current Patient Data Vital Signs Vital Signs Date Time Temp Pulse Resp B/P (MAP) Pulse Ox O2 Delivery O2 Flow Rate FiO2 01/28/19 17:38 102 150/90 (110) 92 Room Air 01/28/19 15:05 97.9 22 97.9 (PRECIOUS STAFFORD DO) Lab Values Laboratory Tests Test 01/28/19 15:20 01/28/19 17:18 White Blood Count 10.0 x10^3/uL (4.0-11.0) Red Blood Count 6.11 x10^6/uL (4.30-5.70) H Hemoglobin 14.4 g/dL (13.0-17.5) Hematocrit 44.6 % (39.0-53.0) Mean Corpuscular Volume 73 fL (79-100) L Mean Corpuscular Hemoglobin 24 pg (25-35) L Mean Corpuscular Hemoglobin Concent 32 g/dL (31-37) Red Cell Distribution Width 18.8 % (11.5-14.5) H Platelet Count 280 x10^3/uL (140-400) Neutrophils (%) (Auto) 84 % (31-73) H Lymphocytes (%) (Auto) 4 % (24-48) L Monocytes (%) (Auto) 10 % (0-9) H Eosinophils (%) (Auto) 2 % (0-3) Basophils (%) (Auto) 0 % (0-3) Neutrophils # (Auto) 8.4 x10^3/uL (1.8-7.7) H Lymphocytes # (Auto) 0.4 x10^3/uL (1.0-4.8) L Monocytes # (Auto) 1.0 x10^3/uL (0.0-1.1) Eosinophils # (Auto) 0.2 x10^3/uL (0.0-0.7) Basophils # (Auto) 0.0 x10^3/uL (0.0-0.2) Segmented Neutrophils % 78 % (35-66) H Band Neutrophils % 6 % (0-9) Lymphocytes % 5 % (24-48) L Monocytes % 8 % (0-10) Eosinophils % 3 % (0-5) Platelet Estimate Adequate (ADEQUATE) Hypochromasia Slight Anisocytosis Slight Microcytosis Slight Sodium Level 137 mmol/L (136-145) Potassium Level 4.2 mmol/L (3.5-5.1) Chloride Level 99 mmol/L (98-107) Carbon Dioxide Level 27 mmol/L (21-32) Anion Gap 11 (6-14) Blood Urea Nitrogen 19 mg/dL (8-26) Creatinine 0.9 mg/dL (0.7-1.3) Estimated GFR (Cockcroft-Gault) 96.0 BUN/Creatinine Ratio 21 (6-20) H Glucose Level 191 mg/dL (70-99) H Hemoglobin A1c 8.7 % (4.8-5.6) H Lactic Acid Level 1.9 mmol/L (0.4-2.0) Calcium Level 9.9 mg/dL (8.5-10.1) Total Bilirubin 0.6 mg/dL (0.2-1.0) Aspartate Amino Transferase (AST) 14 U/L (15-37) L Alanine Aminotransferase (ALT) 23 U/L (16-63) Alkaline Phosphatase 94 U/L (46-116) Troponin I Quantitative < 0.017 ng/mL (0.000-0.055) Total Protein 8.9 g/dL (6.4-8.2) H Albumin 3.5 g/dL (3.4-5.0) Albumin/Globulin Ratio 0.6 (1.0-1.7) L Lipase 50 U/L (73-393) L Urine Collection Type Unknown Urine Color Lin Urine Clarity Clear Urine pH 5.0 Urine Specific [place] >=1.030 Urine Protein 100 mg/dL (NEG-TRACE) Urine Glucose (UA) Negative mg/dL (NEG) Urine Ketones (Stick) Trace mg/dL (NEG) Urine Blood Negative (NEG) Urine Nitrite Negative (NEG) Urine Bilirubin Small (NEG) Urine Urobilinogen Dipstick 1.0 mg/dL (0.2 mg/dL) Urine Leukocyte Esterase Negative (NEG) Urine RBC 0 /HPF (0-2) Urine WBC Occ /HPF (0-4) Urine Squamous Epithelial Cells Mod /LPF Urine Amorphous Sediment Present /HPF Urine Bacteria 0 /HPF (0-FEW) Urine Mucus Mod /LPF Laboratory Tests 01/28/19 15:20 Laboratory Tests 01/28/19 15:20 (PRECIOUS STAFFORD DO) EKG EKG Sinus Tachycardia and no STEMI Interpretation Time: [address] Stafford (DEBBIE CHAVEZ APRN) Radiology/Procedures Radiology/Procedures [] (DEBBIE CHAVEZ APRN) Impressions: [id number] [place] [address] IMAGING REPORT Signed PATIENT: ANDREEA TANG ACCOUNT: [id number] : 1985 LOCATION: ER AGE: 33 SEX: M EXAM STATUS: REG ER ORD. PHYSICIAN: DEBBIE CHAVEZ APRN REASON: abd pain, nausea, vomiting PROCEDURE: CT ABD PELV W/ IV CONTRST ONLY Examination: CT ABD PELV W/ IV CONTRST ONLY History: Abdomen pain, nausea and vomiting Comparison/Correlation: 11/19/2018 CT abdomen and pelvis with oral contrast Findings: Axial images of the abdomen and pelvis were obtained following IV contrast. Sagittal and coronal reformatted images were provided. Due to patient body habitus, the left flank and right intra-abdominal wall were not fully included limiting assessment of bowel which extends beyond the [id number] at these regions. Visualized lung bases are clear. Small hiatal hernia noted. Liver is unremarkable. Spleen is mildly enlarged measuring up to 15 cm longitudinal. Pancreas and adrenal glands are normal. Kidneys are unremarkable. Gallbladder fossa is unremarkable. Numerous fluid-filled distended small bowel loops are identified. Right lower abdominal wall hernia is present. Bowel extends into this hernia. Entirety of this region is not included as described earlier due to patient body habitus. Possibly of obstruction at this level is not excluded. Colectomy noted. No enlarged abdominal or pelvic lymph nodes. No ascites or pelvic free fluid. Evaluation of bony structures is limited due to patient body habitus. No definite acute process. Impression: Small bowel obstruction is suspected and may be related to transition within a right lower intra-abdominal wall hernia. This exam is limited due to patient body habitus. Small hiatal hernia. PQRS Compliance Statement: One or more of the following individualized dose reduction techniques were utilized for this examination: 1. Automated exposure control 2. Adjustment of the mA and/or kV according to patient size 3. Use of iterative reconstruction technique Electronically signed by: Miguel Lang MD (01/28/2019 4:46 PM) [facility] DICTATED and SIGNED BY: MIGUEL LANG MD DATE: 01/28/19 1646 (DEBBIE CHAVEZ APRN) Course & Med Decision Making Course & Med Decision Making Patient is a 33 year old Male who presents with states that he began having vomiting and abdominal tightness and cramping that is generalized. Patient has a history of Crohn's and has had a full colectomy and has a right sided colostomy. Patient states he did have a small bowel movement last night. Patient states it feels like he has a bowel obstruction of which hes had in the past. He rates his pain a 9 out of 10 and states is tight and cramping. Patient states he's only been vomiting bile are clear liquid. Patient states last night he put himself on a clear liquid diet because of the pain. Left and right upper abdominal is tight and patient states it is bloated. Patient is 510 pounds. Patient has slight tenderness with palpation to the right upper quadrants. Patient is alert and oriented. Patient was wheeled back to the ED room. Patient is slightly diaphoretic. Bay skin warm and dry. Patient denies shortness of breath or chest pain, numbness or tingling, dizziness, syncope. Lungs are clear to auscultation all lobes. Afebrile. CT shows Small bowel obstruction is suspected and may be related to transition within a right lower intra-abdominal wall hernia. This exam is limited due to patient body habitus. Small hiatal hernia. 1740: Dr Marshall states to admit the patient and consult surgery. 180: Have spoken to Dr. Rome concerning the patient. (DEBBIE CHAVEZ APRN) Dragon Disclaimer Dragon Disclaimer This electronic medical record was generated, in whole or in part, using a voice recognition dictation system. (DEBBIE CHAVEZ APRN) Departure Departure Impression: Primary Impression: SBO (small bowel obstruction) Disposition: ADMITTED INPATIENT Admitting Physician: Ariana Marshall (DEBBIE CHAVEZ APRN) Condition: STABLE Referrals: ARIANA MARSHALL MD (PCP) Attending Signature Attending Signature I have reviewed the PA/HEEL SHAPER's note and plan of care. I was available for consultation as needed during the patient's visit in the emergency department. I agree with the clinical impression, plan, and disposition. (PRECIOUS STAFFORD DO) DEBBIE CHAVEZ APRN Jan 28, 2019 16:05 PRECIOUS STAFFORD DO Jan 31, 2019 05:44
[2019-01-28] MEDS ORDERED: IOHEXOL 300 MG/ML 100ML VIAL. IV ONE (16:30)
--- NOTE | 2019-01-28 16:49 | RAD ---
Examination: CT ABD PELV W/ IV CONTRST ONLY History: Abdomen pain, nausea and vomiting Comparison/Correlation: 11/19/2018 CT abdomen and pelvis with oral contrast Findings: Axial images of the abdomen and pelvis were obtained following IV contrast. Sagittal and coronal reformatted images were provided. Due to patient body habitus, the left flank and right intra-abdominal wall were not fully included limiting assessment of bowel which extends beyond the [id number] at these regions. Visualized lung bases are clear. Small hiatal hernia noted. Liver is unremarkable. Spleen is mildly enlarged measuring up to 15 cm longitudinal. Pancreas and adrenal glands are normal. Kidneys are unremarkable. Gallbladder fossa is unremarkable. Numerous fluid-filled distended small bowel loops are identified. Right lower abdominal wall hernia is present. Bowel extends into this hernia. Entirety of this region is not included as described earlier due to patient body habitus. Possibly of obstruction at this level is not excluded. Colectomy noted. No enlarged abdominal or pelvic lymph nodes. No ascites or pelvic free fluid. Evaluation of bony structures is limited due to patient body habitus. No definite acute process. Impression: Small bowel obstruction is suspected and may be related to transition within a right lower intra-abdominal wall hernia. This exam is limited due to patient body habitus. Small hiatal hernia. PQRS Compliance Statement: One or more of the following individualized dose reduction techniques were utilized for this examination: 1. Automated exposure control 2. Adjustment of the mA and/or kV according to patient size 3. Use of iterative reconstruction technique Electronically signed by: Miguel Mccarty MD (01/28/2019 4:46 PM) [facility]
[2019-01-28] MEDS ORDERED: IV NORMAL SALINE 1000ML BAG 1,000 ML IV ONE (17:15)
[2019-01-28 17:19] LABS: % BANDS 6 % (0-9); % EOS 3 % (0-5); % LYMPHS 5 % (24-48); % MONOS 8 % (0-10); % SEGS 78 % (35-66); ANISOCYTOSIS SLIGHT; HYPOCHROMIA SLIGHT; MICROCYTOSIS SLIGHT; PLT ESTIMATE ADEQUATE (ADEQUATE)
[2019-01-28 17:34] LABS: BILIRUBIN,URINE SMALL (NEG); CLARITY,URINE CLEAR; COLOR,URINE AMBER; NITRITE,URINE NEGATIVE (NEG); PROTEIN,URINE 100 mg/dL (NEG-TRACE)
[2019-01-28 17:40] LABS: SQUAMOUS EPITHELIAL CELL,UR MOD /LPF
[2019-01-28 17:43] LABS: AMORPHOUS SEDIMENT,UR PRESENT /HPF; BACTERIA,URINE 0 /HPF (0-FEW); RBC,URINE 0 /HPF (0-2); WBC,URINE OCC /HPF (0-4)
[2019-01-28] MEDS: fentaNYL PF VIAL 100 MCG/2 ML VIAL IV PRN ×3 (18:19→23:09)
[2019-01-28] MEDS: ONDANSETRON PF 4 MG/2 ML VIAL. IV PRN (19:28)
[2019-01-28 19:36] VITALS: BP 142/93
[2019-01-28 23:00] VITALS: BP 154/105
[2019-01-29] MEDS: IV NORMAL SALINE 1000ML BAG 1,000 ML IV SCH ×4 (00:23→13:43)
[2019-01-29] MEDS: fentaNYL PF VIAL 100 MCG/2 ML VIAL IV PRN ×6 (02:18→22:56)
[2019-01-29 03:00] VITALS: BP 140/97
[2019-01-29] MEDS: ONDANSETRON PF 4 MG/2 ML VIAL. IV PRN ×2 (06:23→19:47)
[2019-01-29 08:06] VITALS: BP 141/78
--- NOTE | 2019-01-29 08:12 | HP ---
ADMIT DATE: 01/28/2019 CHIEF COMPLAINT: Abdominal pain and vomiting. HISTORY OF PRESENT ILLNESS: The patient is well known to us with chronic recurrent small bowel obstructions, super morbid obesity and diabetes who presented with abdominal pain, nausea and vomiting. CT scan showed evidence of small-bowel obstruction, NG tube was placed and he was made n.p.o. and given IV fluids overnight and surgical consultation was placed. He denies hematemesis, melena, fever or any other specific new symptoms. He has had multiple admissions for same problem and has never required surgery to this point. Certainly surgeons have declined to operate on him for intra-abdominal adhesions because of his super morbid obesity and high risk. He has been evaluated both at [facility] and [facility] for this question. He has well-controlled diabetes and takes only metformin and is intermittently compliant with this according to him. ALLERGIES: He has no known drug allergies. SOCIAL HISTORY: He is single. He is employed, nonsmoker, nondrinker to our knowledge. FAMILY HISTORY: Unremarkable. REVIEW OF SYSTEMS: No other known problems. OBJECTIVE: ENT: All within normal limits. NECK: No masses, nodes or bruits. LUNGS: Clear. CARDIOVASCULAR: Regular rate. No tachycardia or murmur. ABDOMEN: Morbidly obese. Multiple small ventral hernias in place, no specific ones. He has a colostomy placed from prior colectomy for Crohn's disease. EXTREMITIES: Diffuse edema in the lower extremities. No acute new ones or unusual findings. Pedal pulses are adequate. NEUROLOGIC: Physiologic nonfocal. ASSESSMENT: Recurrent small-bowel obstruction, likely secondary to intra-abdominal adhesions and possibly hernias as well. PLAN: Conservative care as ordered. ARIANA MARSHALL MD DR: ORTEGA/vj JOB#: [id number] / [id number]
[2019-01-29] MEDS: IV DEXTROSE 5%-LACT RINGERS 1,000 ML IV SCH ×2 (08:35→17:52)
[2019-01-29] MEDS ORDERED: DEXTROSE 50% 25 GM / 50ML DISP.SYRIN. IV PRN (09:00)
[2019-01-29] MEDS: KETOROLAC 30 MG/ML VIAL. IV PRN ×2 (10:12→19:47)
[2019-01-29 11:38] VITALS: BP 148/99
[2019-01-29] MEDS: INSULIN LISPRO 300 UNITS/3 ML INSULN.PEN. SQ SCH ×2 (11:56→17:56)
--- NOTE | 2019-01-29 12:13 | PDOC2 ---
CONSULT Date of Consult Date of Consult DATE: 01/29/19 TIME: 12:09 Reason for Consult Reason for Consult: SBO Referring Physician Referring Physician: Dr. Zaragoza Identification/Chief Complaint Chief Complaint abd pain Source Source: Chart review, Patient History of Present Illness Reason for Visit: 33 yo M with multiple episodes of SBO, presents with c/o abd pain. He reports feeling better with NGT and has passed a small amount via the ostomy. His pain is improved. Past Medical History Cardiovascular: HTN GI: Inflam bowel disease, Other Infectious disease: No pertinent hx Endocrine: Diabetes Past Surgical History Past Surgical History: Pacemaker, Hernia Repair, Colectomy Family History Family History: Other Social History ALCOHOL: none Drugs: None Current Medications Current Medications Current Medications Sodium Chloride 1,000 ml @ 1,000 mls/hr Q1H IV Last administered on 01/28/19 15:40; Start 01/28/19 at 15:21; Stop 01/28/19 at 16:20; Status DC Fentanyl Citrate (Fentanyl 2ml Vial) 50 mcg 1X ONCE IV Last administered on 01/28/19 15:40; Start 01/28/19 at 15:30; Stop 01/28/19 at 15:31; Status DC Ondansetron HCl (Zofran) 4 mg 1X ONCE IV Last administered on 01/28/19 15:40; Start 01/28/19 at 15:30; Stop 01/28/19 at 15:31; Status DC Iohexol (Omnipaque 300 Mg/ml) 75 ml 1X ONCE IV Last administered on 01/28/19at 16:31; Start 01/28/19 at 16:30; Stop 01/28/19 at 16:33; Status DC Fentanyl Citrate (Fentanyl 2ml Vial) 50 mcg 1X ONCE IV Last administered on 01/28/19 16:53; Start 01/28/19 at 16:45; Stop 01/28/19 at 16:46; Status DC Ondansetron HCl (Zofran) 4 mg 1X ONCE IV Last administered on 01/28/19at 16:52; Start 01/28/19 at 16:45; Stop 01/28/19 at 16:46; Status DC Sodium Chloride 1,000 ml @ 1,000 mls/hr 1X ONCE IV Last administered on 01/28/19at 17:34; Start 01/28/19 at 17:15; Stop 01/28/19 at 18:14; Status DC Ondansetron HCl (Zofran) 4 mg PRN Q8HRS PRN IV NAUSEA/VOMITING Last admin istered on 01/29/19at 06:23; Start 01/28/19 at 17:45; Stop 01/29/19 at 17:44 Fentanyl Citrate (Fentanyl 2ml Vial) 50 mcg PRN Q1HR PRN IV PAIN Last administered on 01/29/19at 11:55; Start 01/28/19 at 17:45; Stop 01/29/19 at 17:44 Sodium Chloride 1,000 ml @ 150 mls/hr Q6H40M IV Last administered on 01/29/19at 00:23; Start 01/28/19 at 17:43; Stop 01/29/19 at 17:42 Dextrose/Lactated Ringer's 1,000 ml @ 100 mls/hr Q10H IV Last administered on 01/29/19at 08:35; Start 01/29/19 at 08:30 Ketorolac Tromethamine (Toradol 30mg Vial) 30 mg PRN Q6HRS PRN IV PAIN Last administered on 01/29/19at 10:12; Start 01/29/19 at 08:30; Stop 02/03/19 at 08:29 Insulin Human Lispro (HumaLOG) 0-9 UNITS TIDWMEALS SQ ; Start 01/29/19 at 12:00 Dextrose (Dextrose 50%-Water Syringe) 12.5 gm PRN Q15MIN PRN IV SEE COMMENTS; Start 01/29/19 at 09:00 Active Scripts Active Tramadol Hcl 50 Mg Tablet 50 Mg PO Q6HRS PRN 5 Days Reported Trulicity (Dulaglutide) 0.75 Mg/0.5 Ml Pen.injctr 0.75 Mg SQ WEEKLY Humira (Adalimumab) 40 Mg/0.8 Ml Pen.ij.kit 1 Syr SQ Q2WKS Metformin Hcl 500 Mg Tablet 500 Mg PO BID [lovastatin] Allergies Allergies: Coded Allergies: No Known Drug Allergies (Unverified , 11/14/18) ROS Gastrointestinal: Yes Abdominal Pain Physical Exam General: Alert, Oriented X3, Cooperative, No acute distress, Other (super obese, NGT in place) HEENT: Atraumatic Lungs: Normal air movement Abdomen: Soft, Other (morbidly obese, ostomy RLQ, hernia lower abd.) Skin: No rashes, No breakdown Neuro: Normal speech, Sensation intact Psych/Mental Status: Mental status NL, Mood NL Vitals VITALS Vital Signs Date Time Temp Pulse Resp B/P (MAP) Pulse Ox O2 Delivery O2 Flow Rate FiO2 01/29/19 11:55 16 96 Room Air 01/29/19 08:06 97.9 112 141/78 (99) 97.9 Labs Labs Laboratory Tests Test 01/28/19 15:20 01/28/19 17:18 01/29/19 11:50 White Blood Count 10.0 x10^3/uL (4.0-11.0) Red Blood Count 6.11 x10^6/uL (4.30-5.70) Hemoglobin 14.4 g/dL (13.0-17.5) Hematocrit 44.6 % (39.0-53.0) Mean Corpuscular Volume 73 fL (79-100) Mean Corpuscular Hemoglobin 24 pg (25-35) Mean Corpuscular Hemoglobin Concent 32 g/dL (31-37) Red Cell Distribution Width 18.8 % (11.5-14.5) Platelet Count 280 x10^3/uL (140-400) Neutrophils (%) (Auto) 84 % (31-73) Lymphocytes (%) (Auto) 4 % (24-48) Monocytes (%) (Auto) 10 % (0-9) Eosinophils (%) (Auto) 2 % (0-3) Basophils (%) (Auto) 0 % (0-3) Neutrophils # (Auto) 8.4 x10^3/uL (1.8-7.7) Lymphocytes # (Auto) 0.4 x10^3/uL (1.0-4.8) Monocytes # (Auto) 1.0 x10^3/uL (0.0-1.1) Eosinophils # (Auto) 0.2 x10^3/uL (0.0-0.7) Basophils # (Auto) 0.0 x10^3/uL (0.0-0.2) Segmented Neutrophils % 78 % (35-66) Band Neutrophils % 6 % (0-9) Lymphocytes % 5 % (24-48) Monocytes % 8 % (0-10) Eosinophils % 3 % (0-5) Platelet Estimate Adequate (ADEQUATE) Hypochromasia Slight Anisocytosis Slight Microcytosis Slight Sodium Level 137 mmol/L (136-145) Potassium Level 4.2 mmol/L (3.5-5.1) Chloride Level 99 mmol/L (98-107) Carbon Dioxide Level 27 mmol/L (21-32) Anion Gap 11 (6-14) Blood Urea Nitrogen 19 mg/dL (8-26) Creatinine 0.9 mg/dL (0.7-1.3) Estimated GFR (Cockcroft-Gault) 96.0 BUN/Creatinine Ratio 21 (6-20) Glucose Level 191 mg/dL (70-99) Lactic Acid Level 1.9 mmol/L (0.4-2.0) Calcium Level 9.9 mg/dL (8.5-10.1) Total Bilirubin 0.6 mg/dL (0.2-1.0) Aspartate Amino Transf (AST/SGOT) 14 U/L (15-37) Alanine Aminotransferase (ALT/SGPT) 23 U/L (16-63) Alkaline Phosphatase 94 U/L (46-116) Troponin I Quantitative < 0.017 ng/mL (0.000-0.055) Total Protein 8.9 g/dL (6.4-8.2) Albumin 3.5 g/dL (3.4-5.0) Albumin/Globulin Ratio 0.6 (1.0-1.7) Lipase 50 U/L (73-393) Urine Collection Type Unknown Urine Color Lin Urine Clarity Clear Urine pH 5.0 Urine Specific [place] >=1.030 Urine Protein 100 mg/dL (NEG-TRACE) Urine Glucose (UA) Negative mg/dL (NEG) Urine Ketones (Stick) Trace mg/dL (NEG) Urine Blood Negative (NEG) Urine Nitrite Negative (NEG) Urine Bilirubin Small (NEG) Urine Urobilinogen Dipstick 1.0 mg/dL (0.2 mg/dL) Urine Leukocyte Esterase Negative (NEG) Urine RBC 0 /HPF (0-2) Urine WBC Occ /HPF (0-4) Urine Squamous Epithelial Cells Mod /LPF Urine Amorphous Sediment Present /HPF Urine Bacteria 0 /HPF (0-FEW) Urine Mucus Mod /LPF Glucose (Fingerstick) 169 mg/dL (70-99) Laboratory Tests Test 01/28/19 15:20 01/28/19 17:18 01/29/19 11:50 White Blood Count 10.0 x10^3/uL (4.0-11.0) Red Blood Count 6.11 x10^6/uL (4.30-5.70) Hemoglobin 14.4 g/dL (13.0-17.5) Hematocrit 44.6 % (39.0-53.0) Mean Corpuscular Volume 73 fL (79-100) Mean Corpuscular Hemoglobin 24 pg (25-35) Mean Corpuscular Hemoglobin Concent 32 g/dL (31-37) Red Cell Distribution Width 18.8 % (11.5-14.5) Platelet Count 280 x10^3/uL (140-400) Neutrophils (%) (Auto) 84 % (31-73) Lymphocytes (%) (Auto) 4 % (24-48) Monocytes (%) (Auto) 10 % (0-9) Eosinophils (%) (Auto) 2 % (0-3) Basophils (%) (Auto) 0 % (0-3) Neutrophils # (Auto) 8.4 x10^3/uL (1.8-7.7) Lymphocytes # (Auto) 0.4 x10^3/uL (1.0-4.8) Monocytes # (Auto) 1.0 x10^3/uL (0.0-1.1) Eosinophils # (Auto) 0.2 x10^3/uL (0.0-0.7) Basophils # (Auto) 0.0 x10^3/uL (0.0-0.2) Segmented Neutrophils % 78 % (35-66) Band Neutrophils % 6 % (0-9) Lymphocytes % 5 % (24-48) Monocytes % 8 % (0-10) Eosinophils % 3 % (0-5) Platelet Estimate Adequate (ADEQUATE) Hypochromasia Slight Anisocytosis Slight Microcytosis Slight Sodium Level 137 mmol/L (136-145) Potassium Level 4.2 mmol/L (3.5-5.1) Chloride Level 99 mmol/L (98-107) Carbon Dioxide Level 27 mmol/L (21-32) Anion Gap 11 (6-14) Blood Urea Nitrogen 19 mg/dL (8-26) Creatinine 0.9 mg/dL (0.7-1.3) Estimated GFR (Cockcroft-Gault) 96.0 BUN/Creatinine Ratio 21 (6-20) Glucose Level 191 mg/dL (70-99) Lactic Acid Level 1.9 mmol/L (0.4-2.0) Calcium Level 9.9 mg/dL (8.5-10.1) Total Bilirubin 0.6 mg/dL (0.2-1.0) Aspartate Amino Transf (AST/SGOT) 14 U/L (15-37) Alanine Aminotransferase (ALT/SGPT) 23 U/L (16-63) Alkaline Phosphatase 94 U/L (46-116) Troponin I Quantitative < 0.017 ng/mL (0.000-0.055) Total Protein 8.9 g/dL (6.4-8.2) Albumin 3.5 g/dL (3.4-5.0) Albumin/Globulin Ratio 0.6 (1.0-1.7) Lipase 50 U/L (73-393) Urine Collection Type Unknown Urine Color Lin Urine Clarity Clear Urine pH 5.0 Urine Specific [place] >=1.030 Urine Protein 100 mg/dL (NEG-TRACE) Urine Glucose (UA) Negative mg/dL (NEG) Urine Ketones (Stick) Trace mg/dL (NEG) Urine Blood Negative (NEG) Urine Nitrite Negative (NEG) Urine Bilirubin Small (NEG) Urine Urobilinogen Dipstick 1.0 mg/dL (0.2 mg/dL) Urine Leukocyte Esterase Negative (NEG) Urine RBC 0 /HPF (0-2) Urine WBC Occ /HPF (0-4) Urine Squamous Epithelial Cells Mod /LPF Urine Amorphous Sediment Present /HPF Urine Bacteria 0 /HPF (0-FEW) Urine Mucus Mod /LPF Glucose (Fingerstick) 169 mg/dL (70-99) Images Images Ct c/w SBO related to hernia Assessment/Plan Assessment/Plan SBO, VIH appears to be improving with NGT and supportive care d/w briefly consideration of elective repair. This would be high risk. Pt not currently interested. Thanks for consult! ERIKA JEFFERSON MD Jan 29, 2019 12:13
--- NOTE | 2019-01-29 13:43 | NUR ---
SS following for discharge planning. SS reviewed pt chart. Pt is from home and is currently on room air. No discharge needs noted at this time. SS will continue to follow for discharge planning.
[2019-01-29 15:03] VITALS: BP 158/91
[2019-01-29 19:00] VITALS: BP 162/87
[2019-01-29 23:00] VITALS: BP 153/81
[2019-01-30 00:07] LABS: HEMOGLOBIN A1C 8.7 % (4.8-5.6)
[2019-01-30] MEDS: fentaNYL PF VIAL 100 MCG/2 ML VIAL IV PRN ×6 (02:59→23:14)
[2019-01-30 03:00] VITALS: BP 141/86
[2019-01-30] MEDS: ONDANSETRON PF 4 MG/2 ML VIAL. IV PRN ×2 (04:00→23:19)
[2019-01-30] MEDS: IV DEXTROSE 5%-LACT RINGERS 1,000 ML IV SCH ×3 (04:01→15:11)
[2019-01-30 07:00] VITALS: BP 153/96
[2019-01-30] MEDS: INSULIN LISPRO 300 UNITS/3 ML INSULN.PEN. SQ SCH ×3 (08:00→17:00)
--- NOTE | 2019-01-30 08:54 | PDOC ---
Provider Note Provider Note sleeping, ng output high 01/29 , seems less today- labs ok- a1c 8.7 on trulicity- cont same for add, add low dose ARIANA Vick MD Jan 30, 2019 08:54
[2019-01-30 11:00] VITALS: BP 145/95
[2019-01-30] MEDS: INSULIN GLARGINE 300 UNITS/3 ML INSULN.PEN. SQ SCH (11:17)
[2019-01-30 11:26] LABS: CALCIUM 8.4 mg/dL (8.5-10.1); CREATININE 0.8 mg/dL (0.7-1.3); POTASSIUM 3.7 mmol/L (3.5-5.1)
--- NOTE | 2019-01-30 12:05 | PDOC ---
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/19 1205: SURGICAL PROGRESS NOTE Subjective now having some ostomy function NG still with significant output Vital Signs Vital Signs Date Time Temp Pulse Resp B/P (MAP) Pulse Ox O2 Delivery O2 Flow Rate FiO2 01/30/19 11:09 16 96 Room Air 01/30/19 07:00 98.1 110 153/96 (115) 98.1 I&O Intake and Output 01/30/19 07:00 Intake Total 1000 ml Output Total 7150 ml Balance -6150 ml Intake Oral 0 ml IV Total 1000 ml Output Urine Total 925 ml Stool Total 925 ml Gastric Drainage Total 3900 ml Drainage Total 1400 ml # Voids 4 General: Alert, Oriented X3, Cooperative, No acute distress HEENT: Other (NG brown drainage ) Abdomen: Soft, Other (ostomy with stool) Labs Laboratory Tests Test 01/28/19 15:20 01/28/19 17:18 01/29/19 11:50 01/29/19 16:37 White Blood Count 10.0 x10^3/uL (4.0-11.0) Red Blood Count 6.11 x10^6/uL (4.30-5.70) Hemoglobin 14.4 g/dL (13.0-17.5) Hematocrit 44.6 % (39.0-53.0) Mean Corpuscular Volume 73 fL (79-100) Mean Corpuscular Hemoglobin 24 pg (25-35) Mean Corpuscular Hemoglobin Concent 32 g/dL (31-37) Red Cell Distribution Width 18.8 % (11.5-14.5) Platelet Count 280 x10^3/uL (140-400) Neutrophils (%) (Auto) 84 % (31-73) Lymphocytes (%) (Auto) 4 % (24-48) Monocytes (%) (Auto) 10 % (0-9) Eosinophils (%) (Auto) 2 % (0-3) Basophils (%) (Auto) 0 % (0-3) Neutrophils # (Auto) 8.4 x10^3/uL (1.8-7.7) Lymphocytes # (Auto) 0.4 x10^3/uL (1.0-4.8) Monocytes # (Auto) 1.0 x10^3/uL (0.0-1.1) Eosinophils # (Auto) 0.2 x10^3/uL (0.0-0.7) Basophils # (Auto) 0.0 x10^3/uL (0.0-0.2) Segmented Neutrophils % 78 % (35-66) Band Neutrophils % 6 % (0-9) Lymphocytes % 5 % (24-48) Monocytes % 8 % (0-10) Eosinophils % 3 % (0-5) Platelet Estimate Adequate (ADEQUATE) Hypochromasia Slight Anisocytosis Slight Microcytosis Slight Sodium Level 137 mmol/L (136-145) Potassium Level 4.2 mmol/L (3.5-5.1) Chloride Level 99 mmol/L (98-107) Carbon Dioxide Level 27 mmol/L (21-32) Anion Gap 11 (6-14) Blood Urea Nitrogen 19 mg/dL (8-26) Creatinine 0.9 mg/dL (0.7-1.3) Estimated GFR (Cockcroft-Gault) 96.0 BUN/Creatinine Ratio 21 (6-20) Glucose Level 191 mg/dL (70-99) Hemoglobin A1c 8.7 % (4.8-5.6) Lactic Acid Level 1.9 mmol/L (0.4-2.0) Calcium Level 9.9 mg/dL (8.5-10.1) Total Bilirubin 0.6 mg/dL (0.2-1.0) Aspartate Amino Transf (AST/SGOT) 14 U/L (15-37) Alanine Aminotransferase (ALT/SGPT) 23 U/L (16-63) Alkaline Phosphatase 94 U/L (46-116) Troponin I Quantitative < 0.017 ng/mL (0.000-0.055) Total Protein 8.9 g/dL (6.4-8.2) Albumin 3.5 g/dL (3.4-5.0) Albumin/Globulin Ratio 0.6 (1.0-1.7) Lipase 50 U/L (73-393) Urine Collection Type Unknown Urine Color Lin Urine Clarity Clear Urine pH 5.0 Urine Specific [place] >=1.030 Urine Protein 100 mg/dL (NEG-TRACE) Urine Glucose (UA) Negative mg/dL (NEG) Urine Ketones (Stick) Trace mg/dL (NEG) Urine Blood Negative (NEG) Urine Nitrite Negative (NEG) Urine Bilirubin Small (NEG) Urine Urobilinogen Dipstick 1.0 mg/dL (0.2 mg/dL) Urine Leukocyte Esterase Negative (NEG) Urine RBC 0 /HPF (0-2) Urine WBC Occ /HPF (0-4) Urine Squamous Epithelial Cells Mod /LPF Urine Amorphous Sediment Present /HPF Urine Bacteria 0 /HPF (0-FEW) Urine Mucus Mod /LPF Glucose (Fingerstick) 169 mg/dL (70-99) 209 mg/dL (70-99) Test 01/30/19 07:47 01/30/19 09:13 01/30/19 11:51 Glucose (Fingerstick) 183 mg/dL (70-99) 188 mg/dL (70-99) Sodium Level 142 mmol/L (136-145) Potassium Level 3.7 mmol/L (3.5-5.1) Chloride Level 102 mmol/L (98-107) Carbon Dioxide Level 32 mmol/L (21-32) Anion Gap 8 (6-14) Blood Urea Nitrogen 21 mg/dL (8-26) Creatinine 0.8 mg/dL (0.7-1.3) Estimated GFR (Cockcroft-Gault) 110.0 Glucose Level 194 mg/dL (70-99) Calcium Level 8.4 mg/dL (8.5-10.1) Laboratory Tests Test 01/29/19 16:37 01/30/19 07:47 01/30/19 09:13 01/30/19 11:51 Glucose (Fingerstick) 209 mg/dL (70-99) 183 mg/dL (70-99) 188 mg/dL (70-99) Sodium Level 142 mmol/L (136-145) Potassium Level 3.7 mmol/L (3.5-5.1) Chloride Level 102 mmol/L (98-107) Carbon Dioxide Level 32 mmol/L (21-32) Anion Gap 8 (6-14) Blood Urea Nitrogen 21 mg/dL (8-26) Creatinine 0.8 mg/dL (0.7-1.3) Estimated GFR (Cockcroft-Gault) 110.0 Glucose Level 194 mg/dL (70-99) Calcium Level 8.4 mg/dL (8.5-10.1) Assessment/Plan sbo improved will leave NG for now with high output TAMMI BRIAN MD 01/30/19 1551: SURGICAL PROGRESS NOTE Assessment/Plan sleeping soundly I did not wake him still with significant NG output will follow REINA PENA APRN Jan 30, 2019 12:05 TAMMI BRIAN MD Jan 30, 2019 15:51
[2019-01-30 15:00] VITALS: BP 147/81
[2019-01-30 19:00] VITALS: BP 126/96
[2019-01-30 23:00] VITALS: BP 148/99
[2019-01-31] MEDS: IV DEXTROSE 5%-LACT RINGERS 1,000 ML IV SCH (01:31)
[2019-01-31 03:00] VITALS: BP 148/94
[2019-01-31] MEDS: fentaNYL PF VIAL 100 MCG/2 ML VIAL IV PRN ×4 (03:13→16:19)
[2019-01-31 07:00] VITALS: BP 148/71
[2019-01-31] MEDS: INSULIN LISPRO 300 UNITS/3 ML INSULN.PEN. SQ SCH ×3 (07:58→17:00)
--- NOTE | 2019-01-31 09:03 | NUR ---
Patient pulled NG tube out, stated, "I pulled it out in my sleep I guess." There was a 300 mL output within the 2 hours of this nurse being here, educated on potential need to put back in, and also s/s of what to watch for. Patient does not want the NG tube back in at this time, "I feel better and would rather go home." This nurse will inform MD, and continue to monitor.
--- NOTE | 2019-01-31 10:10 | PDOC ---
SURGICAL PROGRESS NOTE Subjective pulled NG out earlier would prefer not to have it replaced no n/v as of yet pain controlled Vital Signs Vital Signs Date Time Temp Pulse Resp B/P (MAP) Pulse Ox O2 Delivery O2 Flow Rate FiO2 01/31/19 09:06 92 Room Air 01/31/19 07:00 98.2 106 18 148/71 (96) 98.2 I&O Intake and Output 01/31/19 07:00 Output Total 5875 ml Balance -5875 ml Output Urine Total 400 ml Stool Total 2300 ml Gastric Drainage Total 3175 ml PATIENT HAS A PERALTA: No General: Alert, No acute distress Abdomen: Soft, Other (obese, some ileostomy output) Labs Laboratory Tests Test 01/29/19 11:50 01/29/19 16:37 01/29/19 21:28 01/30/19 07:47 Glucose (Fingerstick) 169 mg/dL (70-99) 209 mg/dL (70-99) 177 mg/dL (70-99) 183 mg/dL (70-99) Test 01/30/19 09:13 01/30/19 11:51 01/30/19 16:42 01/30/19 20:20 Sodium Level 142 mmol/L (136-145) Potassium Level 3.7 mmol/L (3.5-5.1) Chloride Level 102 mmol/L (98-107) Carbon Dioxide Level 32 mmol/L (21-32) Anion Gap 8 (6-14) Blood Urea Nitrogen 21 mg/dL (8-26) Creatinine 0.8 mg/dL (0.7-1.3) Estimated GFR (Cockcroft-Gault) 110.0 Glucose Level 194 mg/dL (70-99) Calcium Level 8.4 mg/dL (8.5-10.1) Glucose (Fingerstick) 188 mg/dL (70-99) 144 mg/dL (70-99) 143 mg/dL (70-99) Test 01/31/19 07:18 Glucose (Fingerstick) 156 mg/dL (70-99) Laboratory Tests Test 01/30/19 11:51 01/30/19 16:42 01/30/19 20:20 01/31/19 07:18 Glucose (Fingerstick) 188 mg/dL (70-99) 144 mg/dL (70-99) 143 mg/dL (70-99) 156 mg/dL (70-99) Assessment/Plan pSBO, improved leave NG out po slowly TAMMI BRIAN MD Jan 31, 2019 10:10
[2019-01-31 11:00] VITALS: BP 166/101
[2019-01-31] MEDS: INSULIN GLARGINE 300 UNITS/3 ML INSULN.PEN. SQ SCH (12:27)
[2019-01-31] MEDS: POTASSIUM CL 30MEQ D5-0.45NACL 1,000 ML IV SCH ×2 (13:45→20:43)
[2019-01-31 15:00] VITALS: BP 158/89
[2019-01-31 19:38] VITALS: BP 138/98
--- NOTE | 2019-01-31 20:33 | PDOC ---
GENERAL General: vss and afebrile. awake and alert. NG clamped when I saw this am. chest distant breath sounds but clear, heart regular, abdomen soft. currently without any nausea or vomiting but NG clamped shortly before I saw this am. Continue present, hopefully will not require surgery, has some ostomy output. sugars good. VITAL SIGNS/I&O Vital Signs/I&O: Vital Signs Date Time Temp Pulse Resp B/P (MAP) Pulse Ox O2 Delivery O2 Flow Rate FiO2 01/31/19 19:38 98.1 90 16 138/98 (111) 95 Room Air 98.1 I & O 01/30/19 01/30/19 01/31/19 14:59 22:59 06:59 Output Total 2400 ml 3475 ml Balance -2400 ml -3475 ml ALLERGIES Allergies: Allergies Coded Allergies Type Severity Reaction Last Updated Verified No Known Drug Allergies 11/14/18 No MEDS Medications: Current Medications Medications (Trade) Dose Ordered Sig/Marlo Route PRN Reason Start Time Stop Time Status Last Admin Dose Admin Potassium Chloride/Dextrose/ Sod Cl 1,000 ml @ 125 mls/hr Q8H IV 01/31/19 13:00 01/31/19 13:45 LAB Lab: Laboratory Tests Test 01/31/19 07:18 01/31/19 11:10 01/31/19 16:48 Glucose (Fingerstick) 156 mg/dL (70-99) H 175 mg/dL (70-99) H 150 mg/dL (70-99) H AUDREY LOVE MD Jan 31, 2019 20:33
[2019-01-31] MEDS: KETOROLAC 30 MG/ML VIAL. IV PRN (20:43)
[2019-01-31 23:25] VITALS: BP 134/82
[2019-02-01] MEDS: fentaNYL PF VIAL 100 MCG/2 ML VIAL IV PRN ×5 (00:48→22:15)
[2019-02-01 03:17] VITALS: BP 173/95
[2019-02-01] MEDS: POTASSIUM CL 30MEQ D5-0.45NACL 1,000 ML IV SCH ×3 (04:53→22:40)
[2019-02-01] MEDS: KETOROLAC 30 MG/ML VIAL. IV PRN (05:11)
[2019-02-01 07:00] VITALS: BP 132/95
[2019-02-01] MEDS: INSULIN LISPRO 300 UNITS/3 ML INSULN.PEN. SQ SCH ×3 (08:00→17:00)
[2019-02-01] MEDS: INSULIN GLARGINE 300 UNITS/3 ML INSULN.PEN. SQ SCH (10:00)
--- NOTE | 2019-02-01 10:03 | PDOC ---
SURGICAL PROGRESS NOTE Subjective hungry no n/v pain improved Vital Signs Vital Signs Date Time Temp Pulse Resp B/P (MAP) Pulse Ox O2 Delivery O2 Flow Rate FiO2 02/01/19 09:03 96 Room Air 02/01/19 07:00 97.6 81 16 132/95 (107) 97.6 I&O Intake and Output 02/01/19 06:59 Intake Total 1200 ml Output Total 650 ml Balance 550 ml Intake Oral 200 ml IV Total 1000 ml Output Urine Total 200 ml Stool Total 225 ml Gastric Drainage Total 225 ml # Voids 4 # Bowel Movements 4 PATIENT HAS A PERALTA: No Abdomen: Soft, Other (obese, ileostomy output) Labs Laboratory Tests Test 01/30/19 11:51 01/30/19 16:42 01/30/19 20:20 01/31/19 07:18 Glucose (Fingerstick) 188 mg/dL (70-99) 144 mg/dL (70-99) 143 mg/dL (70-99) 156 mg/dL (70-99) Test 01/31/19 11:10 01/31/19 16:48 01/31/19 21:00 02/01/19 07:49 Glucose (Fingerstick) 175 mg/dL (70-99) 150 mg/dL (70-99) 123 mg/dL (70-99) 154 mg/dL (70-99) Laboratory Tests Test 01/31/19 11:10 01/31/19 16:48 01/31/19 21:00 02/01/19 07:49 Glucose (Fingerstick) 175 mg/dL (70-99) 150 mg/dL (70-99) 123 mg/dL (70-99) 154 mg/dL (70-99) Assessment/Plan pSBO, improved morbid obesity DM start clears TAMMI BRIAN MD Feb 01, 2019 10:03
[2019-02-01 11:30] VITALS: BP_SYST 169; BP_DIAS 9; BP_DIAS 91
--- NOTE | 2019-02-01 12:01 | PDOC ---
GENERAL General: vss and afebrile. blood pressure little high at times. pulled NG accidentally y with no vomiting since. pain has decreased and decent ostomy output. surgery has ordered clear liquids for lunch and tricia see how does with same. exam stable. prn clonidine for blood pressure. VITAL SIGNS/I&O Vital Signs/I&O: Vital Signs Date Time Temp Pulse Resp B/P (MAP) Pulse Ox O2 Delivery O2 Flow Rate FiO2 02/01/19 09:03 96 Room Air 02/01/19 07:00 97.6 81 16 132/95 (107) 97.6 I & O 01/31/19 01/31/19 02/01/19 15:00 23:00 07:00 Intake Total 0 ml 1000 ml 200 ml Output Total 225 ml 200 ml 225 ml Balance -225 ml 800 ml -25 ml ALLERGIES Allergies: Allergies Coded Allergies Type Severity Reaction Last Updated Verified No Known Drug Allergies 11/14/18 No MEDS Medications: Current Medications Medications (Trade) Dose Ordered Sig/Marlo Route PRN Reason Start Time Stop Time Status Last Admin Dose Admin Potassium Chloride/Dextrose/ Sod Cl 1,000 ml @ 125 mls/hr Q8H IV 01/31/19 13:00 02/01/19 04:53 LAB Lab: Laboratory Tests Test 01/31/19 16:48 01/31/19 21:00 02/01/19 07:49 02/01/19 11:40 Glucose (Fingerstick) 150 mg/dL (70-99) H 123 mg/dL (70-99) H 154 mg/dL (70-99) H 126 mg/dL (70-99) H AUDREY LOVE MD Feb 01, 2019 12:01
[2019-02-01] MEDS: cloNIDine HCL 0.1 MG TABLET PO PRN ×2 (13:52→20:07)
[2019-02-01 15:08] VITALS: BP 138/90
[2019-02-01 19:00] VITALS: BP 166/103
[2019-02-01] MEDS: ONDANSETRON PF 4 MG/2 ML VIAL. IV PRN (22:16)
[2019-02-01 23:00] VITALS: BP 144/96
[2019-02-02] MEDS: fentaNYL PF VIAL 100 MCG/2 ML VIAL IV PRN ×3 (02:41→11:09)
[2019-02-02 03:00] VITALS: BP 137/87
[2019-02-02 07:00] VITALS: BP 154/93
[2019-02-02] MEDS: POTASSIUM CL 30MEQ D5-0.45NACL 1,000 ML IV SCH ×2 (07:14→11:55)
[2019-02-02] MEDS: INSULIN LISPRO 300 UNITS/3 ML INSULN.PEN. SQ SCH ×2 (08:27→11:46)
--- NOTE | 2019-02-02 08:53 | PDOC3 ---
Discharge Summary Date of Admission: Jan 29, 2019 Date of Discharge: Feb 02, 2019 Follow-Up: 3-5 days Admitting Diagnosis comment: Recurrent SBO Crohn's disease w/ colostomy Morbid obesity Hx of multiple abdominal surgeries Abdominal wall hernia FINAL DIAGNOSIS As above Brief Hospital Course Mr. Del Angel is a 33 year old male with hx of recurrent SBO d/t hx of multiple abdominal surgeries, Crohn's disease w/ colostomy, abdominal wall hernia and diabetes who was admitted for recurrent SBO. He was treated and improved slowly with conservative management. He was given Lantus 20U QHS while his metformin was held with adequate control of blood sugars. He was slowly advanced to full liquid diet and started having output from his ostomy with adequate pain control. He felt ready for discharge. His medications are unchanged, though we may add Lantus in the future at his follow up for optimal management of his diabetes. His A1C while inpatient was 8.7%. CONDITION AT DISCHARGE: Improved, Stable Discharge Medications Tramadol Hcl 50 Mg Tablet 50 Mg PO Q6HRS PRN 5 Days Reported Trulicity (Dulaglutide) 0.75 Mg/0.5 Ml Pen.injctr 0.75 Mg SQ WEEKLY Humira (Adalimumab) 40 Mg/0.8 Ml Pen.ij.kit 1 Syr SQ Q2WKS Metformin Hcl 500 Mg Tablet 500 Mg PO BID [lovastatin] Vital Signs Vital Signs Date Time Temp Pulse Resp B/P (MAP) Pulse Ox O2 Delivery O2 Flow Rate FiO2 02/02/19 07:54 16 Room Air 02/02/19 03:00 97.6 65 137/87 (104) 96 97.6 Labs Laboratory Tests Test 01/31/19 11:10 01/31/19 16:48 01/31/19 21:00 02/01/19 07:49 Glucose (Fingerstick) 175 mg/dL (70-99) 150 mg/dL (70-99) 123 mg/dL (70-99) 154 mg/dL (70-99) Test 02/01/19 11:40 02/01/19 16:41 02/01/19 20:44 02/02/19 07:33 Glucose (Fingerstick) 126 mg/dL (70-99) 150 mg/dL (70-99) 169 mg/dL (70-99) 167 mg/dL (70-99) Laboratory Tests Test 02/01/19 11:40 02/01/19 16:41 02/01/19 20:44 02/02/19 07:33 Glucose (Fingerstick) 126 mg/dL (70-99) 150 mg/dL (70-99) 169 mg/dL (70-99) 167 mg/dL (70-99) Allergies Allergies Coded Allergies Type Severity Reaction Last Updated Verified No Known Drug Allergies 11/14/18 No Disposition/Orders: D/C to Home TARAS PALOMO MD Feb 02, 2019 08:53
--- NOTE | 2019-02-02 09:43 | PDOC ---
SURGICAL PROGRESS NOTE Subjective tolerating clears having stool no nausea Vital Signs Vital Signs Date Time Temp Pulse Resp B/P (MAP) Pulse Ox O2 Delivery O2 Flow Rate FiO2 02/02/19 08:00 Room Air 02/02/19 07:54 16 02/02/19 07:00 98.2 83 154/93 (113) 97 98.2 I&O Intake and Output 02/02/19 07:00 Intake Total 900 ml Balance 900 ml Intake Oral 900 ml General: Alert, Oriented X3, Cooperative, No acute distress Abdomen: Soft, Other (ND, ostomy with stool) Labs Laboratory Tests Test 01/31/19 11:10 01/31/19 16:48 01/31/19 21:00 02/01/19 07:49 Glucose (Fingerstick) 175 mg/dL (70-99) 150 mg/dL (70-99) 123 mg/dL (70-99) 154 mg/dL (70-99) Test 02/01/19 11:40 02/01/19 16:41 02/01/19 20:44 02/02/19 07:33 Glucose (Fingerstick) 126 mg/dL (70-99) 150 mg/dL (70-99) 169 mg/dL (70-99) 167 mg/dL (70-99) Laboratory Tests Test 02/01/19 11:40 02/01/19 16:41 02/01/19 20:44 02/02/19 07:33 Glucose (Fingerstick) 126 mg/dL (70-99) 150 mg/dL (70-99) 169 mg/dL (70-99) 167 mg/dL (70-99) Problem List improved can advance diet and dc from surgical pov REINA PENA APRN Feb 02, 2019 09:43
[2019-02-02 11:00] VITALS: BP 145/87
[2019-02-02] MEDS: INSULIN GLARGINE 300 UNITS/3 ML INSULN.PEN. SQ SCH (11:14)
--- NOTE | 2019-02-02 13:58 | NUR ---
Discharge instructions and belongings reviewed with patient, verbalized understanding.
--- NOTE | 2019-02-02 14:15 | NUR ---
Patient was escorted out via wheelchair by transport. [facility] notified of specialty bed.
== END 2019-02-02 14:33 | disposition home or self-care (01) | DRG 394 ==
LOC: ER 14:39 → 4 NORTH 18:06
PROVIDERS: ADMIT Family Medicine; ATTEND Family Medicine
PROC: 0D9670Z Drainage of Stomach with Drainage Device, Via Natural or Artificial Opening (ICD-10-PCS; principal; 2019-01-28)
DX: K43.0 Incisional hernia with obstruction, without gangrene (principal); Z68.44 Body mass index [BMI] 60.0-69.9, adult; K50.90 Crohn's disease, unspecified, without complications; E66.01 Morbid (severe) obesity due to excess calories; E11.9 Type 2 diabetes mellitus without complications; I10 Essential (primary) hypertension; K44.9 Diaphragmatic hernia without obstruction or gangrene; Z93.3 Colostomy status; Z90.49 Acquired absence of other specified parts of digestive tract
CPT/HCPCS: 36415; 74177; 80048; 80053; 81001; 82962; 83036; 83605; 83690; 84484; 85007; 85025; 93005; 96374; 96375; 96376; J1815; J1885; J2405; J3010; J7030; Q9967; 99285-25

== ENCOUNTER 2019-10-01 10:55 | Emergency (ER) | payer SELFPAY ==
[~2019-10-01] VITALS: Ht 182.9 cm; Wt 229.0 kg
[~2019-10-01 10:55] MED LIST changes: +CEPH-264 PO; +DULA1.5P SQ; +HYDR-3135 PO; +INSU100V8 SQ; +LISI10TA2 PO; +LOPE-101 PO; +SIME125C PO
[2019-10-01 11:42] VITALS: BP 164/104
[2019-10-01] MEDS: DEXAMETHASONE SOD PHOS 20 MG/5 ML VIAL. IM ONE (12:32)
[2019-10-01] MEDS: ORPHENADRINE CITRATE 60 MG/2 ML VIAL. IM ONE (12:32)
--- NOTE | 2019-10-01 12:42 | PHYS DOC ---
Past Medical History Past Medical History: Diabetes-Type II, Hypertension, Other Additional Past Medical Histor: Crohn's disease, SBO, MRSA,obestity Past Surgical History: Colectomy, Other Additional Past Surgical Histo: Full bowel resection w/stoma placement, HERNIA Smoking Status: Current Every Day Smoker Alcohol Use: Occasionally Drug Use: None Adult General Chief Complaint Chief Complaint: SHOUDLER HPI HPI Patient is a 34 year old male who presents with one half weeks ago patient had a left anterior forearm abscess removed by Dr. Nelson and then he had a mid upper back abscess removed by Dr. Rome. The incision on the posterior forearm has a 1 mm open area that has purulent fluid draining from it. The upper back incision is healed and closed and there is no infection. Patient states he saw Dr. Nelson on Saturday and he was having the same symptoms of a sharp shooting pain that goes from the left chest into the shoulder and down the left arm into the elbow. He states Dr. Nelson gave him a cortisone shot on Saturday and 10 mg Percocets that does not help the pain. He states he almost feels like it is getting worse. States it hurts to move her left arm. Review of Systems Review of Systems Musculoskeletal: Sharp shooting pains to go from the left chest into the left shoulder and down the mid left arm. Denies back pain or joint pain [] Integument: Left posterior arm 1 mm open area with purulent drainage. Denies rash or skin lesions [] All other systems were reviewed and found to be within normal limits, except as documented in this note. Current Medications Current Medications Current Medications Medications (Trade) Dose Ordered Sig/Marlo Start Time Stop Time Status Last Admin Dose Admin Dexamethasone Sodium Phosphate (Decadron) 10 mg 1X ONCE 10/01/19 12:30 10/01/19 12:31 DC 10/01/19 12:32 10 MG Fentanyl Citrate (Fentanyl 2ml Vial) 50 mcg 1X ONCE 10/01/19 14:30 10/01/19 14:31 DC 10/01/19 14:47 50 MCG Orphenadrine Citrate (Norflex) 60 mg 1X ONCE 10/01/19 12:30 10/01/19 12:31 DC 10/01/19 12:32 60 MG Allergies Allergies Allergies Coded Allergies Type Severity Reaction Last Updated Verified No Known Drug Allergies 4/26/19 No Physical Exam Physical Exam Constitutional: Well developed, well nourished, no acute distress, non-toxic appearance. [] HENT: Normocephalic, atraumatic, bilateral external ears normal, oropharynx moist, no oral exudates, nose normal. [] Eyes: PERRLA, EOMI, conjunctiva normal, no discharge. [] Neck: Normal range of motion, no tenderness, supple, no stridor. [] Cardiovascular:Heart rate regular rhythm, no murmur [] Lungs & Thorax: Bilateral breath sounds clear to auscultation [] Abdomen: Bowel sounds normal, soft, no tenderness, no masses, no pulsatile masses. [] Skin: Warm, dry, no erythema, no rash. Left posterior arm 1 mm open area with p urulent drainage. [] Back: No tenderness, no CVA tenderness. [] Extremities: Left arm tenderness, no cyanosis, no clubbing, limited ROM Left arm joints, no edema. [] Neurologic: Alert and oriented X 3, normal motor function, normal sensory function, no focal deficits noted. [] Psychologic: Affect normal, judgement normal, mood normal. [] Current Patient Data Vital Signs Vital Signs Date Time Temp Pulse Resp B/P (MAP) Pulse Ox O2 Delivery O2 Flow Rate FiO2 10/01/19 14:47 16 98 Room Air 10/01/19 11:42 98.4 132 164/104 (124) 98.4 Lab Values Laboratory Tests Test 10/01/19 14:15 10/01/19 14:51 White Blood Count 8.1 x10^3/uL (4.0-11.0) Red Blood Count 4.63 x10^6/uL (4.30-5.70) Hemoglobin 13.5 g/dL (13.0-17.5) Hematocrit 39.6 % (39.0-53.0) Mean Corpuscular Volume 86 fL (79-100) Mean Corpuscular Hemoglobin 29 pg (25-35) Mean Corpuscular Hemoglobin Concent 34 g/dL (31-37) Red Cell Distribution Width 17.3 % (11.5-14.5) H Platelet Count 200 x10^3/uL (140-400) Neutrophils (%) (Auto) 84 % (31-73) H Lymphocytes (%) (Auto) 5 % (24-48) L Monocytes (%) (Auto) 9 % (0-9) Eosinophils (%) (Auto) 1 % (0-3) Basophils (%) (Auto) 0 % (0-3) Neutrophils # (Auto) 6.8 x10^3/uL (1.8-7.7) Lymphocytes # (Auto) 0.4 x10^3/uL (1.0-4.8) L Monocytes # (Auto) 0.8 x10^3/uL (0.0-1.1) Eosinophils # (Auto) 0.1 x10^3/uL (0.0-0.7) Basophils # (Auto) 0.0 x10^3/uL (0.0-0.2) Sodium Level 135 mmol/L (136-145) L Potassium Level 4.5 mmol/L (3.5-5.1) Chloride Level 95 mmol/L (98-107) L Carbon Dioxide Level 29 mmol/L (21-32) Anion Gap 11 (6-14) Blood Urea Nitrogen 7 mg/dL (8-26) L Creatinine 0.8 mg/dL (0.7-1.3) Estimated GFR (Cockcroft-Gault) 109.4 BUN/Creatinine Ratio 9 (6-20) Glucose Level 298 mg/dL (70-99) H Calcium Level 9.3 mg/dL (8.5-10.1) Total Bilirubin 0.6 mg/dL (0.2-1.0) Aspartate Amino Transferase (AST) 7 U/L (15-37) L Alanine Aminotransferase (ALT) 20 U/L (16-63) Alkaline Phosphatase 111 U/L (46-116) Troponin I Quantitative < 0.017 ng/mL (0.000-0.055) Total Protein 7.6 g/dL (6.4-8.2) Albumin 3.0 g/dL (3.4-5.0) L Albumin/Globulin Ratio 0.7 (1.0-1.7) L Lactic Acid Level 1.0 mmol/L (0.4-2.0) Laboratory Tests 10/01/19 14:15 Laboratory Tests 10/01/19 14:15 EKG EKG Sinus Tachycardia and no STEMI Interpretation Time: [address] Pittman Radiology/Procedures Radiology/Procedures [] Impressions: [facility] [address] [place] [address] IMAGING REPORT Signed PATIENT: ANDREEA TANG EACCOUNT: [id number] : 1985 LOCATION: ER AGE: 34 SEX: M EXAM STATUS: REG ER ORD. PHYSICIAN: DEBBIE CHAVEZ APRN REASON: PAIN PROCEDURE: FOREARM LEFT FOREARM LEFT History: Pain Technique: 2 views left forearm Comparison: None. Findings: Linear lucency through the dorsal aspect of the distal radius on lateral view. Normal alignment. Dorsal forearm soft tissue swelling. No elbow joint effusion. Small supracondylar spur noted. Impression: 1. Linear lucency through the dorsal aspect of the distal radius, may represent normal variation. Recommend correlation with point tenderness. If persistent concern, 3 view wrist radiographs can exclude nondisplaced fracture. 2. Dorsal forearm soft tissue swelling. Electronically signed by: Casey Mantilla DO (10/01/2019 1:13 PM) [id number] DICTATED and SIGNED BY: CASEY MANTILLA DO DATE: 10/01/19 1313 Course & Med Decision Making Course & Med Decision Making Pertinent Labs and Imaging studies reviewed. (See chart for details) There is tenderness to the whole arm with palpation but there is no swelling. There is no red streaking. Radial pulses strong and present. Patient can move his fingers but is very painful. Skin pink warm and dry. Patient cannot raise h is arm fully especially at the shoulder due to increased pain. Full ROM of wrist but painful. Full ROM of elbow but painful with movement. I have ordered him Decadron and Orphenadrine in the ED. I spoke to Dr Jones concerning the patient and he states to send the patient up to the office at this time and he will call and let Toña know. Dr Jones calls back and states that Dr Ding is in [place] and he states maybe either have the patient follow up or do some blood work to make sure he does not have a infection due to the wound drainage and he is diabetic. [] Dragon Disclaimer Dragon Disclaimer This electronic medical record was generated, in whole or in part, using a voice recognition dictation system. Departure Departure Impression: Primary Impression: Arm pain, left Disposition: HOME, SELF-CARE Condition: STABLE Referrals: ARIANA MARSHALL MD (PCP) CHELSEA DING MD Patient Instructions: Pain, Neuropathic-Brief Additional Instructions: Call Dr Ding as soon as possible to make a appointment. Take the percocet as described. I will add in a Antibiotic for your incision. Scripts Cephalexin (KEFLEX) 500 Mg Capsule 1 CAP PO TID for 7 Days, #21 CAP 0 Refills Prov: DEBBIE CHAVEZ APRN 10/01/19 DEBBIE CHAVEZ APRN Oct 01, 2019 12:42
--- NOTE | 2019-10-01 13:16 | RAD ---
FOREARM LEFT History: Pain Technique: 2 views left forearm Comparison: None. Findings: Linear lucency through the dorsal aspect of the distal radius on lateral view. Normal alignment. Dorsal forearm soft tissue swelling. No elbow joint effusion. Small supracondylar spur noted. Impression: 1. Linear lucency through the dorsal aspect of the distal radius, may represent normal variation. Recommend correlation with point tenderness. If persistent concern, 3 view wrist radiographs can exclude nondisplaced fracture. 2. Dorsal forearm soft tissue swelling. Electronically signed by: Casey Mantilla DO (10/01/2019 1:13 PM) [id number]
--- NOTE | 2019-10-01 13:40 | EKG ---
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
[2019-10-01 14:25] LABS: BASO % 0 % (0-3); EOS # 0.1 x10^3/uL (0.0-0.7); EOS % 1 % (0-3); HEMATOCRIT 39.6 % (39.0-53.0); HEMOGLOBIN 13.5 g/dL (13.0-17.5); LYMPH # 0.4 x10^3/uL (1.0-4.8); LYMPH % 5 % (24-48); MEAN CORPUSCULAR HEMOGLOBIN 29 pg (25-35); MEAN CORPUSCULAR HGB CONC 34 g/dL (31-37); MEAN CORPUSCULAR VOLUME 86 fL (79-100); MONO # 0.8 x10^3/uL (0.0-1.1); MONO % 9 % (0-9); NEUT # 6.8 x10^3/uL (1.8-7.7); NEUT % 84 % (31-73); PLATELET COUNT 200 x10^3/uL (140-400); RED BLOOD COUNT 4.63 x10^6/uL (4.30-5.70); RED CELL DISTRIBUTION WIDTH 17.3 % (11.5-14.5); WHITE BLOOD COUNT 8.1 x10^3/uL (4.0-11.0)
[2019-10-01 14:41] LABS: CALCIUM 9.3 mg/dL (8.5-10.1); CREATININE 0.8 mg/dL (0.7-1.3); GFR 109.4; POTASSIUM 4.5 mmol/L (3.5-5.1)
[2019-10-01 14:46] LABS: ALBUMIN/GLOBULIN RATIO 0.7 (1.0-1.7); TOTAL BILIRUBIN 0.6 mg/dL (0.2-1.0); TOTAL PROTEIN 7.6 g/dL (6.4-8.2)
[2019-10-01] MEDS: fentaNYL PF VIAL 100 MCG/2 ML VIAL IVP ONE (14:47)
[2019-10-01] MEDS ORDERED: CEPH-264 PO (15:50)
== END 2019-10-01 16:12 | disposition home or self-care (01) ==
LOC: ER 10:55
DX: M79.602 Pain in left arm (principal); R07.89 Other chest pain; E11.9 Type 2 diabetes mellitus without complications; I10 Essential (primary) hypertension; K50.90 Crohn's disease, unspecified, without complications; K91.30 Postprocedural intestinal obstruction, unspecified as to partial versus complete; E66.8 Other obesity; F17.200 Nicotine dependence, unspecified, uncomplicated; Z68.44 Body mass index [BMI] 60.0-69.9, adult; Z86.14 Personal history of Methicillin resistant Staphylococcus aureus infection; Z90.89 Acquired absence of other organs; Z98.890 Other specified postprocedural states
CPT/HCPCS: 36415; 73090; 80053; 83605; 84484; 85025; 93005; 96372; 96374; 99285; J1100; J2360; J3010

== ENCOUNTER 2019-10-14 08:38 | Emergency (ER) | payer MEDICARE ==
[~2019-10-14] VITALS: Ht 182.9 cm; Wt 226.8 kg
--- NOTE | 2019-10-14 09:14 | PHYS DOC ---
Past Medical History Past Medical History: Diabetes-Type II, Hypertension, Other Additional Past Medical Histor: Crohn's disease, SBO, MRSA,obestity Past Surgical History: Colectomy, Other Additional Past Surgical Histo: Full bowel resection w/stoma placement, HERNIA Smoking Status: Current Every Day Smoker Alcohol Use: Occasionally Drug Use: None Adult General Chief Complaint Chief Complaint: SHOUDLER HPI HPI 34-year-old male presenting to the emergency department today with left-sided shoulder pain. His pain is a throbbing pain worse with movement of the shoulder. He denies any recent traumatic injury. He denies a cough fever or chills. He denies any neck pain or neck stiffness. He denies any numbness weakness or tingling in his arms or legs.has since been removed. His pain is in his left shoulder and not near either the spots. Review of systems is negative for abdominal pain vomiting fevers chills. He denies nuchal rigidity or neck stiffness. All other review of systems negative. ED course: 34-year-old male presenting with left shoulder pain with pain with range of motion of the shoulder without any recent traumatic injury. He is af ebrile here and tachycardic at about 120. EKG obtained and reviewed by myself shows sinus rhythm with a regular rate. ST segments congruent. Not suggestive of ACS. Chest x-ray shows a possible infiltrate in the upper lobe on the lung. Shoulder x-ray is unremarkable. Blood work sent. Blood work shows mild anemia. Chemistry panel shows elevated glucose. Troponin normal. C-reactive protein is elevated at 109.5 which is down from previous when he had his abscess of 262. Given his chest x-ray finding this could be the reason for the elevation. We will give him azithromycin and have him follow-up with his doctor in 1 to 2 days for reexamination and repeat CRP testing. He should continue using his diabetic medications for his elevated blood sugar. I discussed the patient's findings with the patient and he understands. He understands the need for follow-up. The patient has been examined and was not found to have an emergency medical condition. The patient was then discharged home in stable condition to follow up with their primary care physician over the next 1-2 days. They were to return if their symptoms worsened or if they were concerned for any reason. They were also instructed to return to the emergency department if they were unable to get the recommended and appropriate follow-up. [id number] discharge instructions and return precautions were given. Patient's questions were answered to their satisfaction. Patient is comfortable with plan. Allergies Allergies Allergies Coded Allergies Type Severity Reaction Last Updated Verified No Known Drug Allergies 11/14/18 No Physical Exam Physical Exam Constitutional: Well developed, well nourished, no acute distress, non-toxic appearance. [] HENT: Normocephalic, atraumatic, bilateral external ears normal, oropharynx moist, no oral exudates, nose normal. [] Eyes: PERRLA, EOMI, conjunctiva normal, no discharge. [] Neck: Normal range of motion, no tenderness, supple, no stridor. [] Negative Kernig sign, negative for brudinskis sign. Cardiovascular:Heart rate regular rhythm, no murmur [] Lungs & Thorax: Bilateral breath sounds clear to auscultation [] Abdomen: Bowel sounds normal, soft, no tenderness, no masses, no pulsatile masses. [] Skin: Warm, dry, no erythema, no rash. [] Back: No tenderness, no CVA tenderness. No erythema or rashes. No fluctuant masses to touch. The patient's scar from drains from previous abscess and cellulitis has normal skin overlying without any palpable fluctuant masses. There is no erythema. Normal temperature to touch. Extremities: Patient's left upper extremity has pain with passive range of motion of the shoulder primarily in the anterior portion of the shoulder. No erythema. Normal temperature to touch. Neurovascularly intact distally with palpable pulse. Patient's forearm incision has a scar that is healed and without any abnormalities. Otherwise remainder the joints are nontender palpation with normal range of motion of the joints. The remainder the extremities are neurovascularly intact with normal range of motion without pain. Neurologic: Alert and oriented X 3, normal motor function, normal sensory function, no focal deficits noted. [] Psychologic: Affect normal, judgement normal, mood normal. [] Current Patient Data Vital Signs Vital Signs Date Time Temp Pulse Resp B/P (MAP) Pulse Ox O2 Delivery O2 Flow Rate FiO2 10/14/19 10:48 104 132/84 (100) 96 Room Air 10/14/19 08:41 99.0 19 99.0 Lab Values Laboratory Tests Test 10/14/19 10:05 White Blood Count 8.0 x10^3/uL (4.0-11.0) Red Blood Count 4.44 x10^6/uL (4.30-5.70) Hemoglobin 12.6 g/dL (13.0-17.5) L Hematocrit 37.6 % (39.0-53.0) L Mean Corpuscular Volume 85 fL (79-100) Mean Corpuscular Hemoglobin 28 pg (25-35) Mean Corpuscular Hemoglobin Concent 33 g/dL (31-37) Red Cell Distribution Width 16.5 % (11.5-14.5) H Platelet Count 282 x10^3/uL (140-400) Neutrophils (%) (Auto) 85 % (31-73) H Lymphocytes (%) (Auto) 5 % (24-48) L Monocytes (%) (Auto) 8 % (0-9) Eosinophils (%) (Auto) 1 % (0-3) Basophils (%) (Auto) 1 % (0-3) Neutrophils # (Auto) 6.8 x10^3/uL (1.8-7.7) Lymphocytes # (Auto) 0.4 x10^3/uL (1.0-4.8) L Monocytes # (Auto) 0.6 x10^3/uL (0.0-1.1) Eosinophils # (Auto) 0.1 x10^3/uL (0.0-0.7) Basophils # (Auto) 0.1 x10^3/uL (0.0-0.2) Sodium Level 134 mmol/L (136-145) L Potassium Level 3.9 mmol/L (3.5-5.1) Chloride Level 97 mmol/L (98-107) L Carbon Dioxide Level 25 mmol/L (21-32) Anion Gap 12 (6-14) Blood Urea Nitrogen 10 mg/dL (8-26) Creatinine 0.8 mg/dL (0.7-1.3) Estimated GFR (Cockcroft-Gault) 109.4 Glucose Level 424 mg/dL (70-99) H Calcium Level 8.8 mg/dL (8.5-10.1) Total Bilirubin 0.3 mg/dL (0.2-1.0) Direct Bilirubin 0.1 mg/dL (0.0-0.2) Aspartate Amino Transferase (AST) 6 U/L (15-37) L Alanine Aminotransferase (ALT) 16 U/L (16-63) Alkaline Phosphatase 98 U/L (46-116) Troponin I Quantitative < 0.017 ng/mL (0.000-0.055) C-Reactive Protein, Quantitative 109.5 mg/L (0-3.3) H Total Protein 6.9 g/dL (6.4-8.2) Albumin 2.7 g/dL (3.4-5.0) L Lipase 66 U/L (73-393) L Laboratory Tests 10/14/19 10:05 Laboratory Tests 10/14/19 10:05 EKG EKG [] Radiology/Procedures Radiology/Procedures [] Course & Med Decision Making Course & Med Decision Making Pertinent Labs and Imaging studies reviewed. (See chart for details) [] Dragon Disclaimer Dragon Disclaimer This electronic medical record was generated, in whole or in part, using a voice recognition dictation system. Departure Departure Impression: Primary Impression: Shoulder pain, left Disposition: 01 HOME, SELF-CARE Condition: STABLE Referrals: ARIANA MARSHALL MD (PCP) Patient Instructions: Shoulder Pain Scripts Hydrocodone Bit/Acetaminophen (HYDROCODONE-APAP 5-325 ) 1 Tab Tablet 1 TAB PO PRN Q8HRS PRN for sev, #8 TAB 0 Refills Prov: MK ALCALA MD 10/14/19 Azithromycin (AZITHROMYCIN TABLET) 250 Mg Tablet 1 PKG PO UD, #6 TAB Prov: MK ALCALA MD 10/14/19 MK ALCALA MD Oct 14, 2019 09:14
--- NOTE | 2019-10-14 09:34 | RAD ---
CHEST AP ONLY History: Chest pain Comparison: August 31, 2019 Findings: Ill-defined left upper lobe opacity. No pleural effusion. Normal heart size. No pneumothorax. Impression: 1. Ill-defined left upper lobe opacity, represent atelectasis or consolidation. PA and lateral view of the chest can better assess if indicated. Electronically signed by: Casey Mantilla DO (10/14/2019 9:32 AM) [id number]
--- NOTE | 2019-10-14 09:37 | RAD ---
SHOULDER 2+V LEFT History: Left shoulder pain. Limited range of motion. Technique: 3 views left shoulder. Comparison: None. Findings: Normal alignment of the left glenohumeral and acromioclavicular joints. No fracture. Calcination within the region of the left rotator cuff, may indicate calcific tendinosis. Impression: 1. No acute osseous abnormality. Electronically signed by: Casey Mantilla DO (10/14/2019 9:34 AM) [id number]
[2019-10-14 10:20] LABS: BASO # 0.1 x10^3/uL (0.0-0.2); BASO % 1 % (0-3); EOS # 0.1 x10^3/uL (0.0-0.7); EOS % 1 % (0-3); HEMATOCRIT 37.6 % (39.0-53.0); HEMOGLOBIN 12.6 g/dL (13.0-17.5); LYMPH # 0.4 x10^3/uL (1.0-4.8); LYMPH % 5 % (24-48); MEAN CORPUSCULAR HEMOGLOBIN 28 pg (25-35); MEAN CORPUSCULAR HGB CONC 33 g/dL (31-37); MEAN CORPUSCULAR VOLUME 85 fL (79-100); MONO # 0.6 x10^3/uL (0.0-1.1); MONO % 8 % (0-9); NEUT # 6.8 x10^3/uL (1.8-7.7); NEUT % 85 % (31-73); PLATELET COUNT 282 x10^3/uL (140-400); RED BLOOD COUNT 4.44 x10^6/uL (4.30-5.70); RED CELL DISTRIBUTION WIDTH 16.5 % (11.5-14.5)
[2019-10-14 10:30] LABS: CALCIUM 8.8 mg/dL (8.5-10.1); CREATININE 0.8 mg/dL (0.7-1.3); GFR 109.4; POTASSIUM 3.9 mmol/L (3.5-5.1)
[2019-10-14 10:36] LABS: ALBUMIN 2.7 g/dL (3.4-5.0); DIRECT BILIRUBIN 0.1 mg/dL (0.0-0.2); TOTAL BILIRUBIN 0.3 mg/dL (0.2-1.0); TOTAL PROTEIN 6.9 g/dL (6.4-8.2)
[2019-10-14 10:48] VITALS: BP 132/84
[2019-10-14] MEDS ORDERED: AZIT250T6 PO (10:50)
[2019-10-14] MEDS ORDERED: HYDR-2761 PO (10:50)
--- NOTE | 2019-10-14 14:55 | EKG ---
[facility] [address] [place] [address] Test Date: 2019-10-14 Test Time: 09:24:51 Pat Name: ANDREEA TANG Department: Room: Gender: M Crtts: : 1985 Requested By: MK ALCALA Order Number: [id number] Reading MD: Measurements Intervals [place] Rate: 117 P: -67 MO: 122 QRS: 46 QRSD: 104 T: 105 QT: 300 QTc: 423 Interpretive Statements SUPRAVENTRICULAR RHYTHM QRS(T) CONTOUR ABNORMALITY CONSIDER ANTEROLATERAL MYOCARDIAL DAMAGE T ABNORMALITY IN ANTERIOR LEADS ABNORMAL ECG RI6.01 No previous ECG available for comparison
== END 2019-10-14 11:16 | disposition home or self-care (01) ==
LOC: ER 08:38
DX: M25.512 Pain in left shoulder (principal); E11.9 Type 2 diabetes mellitus without complications; I10 Essential (primary) hypertension; F17.200 Nicotine dependence, unspecified, uncomplicated; K50.90 Crohn's disease, unspecified, without complications; Z86.14 Personal history of Methicillin resistant Staphylococcus aureus infection; E66.9 Obesity, unspecified; Z68.44 Body mass index [BMI] 60.0-69.9, adult
CPT/HCPCS: 36415; 71045; 73030; 80048; 80076; 83690; 84484; 85025; 86140; 93005; 99285

== ENCOUNTER 2020-06-07 12:05 | Emergency (ER) | payer MEDICAID, MEDICARE ==
[~2020-06-07] VITALS: Ht 182.9 cm; Wt 223.6 kg
[~2020-06-07 12:05] MED LIST changes: +AZIT250T6 PO
[2020-06-07] MEDS ORDERED: ASPIRIN 325 MG TABLET PO ONE (12:30)
[2020-06-07 12:36] LABS: BASO # 0.1 x10^3/uL (0.0-0.2); BASO % 1 % (0-3); EOS # 0.1 x10^3/uL (0.0-0.7); EOS % 2 % (0-3); HEMOGLOBIN 16.7 g/dL (13.0-17.5); LYMPH # 0.8 x10^3/uL (1.0-4.8); LYMPH % 10 % (24-48); MEAN CORPUSCULAR HEMOGLOBIN 30 pg (25-35); MEAN CORPUSCULAR HGB CONC 35 g/dL (31-37); MEAN CORPUSCULAR VOLUME 87 fL (79-100); MONO # 0.8 x10^3/uL (0.0-1.1); MONO % 10 % (0-9); NEUT # 6.3 x10^3/uL (1.8-7.7); NEUT % 77 % (31-73); PLATELET COUNT 281 x10^3/uL (140-400); RED BLOOD COUNT 5.52 x10^6/uL (4.30-5.70); RED CELL DISTRIBUTION WIDTH 14.8 % (11.5-14.5); WHITE BLOOD COUNT 8.1 x10^3/uL (4.0-11.0)
[2020-06-07 12:47] LABS: CALCIUM 9.2 mg/dL (8.5-10.1); CREATININE 0.8 mg/dL (0.7-1.3); GFR 109.4; POTASSIUM 3.7 mmol/L (3.5-5.1)
[2020-06-07 12:53] LABS: ALBUMIN 3.1 g/dL (3.4-5.0); ALBUMIN/GLOBULIN RATIO 0.7 (1.0-1.7); MAGNESIUM 1.8 mg/dL (1.8-2.4); TOTAL BILIRUBIN 0.6 mg/dL (0.2-1.0); TOTAL PROTEIN 7.8 g/dL (6.4-8.2)
--- NOTE | 2020-06-07 13:00 | PHYS DOC ---
Past Medical History Past Medical History: Diabetes-Type I, Hypertension, Other Additional Past Medical Histor: Crohn's disease, SBO, MRSA,obesity Past Surgical History: Colectomy, Other Additional Past Surgical Histo: Full bowel resection w/stoma placement, HERNIA Smoking Status: Former Smoker Additional Information: PT CHEWS TOBACCO Alcohol Use: Occasionally Drug Use: None General Adult EDM: Chief Complaint: SHORTNESS OF BREATH HPI: HPI: Patient is a 34 year old female who presents with SOA and anterior left shoulder pain. Reports constant pain that started 5 days ago. Patient also has pain with inspiration. Denies fever, N/V/D. Hx of chest wall abscess 8 months ago, Crohns, staph infections, colostomy, T1 DM. Review of Systems: Review of Systems: Constitutional: Denies fever or chills Eyes: Denies redness or eye pain HENT: Denies nasal congestion or sore throat Respiratory: Denies cough. Reports SOA. Cardiovascular: Reports chest pain with inspiration. Reports anterior left sh oulder pain. GI: Denies abdominal pain, nausea, or vomiting : Denies dysuria or hematuria Musculoskeletal: Denies back pain or joint pain Integument: Denies rash or skin lesions Neurologic: Denies headache, focal weakness or sensory changes Complete systems were reviewed and found to be within normal limits, except as documented in this note. Heart Score: HEART Score for Chest Pain: HEART Score for Chest Pain Response (Comments) Value History Moderately Suspicious 1 Age < 45 0 Risk Factors >3 Risk Factors or Hx CAD 2 Total 3 Risk Factors: Risk Factors: DM, Current or recent (<one month) smoker, HTN, HLP, family history of CAD, obesity. Risk Scores: Score 0 - 3: 2.5% MACE over next 6 weeks - Discharge Home Score 4 - 6: 20.3% MACE over next 6 weeks - Admit for Clinical Observation Score 7 - 10: 72.7% MACE over next 6 weeks - Early Invasive Strategies Current Medications: Current Medications Medications (Trade) Dose Ordered Sig/Marlo Start Time Stop Time Status Last Admin Dose Admin Aspirin (Ricardo Aspirin) 325 mg 1X ONCE 06/07/20 12:30 06/07/20 12:31 DC Allergies: Allergies: Allergies Coded Allergies Type Severity Reaction Last Updated Verified No Known Drug Allergies 11/14/18 No Physical Exam: PE: Constitutional: Well developed, well nourished, no acute distress, non-toxic appearance HENT: Normocephalic, atraumatic Eyes: Conjunctiva normal, no discharge Neck: Normal range of motion, no tenderness, supple Lungs & Thorax: No respiratory distress, equal chest rise and fall Abdomen: Soft, no tenderness Skin: Warm, dry, no erythema, no rash Back: No tenderness, no CVA tenderness Extremities: No tenderness, ROM intact, no edema Neurologic: Alert and oriented X 3, normal motor function, normal sensory function, no focal deficits noted Psychologic: Affect normal, judgment normal Current Patient Data: Labs: Laboratory Tests Test 06/07/20 12:20 White Blood Count 8.1 x10^3/uL (4.0-11.0) Red Blood Count 5.52 x10^6/uL (4.30-5.70) Hemoglobin 16.7 g/dL (13.0-17.5) Hematocrit 48.0 % (39.0-53.0) Mean Corpuscular Volume 87 fL (79-100) Mean Corpuscular Hemoglobin 30 pg (25-35) Mean Corpuscular Hemoglobin Concent 35 g/dL (31-37) Red Cell Distribution Width 14.8 % (11.5-14.5) H Platelet Count 281 x10^3/uL (140-400) Neutrophils (%) (Auto) 77 % (31-73) H Lymphocytes (%) (Auto) 10 % (24-48) L Monocytes (%) (Auto) 10 % (0-9) H Eosinophils (%) (Auto) 2 % (0-3) Basophils (%) (Auto) 1 % (0-3) Neutrophils # (Auto) 6.3 x10^3/uL (1.8-7.7) Lymphocytes # (Auto) 0.8 x10^3/uL (1.0-4.8) L Monocytes # (Auto) 0.8 x10^3/uL (0.0-1.1) Eosinophils # (Auto) 0.1 x10^3/uL (0.0-0.7) Basophils # (Auto) 0.1 x10^3/uL (0.0-0.2) Laboratory Tests 06/07/20 12:20 Vital Signs: Vital Signs Date Time Temp Pulse Resp B/P (MAP) Pulse Ox O2 Delivery O2 Flow Rate FiO2 06/07/20 12:10 98.0 116 22 188/90 (122) 97 Room Air 98.0 EKG: EKG: @1218 sinus tachycardia at 107 bpm, no ST segment elevation, QRS 102 ms, QT/QTc 346/461 ms. Radiology/Procedures: Radiology/Procedures: PROCEDURE: CHEST AP ONLY Examination: CHEST AP ONLY History: chest pain / Comparison: 10/21/2019 Portable Chest X-ray Exam. Findings: AP portable upright frontal view of the chest was obtained. The cardiomediastinal silhouette is normal. Lungs are clear. There is no pneumothorax. No pleural effusion is appreciated. No acute bone abnormality. IMPRESSION: No acute cardiopulmonary process. Electronically signed by: Miguel Mccarty MD (06/07/2020 3:25 PM) [facility] Course & Med Decision Making: Course & Med Decision Making Patient is a 34 year old male with SOA and left anterior shoulder pain. Hx of chest wall abscess removed 8 months ago. Hx of crohns staph infections, and abscesses. Labs pending. Dragon Disclaimer: [employer] Disclaimer: This electronic medical record was generated, in whole or in part, using a voice recognition dictation system. Departure Departure Impression: Primary Impression: Chest pain Qualified Codes: R07.9 - Chest pain, unspecified Additional Impressions: Shoulder pain, left Qualified Codes: M25.512 - Pain in left shoulder Hyperglycemia Disposition: 01 DC HOME SELF CARE/HOMELESS Condition: STABLE Referrals: ARIANA MARSHALL MD (PCP) DONA ZACARIAS MD Patient Instructions: Chest Pain (Nonspecific), Nlrh-cy-Sqji, Hyperglycemia, Jlib-th-Axqz, Shoulder Pain, Cvja-mu-Tzoh Scripts Orphenadrine Citrate (ORPHENADRINE CITRATE) 100 Mg Tablet.er 100 MG PO BID PRN for MUSCLE PAIN, #10 TAB Prov: PRECIOUS STAFFORD DO 06/07/20 Oxycodone/Apap 5-325 (PERCOCET 5-325 MG TABLET ) 1 Each Tablet 0.5-1 TAB PO PRN Q6HRS PRN for PAIN, #10 TAB 0 Refills Prov: PRECIOUS STAFFORD DO 06/07/20 PRECIOUS STAFFORD DO Jun 07, 2020 12:59
--- NOTE | 2020-06-07 15:28 | RAD ---
Examination: CHEST AP ONLY History: chest pain / Comparison: 10/21/2019 Portable Chest X-ray Exam. Findings: AP portable upright frontal view of the chest was obtained. The cardiomediastinal silhouette is normal. Lungs are clear. There is no pneumothorax. No pleural effusion is appreciated. No acute bone abnormality. IMPRESSION: No acute cardiopulmonary process. Electronically signed by: Miguel Mccarty MD (06/07/2020 3:25 PM) [facility]
[2020-06-07] MEDS ORDERED: ORPHENADRINE CITRATE 60 MG/2 ML VIAL. IV ONE (15:30)
[2020-06-07] MEDS ORDERED: INSULIN REGULAR 100 UNIT/ML 3ML VIAL. SQ ONE (15:30)
[2020-06-07] MEDS ORDERED: KETOROLAC 15 MG/ML VIAL. IVP ONE (15:30)
[2020-06-07 17:14] VITALS: BP 132/72
[2020-06-07] MEDS ORDERED: ORPH100T PO (17:25)
[2020-06-07] MEDS ORDERED: OXYC1TAB15 PO (17:25)
--- NOTE | 2020-06-08 08:51 | EKG ---
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
== END 2020-06-07 17:43 | disposition home or self-care (01) ==
LOC: ER 12:05
DX: R07.89 Other chest pain (principal); M25.512 Pain in left shoulder; E11.65 Type 2 diabetes mellitus with hyperglycemia; I10 Essential (primary) hypertension; F17.200 Nicotine dependence, unspecified, uncomplicated; E66.9 Obesity, unspecified; Z68.44 Body mass index [BMI] 60.0-69.9, adult; Z86.14 Personal history of Methicillin resistant Staphylococcus aureus infection; Z90.89 Acquired absence of other organs
CPT/HCPCS: 36415; 71045; 80053; 82962; 83690; 83735; 83880; 84484; 85025; 85379; 93005; 96374; 96375; 99285; J1815; J1885; J2360

== ENCOUNTER 2020-08-22 10:23 | Emergency (ER) | payer MEDICARE ==
[~2020-08-22] VITALS: Ht 182.9 cm; Wt 202.1 kg
[~2020-08-22 10:23] MED LIST changes: +LISI10TA16 PO; -LISI10TA2 PO; +ORPH100T PO
[2020-08-22 11:21] LABS: BASO % 1 % (0-3); EOS # 0.1 x10^3/uL (0.0-0.7); EOS % 2 % (0-3); HEMATOCRIT 46.6 % (39.0-53.0); HEMOGLOBIN 15.3 g/dL (13.0-17.5); LYMPH # 0.4 x10^3/uL (1.0-4.8); LYMPH % 5 % (24-48); MEAN CORPUSCULAR HEMOGLOBIN 27 pg (25-35); MEAN CORPUSCULAR HGB CONC 33 g/dL (31-37); MEAN CORPUSCULAR VOLUME 83 fL (79-100); MONO # 0.6 x10^3/uL (0.0-1.1); MONO % 7 % (0-9); NEUT # 6.7 x10^3/uL (1.8-7.7); NEUT % 85 % (31-73); PLATELET COUNT 213 x10^3/uL (140-400); RED BLOOD COUNT 5.63 x10^6/uL (4.30-5.70); RED CELL DISTRIBUTION WIDTH 15.5 % (11.5-14.5); WHITE BLOOD COUNT 7.9 x10^3/uL (4.0-11.0)
[2020-08-22 11:36] LABS: CALCIUM 9.1 mg/dL (8.5-10.1); CREATININE 0.7 mg/dL (0.7-1.3); GFR 127.6; POTASSIUM 4.2 mmol/L (3.5-5.1)
[2020-08-22 11:41] LABS: ALBUMIN 2.8 g/dL (3.4-5.0); ALBUMIN/GLOBULIN RATIO 0.6 (1.0-1.7); TOTAL BILIRUBIN 0.4 mg/dL (0.2-1.0); TOTAL PROTEIN 7.4 g/dL (6.4-8.2)
[2020-08-22] MEDS ORDERED: CONTRAST GIVEN. MC PRN (11:45)
[2020-08-22] MEDS ORDERED: IOHEXOL 350 MG/ML 100 ML VIAL. IV ONE (11:45)
[2020-08-22] MEDS ORDERED: IOHEXOL 300 MG/ML 100ML VIAL. IV ONE (11:45)
[2020-08-22 11:53] LABS: % BANDS 3 % (0-9); % EOS 1 % (0-5); % LYMPHS 2 % (24-48); % MONOS 4 % (0-10); % SEGS 90 % (35-66); PLT ESTIMATE ADEQUATE (ADEQUATE)
[2020-08-22] MEDS ORDERED: HYDROmorphone 2 MG/ML VIAL IVP ONE (12:30)
--- NOTE | 2020-08-22 12:56 | RAD ---
CT HEAD AND C-SPINE WO Date: 08/22/2020 11:39 AM Clinical Indication: HEAD AND LEFT SIDE NECK PAIN Comparison: None. Technique: 5 mm axial tomographic images were obtained of the head without contrast. These were view ed on brain and bone windows. CT imaging of the cervical spine was performed without contrast. Coron al and sagittal reformatted images were performed. One or more of the following dose reduction techni ques were utilized: Automated exposure control (AEC), Adjustment of mA and/or kV according to patient size, Use of iterative reconstruction technique such as ASiR, CT scan done according to ALARA and im age gently/image wisely HEAD FINDINGS: The brain parenchyma is normal in attenuation. No intra- or extra-axial mass or fluid collection. No acute hemorrhage. The ventricles are normal in size, shape, and morphology. The haile-white matter valeri ction is normal. The basilar cisterns are patent. The visualized paranasal sinuses are normal. The visualized portions of the orbits and globes are no rmal. The mastoid air cells are clear. No aggressive osseous lesion or fracture. CERVICAL SPINE FINDINGS: The cervical spine is normally aligned. No acute fracture. No aggressive lytic or blastic osseous les ion. The intervertebral disc heights are maintained. No high-grade spinal canal stenosis or neural foramin al narrowing. The thyroid gland is normal. No cervical lymphadenopathy. The visualized aerodigestive tract is unrem arkable. The visualized lung apices are clear. IMPRESSION: 1. No acute intracranial process. 2. No acute osseous abnormality of the cervical spine. Electronically signed by: Jonathan Junior MD (08/22/2020 12:54 PM) [facility]ITAL[facility]hawn
--- NOTE | 2020-08-22 13:00 | RAD ---
CT THORAX W INDICATION: Pain Comparison: 10/21/2019. TECHNIQUE: Following the uneventful administration of intravenous contrast, 75 cc Omnipaque 300, axia l CT sections were obtained through the lungs and upper abdomen. Multiplanar reconstructions were obt ained. PQRS compliance statement: One or more of the following individualized dose reduction techniques were utilized for this examinat ion: 1. Automated exposure control 2. Adjustment of the mA and/or kV according to patient size 3. Use of iterative reconstruction technique FINDINGS: Lungs and Airways: No pulmonary mass or consolidation. No abnormality of the central airways. Pleura: The pleural spaces are normal. Heart and Mediastinum: The visualized thyroid is normal in size and attenuation. No axillary or supra clavicular lymphadenopathy. No mediastinal, hilar or retrocrural lymphadenopathy. The heart and peric ardium are within normal limits. The great vessels of the thorax are normal. Abdomen: Limited images through the upper abdomen show no abnormality of the visualized organs. 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 IMPRESSION: No pulmonary mass or consolidation. Electronically signed by: Jonathan Junior MD (08/22/2020 12:57 PM) [facility]
[2020-08-22 13:30] VITALS: BP 133/67
[2020-08-22] MEDS ORDERED: METH-38 PO (14:58)
--- NOTE | 2020-08-22 14:58 | PHYS DOC ---
Past Medical History Past Medical History: Diabetes-Type II, Hypertension, Other Additional Past Medical Histor: Crohn's disease, SBO, MRSA, obesity Past Surgical History: Colectomy, Other Additional Past Surgical Histo: Full bowel resection w/stoma placement, HERNIA Smoking Status: Former Smoker Additional Information: quit smoking 13 years ago Alcohol Use: Occasionally Drug Use: None General Adult EDM: Chief Complaint: UPPER EXTREMITY PAIN HPI: HPI: 34 yo M past medical history of morbid obesity, [id number] diabetes, presents to the ED sent by urgent care clinic after physician spoke with Dr. Reynoso, requesting cervical MRI. Patient with left-sided neck pain and upper back pain for the past week, now with decreased strength of left fourth and fifth fingers for the past 2 days. Reports sensation is intact and skin color is normal. No associated extremity pain or radiculopathy. Denies any history of head or neck injury. Is unsure if he slept on his neck wrong and is asking for pain medications. Review of Systems: Review of Systems: Constitutional: Denies fever or chills. [] Eyes: Denies change in visual acuity. [] HENT: Denies nasal congestion or sore throat. [] Respiratory: Denies cough or shortness of breath. [] Cardiovascular: Denies chest pain or edema. [] GI: Denies abdominal pain, nausea, vomiting, bloody stools or diarrhea. [] : Denies dysuria. [] Musculoskeletal: Denies back pain or joint swelling Integument: Denies rash. [] Neurologic: Denies headache, focal weakness or sensory changes, denies midline neck pain, neck stiffness or rigidity, saddle anesthesia, urinary or bowel retention or incontinence Endocrine: Denies polyuria or polydipsia. [] Lymphatic: Denies swollen glands. [] Psychiatric: Denies depression or anxiety. [] Heart Score: Risk Factors: Risk Factors: DM, Current or recent (<one month) smoker, HTN, HLP, family history of CAD, obesity. Risk Scores: Score 0 - 3: 2.5% MACE over next 6 weeks - Discharge Home Score 4 - 6: 20.3% MACE over next 6 weeks - Admit for Clinical Observation Score 7 - 10: 72.7% MACE over next 6 weeks - Early Invasive Strategies Current Medications: Current Medications Medications (Trade) Dose Ordered Sig/Marlo Start Time Stop Time Status Last Admin Dose Admin Hydromorphone HCl (Dilaudid) 0.5 mg 1X ONCE 08/22/20 12:30 08/22/20 12:31 DC 08/22/20 12:30 0.5 MG Info (CONTRAST GIVEN -- Rx MONITORING) 1 each PRN DAILY PRN 08/22/20 11:45 08/24/20 11:44 Iohexol (Omnipaque 300 Mg/ml) 75 ml 1X ONCE 08/22/20 11:45 08/22/20 11:46 DC 08/22/20 12:07 75 ML Iohexol (Omnipaque 350 Mg/ml) 80 ml 1X ONCE 08/22/20 11:45 08/22/20 11:46 DC Allergies: Allergies: Allergies Coded Allergies Type Severity Reaction Last Updated Verified No Known Drug Allergies 08/22/20 No Physical Exam: PE: Constitutional: Well developed, well nourished, no acute distress, non-toxic appearance. HENT: Normocephalic, atraumatic, Eyes: EOMI, conjunctiva normal, no discharge. Neck: Normal range of motion, supple, no midline neck pain, no rigidity or meningismus Cardiovascular: S1/2 present, regular rhythm Lungs & Thorax: Speaking in full sentences, bilateral equal chest rise, no tach ypnea or increased work of breathing Abdomen: soft, no tenderness, Skin: Warm, dry, no erythema, no rash, normal skin color with cap refill less than 1 second Back: No midline spinal tenderness, no CVA tenderness, reports pain is over her entire left paraspinal region on the left in his upper back, cannot reproduce pain with palpation Extremities: No tenderness, no cyanosis, no edema, equal radial pulses bilaterally Neurologic: Alert and oriented X 3, intact left median, radial and ulnar nerve sensation, decreased flexion and extension strength of fourth and fifth digit- 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 [] Current Patient Data: Labs: Laboratory Tests Test 08/22/20 11:10 White Blood Count 7.9 x10^3/uL (4.0-11.0) Red Blood Count 5.63 x10^6/uL (4.30-5.70) Hemoglobin 15.3 g/dL (13.0-17.5) Hematocrit 46.6 % (39.0-53.0) Mean Corpuscular Volume 83 fL (79-100) Mean Corpuscular Hemoglobin 27 pg (25-35) Mean Corpuscular Hemoglobin Concent 33 g/dL (31-37) Red Cell Distribution Width 15.5 % (11.5-14.5) H Platelet Count 213 x10^3/uL (140-400) Neutrophils (%) (Auto) 85 % (31-73) H Lymphocytes (%) (Auto) 5 % (24-48) L Monocytes (%) (Auto) 7 % (0-9) Eosinophils (%) (Auto) 2 % (0-3) Basophils (%) (Auto) 1 % (0-3) Neutrophils # (Auto) 6.7 x10^3/uL (1.8-7.7) Lymphocytes # (Auto) 0.4 x10^3/uL (1.0-4.8) L Monocytes # (Auto) 0.6 x10^3/uL (0.0-1.1) Eosinophils # (Auto) 0.1 x10^3/uL (0.0-0.7) Basophils # (Auto) 0.0 x10^3/uL (0.0-0.2) Segmented Neutrophils % 90 % (35-66) H Band Neutrophils % 3 % (0-9) Lymphocytes % 2 % (24-48) L Monocytes % 4 % (0-10) Eosinophils % 1 % (0-5) Platelet Estimate Adequate (ADEQUATE) Sodium Level 135 mmol/L (136-145) L Potassium Level 4.2 mmol/L (3.5-5.1) Chloride Level 100 mmol/L (98-107) Carbon Dioxide Level 26 mmol/L (21-32) Anion Gap 9 (6-14) Blood Urea Nitrogen 12 mg/dL (8-26) Creatinine 0.7 mg/dL (0.7-1.3) Estimated GFR (Cockcroft-Gault) 127.6 BUN/Creatinine Ratio 17 (6-20) Glucose Level 314 mg/dL (70-99) H Calcium Level 9.1 mg/dL (8.5-10.1) Total Bilirubin 0.4 mg/dL (0.2-1.0) Aspartate Amino Transferase (AST) 9 U/L (15-37) L Alanine Aminotransferase (ALT) 17 U/L (16-63) Alkaline Phosphatase 108 U/L (46-116) Total Protein 7.4 g/dL (6.4-8.2) Albumin 2.8 g/dL (3.4-5.0) L Albumin/Globulin Ratio 0.6 (1.0-1.7) L Laboratory Tests 08/22/20 11:10 Laboratory Tests 08/22/20 11:10 Vital Signs: Vital Signs Date Time Temp Pulse Resp B/P (MAP) Pulse Ox O2 Delivery O2 Flow Rate FiO2 08/22/20 13:30 76 133/67 (89) 97 Room Air 08/22/20 10:36 98.0 24 98.0 EKG: EKG: [] Radiology/Procedures: Radiology/Procedures: [] Course & Med Decision Making: Course & Med Decision Making Pertinent Labs and Imaging studies reviewed. (See chart for details) Patient weighs 444 pounds, MRI weight limit is 440. CT imaging performed after EMR review -had left upper lobe pneumonia in October 2019. Symptoms not resemble LVO CVA.. Images unremarkable. I spoke to neurology Dr. Reynoso who recommends outpatient EMG. Patient with no neuropathy. Will discharge home with strict ED return precautions were given for skin color changes, paralysis, weakness. Encouraged urgent outpatient follow-up with PMD and neurology. Life- threatening processes were considered but are low suspicion at this time, given history, physical exam and ED workup. Pt was educated on all prescription medications and adverse effects. All patient's questions were answered and pt was stable at time of discharge. Life/limb-threatening differential includes but is not limited to, burak's angina, peritonsillar abscess, retropharyngeal abscess, epiglottitis, bacterial tracheitis, uvulitis, sepsis, mastoiditis, traumatic injury, carotid/vertebral dissection, intracranial aneurysms or neurologic process. I spoken with the patient and her caregivers. I explained the patient's condition, diagnoses and treatment plan based on the information available to me at this time. I have answered the patient and her caregiver's questions and addressed any concerns. The patient and her caregivers have a good understanding of patient's diagnosis, condition and treatment plan as can be expected at this point. Vital signs have been stable. Patient's condition is stable and appropriate for discharge from the emergency department. Patient will pursue further outpatient evaluation with primary care physician or other designated or consulting physician as outlined in the discharge instructions. The patient and/or caregivers are agreeable to this plan of care and follow-up instructions have been explained in detail. The patient and/or caregivers have received these instructions in written form and have expressed an understanding of the discharge instructions. The patient and/or caregivers are aware that any significant change of condition or worsening of symptoms s hould prompt immediate return to this or the closest emergency department or call to Sherfi Brantarianna Disclaimer: Matthew Disclaimer: This electronic medical record was generated, in whole or in part, using a voice recognition dictation system. Departure Departure Impression: Primary Impression: Neck pain on left side Additional Impression: Finger problem Disposition: 01 DC HOME SELF CARE/HOMELESS Condition: STABLE Referrals: ARIANA MARSHALL MD (PCP) for routine care in 1-2 weeks Patient Instructions: Musculoskeletal Pain, Weakness Additional Instructions: FOLLOW UP WITH NEUROLOGY: [facility] Address: [address] [place] [address] EMERGENCY DEPARTMENT GENERAL DISCHARGE INSTRUCTIONS Thank you for coming to [facility] Emergency Department (ED) today and trusting us with you care. We trust that you had a positive experience in our Emergency Department. If you wish to speak to the department management, you may call the Director at [phone]. YOUR FOLLOW UP INSTRUCTIONS ARE FOLLOWS: 1. Do you have a private Doctor? If you do not have a private doctor, please ask for a resource list of physicians or clinics that may be able to assist you with f ollow up care. 2. The Emergency Physicain has interpreted your x-rays. The X-Ray specialist will also review them. If there is a change in the findings, you will be notified in 48 hours when at all possible. 3. A lab test or culture has been done, your results will be reviewed and you will be notified if you need a change in treatment. ADDITIONAL INSTRUCTIONS AND INFORMATION: 1. Your care today has been supervised by a physician who is specially trained in emergency care. Many problems require more than one evaluation for a complete diagnosis and treatment. We recommend that you schedule your follow up appointment as recommended to ensure complete treatment of you illness or injury. If you are unable to obtain follow up care and continue to have a problem, or if your condition worsens, we recommend that you return to the ED. 2. We are not able to safely determine your condition over the phone nor are we able to give sound medical advice over the phone. For these safety reasons, if you call for medical advice we will ask you to come to the ED for further evaluation. 3. If you have any questions regarding these discharge instructions please call the ED at [phone]. SAFETY INFORMATION: In the interest of safety, wellness, and injury prevention; we encourage you to wear your sealbelt, if you smoke; quite smoking, and we encourage family to use a protective helmet for bicycling and other sporting events that present an increased risk for head injury. IF YOUR SYMPTOMS WORSEN OR NEW SYMPTOMS DEVELOP, OR YOU HAVE CONCERNS ABOUT YOUR CONDITION; OR IF YOUR CONDITION WORSENS WHILE YOU ARE WAITING FOR YOUR FOLLOW UP APPOINTMENT; EITHER CONTACT YOUR PRIMARY CARE DOCTOR, THE PHYSICIAN WHOSE NAME AND NUMBER YOU WERE GIVEN, OR RETURN TO THE ED IMMEDIATELY. Scripts Methocarbamol (ROBAXIN-750) 750 Mg Tablet 1 TAB PO TID for 7 Days, #21 TAB 0 Refills Prov: SHERON RIZO DO 08/22/20 SHERON RIZO DO Aug 22, 2020 14:58
== END 2020-08-22 15:03 | disposition home or self-care (01) ==
LOC: ER 10:23
DX: M54.2 Cervicalgia (principal); M54.6 Pain in thoracic spine; R20.2 Paresthesia of skin; E11.9 Type 2 diabetes mellitus without complications; I10 Essential (primary) hypertension; E66.9 Obesity, unspecified; Z68.44 Body mass index [BMI] 60.0-69.9, adult; Z87.891 Personal history of nicotine dependence; Z90.89 Acquired absence of other organs; Z98.890 Other specified postprocedural states; Z86.14 Personal history of Methicillin resistant Staphylococcus aureus infection
CPT/HCPCS: 36415; 70450; 71260; 72125; 80053; 85007; 85025; 96374; 99285; J1170; Q9967

== ENCOUNTER 2020-10-21 19:44 | Emergency (ER) | payer MEDICARE ==
[~2020-10-21] VITALS: Ht 182.9 cm; Wt 197.3 kg
[~2020-10-21 19:44] MED LIST changes: +METH-38 PO
[2020-10-21] MEDS ORDERED: MORPHINE SULFATE 4 MG/ML VIAL. IV ONE (21:00)
[2020-10-21] MEDS ORDERED: IV NORMAL SALINE 1000ML BAG 1,000 ML IV ONE ×2 (21:00)
--- NOTE | 2020-10-21 21:03 | PHYS DOC ---
Past Medical History Past Medical History: Diabetes-Type II, Hypertension, Other Additional Past Medical Histor: Crohn's disease, SBO, MRSA, obesity Past Surgical History: Colectomy, Other Additional Past Surgical Histo: Full bowel resection w/stoma placement, HERNIA Smoking Status: Former Smoker Alcohol Use: Occasionally Drug Use: None General Adult EDM: Chief Complaint: ABDOMINAL PAIN HPI: HPI: Patient is a 35 year old male presents with the chief complaint of left sided abdominal pain. Patient has a colostomy in places RLQ. Pain Left abdomen x 3 days progressively worse. Associated nausea but denies vomiting. States he has had decreased stool output from colostomy. Review of Systems: Review of Systems: Constitutional: Denies fever or chills. [] Eyes: Denies change in visual acuity. [] HENT: Denies nasal congestion or sore throat. [] Respiratory: Denies cough or shortness of breath. [] Cardiovascular: Denies chest pain or edema. [] GI: positive abdominal pain, positive nausea, denies vomiting, bloody stools or diarrhea. [] : Denies dysuria. [] Musculoskeletal: Denies back pain or joint pain. [] Integument: Denies rash. [] Neurologic: Denies headache, focal weakness or sensory changes. [] Endocrine: Denies polyuria or polydipsia. [] Lymphatic: Denies swollen glands. [] Psychiatric: Denies depression or anxiety. [] Heart Score: C/O Chest Pain: N/A Risk Factors: Risk Factors: DM, Current or recent (<one month) smoker, HTN, HLP, family history of CAD, obesity. Risk Scores: Score 0 - 3: 2.5% MACE over next 6 weeks - Discharge Home Score 4 - 6: 20.3% MACE over next 6 weeks - Admit for Clinical Observation Score 7 - 10: 72.7% MACE over next 6 weeks - Early Invasive Strategies Current Medications: Current Medications Medications (Trade) Dose Ordered Sig/Marlo Start Time Stop Time Status Last Admin Dose Admin Morphine Sulfate (Morphine Sulfate) 4 mg 1X ONCE 10/21/20 21:00 10/21/20 21:01 Sodium Chloride 1,000 ml @ 1,000 mls/hr 1X ONCE 10/21/20 21:00 10/21/20 21:59 Allergies: Allergies: Allergies Coded Allergies Type Severity Reaction Last Updated Verified No Known Drug Allergies 08/22/20 No Physical Exam: PE: Constitutional: Well developed, well nourished, no acute distress, non-toxic appearance. [] HENT: Normocephalic, atraumatic, bilateral external ears normal, oropharynx moist, no oral exudates, nose normal. [] Eyes: PERRLA, EOMI, conjunctiva normal, no discharge. [] Neck: Normal range of motion, no tenderness, supple, no stridor. [] Cardiovascular:Heart rate regular rhythm, no murmur [] Lungs & Thorax: Bilateral breath sounds clear to auscultation [] Abdomen: Bowel sounds normal, soft, no tenderness, no masses, no pulsatile masses. [] Skin: Warm, dry, no erythema, no rash. [] Back: No tenderness, no CVA tenderness. [] Extremities: No tenderness, no cyanosis, no clubbing, ROM intact, no edema. [] Neurologic: Alert and oriented X 3, normal motor function, normal sensory function, no focal deficits noted. [] Psychologic: Affect normal, judgement normal, mood normal. [] Current Patient Data: Vital Signs: Vital Signs Date Time Temp Pulse Resp B/P (MAP) Pulse Ox O2 Delivery O2 Flow Rate FiO2 10/21/20 19:53 98.1 119 18 147/96 (113) 96 Room Air 98.1 EKG: EKG: [] Radiology/Procedures: Radiology/Procedures: [] Course & Med Decision Making: Course & Med Decision Making Pertinent Labs and Imaging studies reviewed. (See chart for details) [] Patient was evaluated for chief complaint. Work-up consisted of laboratory analysis and radiologic imaging. Results reviewed and discussed with patient. Treatment morphine for pain with some improvement. CT abdomen no acute abnormalities. Patient discharged home on pain medications. Dragon Disclaimer: [employer] Disclaimer: This electronic medical record was generated, in whole or in part, using a voice recognition dictation system. Departure Departure Impression: Primary Impression: Abdominal pain Disposition: 01 DC HOME SELF CARE/HOMELESS Condition: STABLE Referrals: ARIANA MARSHALL MD (PCP) Patient Instructions: Abdominal Pain Scripts Tramadol Hcl (ULTRAM) 50 Mg Tablet 1 TAB PO PRN Q6HRS PRN for pain MDD 4 Tablet(s) for 7 Days, #20 TAB 0 Refills Prov: CASS GANNON DO 10/21/20 CASS GANNON DO Oct 21, 2020 21:03
[2020-10-21] MEDS ORDERED: IOHEXOL 300 MG/ML 100ML VIAL. IV ONE (21:15)
[2020-10-21 21:19] LABS: BASO # 0.1 x10^3/uL (0.0-0.2); BASO % 1 % (0-3); EOS # 0.1 x10^3/uL (0.0-0.7); EOS % 2 % (0-3); HEMATOCRIT 41.4 % (39.0-53.0); HEMOGLOBIN 14.1 g/dL (13.0-17.5); LYMPH # 0.6 x10^3/uL (1.0-4.8); LYMPH % 8 % (24-48); MEAN CORPUSCULAR HEMOGLOBIN 29 pg (25-35); MEAN CORPUSCULAR HGB CONC 34 g/dL (31-37); MEAN CORPUSCULAR VOLUME 84 fL (79-100); MONO # 0.7 x10^3/uL (0.0-1.1); MONO % 9 % (0-9); NEUT # 6.4 x10^3/uL (1.8-7.7); NEUT % 81 % (31-73); PLATELET COUNT 263 x10^3/uL (140-400); RED BLOOD COUNT 4.92 x10^6/uL (4.30-5.70); WHITE BLOOD COUNT 7.9 x10^3/uL (4.0-11.0)
[2020-10-21 21:24] LABS: CREATININE 0.8 mg/dL (0.7-1.3); GFR 108.8; POTASSIUM 4.3 mmol/L (3.5-5.1)
[2020-10-21 21:30] LABS: ALBUMIN 2.8 g/dL (3.4-5.0); ALBUMIN/GLOBULIN RATIO 0.5 (1.0-1.7); TOTAL BILIRUBIN 0.6 mg/dL (0.2-1.0)
[2020-10-21] MEDS ORDERED: CONTRAST GIVEN. MC PRN (21:30)
--- NOTE | 2020-10-21 22:08 | RAD ---
CT abdomen pelvis with contrast dated 10/21/2020. No comparison available. CLINICAL INDICATION: Abdominal pain left upper quadrant. TECHNIQUE: Contiguous axial imaging the abdomen pelvis performed after the administration of 75 cc Omnipaque 300 . One or more of the following individualized dose reduction techniques were utilized for this examinat ion: 1. Automated exposure control 2. Adjustment of the mA and/or kV according to patient size 3. Use of iterative reconstruction technique. FINDINGS: Limited images of the lung bases are clear. Heart size is within normal limits. No pleural or pericar dial effusion. Liver, spleen, pancreas, adrenal glands, gallbladder and kidneys are unremarkable. No hydronephrosis. GI tract is not well evaluated due to body habitus and exclusion portions of the colon and small khalida l in the exam. There appears to be an ostomy in the right midabdomen. The small and large bowel are w ithin normal limits in caliber. No apparent wall thickening or mesenteric inflammatory change. No elyssa nopathy or ascites. There is a duplicated IVC. Images of pelvis show nondistended urinary bladder. Prostate gland normal in size. No free fluid. The re are borderline enlarged bilateral inguinal lymph nodes. No iliac chain lymphadenopathy. Bone windows show no acute findings. Multilevel spondylosis. IMPRESSION: 1. Limited exam. No apparent acute abnormality. 2. Evidence of prior ventral hernia with possible areas of hernia recurrence, not well evaluated. The re is a right upper quadrant ostomy. Electronically signed by: Ryan Barnhart MD (10/21/2020 10:06 PM) [facility]
[2020-10-21] MEDS ORDERED: TRAM-48 PO (22:17)
[2020-10-21 22:35] VITALS: BP 161/88
== END 2020-10-21 22:39 | disposition home or self-care (01) ==
LOC: ER 19:44
DX: R10.31 Right lower quadrant pain (principal); R11.0 Nausea; E11.9 Type 2 diabetes mellitus without complications; I10 Essential (primary) hypertension; K50.90 Crohn's disease, unspecified, without complications; Z86.14 Personal history of Methicillin resistant Staphylococcus aureus infection; Z87.891 Personal history of nicotine dependence; Z90.49 Acquired absence of other specified parts of digestive tract
CPT/HCPCS: 36415; 74177; 80053; 83690; 85025; 96361; 96374; 99285; J2270; J7030; Q9967

== ENCOUNTER 2020-10-31 02:45 | Emergency (ER) | payer MEDICARE ==
[~2020-10-31 02:45] MED LIST changes: +TRAM-48 PO
[2020-10-31 02:58] VITALS: BP 141/86
[2020-10-31] MEDS ORDERED: HYDROcodone/APAP 5/325MG 1 TAB TABLET PO ONE (04:00)
[2020-10-31] MEDS ORDERED: HYDR-2761 PO (04:07)
--- NOTE | 2020-10-31 04:07 | PHYS DOC ---
Past Medical History Past Medical History: Diabetes-Type II, Hypertension, Other Additional Past Medical Histor: Crohn's disease, SBO, MRSA, obesity Past Surgical History: Colectomy, Other Additional Past Surgical Histo: Full bowel resection w/stoma placement, HERNIA Smoking Status: Former Smoker Alcohol Use: Occasionally Drug Use: None General Adult EDM: Chief Complaint: ANKLE PROBLEM HPI: HPI: Patient is a 35 year old male presents with report of left ankle and foot pain that started last night. Review of Systems: Review of Systems: Constitutional: Denies fever or chills. [] Eyes: Denies change in visual acuity. [] HENT: Denies nasal congestion or sore throat. [] Respiratory: Denies cough or shortness of breath. [] Cardiovascular: Denies chest pain or edema. [] GI: Denies abdominal pain, nausea, vomiting, bloody stools or diarrhea. [] : Denies dysuria. [] Musculoskeletal: Denies back pain or joint pain. [] Integument: Denies rash. [] Neurologic: Denies headache, focal weakness or sensory changes. [] Endocrine: Denies polyuria or polydipsia. [] Lymphatic: Denies swollen glands. [] Psychiatric: Denies depression or anxiety. [] Heart Score: Risk Factors: Risk Factors: DM, Current or recent (<one month) smoker, HTN, HLP, family history of CAD, obesity. Risk Scores: Score 0 - 3: 2.5% MACE over next 6 weeks - Discharge Home Score 4 - 6: 20.3% MACE over next 6 weeks - Admit for Clinical Observation Score 7 - 10: 72.7% MACE over next 6 weeks - Early Invasive Strategies Current Medications: Current Medications Medications (Trade) Dose Ordered Sig/[facility] Start Time Stop Time Status Last Admin Dose Admin Acetaminophen/ Hydrocodone Bitart (Lortab 5/325) 1 tab 1X ONCE 10/31/20 04:00 10/31/20 04:01 DC Allergies: Allergies: Allergies Coded Allergies Type Severity Reaction Last Updated Verified No Known Drug Allergies 08/22/20 No Physical Exam: PE: Constitutional: Well developed, well nourished, no acute distress, non-toxic appearance. [] HENT: Normocephalic, atraumatic, bilateral external ears normal, oropharynx moist, no oral exudates, nose normal. [] Eyes: PERRLA, EOMI, conjunctiva normal, no discharge. [] Neck: Normal range of motion, no tenderness, supple, no stridor. [] Cardiovascular:Heart rate regular rhythm, no murmur [] Lungs & Thorax: Bilateral breath sounds clear to auscultation [] Abdomen: Bowel sounds normal, soft, no tenderness, no masses, no pulsatile masses. [] Skin: Warm, dry, no erythema, no rash. [] Back: No tenderness, no CVA tenderness. [] Extremities: No tenderness, no cyanosis, no clubbing, ROM intact, no edema. [] Neurologic: Alert and oriented X 3, normal motor function, normal sensory function, no focal deficits noted. [] Psychologic: Affect normal, judgement normal, mood normal. [] EKG: EKG: [] Radiology/Procedures: Radiology/Procedures: [] Course & Med Decision Making: Course & Med Decision Making Pertinent Labs and Imaging studies reviewed. (See chart for details) [] Dragon Disclaimer: Dragon Disclaimer: This electronic medical record was generated, in whole or in part, using a voice recognition dictation system. Departure Departure Impression: Primary Impression: Pain in joint involving left ankle and foot Disposition: 01 DC HOME SELF CARE/HOMELESS Condition: STABLE Referrals: ARIANA MARSHALL MD (PCP) Patient Instructions: Ankle Sprain, [id number], Foot Sprain Additional Instructions: Wear walking boot while up and about. Scripts Hydrocodone Bit/Acetaminophen (HYDROCODONE-APAP 5-325 ) 1 Tab Tablet 0.5-1 TAB PO PRN Q6HRS PRN for PAIN, #10 TAB 0 Refills Prov: PRECIOUS STAFFORD DO 10/31/20 PRECIOUS STAFFORD DO Oct 31, 2020 04:07
--- NOTE | 2020-10-31 04:31 | RAD ---
3 view left foot and three-view left ankle HISTORY: Pain AP lateral oblique views 3 view left ankle: The visualized osseous structures appear normal. The tibiotalar relationship is normal. IMPRESSION: No acute findings. End impression 3 view left foot: The visualized osseous structures appear normal. IMPRESSION: No acute findings. Electronically signed by: Giovanni Sainz III, MD (10/31/2020 4:28 AM) [facility]
== END 2020-10-31 05:41 | disposition home or self-care (01) ==
LOC: ER 02:45
DX: M79.672 Pain in left foot (principal); M25.572 Pain in left ankle and joints of left foot; E11.9 Type 2 diabetes mellitus without complications; I10 Essential (primary) hypertension; E66.8 Other obesity; Z86.14 Personal history of Methicillin resistant Staphylococcus aureus infection; Z87.891 Personal history of nicotine dependence; Z98.890 Other specified postprocedural states; Z90.89 Acquired absence of other organs
CPT/HCPCS: 73610; 73630; 99284